=== PATIENT | female | born 1965 | race Two or more races ===

== ENCOUNTER → 2022-10-13 09:20 | Outpatient (BNVA) | payer MEDICARE, OTHER, SELFPAY | PROVIDERS: PCP Internal Medicine; Visit Provider Surgery | DX: E66.01 Morbid (severe) obesity due to excess calories (principal); I10 Essential (primary) hypertension; K21.9 Gastro-esophageal reflux disease without esophagitis; G47.30 Sleep apnea, unspecified; Z68.39 Body mass index [BMI] 39.0-39.9, adult | CPT/HCPCS: Q3014 ==

== ENCOUNTER → 2022-10-15 10:31 | Outpatient (REF) | payer MEDICARE, OTHER, SELFPAY ==
--- NOTE | ~2022-10-15 | XR_ITS ---
EXAMINATION: XR CHEST CLINICAL INFORMATION: Essential primary hypertension. COMPARISON: None TECHNIQUE: 2 views of the chest were obtained. FINDINGS: The lungs are well-expanded and clear. The heart size and pulmonary vascularity is normal. No gross bony abnormality seen. XR/XR chest 2V IMPRESSION: Unremarkable chest examination.
--- NOTE | 2022-10-15 10:41 | ECG_ITS ---
Test Reason : I10 - essential hypertension Blood Pressure : / mmHG Vent. Rate : 061 BPM Atrial Rate : 061 BPM P-R Int : 156 ms QRS Dur : 094 ms QT Int : 422 ms P-R-T Axes : 046 -04 027 degrees QTc Int : 424 ms Normal sinus rhythm Normal ECG No previous ECGs available Referred By: Pravin Vazquez Electronically Signed By:RUTHIE TRAN MD
[2022-10-15 10:46] LABS: MANUAL DIFF FLAG NO
[2022-10-15 10:58] LABS: Basophils Absolute Auto 0.1 X10*3/uL (0.0-0.2); Basophils Percent Auto 0.7 % (0-2); Eosinophils Absolute Auto 0.1 X10*3/uL (0.0-0.4); Eosinophils Percent Auto 1.5 % (0-4); Hematocrit 44.1 % (37.0-47.0); Hemoglobin 14.1 g/dl (12.0-16.0); Imm Gran Abs Auto 0.02 X10*3/uL (0.00-0.03); Imm Gran Pct Auto 0.3 % (0.0-0.4); Lymphocytes Absolute Auto 2.6 X10*3/uL (1.2-4.9); Lymphocytes Percent Auto 36.9 % (20-40); Mean Corpuscular Hemoglobin 29.4 pg (27.0-33.0); Mean Corpuscular Volume 91.9 fL (80.0-98.0); Mean Platelet Volume 9.4 fL (9.4-12.3); Monocytes Absolute Auto 0.4 X10*3/uL (0.1-1.2); Monocytes Percent Auto 6.2 % (2-11); Neutrophils Absolute Auto 3.9 x10*3/uL (2.0-8.3); Neutrophils Percent Auto 54.4 % (45-73); Platelet Count 442 X10*3/uL (160-400); Red Cell Distribution Width 13.8 % (11.0-16.0); White Blood Count 7.1 X10*3/uL (4.8-10.8)
[2022-10-15 11:40] LABS: Alanine Aminotransferase 30 U/L (0-31); Albumin Level 4.5 g/dL (3.5-5.0); Alkaline Phosphatase 98 U/L (39-117); Anion Gap 17 (12-20); Aspartate Amino Transferase 21 U/L (5-31); Bilirubin Total 0.5 mg/dL (0.0-1.0); Blood Urea Nitrogen 24 mg/dL (9-16); Carbon Dioxide 25 mmol/L (22-29); Chloride 101 mmol/L (96-108); Cholesterol 284 mg/dL; Estimated Glomerular Filt Rate 56; Glucose Random 93 mg/dL (60-115); HDL Cholesterol 59 mg/dL; Iron 153 mcg/dL (30-160); LDL Cholesterol Calculated 208 mg/dl; Percent Iron Saturation 34 % (15-50); Potassium 4.7 mmol/L (3.3-5.1); Sodium 138 mmol/L (135-145); Total Iron Binding Capacity 447 mcg/dL (228-428); Total Protein 7.8 g/dL (6.5-8.0); Triglycerides 85 mg/dL; Unsaturated Iron Binding 294 ug/dL
[2022-10-15 11:45] LABS: Estimated Average Glucose 123 mg/dL; Hemoglobin A1C 152.6919 umol/L; Hemoglobin A1c % 5.9 %
[2022-10-15 11:47] LABS: Ferritin 209 ng/mL (10-250); Insulin 15 uU/mL (2-29); TSH reflex Free T4 4.53 uIU/mL (0.32-4.0); Vitamin D 25-OH Total 27.9 ng/mL (>30)
[2022-10-15 12:22] LABS: Free T4 (Free Thyroxine) 0.94 ng/dL (0.71-1.85)
[2022-10-15 14:16] LABS: Folate 14.9 ng/mL (> or = 4.0); Vitamin B12 348 pg/mL (200-900)
[2022-10-17 10:17] LABS: Calcium (PTHI) 9.8 mg/dL (8.6-10.4); PTHI 59 pg/mL (16-77)
[2022-10-19 17:22] LABS: Vitamin B1 18 nmol/L (8-30)
[2022-10-19 19:41] LABS: Zinc 106 mcg/dL (60-130)
[2022-10-20 09:37] LABS: Vitamin A 80 mcg/dL (38-98)
== END ==
LOC: HO.CARD 10:31
PROVIDERS: PCP Internal Medicine; Visit Provider Surgery
DX: E66.01 Morbid (severe) obesity due to excess calories (principal); G47.30 Sleep apnea, unspecified; I10 Essential (primary) hypertension; K21.9 Gastro-esophageal reflux disease without esophagitis
CPT/HCPCS: 36415; 71046; 80053; 80061; 82306; 82607; 82728; 82746; 83036; 83525; 83540; 83970; 84425; 84439; 84443; 84590; 84630; 85025; 86140; 93005

== ENCOUNTER → 2022-11-05 10:11 | Outpatient (BNVA) | payer MEDICARE, OTHER, SELFPAY | PROVIDERS: PCP Internal Medicine; Visit Provider Physician Assistant Surgical | DX: Z11.0 Encounter for screening for intestinal infectious diseases (principal) | CPT/HCPCS: 83013; 99211 ==

== ENCOUNTER 2022-11-05 15:25 | Outpatient (REF) | payer MEDICARE, OTHER, SELFPAY ==
[2022-11-07 15:27] LABS: H Pylori Breath Test Negative (Negative)
== END 2022-11-05 15:26 | disposition home or self-care (01) ==
LOC: HO.LNP 15:25
PROVIDERS: Visit Provider Surgery
DX: Z13.89 Encounter for screening for other disorder (principal)
CPT/HCPCS: 83013

== ENCOUNTER → 2022-11-08 08:12 | Outpatient (BNVA) | payer MEDICARE, OTHER, SELFPAY | PROVIDERS: PCP Internal Medicine; Visit Provider Surgery | DX: E66.9 Obesity, unspecified (principal); I10 Essential (primary) hypertension; G47.30 Sleep apnea, unspecified; Z68.38 Body mass index [BMI] 38.0-38.9, adult | CPT/HCPCS: Q3014 ==

== ENCOUNTER → 2022-11-09 13:33 | Outpatient (BNVA) | payer MEDICARE, OTHER, SELFPAY | PROVIDERS: PCP Internal Medicine; Visit Provider Dietitian, Registered | DX: E66.9 Obesity, unspecified (principal); Z68.38 Body mass index [BMI] 38.0-38.9, adult | CPT/HCPCS: 97802 ==

== ENCOUNTER → 2022-11-18 13:00 | Outpatient (BNVA) | payer MEDICARE, OTHER, SELFPAY | PROVIDERS: PCP Internal Medicine; Visit Provider Counselor Mental Health | DX: F50.81 Binge eating disorder (principal); E66.9 Obesity, unspecified | CPT/HCPCS: 90791 ==

== ENCOUNTER → 2022-12-03 08:19 | Outpatient (BNVA) | payer MEDICARE, OTHER, SELFPAY | PROVIDERS: PCP Internal Medicine; Visit Provider Surgery | DX: E66.9 Obesity, unspecified (principal); Z68.42 Body mass index [BMI] 45.0-49.9, adult | CPT/HCPCS: Q3014 ==

== ENCOUNTER 2022-12-14 08:37 | Outpatient (REF) | payer MEDICARE, OTHER, SELFPAY ==
--- NOTE | ~2022-12-14 | US_ITS ---
EXAMINATION: US COMPLETE ABDOMEN WITH LIVER ELASTOGRAPHY CLINICAL INFORMATION: Morbid obesity. COMPARISON: None. TECHNIQUE: Real-time imaging of the abdominal viscera. Noninvasive ultrasound liver fibrosis assessment is performed using Mariah ElastPQ point quantification shear wave elastography (2D-SWE) with a C5-2 MHz transducer. Multiple elastography samples are obtained. FINDINGS: PANCREAS: Normal. The visualized pancreatic head and body are normal in appearance. The remainder of the pancreas is obscured from visualization by the overlying bowel gas. ABDOMINAL AORTA: The proximal, middle, and distal aortic segments are normal in caliber. INFERIOR VENA CAVA: Visualized portions are normal. LIVER: The liver demonstrates normal size, contour and increased echogenicity. No focal lesion or intrahepatic biliary duct dilatation. The right lobe measures 13.3 cm in length. The left lobe measures 7.7 cm in length. Portal flow is hepatopedal. Shear wave liver elastography median stiffness is 1.33 m/s (reference: normal median stiffness is 1.3 m/s or less). IQR/median stiffness to assess sampling precision is 0 point (reference: good quality data set is IQR/median stiffness of 0.15 or less). GALLBLADDER: Normal. The gallbladder is physiologically distended without evidence of stones, sludge, polyps, wall thickening or pericholecystic fluid. COMMON BILE DUCT: CBD is not visualized.. RIGHT KIDNEY: Normal. No hydronephrosis. No renal calculi or focal parenchymal lesions. The kidney measures 11.7 cm in maximum dimension. LEFT KIDNEY: Normal. No hydronephrosis. No renal calculi or focal parenchymal lesions. The kidney measures 10.9 cm in maximum dimension. SPLEEN: Normal. The spleen measures 10.2 cm in maximum dimension. FREE FLUID: None. US/US abdomen comp w elastography IMPRESSION: 1. Diffuse hepatic steatosis without focal lesion. No focal lesion seen. The rest of the abdominal ultrasound is unremarkable. 2. Liver elastography: Median liver stiffness measures 1.33 m/s suggestive of high probability normal. REFERENCE: Society of Radiologists in Ultrasound Liver Stiffness Thresholds (2020): LIVER STIFFNESS THRESHOLDS: *Liver Stiffness equal or less than 1.3 m/s: High probability of being normal. *Liver Stiffness less than 1.7 m/s: In the absence of other known clinical signs, rules out compensated advanced chronic liver disease. *Liver Stiffness 1.7-2.1 m/s: Suggestive of compensated advanced chronic liver disease but need further test for confirmation. *Liver Stiffness over 2.1 m/s: Rules in compensated advanced chronic liver disease. *Liver Stiffness over 2.4 m/s: Suggestive of clinically significant portal hypertension. QUALITY OF DATA SET: *IQR/Median value equal or less than 0.15 implies a quality data set. *IQR/Median value over 0.15 implies a poor quality data set. SIGNIFICANT CHANGE FROM PRIOR EXAM: Significant change if liver stiffness measurement is 10% or greater from prior exam. OTHER CONSIDERATIONS: The stage of liver fibrosis may be overestimated in the setting of acute hepatitis, liver inflammation, elevated liver function tests, hepatic vascular congestion, obstructive cholestasis, non-fasting state, and infiltrative diseases such as amyloidosis and lymphoma. In some patients with NAFLD, the liver stiffness thresholds for compensated advanced chronic liver disease may be lower. In causes other than viral hepatitis and NAFLD, liver stiffness thresholds are not well established.
--- NOTE | ~2022-12-14 | FL_ITS ---
EXAMINATION: XR FLUOROSCOPY UPPER GI WITH AIR CLINICAL INFORMATION: Essential hypertension. Preoperative. Obesity. COMPARISON: None TECHNIQUE: Fluoroscopic assessment of the upper GI tract was performed in various upright and supine/prone obliquities utilizing thin and thick high density barium contrast material and effervescent granules. FINDINGS: The esophagus was normal in course, caliber, and contour. There was normal distensibility with no fixed segment of narrowing. No focal mucosal abnormality was identified. A 13 mm barium tablet was utilized. This passed through the esophagus and into the stomach without delay. No significant esophageal dysmotility was observed. Contrast passed freely across the gastroesophageal junction into the stomach. No significant hiatal hernia. There was normal distensibility of the stomach with no focal abnormality identified. There was prompt gastric emptying into the duodenum which demonstrated a normal appearance. No significant gastroesophageal reflux was observed. FLUOROSCOPY TIME: 1.7 minutes DOSE AREA PRODUCT: 32.447 Gy-cm2 (hammer-centimeter squared) FL/FL upper GI w air IMPRESSION: Normal upper GI examination.
[2022-12-14 08:59] LABS: MANUAL DIFF FLAG NO
[2022-12-14 09:23] LABS: Basophils Percent Auto 0.8 % (0-2); Eosinophils Absolute Auto 0.1 X10*3/uL (0.0-0.4); Eosinophils Percent Auto 2.5 % (0-4); Hematocrit 42.3 % (37.0-47.0); Imm Gran Abs Auto 0.01 X10*3/uL (0.00-0.03); Imm Gran Pct Auto 0.2 % (0.0-0.4); Lymphocytes Absolute Auto 1.9 X10*3/uL (1.2-4.9); Lymphocytes Percent Auto 36.5 % (20-40); Mean Corpuscular HGB Conc 33.1 g/dl (31.0-35.0); Mean Corpuscular Volume 90.8 fL (80.0-98.0); Mean Platelet Volume 10.2 fL (9.4-12.3); Monocytes Absolute Auto 0.3 X10*3/uL (0.1-1.2); Monocytes Percent Auto 6.1 % (2-11); Neutrophils Absolute Auto 2.8 x10*3/uL (2.0-8.3); Neutrophils Percent Auto 53.9 % (45-73); Platelet Count 367 X10*3/uL (160-400); Red Blood Count 4.66 X10*6/uL (4.20-5.50); Red Cell Distribution Width 13.9 % (11.0-16.0); White Blood Count 5.2 X10*3/uL (4.8-10.8)
[2022-12-14 09:26] LABS: Prothrombin Time 11.8 SEC (10.0-13.1)
[2022-12-14 09:29] LABS: Partial Thromboplastin Time 32.8 SEC (26.0-36.4)
[2022-12-14 09:59] LABS: Estimated Average Glucose 105 mg/dL; Hemoglobin A1c % 5.3 %
[2022-12-14 10:38] LABS: Alanine Aminotransferase 38 U/L (0-31); Albumin Level 4.3 g/dL (3.5-5.0); Alkaline Phosphatase 97 U/L (39-117); Anion Gap 11 (12-20); Aspartate Amino Transferase 33 U/L (5-31); Bilirubin Total 0.4 mg/dL (0.0-1.0); Blood Urea Nitrogen 13 mg/dL (9-16); C Reactive Protein 0.48 mg/dL (< or = 0.50); Calcium 9.8 mg/dL (8.4-10.2); Carbon Dioxide 28 mmol/L (22-29); Chloride 106 mmol/L (96-108); Cholesterol 214 mg/dL; Estimated Glomerular Filt Rate > 60; Glucose Random 94 mg/dL (60-115); HDL Cholesterol 41 mg/dL; LDL Cholesterol Calculated 155 mg/dl; Potassium 4.9 mmol/L (3.3-5.1); Sodium 140 mmol/L (135-145); Total Protein 7.3 g/dL (6.5-8.0); Triglycerides 91 mg/dL
[2022-12-14 10:42] LABS: Insulin 10 uU/mL (2-29); TSH reflex Free T4 2.68 uIU/mL (0.32-4.0)
== END 2022-12-14 08:38 | disposition home or self-care (01) ==
LOC: HO.US 08:37
PROVIDERS: PCP Internal Medicine; Visit Provider Surgery
DX: E66.01 Morbid (severe) obesity due to excess calories (principal); Z68.36 Body mass index [BMI] 36.0-36.9, adult; G47.30 Sleep apnea, unspecified; I10 Essential (primary) hypertension; K21.9 Gastro-esophageal reflux disease without esophagitis
CPT/HCPCS: 36415; 74246; 76705; 76981; 80053; 80061; 83036; 83525; 84443; 85025; 85610; 85730; 86140

== ENCOUNTER → 2022-12-17 12:47 | Outpatient (BNVA) | payer MEDICARE, OTHER, SELFPAY | PROVIDERS: PCP Internal Medicine; Visit Provider Surgery | DX: Z13.89 Encounter for screening for other disorder (principal) ==

== ENCOUNTER 2022-12-21 06:07 | Inpatient (IN) | payer MEDICARE, OTHER, SELFPAY ==
[2022-12-10 13:36] VITALS: BMI 37.1
--- NOTE | 2022-12-17 23:58 | MHC.SHP ---
Pre-Procedural Eval Section A Date of Service: 12/17/22 The patient is an INPATIENT: Yes The History & Physical has been completed within 30 days and I have reviewed it.: Yes Section B Chief Complaint: obesity Relevant Family History (Specify if Yes): No Relevant Social History: None Present Medications: None Medical History: No relevant PMH History of Previous Operations: No relevant previous surgery Allergies: Allergies Allergy/AdvReac Type Severity Reaction Status Date / Time No Known Allergies Allergy Verified 12/03/22 10:14 Review of Systems Sugical H&P ROS: Negative: Constitution, Cardiovascular, Respiratory, Neurological, Psychiatric, Hem-Onc, Allergic/Immunologic, Gastrointestinal, Genitourinary, Musculoskeletal, Integumentary, Endocrine and Eyes/Ears/Nose/Throat Exam Surgical H&P Exam: Normal: HEENT, Normal: Heart, Normal: Lungs, Normal: Extremities, Normal: Abdomen, Normal: Skin and Normal: Neurological Plan Diagnosis/Plan: Unchanged I have reviewed the history and physical and performed a pertinent physical examination on my patient. No changes have occurred unless specified. Time Spent With Patient Time: Total time managing care of this patient today ____ minutes.
[2022-12-20 14:08] LABS: COVID-19 Test Negative (Negative); IDNOW Serial# 9DB6401D
[2022-12-21] VITALS (14 sets, daily range): BP systolic 122–153; BP diastolic 61–73; PULSE 61–89; RESP 11–20; TEMP 35.9–36.5; O2SAT 93–100; BMI 33.6
--- OUTSIDE RECORDS SUMMARY | 2022-12-21 06:17 | XMS_ITS | Continuity of Care Document ---
:[address] [facility] Address [address] [place] [address]- Care Team Providers Name Role Phone Rosa GONZALEZ, Bakari Wells Primary Care Physician Encounter [facility] Date(s): 10/25/20 - 11/24/20 [facility] [address] [place], [place] [address] Allergies, Adverse Reactions, Alerts Substance Reaction Severity Status NKA Active Immunizations Given and Recorded Vaccine Date Status Refusal Reason tetanus/diphtheria/pertussis, acel(Tdap)1 10/24/20 Given tetanus/diphtheria/pertussis, acel(Tdap)2 12/15/10 Given Influenza Virus Vaccine (oldterm) 10/09/20 Recorded influenza virus vaccine, inactivated3 08/27/19 Given influenza virus vaccine, inactivated4 11/23/18 Given influenza virus vaccine, inactivated5 09/19/17 Given influenza virus vaccine, inactivated 10/12/16 Given influenza virus vaccine, inactivated 09/22/15 Recorded influenza virus vaccine, inactivated 08/23/14 Given influenza virus vaccine, inactivated6 10/25/13 Given influenza virus vaccine, inactivated7 09/25/12 Given influenza virus vaccine, inactivated8 11/12/11 Given influenza virus vaccine, inactivated9 12/15/10 Given influenza virus vaccine, [id number] 08/17/10 Given tetanus-diphtheria toxoids (Td)11 09/15/99 Given 1Result Comment: [id number] Note: GIVEN W/O INCIDENT INFO SHEET [id number] Comment: [id number] Comment: [11/23/2018] [id number] [id number] Comment: [09/19/2017] [id number] Comment: [10/25/2013] GIVEN W/O INCIDENSE...[id number] Note: [id number] Note: [id number] Note: MANUFACTURE BIOMEDICAL INFO SHEET GIVEN GIVEN W/O [id number] Note: [id number] Note: DONE IN E.R. Medications Aricept 10 mg oral tablet 10 mg, 1, tablet, By Mouth, Daily at bedtime, for 90 days, # 90 tablet, Refills 3, Tot. Refills 3, Hard Stop 01/16/21 12:56:00 EST, 01/22/20 12:56:00 EST, Route to Pharmacy Electronically, [facility], do not fill until pt calls, 164, cm,... Start Date: 01/22/20 Stop Date: 01/16/21 Status: OrderedAricept 10 mg oral tablet 10 mg, 1, tablet, By Mouth, Daily at bedtime, # 90 tablet, Refills 3, Tot. Refills 3, Maintenance, 01/16/21 12:56:00 EST, Route to Pharmacy Electronically, [facility] 1966, do not fill until pt calls, 164, cm, 10/24/20 15:22:00 EST, Height Start Date: 01/16/21 Status: Orderedchlorhexidine topical 0.12% liquid 15 mL = 0.018 Gm, By Mouth, 2 times a day, # 480 mL, 0 Refills, Maintenance, 07/28/18 15:18:55 EDT, Liquid Start Date: 07/28/18 Status: OrderedCPAP Equipment See Instructions, # 1 each, Refills 11, Tot. 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 Refills 11, Maintenance, use nightly, 09/20/17 9:49:07, Compound Start Date: 09/20/17 Status: OrderedEffexor XR 75 mg oral capsule, extended release 75 mg, 1, capsule, By Mouth, 2 times a day, do not crush or chew, # 180 capsule, Refills 3, Tot. Refills 3, Maintenance, 07/17/20 16:41:00 EDT, Route to Pharmacy Electronically, [facility] 1967, 164, cm, 11/15/19 11:34:00 EST, Height Start Date: 07/17/20 Stop Date: 07/12/21 Status: OrderedFlonase 50 mcg/inh nasal spray 1 sprays, Nares, Both, 2 times a day, # 16 Gm, 11 Refills, Maintenance, 08/01/19 8:07:48 EDT, [place],1 sprays Nares, Both 2 times a day Start Date: 08/01/19 Status: Orderedgabapentin 300 mg oral capsule 300 mg, 1, capsule, By Mouth, 3 times a day, take with 600 mgs tablet to = 900 mgs three times per day, # 90 capsule, Refills 4, Tot. Refills 4, Maintenance, 07/04/20 14:35:00 EDT, Route to Pharmacy Electronically, [facility] 1967, do not... Start Date: 07/04/20 Status: Orderedgabapentin 600 mg oral tablet 1 tablet = 600 mg, By Mouth, 3 times a day, take with 300 mgs tablet to = 900 mgs three times per day, # 90 tablet, 4 Refills, Maintenance, 07/04/20 14:35:00 EDT, [facility] 1967, 164, cm, 11/15/19 11:34:00 EST, Height Start Date: 07/04/20 Status: Orderedlevothyroxine 0.05 mg oral tablet 8 tablet = 400 mcg, By Mouth, Every week, 6 days one daily; 1 day take two, # 104 tablet, 3 Refills,Maintenance, 10/24/20 23:15:00 EST, Tablet, [facility] 1967, 164, cm, 10/24/20 15:22:00 EST, Height Start Date: 10/24/20 Status: OrderedLinzess By Mouth, Daily, 0 Refills, Maintenance, 07/28/18 15:20:22 EDT Start Date: 07/28/18 Status: Orderedmeloxicam 15 mg oral tablet 1 tablet = 15 mg, By Mouth, Daily, # 90 tablet, 3 Refills, Maintenance, 07/17/20 16:41:00 EDT, Tablet, [facility] 1967, 164, cm, 11/15/19 11:34:00 EST, Height Start Date: 07/17/20 Stop Date: 07/12/21 Status: Orderedmetoprolol 25 mg oral tablet, extended release 75 mg, 3, tablet, By Mouth, Daily, # 270 tablet, Refills 3, Tot. Refills 3, Maintenance, 07/17/20 16:41:00 EDT, Route to Pharmacy Electronically, [facility] 1967, 164, cm, 11/15/19 11:34:00 EST, Height Start Date: 07/17/20 Stop Date: 07/12/21 Status: OrderedNeutral Sodium Fluoride Rinse 10 mL, Topically, 0 Refills, Maintenance, 07/28/18 15:18:11 EDT Start Date: 07/28/18 Status: Orderedomeprazole 20 mg oral enteric coated capsule 1 capsule = 20 mg, By Mouth, Daily, # 90 capsule, 3 Refills, Maintenance, 07/17/20 16:41:00 EDT, EC Capsule, [facility] 1967, 164, cm, 11/15/19 11:34:00 EST, Height Start Date: 07/17/20 Status: OrderedtraMADol 50 mg oral tablet 1 tablet, By Mouth, Every 8 hours, prn pain, # 21 tablet, 0 Refills, Maintenance, 11/11/20 17:28:00 EST, Tablet, [facility] 1966, i am aware of potential interactions with her medications, 164, cm, 10/24/20 15:22:00 EST, Height Start Date: 11/11/20 Stop Date: 11/18/20 Status: OrderedTylenol Arthritis Extended Release = 1,300 mg, By Mouth, 2 times a day, not to exceed 6 tablets/day, 0 Refills, Soft Stop, 04/07/09 18:55:13 EDT Start Date: 04/07/09 Stop Date: 05/07/09 Status: OrderedVitamin D3 2000 intl units oral capsule 1 capsule = 2,000 International_Units, By Mouth, Daily, # 30 capsule, 11 Refills, Maintenance, 02/11/20 14:14:00 EDT, [facility] 1965, 164, cm, 11/15/19 11:34:00 EST, Height Start Date: 02/11/20 Status: OrderedWalyancy See Instructions, # 1 units, Maintenance, use daily DX fibromyalgia / Dementia, 07/15/17 16:30:42, Compound Start Date: 07/15/17 Status: OrderedWalker See Instructions, # 1 units, Maintenance, wheeled walker DX Fibromyalgia/ leg weakness, 11/16/10 13:09:32 Start Date: 11/16/10 Status: Ordered Problem List Condition Effective Dates Status Health Status Informant section(Confirmed) Active CTS - Carpal tunnel Active syndrome(Confirmed) Cyst of breast(Confirmed) Active DDD (degenerative disc disease), Active cervical(Confirmed) Depression(Confirmed) Active Fibromyalgia(Confirmed) Active 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
--- OUTSIDE RECORDS SUMMARY | 2022-12-21 06:17 | XMS_ITS | Continuity of Care Document ---
:1965 Author Organization [facility] Address [address] [place] [address]- Care Team Providers Name Role Phone Rosa GONZALEZ, Bakari Wells Primary Care Physician [facility] Date(s): 09/30/21 - 10/30/21 [facility] [address] [place], [place] [address] Allergies, Adverse Reactions, Alerts Substance Reaction Severity Status NKA Active Immunizations Given and Recorded Vaccine Date Status Refusal Reason influenza virus vaccine, inactivated1 09/15/21 Given influenza virus vaccine, inactivated2 08/27/19 Given influenza virus vaccine, inactivated3 11/23/18 Given influenza virus vaccine, inactivated4 09/19/17 Given influenza virus vaccine, inactivated 10/12/16 Given influenza virus vaccine, inactivated 09/22/15 Recorded influenza virus vaccine, inactivated 08/23/14 Given influenza virus vaccine, inactivated5 10/25/13 Given influenza virus vaccine, inactivated6 09/25/12 Given influenza virus vaccine, inactivated7 11/12/11 Given influenza virus vaccine, inactivated8 12/15/10 Given influenza virus vaccine, inactivated9 08/17/10 Given SARS-CoV-2 (COVID-19) mRNA BNT-162b2 vac 04/15/21 Recorde d SARS-CoV-2 (COVID-19) mRNA BNT-162b2 vac 03/25/21 Recorde d tetanus/diphtheria/pertussis, acel(Tdap)10 10/24/20 Given tetanus/diphtheria/pertussis, acel(Tdap)11 12/15/10 Given Influenza Virus Vaccine (oldterm) 10/09/20 Recorded tetanus-diphtheria toxoids (Td)12 09/15/99 Given 1Result Comment: [id number] Comment: [id number] Comment: [11/23/2018] [id number] Comment: [09/19/2017] [id number] Comment: [10/25/2013] GIVEN W/O INCIDENSE...[id number] Note: [id number] Note: [id number] Note: MANUFACTURE BIOMEDICAL INFO SHEET GIVEN GIVEN W/O [id number] Note: [id number] Comment: [id number] Note: GIVEN W/O INCIDENT INFO SHEET [id number] Note: DONE IN E.R. Medications Aricept 10 mg oral tablet 10 mg, 1, tablet, By Mouth, Daily at bedtime, # 90 tablet, Refills 3, Tot. Refills 3, Maintenance, 01/23/21 13:12:00 EST, Route to Pharmacy Electronically, [facility] 1966, do not fill until pt calls, 164, cm, 10/24/20 15:22:00 EST, Height Start Date: 01/23/21 Status: Orderedcannabidiol 100 mg/mL oral liquid 3.5 mL = 350 mg, By Mouth, 2 times a day, 0 Refills, Maintenance, 09/15/21 12:16:00 EDT, Partial fill upon patient request if the prescription is for a schedule II opioid drug. 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 Refills 11, Maintenance, use nightly, 09/20/17 9:49:07, Compound Start Date: 09/20/17 Status: Orderedcyclobenzaprine 10 mg oral tablet 1, tablet, By Mouth, 3 times a day, # 90 tablet, Refills 3, Route to Pharmacy Electronically, [facility] 1965, 164, cm, 04/24/21 15:00:00 EDT, Height Start Date: 08/31/21 Status: OrderedFlonase 50 mcg/inh nasal spray 1 sprays, Nares, Both, 2 times a day, # 16 Gm, 11 Refills, Maintenance, 07/20/21 12:47:00 EDT, [place], [facility] 1967, 1 sprays Nares, Both 2 times a day, 164, cm, 04/24/21 15:00:00 EDT, Height Start Date: 07/20/21 Status: Orderedgabapentin 300 mg oral capsule 300 mg, 1, capsule, By Mouth, 3 times a day, take with 600 mgs tablet to = 900 mgs three times per day, # 90 capsule, Refills 11, Tot. Refills 11, Maintenance, 02/16/21 17:27:00 EDT, Route to Pharmacy Electronically, [facility] 1967, do no... Start Date: 02/16/21 Status: Orderedgabapentin 600 mg oral tablet 1 tablet, By Mouth, 3 times a day, *., # 90 tablet, 11 Refills, Maintenance, 01/05/21 12:27:00 EST, [facility] 1965, 164, cm, 10/24/20 15:22:00 EST, Height Start Date: 01/05/21 Status: Orderedlevothyroxine 0.05 mg oral tablet 8 tablet = 400 mcg, By Mouth, Every week, 6 days one daily; 1 day take two, # 104 tablet, 3 Refills,Maintenance, 09/15/21 12:29:00 EDT, Tablet, [facility] 1967, 164, cm, 09/15/21 11:49:00 EDT, Height Start Date: 09/15/21 Status: OrderedLinzess By Mouth, Daily, 0 Refills, Maintenance, 07/28/18 15:20:22 EDT Start Date: 07/28/18 Status: Orderedmeloxicam 15 mg oral tablet 1 tablet = 15 mg, By Mouth, Daily, # 90 tablet, 3 Refills, Maintenance, 09/15/21 12:29:00 EDT, Tablet, [facility] 1965, 164, cm, 09/15/21 11:49:00 EDT, Height Start Date: 09/15/21 Stop Date: 09/10/22 Status: Orderedmetoprolol 50 mg oral tablet, extended release 50 mg, 1, tablet, By Mouth, 2 times a day, # 180 tablet, Refills 3, Tot. Refills 3, Maintenance, 04/24/21 15:39:00 EDT, Route to Pharmacy Electronically, [facility] 1966, Partial fill upon patient request if the prescription is for a schedule II... Start Date: 04/24/21 Stop Date: 04/19/22 Status: OrderedNeutral Sodium Fluoride Rinse 10 mL, Topically, 0 Refills, Maintenance, 07/28/18 15:18:11 EDT Start Date: 07/28/18 Status: Orderedomeprazole 20 mg oral enteric coated capsule 1 capsule = 20 mg, By Mouth, Daily, # 90 capsule, 3 Refills, Maintenance, 09/15/21 12:29:00 EDT, EC Capsule, [facility] 1965, 164, cm, 09/15/21 11:49:00 EDT, Height Start Date: 09/15/21 Status: OrderedtraMADol 50 mg oral tablet 1 tablet, By Mouth, Every 8 hours, prn pain, # 21 tablet, 0 Refills, Maintenance, 11/11/20 17:28:00 EST, Tablet, [facility] 1965, i am aware of potential interactions with her medications, 164, cm, 10/24/20 15:22:00 EST, Height Start Date: 11/11/20 Stop Date: 11/18/20 Status: OrderedTylenol Arthritis Extended Release = 1,300 mg, By Mouth, 2 times a day, not to exceed 6 tablets/day, 0 Refills, Soft Stop, 04/07/09 18:55:13 EDT Start Date: 04/07/09 Stop Date: 05/07/09 Status: Orderedvenlafaxine 150 mg oral capsule, extended release 1 capsule = 150 mg, By Mouth, 3 times a day, # 270 capsule, 3 Refills, Maintenance, 09/30/21 13:34:00 EST, Partial fill upon patient request if the prescription is for a schedule II opioid drug. Start Date: 09/30/21 Stop Date: 09/25/22 Status: OrderedVitamin D3 2000 intl units oral capsule 1 capsule = 2,000 International_Units, By Mouth, Daily, # 30 capsule, 5 Refills, Maintenance, 08/30/21 8:44:00 EDT, [facility] 1965, 164, cm, 04/24/21 15:00:00 EDT, Height Start Date: 08/30/21 Status: OrderedWalker See Instructions, # 1 units, Maintenance, use daily DX fibromyalgia / Dementia, 07/15/17 16:30:42, Compound Start Date: 07/15/17 Status: Ordered Problem List Condition Effective Dates [...]
--- OUTSIDE RECORDS SUMMARY | 2022-12-21 06:17 | XMS_ITS | Continuity of Care Document ---
:[address] [facility] Address [address] [place] [address]- Care Team Providers Name Role Phone Rosa GONZALEZ, Bakari Wells Primary Care Physician [facility]counter [facility] Date[facility]s): 02/16/21 - 03/18/21 [facility] [address] [place] [address]- Allergies, Adverse Reactions, Alerts Substance Reaction Severity [...] vaccine, inactivated9 12/15/10 Given influenza virus vaccine, [id number] 08/17/10 Given tetanus-diphtheria toxoids (Td)11 09/15/99 Given 1Result Comment: [id number] Note: GIVEN W/O INCIDENT INFO SHEET [id number] Comment: [id number] Comment: [11/23/2018] [id number] 5Result Comment: [09/19/2017] [id number] Comment: [10/25/2013] GIVEN W/O INCIDENSE...[id number] Note: [id number] Note: [id number] Note: MANUFACTURE BIOMEDICAL INFO SHEET GIVEN GIVEN W/O [id number] Note: [id number] Note: DONE IN E.R. Medications Aricept 10 mg oral tablet 10 mg, 1, tablet, By Mouth, Daily at bedtime, # 90 tablet, Refills 3, Tot. 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 Refills 11, Maintenance, use nightly, 09/20/17 9:49:07, Compound Start Date: 09/20/17 Status: OrderedEffexor XR 75 mg oral capsule, extended release 75 mg, 1, capsule, By Mouth, 3 times a day, do not crush or chew, # 270 capsule, Refills 3, Tot. Refills 3, Maintenance, 02/27/21 13:59:00 EDT, Route to Pharmacy Electronically, [facility] 1966, this is an increase to 225 mgs, 164, cm, 04/09/2... Start Date: 02/27/21 Stop Date: 02/22/22 Status: OrderedFlonase 50 mcg/inh nasal spray 1 sprays, Nares, Both, 2 times a day, # 16 Gm, 11 Refills, Maintenance, 08/01/19 8:07:48 EDT, [place],1 sprays Nares, Both 2 times a day Start Date: 08/01/19 Status: Orderedgabapentin 300 mg oral capsule 300 mg, 1, capsule, By Mouth, 3 times a day, take with 600 mgs tablet to = 900 mgs three times per day, # 90 capsule, Refills 11, Tot. Refills 11, Maintenance, 02/16/21 17:27:00 EDT, Route to Pharmacy Electronically, [facility] 1967, do no... Start Date: 02/16/21 Status: Orderedgabapentin 600 mg oral tablet 1 tablet, By Mouth, 3 times a day, *., # 90 tablet, 11 Refills, Maintenance, 01/05/21 12:27:00 EST, [facility], [facility], cm, 10/24/20 15:22:00 EST, Height Start Date: 01/05/21 Status: Orderedlevothyroxine 0.05 mg oral tablet 8 tablet = 400 mcg, By Mouth, Every week, 6 days one daily; 1 day take two, # 104 tablet, 3 Refills,Maintenance, 10/24/20 23:15:00 EST, [facility]t, [facility], 164, cm, 10/24/20 15:22:00 EST, Height Start Date: 10/24/20 Status: OrderedLinzess By Mouth, Daily, 0 Refills, Maintenance, 07/28/18 15:20:22 EDT Start Date: 07/28/18 Status: Orderedmeloxicam 15 mg oral tablet 1 tablet = 15 mg, By Mouth, Daily, # 90 tablet, 3 Refills, Maintenance, 07/17/20 16:41:00 EDT, [facility]t, [facility], 164, cm, 11/15/19 11:34:00 EST, Height Start Date: 07/17/20 Stop Date: 07/12/21 Status: Orderedmetoprolol 50 mg oral tablet, extended release 75 mg, 1.5, tablet, By Mouth, Daily, # 135 tablet, Refills 3, Tot. Refills 3, Maintenance, 12/22/20 17:10:00 EST, Route to Pharmacy Electronically, [facility] 1967, Partial fill upon patient request if the prescription is for a schedule II opioi... Start Date: 12/22/20 Stop Date: 12/17/21 Status: OrderedNeutral Sodium Fluoride Rinse 10 mL, Topically, 0 Refills, Maintenance, 07/28/18 15:18:11 EDT Start Date: 07/28/18 Status: Orderedomeprazole 20 mg oral enteric coated capsule 1 capsule = 20 mg, By Mouth, Daily, # 90 capsule, 3 Refills, Maintenance, 07/17/20 16:41:00 EDT, EC Capsule, [facility] 1967, 164, cm, 11/15/19 11:34:00 EST, Height Start Date: 07/17/20 Status: OrderedtraMADol 50 mg oral tablet 1 tablet, By Mouth, Every 8 hours, prn pain, # 21 tablet, 0 Refills, Maintenance, 11/11/20 17:28:00 EST, Tablet, [facility], i am aware of potential [...] Daily, # 30 capsule, 5 Refills, Maintenance, 02/18/21 10:10:00 EDT, [facility], 164, cm, 10/24/20 15:22:00 EST, Height Start Date: 02/18/21 Status: OrderedWalker See Instructions, # 1 units, [...]
--- OUTSIDE RECORDS SUMMARY | 2022-12-21 06:17 | XMS_ITS | Continuity of Care Document ---
:1965 Author Organization [facility] Address [address] [place] [address]- Care Team Providers Name Role Phone Bakari Lee MD Primary Care Physician En[place] [facility](s): 04/24/21 - 06/27/21 [facility] [address] [place], [place] [address] Attending Physician: Bakari Lee MD Allergies, Adverse Reactions, Alerts Substance Reaction Severity Status NKA Active Immunizations Given and Recorded Vaccine Date Status Refusal Reason SARS-CoV-2 (COVID-19) mRNA BNT-162b2 vac 04/15/21 Recorde d SARS-CoV-2 (COVID-19) mRNA BNT-162b2 vac 03/25/21 Recorde d tetanus/diphtheria/pertussis, acel(Tdap)1 10/24/20 Given tetanus/diphtheria/pertussis, acel(Tdap)2 12/15/10 [...] vaccine, inactivated9 12/15/10 Given influenza virus vaccine, [id number] 08/17/10 Given tetanus-diphtheria toxoids (Td)11 09/15/99 Given 1Result Comment: [id number] Note: GIVEN W/O INCIDENT INFO SHEET [id number] Comment: [id number] Comment: [11/23/2018] [id number] 5Result Comment: [09/19/2017] [id number] Comment: [10/25/2013] GIVEN W/O INCIDENSE...FX8Wnoil Note: [id number] Note: [id number] Note: MANUFACTURE BIOMEDICAL INFO SHEET GIVEN GIVEN W/O [id number] Note: [id number] Note: DONE IN E.R. Medications Aricept 10 mg oral tablet 10 mg, 1, tablet, By Mouth, Daily at bedtime, # 90 tablet, Refills 3, Tot. Refills 3, Maintenance, 01/23/21 13:12:00 EST, Route to Pharmacy Electronically, [facility] 1966, do not fill until pt [...] 09/20/17 9:49:07, Compound Start Date: 09/20/17 Status: OrderedFlonase 50 mcg/inh nasal spray 1 sprays, Nares, Both, 2 times a day, # 16 Gm, 11 Refills, Maintenance, 08/01/19 8:07:48 EDT, [place],1 sprays Nares, Both 2 times a day Start Date: 08/01/19 Status: Orderedgabapentin 300 mg oral capsule 300 mg, 1, capsule, By Mouth, 3 times a day, take with 600 mgs tablet to = 900 mgs three times per day, # 90 capsule, Refills 11, Tot. Refills 11, Maintenance, 02/16/21 17:27:00 EDT, Route to Pharmacy Electronically, [facility] 1967, do no... Start Date: 02/16/21 Status: Orderedgabapentin 600 mg oral tablet 1 tablet, By Mouth, 3 times a day, *., # 90 tablet, 11 Refills, Maintenance, 01/05/21 12:27:00 EST, [facility], 164, cm, 10/24/20 15:22:00 EST, Height Start Date: 01/05/21 Status: Orderedlevothyroxine 0.05 mg oral tablet 8 tablet = 400 mcg, By Mouth, Every week, 6 days one daily; 1 day take two, # 104 tablet, 3 Refills,Maintenance, 10/24/20 23:15:00 EST, Tablet, [facility], 164, cm, 10/24/20 15:22:00 EST, Height Start Date: 10/24/20 Status: OrderedLinzess By Mouth, Daily, 0 Refills, Maintenance, 07/28/18 15:20:22 EDT Start Date: 07/28/18 Status: Orderedmeloxicam 15 mg oral tablet 1 tablet = 15 mg, By Mouth, Daily, # 90 tablet, 3 Refills, Maintenance, 07/17/20 16:41:00 EDT, Tablet, [facility] 1965, 164, cm, 11/15/19 11:34:00 EST, Height Start Date: 07/17/20 Stop Date: 07/12/21 Status: Orderedmetoprolol 50 mg oral tablet, extended release 50 mg, 1, tablet, By Mouth, 2 times a day, # 180 tablet, Refills 3, Tot. Refills 3, Maintenance, 04/24/21 15:39:00 EDT, Route to Pharmacy Electronically, [facility] 1967, Partial fill upon patient request [...] Refills, Maintenance, 07/17/20 16:41:00 EDT, EC Capsule, [facility], 164, cm, 11/15/19 11:34:00 EST, Height Start Date: 07/17/20 Status: OrderedtraMADol 50 mg oral tablet 1 tablet, By Mouth, Every 8 hours, prn pain, # 21 tablet, 0 Refills, Maintenance, 11/11/20 17:28:00 EST, Tablet, [facility], i am aware of potential [...] 1 capsule = 150 mg, By Mouth, 2 times a day, # 180 capsule, 3 Refills, Maintenance, 04/30/21 17:34:00 EDT, [facility], Partial fill upon patient request if the prescription is for a scheduleII opioid drug., 164, cm, 04/24/21 15:00:00 EDT,... Start Date: 04/30/21 Stop Date: 04/25/22 Status: OrderedVitamin D3 2000 intl units oral capsule 1 capsule = 2,000 International_Units, By Mouth, Daily, # 30 capsule, 5 Refills, Maintenance, 02/18/21 10:10:00 EDT, [facility], 164, cm, 10/24/20 15:22:00 EST, [...]
--- OUTSIDE RECORDS SUMMARY | 2022-12-21 06:17 | XMS_ITS | Continuity of Care Document ---
:1965 Author Organization [facility] Address [address] [place] [address]- Care Team Providers Name Role Phone Bakari Lee MD Primary Care Physician [facility] Date(s): 09/15/21 - 09/22/21 [facility] [address] [place], [place] [address] Attending Physician: Bakari Lee MD Allergies, [...] tetanus-diphtheria toxoids (Td)12 09/15/99 Given 1Result Comment: [id number] Comment: [id number] Comment: [11/23/2018] [id number] Comment: [09/19/2017] [id number] Comment: [10/25/2013] GIVEN W/O INCIDENSE...[id number] Note: [id number] Note: [id number] Note: MANUFACTURE BIOMEDICAL INFO SHEET GIVEN GIVEN W/O [id number] Note: [id number] Comment: [id number] Note: GIVEN W/O INCIDENT INFO SHEET [id number] Note: DONE IN E.R. Medications Aricept 10 mg oral tablet 10 mg, 1, tablet, By Mouth, Daily at bedtime, # 90 tablet, Refills 3, Tot. Refills 3, Maintenance, 01/23/21 13:12:00 EST, Route to Pharmacy Electronically, [facility], do not fill [...] tablet, Refills 3, Route to Pharmacy Electronically, [facility], 164, cm, 04/24/21 15:00:00 EDT, Height Start Date: 08/31/21 Status: OrderedFlonase 50 mcg/inh nasal spray 1 sprays, Nares, Both, 2 times a day, # 16 Gm, 11 Refills, Maintenance, 07/20/21 12:47:00 EDT, [place], [facility], 1 sprays Nares, Both 2 [...] 02/16/21 17:27:00 EDT, Route to Pharmacy Electronically, [facility], do no... Start Date: 02/16/21 Status: Orderedgabapentin 600 mg oral tablet 1 tablet, By Mouth, 3 times a day, *., # 90 tablet, 11 Refills, Maintenance, 01/05/21 12:27:00 EST, [facility] 1965, 164, cm, 10/24/20 15:22:00 EST, Height Start Date: 01/05/21 Status: Orderedlevothyroxine 0.05 mg oral tablet 8 tablet = 400 mcg, By Mouth, Every week, 6 days one daily; 1 day take two, # 104 tablet, 3 Refills,Maintenance, 09/15/21 12:29:00 EDT, Tablet, [facility] 1965, 164, cm, 09/15/21 11:49:00 EDT, Height Start Date: 09/15/21 Status: OrderedLinzess By Mouth, Daily, 0 Refills, Maintenance, 07/28/18 15:20:22 EDT Start Date: 07/28/18 Status: Orderedmeloxicam 15 mg oral tablet 1 tablet = 15 mg, By Mouth, Daily, # 90 tablet, 3 Refills, Maintenance, 09/15/21 12:29:00 EDT, Tablet, [facility] 1965, 164, cm, 09/15/21 11:49:00 EDT, Height Start Date: 09/15/21 Stop Date: 09/10/22 Status: Orderedmetoprolol 50 mg oral tablet, extended release 50 mg, 1, tablet, By Mouth, 2 times a day, # 180 tablet, Refills 3, Tot. Refills 3, Maintenance, 04/24/21 15:39:00 EDT, Route to Pharmacy Electronically, [facility] 1967, Partial fill upon patient request [...] Refills, Maintenance, 09/15/21 12:29:00 EDT, EC Capsule, [facility], 164, cm, 09/15/21 11:49:00 EDT, Height Start Date: 09/15/21 Status: OrderedtraMADol 50 mg oral tablet 1 tablet, By Mouth, Every 8 hours, prn pain, # 21 tablet, 0 Refills, Maintenance, 11/11/20 17:28:00 EST, Tablet, [facility] 1967, i am aware of potential [...] capsule, 3 Refills, Maintenance, 04/30/21 17:34:00 EDT, [facility], Partial fill upon patient request if the prescription is for a scheduleII opioid drug., 164, cm, 04/24/21 15:00:00 EDT,... Start Date: 04/30/21 Stop Date: 04/25/22 Status: OrderedVitamin D3 2000 intl units oral capsule 1 capsule = 2,000 International_Units, By Mouth, Daily, # 30 capsule, 5 Refills, Maintenance, 08/30/21 8:44:00 EDT, [facility], 164, cm, 04/24/21 15:00:00 EDT, [...] bilateral salpingo-oophorectomy(Confirmed)1 1pre cerival cancer sith Papillomvvirus Vital Signs Most recent to oldest [Reference Range]: 1 Height 164.00 cm (09/15/21 11:49 AM) Weight 106 kg (09/15/21 11:49 AM) Oxygen Saturation [94-100 %] 98 % (09/15/21 11:49 AM) Pulse Rate [55-90 bpm] 69 bpm (09/15/21 11:49 AM) Body Mass Index [18.5-24.99] 39.41 *>HHI* (09/15/21 11:49 AM) Blood Pressure [90-138/55-84 mm Hg] 120/70 mm Hg (09/15/21 11:49 AM) Temperature [96.8-100.4 DegF] 97.5 DegF (09/15/21 11:49 AM) Blood pressure sites Arm, left (09/15/21 11:49 AM) Social History Social History Type Response Smoking Status Never smoker entered on: 02/15/14 Sex
--- OUTSIDE RECORDS SUMMARY | 2022-12-21 06:17 | XMS_ITS | Continuity of Care Document ---
:1965 Author Organization [facility] Address [address] [place] [address]- Care Team Providers Name Role Phone Bakari Lee MD Primary Care Physician [facility] Date[facility]s): 02/11/20 - 02/18/20 [facility] [address] [place] [address]- [facility] Attending Physician: Bakari Lee MD Allergies, Adverse Reactions, Alerts Substance Reaction Severity Status NKA Active Immunizations Given and Recorded Vaccine Date Status Refusal Reason influenza virus vaccine, inactivated1 08/27/19 Given influenza virus vaccine, inactivated2 11/23/18 Given influenza virus vaccine, inactivated3 09/19/17 Given influenza virus vaccine, inactivated 10/12/16 Given influenza virus vaccine, inactivated 09/22/15 Recorded influenza virus vaccine, inactivated 08/23/14 Given influenza virus vaccine, inactivated4 10/25/13 Given influenza virus vaccine, inactivated5 09/25/12 Given influenza virus vaccine, inactivated6 11/12/11 Given influenza virus vaccine, inactivated7 12/15/10 Given influenza virus vaccine, inactivated8 08/17/10 Given tetanus/diphtheria/pertussis, acel(Tdap)9 12/15/10 Given tetanus-diphtheria toxoids (Td)10 09/15/99 Given 1Result Comment: [id number] Comment: [11/23/2018] [id number] Comment: [09/19/2017] [id number] Comment: [10/25/2013] GIVEN W/O INCIDENSE...MH5 Admin Note: [id number] Note: [id number] Note: MANUFACTURE BIOMEDICAL INFO SHEET GIVEN GIVEN W/O [id number] Note: [id number] Note: GIVEN W/O INCIDENT INFO SHEET [id number] Note: DONE IN E.R. Medications Aricept 10 mg oral tablet 10 mg, 1, tablet, By Mouth, Daily at bedtime, # 90 tablet, Refills 3, Tot. Refills 3, Maintenance, 01/22/20 12:56:00 EST, Route to Pharmacy Electronically, [facility] 1966, do not fill until pt calls, 164, cm, 11/15/19 11:34:00 EST, Height Start Date: 01/22/20 Stop Date: 01/16/21 Status: Orderedchlorhexidine topical 0.12% liquid [...] 09/20/17 Status: Orderedcyclobenzaprine 10 mg oral tablet 10 mg, 1, tablet, By Mouth, 3 times a day, for 90 days, # 270 tablet, Refills 3, Tot. Refills 3, Acute 04/13/20 9:17:02 EDT, 04/19/19 9:17:02 EDT, Route to Pharmacy Electronically, [id number], [facility] 1965, do not... Start Date: 04/19/19 Stop Date: 04/13/20 Status: OrderedEffexor XR 75 mg oral capsule, extended release 75 mg, 1, capsule, By Mouth, 2 times a day, do not crush or chew, # 180 capsule, Refills 3, Tot. Refills 3, Maintenance, 11/15/19 11:59:00 EST, Do Not Route Start Date: 11/15/19 Stop Date: 11/09/20 Status: OrderedFlonase 50 mcg/inh nasal spray 1 sprays, Nares, Both, 2 times a day, # 16 Gm, 11 Refills, Maintenance, 08/01/19 8:07:48 EDT, [place],1 sprays Nares, Both 2 times a day Start Date: 08/01/19 Status: Orderedgabapentin 300 mg oral capsule 300 mg, 1, capsule, By Mouth, 3 times a day, take with 600 mgs tablet to = 900 mgs three times per day, # 90 capsule, Refills 11, Tot. Refills 11, Maintenance, 06/18/19 9:46:36 EDT, Route to Pharmacy Electronically, [id number]... Start Date: 06/18/19 Status: Orderedgabapentin 600 mg oral tablet 1 tablet = 600 mg, By Mouth, 3 times a day, take with 300 mgs tablet to = 900 mgs three times per day, # 90 tablet, 11 Refills, Maintenance, 06/19/19 10:13:27 EDT Start Date: 06/19/19 Status: Orderedlevothyroxine 0.05 mg oral tablet 8 tablet = 400 mcg, By Mouth, Every week, 6 days one daily; 1 day take two, # 104 tablet, 3 Refills,Maintenance, 10/30/19 23:15:00 EST, Tablet, 164, cm, 08/27/19 11:24:57 EDT, Height Start Date: 10/30/19 Stop Date: 10/24/20 Status: OrderedLinzess By Mouth, Daily, 0 Refills, Maintenance, 07/28/18 15:20:22 EDT Start Date: 07/28/18 Status: Orderedmeloxicam 15 mg oral tablet 1 tablet = 15 mg, By Mouth, Daily, # 90 tablet, 3 Refills, Maintenance, 06/26/19 11:53:28 EDT, Tablet Start Date: 06/26/19 Stop Date: 06/20/20 Status: Orderedmetoprolol 25 mg oral tablet, extended release 75 mg, 3, tablet, By Mouth, Daily, # 270 tablet, Refills 3, Tot. Refills 3, Maintenance, 06/26/19 11:53:30 EDT, Route to Pharmacy Electronically, [id number], [facility] 1965 Start Date: 06/26/19 Stop Date: 06/20/20 Status: OrderedNeutral Sodium Fluoride Rinse 10 mL, Topically, 0 Refills, Maintenance, 07/28/18 15:18:11 EDT Start Date: 07/28/18 Status: Orderedomeprazole 20 mg oral enteric coated capsule 1 capsule = 20 mg, By Mouth, Daily, # 90 capsule, 3 Refills, Maintenance, 06/26/19 11:53:27 EDT, EC Capsule Start Date: 06/26/19 Status: OrderedTylenol Arthritis Extended Release = 1,300 mg, By Mouth, 2 times a day, take with ibuprofen, 0 Refills, Soft Stop Start Date: 04/07/09 Stop Date: 05/07/09 Status: OrderedVitamin D3 2000 intl units oral capsule 1 capsule = 2,000 International_Units, By Mouth, Daily, # 30 capsule, 11 Refills, Maintenance, 02/11/20 14:14:00 EDT, [facility] 1965, 164, cm, 11/15/19 11:34:00 EST, Height Start Date: 02/11/20 Status: OrderedWalker See Instructions, # 1 units, Maintenance, wheeled walker DX Fibromyalgia/ leg weakness, 11/16/10 13:09:32 Start Date: 11/16/10 Status: OrderedWalker See Instructions, # 1 units, Maintenance, use daily DX fibromyalgia / Dementia, 07/15/17 16:30:42, Compound Start Date: 8/25/17 Status: Ordered Problem List Condition Effective Dates [...]
--- OUTSIDE RECORDS SUMMARY | 2022-12-21 06:17 | XMS_ITS | Continuity of Care Document ---
:1965 Author Organization [facility] Address [address] [place] [address]- Care Team Providers Name Role Phone Rosa GONZALEZ, Bakari Wells Primary Care Physician [facility]): 01[facility]21 - 02/19/21 [facility] [address] [place] [address]- Allergies, Adverse Reactions, Alerts Substance Reaction Severity [...] vaccine, inactivated9 12/15/10 Given influenza virus vaccine, [id number] 08/17/10 Given tetanus-diphtheria toxoids (Td)11 09/15/99 Given 1Result Comment: [id number] Note: GIVEN W/O INCIDENT INFO SHEET [id number] Comment: [id number] Comment: [11/23/2018] [id number] 5Result Comment: [09/19/2017] [id number] Comment: [10/25/2013] GIVEN W/O INCIDENSE...FB0Hhjyb Note: [id number] Note: [id number] Note: MANUFACTURE BIOMEDICAL INFO SHEET GIVEN GIVEN W/O [id number] Note: [id number] Note: DONE IN E.R. Medications Aricept 10 mg oral tablet 10 mg, 1, tablet, By Mouth, Daily at bedtime, # 90 tablet, Refills 3, Tot. Refills 3, Maintenance, 01/23/21 13:12:00 EST, [facility], [facility], do not fill until pt [...] 07/17/20 16:41:00 EDT, Route to Pharm[facility]ically, [facility], 164, cm, 11/15/19 11:34:00 EST, Height Start Date: 07/17/20 Stop Date: 07/12/21 Status: OrderedFlonase 50 mcg/inh nasal spray 1 sprays, Nares, Both, 2 times a day, # 16 Gm, 11 Refills, Maintenance, 08/01/19 8:07:48 EDT, [place],1 sprays Nares, Both 2 times a day Start Date: 08/01/19 Status: Orderedgabapentin 300 mg oral capsule 300 mg, 1, capsule, By Mouth, 3 times a day, take with 600 mgs tablet to = 900 mgs three times per day, # 90 capsule, Refills 11, Tot. Refills 11, Maintenance, 02/16/21 17:27:00 EDT, Route to Pharmacy Electronically, [facility] 1967, do no... Start Date: 02/16/21 Status: Orderedgabapentin 600 mg oral tablet 1 tablet, By Mouth, 3 times a day, *., # 90 tablet, 11 Refills, Maintenance, 01/05/21 12:27:00 EST, [facility], 164, cm, 10/24/20 15:22:00 EST, Height Start Date: 01/05/21 Status: Orderedlevothyroxine 0.05 mg oral tablet 8 tablet = 400 mcg, By Mouth, Every week, 6 days one daily; 1 day take two, # 104 tablet, 3 Refills,Maintenance, 10/24/20 23:15:00 EST, [facility]t, [facility], 164, cm, 10/24/20 15:22:00 EST, Height Start Date: 10/24/20 Status: OrderedLinzess By Mouth, Daily, 0 Refills, Maintenance, 07/28/18 15:20:22 EDT Start Date: 07/28/18 Status: Orderedmeloxicam 15 mg oral tablet 1 tablet = 15 mg, By Mouth, Daily, # 90 tablet, 3 Refills, Maintenance, 07/17/20 16:41:00 EDT, Tablet, [facility], 164, cm, 11/15/19 11:34:00 EST, Height Start Date: 07/17/20 Stop Date: 07/12/21 Status: Orderedmetoprolol 50 mg oral tablet, extended release 75 mg, 1.5, tablet, By Mouth, Daily, # 135 tablet, Refills 3, Tot. Refills 3, Maintenance, 12/22/20 17:10:00 EST, Route to Pharmacy Electronically, [facility] 1967, Partial fill upon [...] Refills, Maintenance, 07/17/20 16:41:00 EDT, EC Capsule, [facility] 1967, 164, cm, 11/15/19 11:34:00 EST, Height Start Date: 07/17/20 Status: OrderedtraMADol 50 mg oral tablet 1 tablet, By Mouth, Every 8 hours, prn pain, # 21 tablet, 0 Refills, Maintenance, 11/11/20 17:28:00 EST, Tablet, [facility], i am aware [...] capsule, 5 Refills, Maintenance, 02/18/21 10:10:00 EDT, [facility] 1967, 164, cm, 10/24/20 [...]
--- OUTSIDE RECORDS SUMMARY | 2022-12-21 06:17 | XMS_ITS | Continuity of Care Document ---
:1965 Author Organization [facility] Address [address] [place] [address]- Care Team Providers Name Role Phone Rosa GONZALEZ, Bakari Wells Primary Care Physician [facility]20 - 11/09/20 [facility] [address] [place], [place] [address] Allergies, Adverse Reactions, Alerts Substance Reaction [...] vaccine, inactivated9 12/15/10 Given influenza virus vaccine, [id number] 08/17/10 Given tetanus-diphtheria toxoids (Td)11 09/15/99 Given 1Result Comment: [id number] Note: GIVEN W/O INCIDENT INFO SHEET [id number] Comment: [id number] Comment: [11/23/2018] [id number] 5Result Comment: [09/19/2017] [id number] Comment: [10/25/2013] GIVEN W/O INCIDENSE...[id number] Note: [id number] Note: [id number] Note: MANUFACTURE BIOMEDICAL INFO SHEET GIVEN GIVEN W/O [id number] Note: [id number] Note: DONE IN E.R. Medications Aricept 10 mg oral tablet 10 mg, 1, tablet, By Mouth, Daily at bedtime, for 90 days, # 90 tablet, Refills 3, Tot. Refills 3, Hard Stop 01/16/21 12:56:00 EST, 01/22/20 12:56:00 EST, Route to Pharmacy Electronically, [facility] 1966, do not fill until pt calls, 164, cm,... Start Date: 01/22/20 Stop Date: 01/16/21 Status: OrderedAricept 10 mg oral tablet 10 mg, 1, tablet, By Mouth, Daily at bedtime, # 90 tablet, Refills 3, Tot. Refills 3, Maintenance, 01/16/21 12:56:00 EST, Route to Pharmacy Electronically, [facility] 1966, do not fill until [...] 09/20/17 Status: Orderedcyclobenzaprine 10 mg oral tablet See Instructions, TAKE 1 TABLET BY MOUTH THREE TIMES DAILY, # 270 tablet, Refills 3, Tot. Refills 3,Acute 11/14/20 8:52:00 EST, 08/15/20 8:52:00 EDT, Instructions Replace Required Details, Route to Pharmacy Electronically, [facility] 1967, 164,... Start Date: 08/15/20 Stop Date: 11/14/20 Status: OrderedEffexor XR 75 mg oral capsule, extended release 75 mg, 1, capsule, By Mouth, 2 times a day, do not crush or chew, # 180 capsule, Refills 3, Tot. Refills 3, Maintenance, 07/17/20 16:41:00 EDT, Route to Pharmacy Electronically, [facility] 1967, 164, cm, 11/15/19 11:34:00 EST, Height Start Date: 07/17/20 Stop Date: 07/12/21 Status: OrderedFlonase 50 mcg/inh nasal spray 1 sprays, Nares, Both, 2 times a day, # 16 Gm, 11 Refills, Maintenance, 08/01/19 8:07:48 EDT, [place],1 sprays Nares, Both 2 times a day Start Date: 08/01/19 Status: Orderedgabapentin 300 mg oral capsule 300 mg, 1, capsule, By Mouth, 3 times a day, take with 600 mgs tablet to = 900 mgs three times per day, # 90 capsule, Refills 4, Tot. Refills 4, Maintenance, 07/04/20 14:35:00 EDT, Route to Pharmacy Electronically, [facility] 1966, do not... Start Date: 07/04/20 Status: Orderedgabapentin 600 mg oral tablet 1 tablet = 600 mg, By Mouth, 3 times a day, take with 300 mgs tablet to = 900 mgs three times per day, # 90 tablet, 4 Refills, Maintenance, 07/04/20 14:35:00 EDT, [facility] 1967, 164, cm, 11/15/19 11:34:00 EST, Height Start Date: 07/04/20 Status: Orderedlevothyroxine 0.05 mg oral tablet 8 tablet = 400 mcg, By Mouth, Every week, 6 days one daily; 1 day take two, # 104 tablet, 3 Refills,Maintenance, 10/24/20 23:15:00 EST, Tablet, [facility], 164, cm, 10/24/20 15:22:00 EST, Height Start Date: 10/24/20 Status: OrderedLinzess By Mouth, Daily, 0 Refills, Maintenance, 07/28/18 15:20:22 EDT Start Date: 07/28/18 Status: Orderedmeloxicam 15 mg oral tablet 1 tablet = 15 mg, By Mouth, Daily, # 90 tablet, 3 Refills, Maintenance, 07/17/20 16:41:00 EDT, Tablet, [facility] 1967, 164, cm, 11/15/19 11:34:00 EST, Height Start Date: 07/17/20 Stop Date: 07/12/21 Status: Orderedmetoprolol 25 mg oral tablet, extended release 75 mg, 3, tablet, By Mouth, Daily, # 270 tablet, Refills 3, Tot. Refills 3, Maintenance, 07/17/20 16:41:00 EDT, Route to Pharmacy Electronically, [facility] 1967, 164, cm, 11/15/19 11:34:00 EST, Height Start Date: 07/17/20 Stop Date: 07/12/21 Status: OrderedNeutral Sodium Fluoride Rinse 10 mL, Topically, 0 Refills, Maintenance, 07/28/18 15:18:11 EDT Start Date: 07/28/18 Status: Orderedomeprazole 20 mg oral enteric coated capsule 1 capsule = 20 mg, By Mouth, Daily, # 90 capsule, 3 Refills, Maintenance, 07/17/20 16:41:00 EDT, EC Capsule, [facility] 1967, 164, cm, 11/15/19 11:34:00 EST, Height Start Date: 07/17/20 Status: OrderedTylenol Arthritis Extended Release = 1,300 mg, By Mouth, 2 times a day, not to exceed 6 tablets/day, 0 Refills, Soft Stop, 04/07/09 18:55:13 EDT Start Date: 04/07/09 Stop Date: 05/07/09 Status: OrderedVitamin D3 2000 intl units oral capsule 1 capsule = 2,000 International_Units, By Mouth, Daily, # 30 capsule, 11 Refills, Maintenance, 02/11/20 14:14:00 EDT, [facility] 1967, 164, cm, 11/15/19 11:34:00 [...] liver (neg serology Active evaluation by Dr Ovetron 2004)(Confirmed) REUBEN BSO - Total abdominal hysterectomy Active and bilateral salpingo-oophorectomy(Confirmed)1 1pre cerival cancer sith Papillomvvirus Social History Social History Type Response Smoking Status Never smoker entered on: 02/15/14 Sex
--- OUTSIDE RECORDS SUMMARY | 2022-12-21 06:18 | XMS_ITS | Continuity of Care Document ---
:[address] [facility] Address [address] [place] [address]- Care Team Providers Name Role Phone Bakari Lee MD Primary Care Physician [facility]): 06/12/22 - 07/12/22 [facility] [address] [place], [place] [address] Allergies, Adverse Reactions, Alerts No Known Allergies Immunizations Given and Recorded Vaccine Date Status Refusal Reason SARS-CoV-2 (COVID-19) mRNA BNT-162b2 vac1 11/21/21 Record ed SARS-CoV-2 (COVID-19) mRNA BNT-162b2 vac 04/15/21 Recorde d SARS-CoV-2 (COVID-19) mRNA BNT-162b2 vac 03/25/21 Recorde d influenza virus vaccine, inactivated2 09/15/21 Given influenza virus vaccine, inactivated3 08/27/19 Given influenza virus vaccine, inactivated4 11/23/18 Given influenza virus vaccine, inactivated5 09/19/17 Given influenza virus vaccine, inactivated 10/12/16 Given influenza virus vaccine, inactivated 09/22/15 Recorded influenza virus vaccine, inactivated 08/23/14 Given influenza virus vaccine, inactivated6 10/25/13 Given influenza virus vaccine, inactivated7 09/25/12 Given influenza virus vaccine, inactivated8 11/12/11 Given influenza virus vaccine, inactivated9 12/15/10 Given influenza virus vaccine, [id number] 08/17/10 Given tetanus/diphtheria/pertussis, acel(Tdap)11 10/24/20 Given tetanus/diphtheria/pertussis, acel(Tdap)12 12/15/10 Given Influenza Virus Vaccine (oldterm) 10/09/20 Recorded tetanus-diphtheria toxoids (Td)13 09/15/99 Given 1Result Comment: [id number] Comment: [id number] Comment: [id number] Result Comment: [11/23/2018] [id number] Comment: [09/19/2017] [id number] Result Comment: [10/25/2013] GIVEN W/O INCIDENSE...[id number] Note: [id number] Note: [id number] Note: MANUFACTURE BIOMEDICAL INFO SHEET GIVEN GIVEN W/O [id number] Note: [id number] Comment: [id number] Note: GIVEN W/O INCIDENT INFO SHEET [id number] Note: DONE IN E.R. Medications Aricept 10 mg oral tablet 10 mg, 1, tablet, By Mouth, Daily at bedtime, # 90 tablet, Refills 1, Tot. Refills 1, Maintenance, 11/01/21 16:34:00 EST, Route to Pharmacy Electronically, [facility] 1966, do not fill until pt calls, 164, cm, 09/15/21 11:49:00 EDT, Height Start Date: 11/01/21 Status: Orderedazelastine 137 mcg/inh (0.1%) nasal spray USE 2 SPRAY(S) IN EACH NOSTRIL TWICE DAILY DIRECTED Start Date: 03/18/22 Status: OrderedCPAP Equipment See Instructions, # 1 [...] release 75 mg, 1, capsule, By Mouth, Daily before breakfast, do not crush or chew pt takes this with a 150 mgs venlafaxine capsule, # 90 capsule, Refills 3, Tot. Refills 3, Maintenance, 12/16/21 13:24:00 EST, Route to Pharmacy Electronically, [facility] Start Date: 12/16/21 Stop Date: 12/11/22 Status: Orderedgabapentin 300 mg oral capsule 300 mg, 1, capsule, By Mouth, 3 times a day, take with 600 mgs tablet to = 900 mgs three times per day, # 90 capsule, Refills 11, Tot. Refills 11, Maintenance, 03/18/22 11:53:00 EDT, Route to Pharmacy Electronically, [facility] 1967, do no... Start Date: 03/18/22 Status: Orderedgabapentin 600 mg oral tablet See Instructions, TAKE 1 TABLET BY MOUTH THREE TIMES DAILY *( TAKE WITH 300MG TABLET TO EQUAL 900MG THREE TIMES A DAY)*, # 90 tablet, 11 Refills, [facility], 164, cm, 09/15/21 11:49:00 EDT, Height Start Date: 01/08/22 Status: Orderedlevothyroxine 0.05 mg oral tablet 8 tablet = 400 mcg, By Mouth, Every week, 6 days one daily; 1 day take two, # 104 tablet, 3 Refills,Maintenance, 09/15/21 12:29:00 EDT, Tablet, [facility] 1967, 164, cm, 09/15/21 11:49:00 EDT, Height Start Date: 09/15/21 Status: OrderedLinzess By Mouth, Daily, 0 Refills, Maintenance, 07/28/18 15:20:22 EDT Start Date: 07/28/18 Status: Orderedmeloxicam 15 mg oral tablet 1 tablet = 15 mg, By Mouth, Daily, # 90 tablet, 3 Refills, Maintenance, 09/15/21 12:29:00 EDT, Tablet, [facility] 1967, 164, cm, 09/15/21 11:49:00 EDT, Height Start Date: 09/15/21 Stop Date: 09/10/22 Status: Orderedmetoprolol 50 mg oral tablet, extended release 50 mg, 1, tablet, By Mouth, 2 times a day, # 180 tablet, Refills 1, Tot. Refills 1, Maintenance, 06/12/22 13:01:00 EDT, Route to Pharmacy Electronically, [facility] 1967, Partial fill upon patient request if the prescription is for a schedule II... Start Date: 06/12/22 Stop Date: 12/09/22 Status: OrderedNeutral Sodium Fluoride Rinse 10 mL, Topically, 0 Refills, Maintenance, 07/28/18 15:18:11 EDT Start Date: 07/28/18 Status: OrderedTylenol Arthritis Extended Release = 1,300 mg, By Mouth, 2 times a day, not to exceed 6 tablets/day, 0 Refills, Soft Stop, 04/07/09 18:55:13 EDT Start Date: 04/07/09 Stop Date: 05/07/09 Status: Orderedvenlafaxine 150 mg oral capsule, extended release 1 capsule = 150 mg, By Mouth, Daily, # 90 capsule, 3 Refills, Maintenance, 04/22/22 20:29:00 EDT, [facility], Partial fill upon patient request if the prescription is for a schedule II opioid drug., 164, cm, 03/18/22 11:48:00 EDT, Height Start Date: 04/22/22 Stop Date: 04/17/23 Status: OrderedVitamin D3 2000 intl units oral capsule 1 capsule = 2,000 International_Units, By Mouth, Daily, # 30 capsule, 5 Refills, Maintenance, 03/18/22 11:53:00 EDT, [facility], 164, cm, 03/18/22 11:48:00 EDT, Height Start Date: 03/18/22 Status: OrderedVitamin D3 2000 UNIT Oral Capsule Vitamin D3 2000 UNIT Oral Capsule, 1, capsule, By Mouth, Daily, # 30 capsule, 2 Refills, 164, cm, 09/15/21 11:49:00 EDT, Height Start Date: 12/28/21 Status: OrderedWalker See Instructions, # 1 units, [...] Active IBS - Irritable bowel Active syndrome(Confirmed) Obese class II(Confirmed) Active Obstructive sleep apnea Active syndrome(Confirmed) Rhinoplasty(Confirmed) Active Steatosis of liver (neg serology Active evaluation by Dr Overton 2004)(Confirmed) REUBEN BSO - Total abdominal hysterectomy Active and bilateral salpingo-oophorectomy(Confirmed)1 1pre cerival cancer sith Papillomvvirus Social History Social History Type Response Smoking Status Never smoker entered on: 02/15/14 Sex
--- OUTSIDE RECORDS SUMMARY | 2022-12-21 06:18 | XMS_ITS | Continuity of Care Document ---
:1965 Author Organization [facility] Address [address] [place] [address]- Care Team Providers Name Role Phone Rosa GONZALEZ, Bakari Wells Primary Care Physician [facility] 08[facility]21 - 09/30/21 [facility] [address] [place], [place] [address] Allergies, Adverse Reactions, Alerts Substance [...] tetanus-diphtheria toxoids (Td)12 09/15/99 Given 1Result Comment: [id number] Comment: [id number] Comment: [11/23/2018] [id number] Comment: [09/19/2017] [id number] Comment: [10/25/2013] GIVEN W/O INCIDENSE...[id number] Note: [id number] Note: [id number] Note: MANUFACTURE BIOMEDICAL INFO SHEET GIVEN GIVEN W/O [id number] Note: [id number] Comment: [id number] Note: GIVEN W/O INCIDENT INFO SHEET [id number] Note: DONE IN E.R. Medications Aricept 10 mg oral tablet 10 mg, 1, tablet, By Mouth, Daily at bedtime, # 90 tablet, Refills 3, Tot. Refills 3, Maintenance, 01/23/21 13:12:00 EST, Route to Pharmacy Electronically, [facility] 1966, do not fill until [...] tablet, Refills 3, Route to Pharmacy Electronically, [facility], 164, cm, 04/24/21 15:00:00 EDT, Height Start Date: 08/31/21 Status: OrderedFlonase 50 mcg/inh nasal spray 1 sprays, Nares, Both, 2 times a day, # 16 Gm, 11 Refills, Maintenance, 07/20/21 12:47:00 EDT, [place], [facility], 1 sprays Nares, Both 2 [...] 02/16/21 17:27:00 EDT, Route to Pharmacy Electronically, [facility], do no... Start Date: 02/16/21 Status: Orderedgabapentin 600 mg oral tablet 1 tablet, By Mouth, 3 times a day, *., # 90 tablet, 11 Refills, Maintenance, 01/05/21 12:27:00 EST, [facility] 1967, 164, cm, 10/24/20 15:22:00 EST, Height Start Date: 01/05/21 Status: Orderedlevothyroxine 0.05 mg oral tablet 8 tablet = 400 mcg, By Mouth, Every week, 6 days one daily; 1 day take two, # 104 tablet, 3 Refills,Maintenance, 09/15/21 12:29:00 EDT, Tablet, [facility] 1967, 164, cm, 09/15/21 11:49:00 EDT, Height Start Date: 09/15/21 Status: OrderedLinzess By Mouth, Daily, 0 Refills, Maintenance, 07/28/18 15:20:22 EDT Start Date: 07/28/18 Status: Orderedmeloxicam 15 mg oral tablet 1 tablet = 15 mg, By Mouth, Daily, # 90 tablet, 3 Refills, Maintenance, 09/15/21 12:29:00 EDT, Tablet, [facility] 1967, 164, cm, 09/15/21 11:49:00 EDT, Height Start Date: 09/15/21 Stop Date: 09/10/22 Status: Orderedmetoprolol 50 mg oral tablet, extended release 50 mg, 1, tablet, By Mouth, 2 times a day, # 180 tablet, Refills 3, Tot. Refills 3, Maintenance, 04/24/21 15:39:00 EDT, Route to Pharmacy Electronically, [facility] 1966, Partial fill upon patient request [...] Refills, Maintenance, 09/15/21 12:29:00 EDT, EC Capsule, [facility] 1967, 164, cm, 09/15/21 11:49:00 EDT, Height Start Date: 09/15/21 Status: OrderedtraMADol 50 mg oral tablet 1 tablet, By Mouth, Every 8 hours, prn pain, # 21 tablet, 0 Refills, Maintenance, 11/11/20 17:28:00 EST, Tablet, [facility], i am aware of [...] capsule, 5 Refills, Maintenance, 08/30/21 8:44:00 EDT, [facility], 164, cm, 04/24/21 15:00:00 EDT, [...]
--- OUTSIDE RECORDS SUMMARY | 2022-12-21 06:18 | XMS_ITS | Continuity of Care Document ---
:1965 Author Organization [facility] Address [address] [place] [address]- Care Team Providers Name Role Phone Rosa GONZALEZ, Bakari Wells Primary Care Physician [facility] 04[facility] - 05/21/21 [facility] [address] [place] [address]- Allergies, Adverse Reactions, Alerts Substance Reaction Severity [...] vaccine, inactivated9 12/15/10 Given influenza virus vaccine, [id number] 08/17/10 Given tetanus-diphtheria toxoids (Td)11 09/15/99 Given 1Result Comment: [id number] Note: GIVEN W/O INCIDENT INFO SHEET [id number] Comment: [id number] Comment: [11/23/2018] [id number] 5Result Comment: [09/19/2017] [id number] Comment: [10/25/2013] GIVEN W/O INCIDENSE...[id number] Note: [id number] Note: [id number] Note: MANUFACTURE BIOMEDICAL INFO SHEET GIVEN GIVEN W/O [id number] Note: [id number] Note: DONE IN E.R. Medications Aricept 10 mg oral tablet 10 mg, 1, tablet, By Mouth, Daily at bedtime, # 90 tablet, Refills 3, Tot. Refills 3, Maintenance, 01/23/21 13:12:00 EST, Route to Pharmacy Electronically, [facility] 1966, do not fill until pt [...] Gm, 11 Refills, Maintenance, 08/01/19 8:07:48 EDT, [place],1 sprays Nares, Both 2 times a day Start Date: 08/01/19 Status: Orderedgabapentin 300 mg oral capsule 300 mg, 1, capsule, By Mouth, 3 times a day, take with 600 mgs tablet to = 900 mgs three times per day, # 90 capsule, Refills 11, Tot. Refills 11, Maintenance, 02/16/21 17:27:00 EDT, Route to Pharmacy Electronically, [facility] 1967, do no... Start Date: 02/16/21 Status: Orderedgabapentin 600 mg oral tablet 1 tablet, By Mouth, 3 times a day, *., # 90 tablet, 11 Refills, Maintenance, 01/05/21 12:27:00 EST, [facility], [facility], cm, 10/24/20 15:22:00 EST, Height Start Date: 01/05/21 Status: Orderedlevothyroxine 0.05 mg oral tablet 8 tablet = 400 mcg, By Mouth, Every week, 6 days one daily; 1 day take two, # 104 tablet, 3 Refills,Maintenance, 10/24/20 23:15:00 EST, [facility], [facility], cm, 10/24/20 15:22:00 EST, Height Start Date: 10/24/20 Status: OrderedLinzess By Mouth, Daily, 0 Refills, Maintenance, 07/28/18 15:20:22 EDT Start Date: 07/28/18 Status: Orderedmeloxicam 15 mg oral tablet 1 tablet = 15 mg, By Mouth, Daily, # 90 tablet, 3 Refills, Maintenance, 07/17/20 16:41:00 EDT, Tablet, [facility] 1967, 164, cm, 11/15/19 11:34:00 EST, Height Start Date: 07/17/20 Stop Date: 07/12/21 Status: Orderedmetoprolol 50 mg oral tablet, extended release 50 mg, 1, tablet, By Mouth, 2 times a day, # 180 tablet, Refills 3, Tot. Refills 3, Maintenance, 04/24/21 15:39:00 EDT, Route to Pharmacy Electronically, [facility] 1967, Partial fill upon patient request [...] Refills, Maintenance, 07/17/20 16:41:00 EDT, EC Capsule, [facility] 1967, 164, cm, 11/15/19 11:34:00 EST, Height Start Date: 07/17/20 Status: OrderedtraMADol 50 mg oral tablet 1 tablet, By Mouth, Every 8 hours, prn pain, # 21 tablet, 0 Refills, Maintenance, 11/11/20 17:28:00 EST, Tablet, [facility], i am aware of potential [...] capsule, 3 Refills, Maintenance, 04/30/21 17:34:00 EDT, [facility], Partial fill upon patient request if the prescription is for a scheduleII opioid drug., 164, cm, 04/24/21 15:00:00 EDT,... Start Date: 04/30/21 Stop Date: 04/25/22 Status: OrderedVitamin D3 2000 intl units oral capsule 1 capsule = 2,000 International_Units, By Mouth, Daily, # 30 capsule, 5 Refills, Maintenance, 02/18/21 10:10:00 EDT, [facility], [facility], cm, 10/24/20 15:22:00 EST, [...]
--- OUTSIDE RECORDS SUMMARY | 2022-12-21 06:18 | XMS_ITS | Continuity of Care Document ---
:1965 Author Organization [facility] Address [address] [place] [address]- Care Team Providers Name Role Phone Bakari Lee MD Primary Care Physician [facility]): 12/09/21 - 01/08/22 [facility] [address] [place], [place] [address] Allergies, Adverse Reactions, Alerts No Known Allergies [...] tetanus-diphtheria toxoids (Td)12 09/15/99 Given 1Result Comment: [id number] Comment: [id number] Comment: [11/23/2018] [id number] Comment: [09/19/2017] [id number] Comment: [10/25/2013] GIVEN W/O INCIDENSE...KN8Cekcl Note: [id number] Note: [id number] Note: MANUFACTURE BIOMEDICAL INFO SHEET GIVEN GIVEN W/O [id number] Note: [id number] Comment: [id number] Note: GIVEN W/O INCIDENT INFO SHEET [id number] Note: DONE IN E.R. Medications Aricept 10 mg oral tablet 10 mg, 1, tablet, By Mouth, Daily at bedtime, # 90 tablet, Refills 1, Tot. Refills 1, Maintenance, 11/01/21 16:34:00 EST, Route to Pharmacy Electronically, [facility] 1966, do not fill until pt calls, 164, cm, 09/15/21 11:49:00 EDT, Height Start Date: 11/01/21 Status: Orderedcannabidiol 100 mg/mL oral liquid 3.5 [...] tablet, Refills 3, Route to Pharmacy Electronically, [facility] 1966, 164, cm, 09/15/21 11:49:00 EDT, Height Start Date: 12/15/21 Status: OrderedEffexor XR 75 mg oral capsule, extended release 75 mg, 1, capsule, By Mouth, Daily before breakfast, do not crush or chew pt takes this with a 150 mgs venlafaxine capsule, # 90 capsule, Refills 3, Tot. Refills 3, Maintenance, 12/16/21 13:24:00 EST, Route to Pharmacy Electronically, [facility] Start Date: 12/16/21 Stop Date: 12/11/22 Status: OrderedFlonase 50 mcg/inh nasal spray 1 sprays, Nares, Both, 2 times a day, # 16 Gm, 11 Refills, Maintenance, 07/20/21 12:47:00 EDT, [place], [facility], 1 sprays Nares, Both 2 times a day, 164, cm, 04/24/21 15:00:00 EDT, Height Start Date: 07/20/21 Status: Orderedgabapentin 300 mg oral capsule 300 mg, 1, capsule, By Mouth, 3 times a day, take with 600 mgs tablet to = 900 mgs three times per day, # 90 capsule, Refills 11, Tot. Refills 11, Maintenance, 02/16/21 17:27:00 EDT, Route to Pharmacy Electronically, [facility] 1966, do no... Start Date: 02/16/21 Status: Orderedgabapentin 600 mg oral tablet See Instructions, TAKE 1 TABLET BY MOUTH THREE TIMES DAILY *( TAKE WITH 300MG TABLET TO EQUAL 900MG THREE TIMES A DAY)*, # 90 tablet, 11 Refills, [facility], 164, cm, 09/15/21 11:49:00 EDT, Height Start Date: 01/08/22 Status: Orderedgabapentin 600 mg oral tablet 1 tablet, By Mouth, 3 times a day, *., # 90 tablet, 11 Refills, Maintenance, 01/05/21 12:27:00 EST, [facility], 164, cm, 10/24/20 15:22:00 EST, Height Start Date: 01/05/21 Status: Orderedlevothyroxine 0.05 mg oral tablet 8 tablet = 400 mcg, By Mouth, Every week, 6 days one daily; 1 day take two, # 104 tablet, 3 Refills,Maintenance, 09/15/21 12:29:00 EDT, Tablet, [facility], 164, cm, 09/15/21 11:49:00 EDT, Height Start Date: 09/15/21 Status: OrderedLinzess By Mouth, Daily, 0 Refills, Maintenance, 07/28/18 15:20:22 EDT Start Date: 07/28/18 Status: Orderedmeloxicam 15 mg oral tablet 1 tablet = 15 mg, By Mouth, Daily, # 90 tablet, 3 Refills, Maintenance, 09/15/21 12:29:00 EDT, Tablet, [facility], 164, cm, 09/15/21 11:49:00 EDT, Height Start Date: 09/15/21 Stop Date: 09/10/22 Status: Orderedmetoprolol 50 mg oral tablet, extended release 50 mg, 1, tablet, By Mouth, 2 times a day, # 180 tablet, Refills 3, Tot. Refills 3, Maintenance, 04/24/21 15:39:00 EDT, Route to Pharmacy Electronically, [facility] 1966, Partial fill upon patient [...] Refills, Maintenance, 09/15/21 12:29:00 EDT, EC Capsule, [facility], 164, cm, 09/15/21 11:49:00 EDT, Height Start Date: 09/15/21 Status: OrderedtraMADol 50 mg oral tablet 1 tablet, By Mouth, Every 8 hours, prn pain, # 21 tablet, 0 Refills, Maintenance, 11/11/20 17:28:00 EST, Tablet, [facility], i am aware of [...] Daily, # 90 capsule, 3 Refills, Maintenance, 12/16/21 13:22:00 EST, Partial fill upon patient request if the prescription is for a schedule II opioid drug. Start Date: 12/16/21 Stop Date: 12/11/22 Status: OrderedVitamin D3 2000 intl units oral capsule 1 capsule = 2,000 International_Units, By Mouth, Daily, # 30 capsule, 5 Refills, Maintenance, 08/30/21 8:44:00 EDT, [facility], 164, cm, 04/24/21 15:00:00 EDT, Height Start Date: 08/30/21 Status: OrderedVitamin D3 2000 UNIT Oral Capsule [...]
--- OUTSIDE RECORDS SUMMARY | 2022-12-21 06:18 | XMS_ITS | Continuity of Care Document ---
:[address] [facility] Address [address] [place] [address]- Care Team Providers Name Role Phone Rosa GONZALEZ, Bakari Wells Primary Care Physician [facility]): 02/11/20 - 02/21/20 [facility] [address] [place] [address]- [facility] Attending Physician: Admtr, Jeffrey Allergies, Adverse Reactions, Alerts Substance Reaction Severity [...] tetanus-diphtheria toxoids (Td)10 09/15/99 Given 1Result Comment: [id number] Comment: [11/23/2018] [id number] Comment: [09/19/2017] [id number] Comment: [10/25/2013] GIVEN W/O INCIDENSE...MH5 Admin Note: [id number] Note: [id number] Note: MANUFACTURE BIOMEDICAL INFO SHEET GIVEN GIVEN W/O [id number] Note: [id number] Note: GIVEN W/O INCIDENT INFO SHEET [id number] Note: DONE IN E.R. Medications Aricept 10 mg oral tablet 10 mg, 1, tablet, By Mouth, Daily at bedtime, # 90 tablet, Refills 3, Tot. Refills 3, Maintenance, 01/22/20 12:56:00 EST, Route to Pharmacy Electronically, [facility] 1966, do not fill until [...] 04/19/19 9:17:02 EDT, Route to Pharmacy Electronically, [id number], [facility], do not... Start Date: [...] Gm, 11 Refills, Maintenance, 08/01/19 8:07:48 EDT, [place],1 sprays Nares, Both 2 times a day Start Date: 08/01/19 Status: Orderedgabapentin 300 mg oral capsule 300 mg, 1, capsule, By Mouth, 3 times a day, take with 600 mgs tablet to = 900 mgs three times per day, # 90 capsule, Refills 11, Tot. Refills 11, Maintenance, 06/18/19 9:46:36 EDT, Route to Pharmacy Electronically, [id number]... Start Date: 06/18/19 Status: Orderedgabapentin 600 mg [...] 06/26/19 11:53:30 EDT, Route to Pharmacy Electronically, [id number], [facility] 1965 Start Date: 06/26/19 Stop [...] capsule, 11 Refills, Maintenance, 02/11/20 14:14:00 EDT, [facility], 164, cm, 11/15/19 11:34:00 [...] bilateral salpingo-oophorectomy(Confirmed)1 1pre cerival cancer sith Papillomvvirus Procedures Procedure Date Related Diagnosis Body Site Status Diagnostic ultrasound of abdomen and 09/16/08 Completed retroperitoneum1 1tiny polyp in GB. otherwise nl [facility] Social History Social History Type Response Smoking Status Never smoker entered on: 02/15/14 Sex
--- OUTSIDE RECORDS SUMMARY | 2022-12-21 06:18 | XMS_ITS | Continuity of Care Document ---
:1965 Author Organization [facility] Address [address] [place] [address]- Care Team Providers Name Role Phone Rosa GONZALEZ, Bakari Wells Primary Care Physician [facility]): 01/23/21 - 02/22/21 [facility] [address] [place] [address]- Allergies, Adverse Reactions, Alerts Substance Reaction Severity [...] vaccine, inactivated9 12/15/10 Given influenza virus vaccine, [id number] 08/17/10 Given tetanus-diphtheria toxoids (Td)11 09/15/99 Given 1Result Comment: [id number] Note: GIVEN W/O INCIDENT INFO SHEET [id number] Comment: [id number] Comment: [11/23/2018] [id number] 5Result Comment: [09/19/2017] [id number] Comment: [10/25/2013] GIVEN W/O INCIDENSE...EG4Ixzon Note: [id number] Note: [id number] Note: MANUFACTURE BIOMEDICAL INFO SHEET GIVEN GIVEN W/O [id number] Note: [id number] Note: DONE IN E.R. Medications Aricept 10 mg oral tablet 10 mg, 1, tablet, By Mouth, Daily at bedtime, # 90 tablet, Refills 3, Tot. Refills 3, Maintenance, 01/23/21 13:12:00 EST, Route to Pharmacy Electronically, [facility] 1966, do not fill until pt [...] 07/17/20 16:41:00 EDT, Route to Pharmacy Electronically, [facility], 164, cm, 11/15/19 11:34:00 EST, Height Start Date: 07/17/20 Stop Date: 07/12/21 Status: OrderedFlonase 50 mcg/inh nasal spray 1 sprays, Nares, Both, 2 times a day, # 16 Gm, 11 Refills, Maintenance, 08/01/19 8:07:48 EDT, [place],1 sprays Nares, Both 2 times a day Start Date: 08/01/19 Status: Orderedgabapentin 300 mg oral capsule 300 mg, 1, capsule, By Mouth, 3 times a day, take with 600 mgs tablet to = 900 mgs three times per day, # 90 capsule, Refills 11, Tot. Refills 11, Maintenance, 02/16/21 17:27:00 EDT, Route to Pharmacy Electronically, [facility] 1967, do no... Start Date: 02/16/21 Status: Orderedgabapentin 600 mg oral tablet 1 tablet, By Mouth, 3 times a day, *., # 90 tablet, 11 Refills, Maintenance, 01/05/21 12:27:00 EST, [facility], 164, cm, 10/24/20 15:22:00 EST, Height Start Date: 01/05/21 Status: Orderedlevothyroxine 0.05 mg oral tablet 8 tablet = 400 mcg, By Mouth, Every week, 6 days one daily; 1 day take two, # 104 tablet, 3 Refills,Maintenance, 10/24/20 23:15:00 EST, Tablet, [facility], 164, cm, 10/24/20 15:22:00 EST, Height Start Date: 10/24/20 Status: OrderedLinzess By Mouth, Daily, 0 Refills, Maintenance, 07/28/18 15:20:22 EDT Start Date: 07/28/18 Status: Orderedmeloxicam 15 mg oral tablet 1 tablet = 15 mg, By Mouth, Daily, # 90 tablet, 3 Refills, Maintenance, 07/17/20 16:41:00 EDT, Tablet, [facility], 164, cm, 11/15/19 11:34:00 EST, Height Start Date: 07/17/20 Stop Date: 07/12/21 Status: Orderedmetoprolol 50 mg oral tablet, extended release 75 mg, 1.5, tablet, By Mouth, Daily, # 135 tablet, Refills 3, Tot. Refills 3, Maintenance, 12/22/20 17:10:00 EST, Route to Pharmacy Electronically, [facility] 1967, Partial fill upon patient [...] Refills, Maintenance, 07/17/20 16:41:00 EDT, EC Capsule, [facility], 164, cm, 11/15/19 11:34:00 EST, Height Start Date: 07/17/20 Status: OrderedtraMADol 50 mg oral tablet 1 tablet, By Mouth, Every 8 hours, prn pain, # 21 tablet, 0 Refills, Maintenance, 11/11/20 17:28:00 EST, Tablet, [facility], i am aware of [...] capsule, 5 Refills, Maintenance, 02/18/21 10:10:00 EDT, [facility], 164, cm, 10/24/20 15:22:00 [...]
--- OUTSIDE RECORDS SUMMARY | 2022-12-21 06:18 | XMS_ITS | Continuity of Care Document ---
:1965 Author Organization [facility] Address [address] [place] [address]- Care Team Providers Name Role Phone Bakari Lee MD Primary Care Physician [facility] 07/23/21 - 08/29/21 [facility] [address] [place], [place] [address] Attending Physician: Bakari Lee MD Allergies, [...] vaccine, inactivated9 12/15/10 Given influenza virus vaccine, [id number] 08/17/10 Given tetanus-diphtheria toxoids (Td)11 09/15/99 Given 1Result Comment: [id number] Note: GIVEN W/O INCIDENT INFO SHEET [id number] Comment: [id number] Comment: [11/23/2018] [id number] 5Result Comment: [09/19/2017] [id number] Comment: [10/25/2013] GIVEN W/O INCIDENSE...[id number] Note: [id number] Note: [id number] Note: MANUFACTURE BIOMEDICAL INFO SHEET GIVEN GIVEN W/O [id number] Note: [id number] Note: DONE IN E.R. Medications Aricept 10 mg oral tablet 10 mg, 1, tablet, By Mouth, Daily at bedtime, # 90 tablet, Refills 3, Tot. Refills 3, Maintenance, 01/23/21 13:12:00 EST, Route to Pharmacy Electronically, [facility] 1966, do not fill until [...] Gm, 11 Refills, Maintenance, 07/20/21 12:47:00 EDT, [place], [facility], 1 sprays Nares, Both [...] 02/16/21 17:27:00 EDT, Route to Pharmacy Electronically, [facility], do no... Start Date: 02/16/21 Status: Orderedgabapentin 600 mg oral tablet 1 tablet, By Mouth, 3 times a day, *., # 90 tablet, 11 Refills, Maintenance, 01/05/21 12:27:00 EST, [facility], 164, cm, 10/24/20 15:22:00 EST, Height Start Date: 01/05/21 Status: Orderedlevothyroxine 0.05 mg oral tablet 8 tablet = 400 mcg, By Mouth, Every week, 6 days one daily; 1 day take two, # 104 tablet, 3 Refills,Maintenance, 10/24/20 23:15:00 EST, Tablet, [facility] 1967, 164, cm, 10/24/20 15:22:00 EST, Height Start Date: 10/24/20 Status: OrderedLinzess By Mouth, Daily, 0 Refills, Maintenance, 07/28/18 15:20:22 EDT Start Date: 07/28/18 Status: Orderedmeloxicam 15 mg oral tablet 1 tablet = 15 mg, By Mouth, Daily, # 90 tablet, 3 Refills, Maintenance, 07/17/20 16:41:00 EDT, Tablet, [facility] 1967, 164, cm, 11/15/19 11:34:00 EST, Height Start Date: 07/17/20 Stop Date: 07/12/21 Status: Orderedmetoprolol 50 mg oral tablet, extended release 50 mg, 1, tablet, By Mouth, 2 times a day, # 180 tablet, Refills 3, Tot. Refills 3, Maintenance, 04/24/21 15:39:00 EDT, Route to Pharmacy Electronically, [facility], Partial fill upon patient [...] Refills, Maintenance, 07/17/20 16:41:00 EDT, EC Capsule, [facility], 164, cm, 11/15/19 11:34:00 EST, Height Start Date: 07/17/20 Status: OrderedtraMADol 50 mg oral tablet 1 tablet, By Mouth, Every 8 hours, prn pain, # 21 tablet, 0 Refills, Maintenance, 11/11/20 17:28:00 EST, Tablet, [facility], i am aware of [...] capsule, 3 Refills, Maintenance, 04/30/21 17:34:00 EDT, [facility], Partial fill upon patient request if the prescription is for a scheduleII opioid drug., 164, cm, 04/24/21 15:00:00 EDT,... Start Date: 04/30/21 Stop Date: 04/25/22 Status: OrderedVitamin D3 2000 intl units oral capsule 1 capsule = 2,000 International_Units, By Mouth, Daily, # 30 capsule, 5 Refills, Maintenance, 02/18/21 10:10:00 EDT, [facility] 1967, 164, cm, 10/24/20 15:22:00 [...]
--- OUTSIDE RECORDS SUMMARY | 2022-12-21 06:18 | XMS_ITS | Continuity of Care Document ---
:1965 Author Organization [facility] Address [address] [place] [address]- Care Team Providers Name Role Phone Bakari Lee MD Primary Care Physician [facility] 12[facility]14[facility]21 - 01/13/22 [facility] [address] [place], [place] [address] Allergies, Adverse Reactions, Alerts No Known Allergies [...] tetanus-diphtheria toxoids (Td)12 09/15/99 Given 1Result Comment: [id number] Comment: [id number] Comment: [11/23/2018] [id number] Comment: [09/19/2017] [id number] Comment: [10/25/2013] GIVEN W/O INCIDENSE...HS7Ukmyq Note: [id number] Note: [id number] Note: MANUFACTURE BIOMEDICAL INFO SHEET GIVEN GIVEN W/O [id number] Note: [id number] Comment: [id number] Note: GIVEN W/O INCIDENT INFO SHEET [id number] Note: DONE IN E.R. Medications Aricept 10 mg oral tablet 10 mg, 1, tablet, By Mouth, Daily at bedtime, # 90 tablet, Refills 1, Tot. Refills 1, Maintenance, 11/01/21 16:34:00 EST, Route to Pharmacy Electronically, [facility] 1966, do not fill until pt [...] tablet, Refills 3, Route to Pharmacy Electronically, [facility] 1966, 164, cm, 09/15/21 11:49:00 EDT, Height Start Date: 12/15/21 Status: OrderedEffexor XR 75 mg oral capsule, extended release 75 mg, 1, capsule, By Mouth, Daily before breakfast, do not crush or chew pt takes this with a 150 mgs venlafaxine capsule, # 90 capsule, Refills 3, Tot. Refills 3, Maintenance, 12/16/21 13:24:00 EST, Route to Pharmacy Electronically, [facility] Start Date: 12/16/21 Stop Date: 12/11/22 Status: OrderedFlonase 50 mcg/inh nasal spray 1 sprays, Nares, Both, 2 times a day, # 16 Gm, 11 Refills, Maintenance, 07/20/21 12:47:00 EDT, [place], [facility], 1 sprays Nares, Both 2 [...] 02/16/21 17:27:00 EDT, Route to Pharmacy Electronically, [facility] 1967, do no... Start Date: 02/16/21 Status: Orderedgabapentin 600 mg oral tablet See Instructions, TAKE 1 TABLET BY MOUTH THREE TIMES DAILY *( TAKE WITH 300MG TABLET TO EQUAL 900MG THREE TIMES A DAY)*, # 90 tablet, 11 Refills, [facility], 164, cm, 09/15/21 11:49:00 EDT, Height Start Date: 01/08/22 Status: Orderedgabapentin 600 mg oral tablet 1 tablet, By Mouth, 3 times a day, *., # 90 tablet, 11 Refills, Maintenance, 01/05/21 12:27:00 EST, [facility] 1967, 164, cm, 10/24/20 15:22:00 EST, Height Start Date: 01/05/21 Status: Orderedlevothyroxine 0.05 mg oral tablet 8 tablet = 400 mcg, By Mouth, Every week, 6 days one daily; 1 day take two, # 104 tablet, 3 Refills,Maintenance, 09/15/21 12:29:00 EDT, Tablet, [facility], 164, cm, 09/15/21 11:49:00 EDT, Height Start Date: 09/15/21 Status: OrderedLinzess By Mouth, Daily, 0 Refills, Maintenance, 07/28/18 15:20:22 EDT Start Date: 07/28/18 Status: Orderedmeloxicam 15 mg oral tablet 1 tablet = 15 mg, By Mouth, Daily, # 90 tablet, 3 Refills, Maintenance, 09/15/21 12:29:00 EDT, Tablet, [facility], 164, cm, 09/15/21 11:49:00 EDT, Height Start Date: 09/15/21 Stop Date: 09/10/22 Status: Orderedmetoprolol 50 mg oral tablet, extended release 50 mg, 1, tablet, By Mouth, 2 times a day, # 180 tablet, Refills 3, Tot. Refills 3, Maintenance, 04/24/21 15:39:00 EDT, Route to Pharmacy Electronically, [facility] 1966, Partial fill upon patient request [...] Refills, Maintenance, 09/15/21 12:29:00 EDT, EC Capsule, [facility], 164, cm, 09/15/21 11:49:00 EDT, Height Start Date: 09/15/21 Status: OrderedtraMADol 50 mg oral tablet 1 tablet, By Mouth, Every 8 hours, prn pain, # 21 tablet, 0 Refills, Maintenance, 11/11/20 17:28:00 EST, Tablet, [facility], i am aware of potential [...] capsule, 5 Refills, Maintenance, 08/30/21 8:44:00 EDT, [facility], 164, cm, 04/24/21 15:00:00 EDT, [...]
--- OUTSIDE RECORDS SUMMARY | 2022-12-21 06:18 | XMS_ITS | Continuity of Care Document ---
:1965 Author Organization [facility] Address [address] [place] [address]- Care Team Providers Name Role Phone Bakari Lee MD Primary Care Physician [facility] Date(s): 09/21/22 - 10/21/22 [facility] [address] [place], [place] [address] Allergies, Adverse Reactions, Alerts No Known Allergies Immunizations Given and Recorded Vaccine Date Status Refusal Reason influenza virus vaccine, inactivated 09/17/22 Given influenza virus vaccine, inactivated1 09/15/21 Given influenza [...] influenza virus vaccine, inactivated9 08/17/10 Given SARS-CoV-2 mRNA (ogrvusa-xtmr-sekhu) vax 04/16/22 Recorde d SARS-CoV-2 (COVID-19) mRNA BNT-162b2 vac10 11/21/21 Recor ded SARS-CoV-2 (COVID-19) mRNA BNT-162b2 vac 04/15/21 Recorde d SARS-CoV-2 (COVID-19) mRNA BNT-162b2 vac 03/25/21 Recorde d tetanus/diphtheria/pertussis, acel(Tdap)11 10/24/20 Given tetanus/diphtheria/pertussis, acel(Tdap)12 12/15/10 Given Influenza Virus Vaccine (oldterm) 10/09/20 Recorded tetanus-diphtheria toxoids (Td)13 09/15/99 Given 1Result Comment: [id number] Comment: [id number] Comment: [11/23/2018] [id number] Comment: [09/19/2017] [id number] Comment: [10/25/2013] GIVEN W/O INCIDENSE...KT6Bqkfv Note: [id number] Note: [id number] Note: MANUFACTURE BIOMEDICAL INFO SHEET GIVEN GIVEN W/O [id number] Note: [id number] Comment: [id number] Comment: [id number] Note: GIVEN W/O INCIDENT INFO SHEET [id number] Note: DONE IN E.R. Medications Aricept 10 mg oral tablet 10 mg, 1, tablet, By Mouth, Daily at bedtime, # 90 tablet, Refills 3, Tot. Refills 3, Maintenance, 07/21/22 13:26:00 EDT, Route to Pharmacy Electronically, [facility], do not fill until pt calls, 164, cm, 03/18/22 11:48:00 EDT, Height Start Date: 07/21/22 Status: Orderedazelastine 137 mcg/inh (0.1%) nasal spray [...] a day, # 90 tablet, Refills 3, Tot. Refills 3, Maintenance, 10/18/22 9:47:00 EST, Route to Pharmacy Electronically, [facility], 164, cm, 09/17/22 12:48:00 EDT, Height Start Date: 10/18/22 Status: OrderedEffexor XR 75 mg oral capsule, extended release 75 mg, 1, capsule, By Mouth, Daily before breakfast, do not crush or chew pt takes this with a 150 mgs venlafaxine capsule, # 90 capsule, Refills 3, Tot. Refills 3, Maintenance, 12/16/21 13:24:00 EST, [facility] Start Date: 12/16/21 Stop Date: 12/11/22 Status: OrderedFlonase 50 mcg/inh nasal spray 1 sprays, Nares, Both, 2 times a day, # 16 Gm, 11 Refills, Maintenance, 09/06/22 9:11:00 EDT, [place],[facility], 1 sprays Nares, Both 2 times a day, 164, cm, 03/18/22 11:48:00 EDT, Height Start Date: 09/06/22 Status: Orderedgabapentin 300 mg oral capsule 300 mg, 1, capsule, By Mouth, 3 times a day, take with 600 mgs tablet to = 900 mgs three times per day, # 90 capsule, Refills 11, Tot. Refills 11, Maintenance, 03/18/22 11:53:00 EDT, Route to Pharmacy Electronically, [facility], do no... Start Date: 03/18/22 Status: Orderedgabapentin 600 mg oral tablet See Instructions, TAKE 1 TABLET BY MOUTH THREE TIMES DAILY *( TAKE WITH 300MG TABLET TO EQUAL 900MG THREE TIMES A DAY)*, # 90 tablet, 11 Refills, [facility], 164, cm, 09/15/21 11:49:00 EDT, Height Start Date: 01/08/22 Status: Orderedlevothyroxine 0.05 mg oral tablet 8 tablet = 400 mcg, By Mouth, Every week, 6 days one daily; 1 day take two, # 104 tablet, 3 Refills,Maintenance, 09/17/22 13:23:00 EDT, Tablet, [facility], 164, cm, 09/17/22 12:48:00 EDT, Height Start Date: 09/17/22 Status: OrderedLinzess By Mouth, Daily, 0 Refills, Maintenance, 07/28/18 15:20:22 EDT Start Date: 07/28/18 Status: Orderedmeloxicam 15 mg oral tablet 1 tablet = 15 mg, By Mouth, Daily, # 90 tablet, 3 Refills, Maintenance, 09/17/22 13:23:00 EDT, Tablet, [facility], 164, cm, 09/17/22 12:48:00 EDT, Height Start Date: 09/17/22 Stop Date: 09/12/23 Status: Orderedmetoprolol 50 mg oral tablet, extended release 50 mg, 1, tablet, By Mouth, 2 times a day, # 180 tablet, Refills 3, Tot. Refills 3, Maintenance, 09/17/22 13:23:00 EDT, Route to Pharmacy Electronically, [facility], Partial fill upon patient request if the prescription is for a schedule II... Start Date: 09/17/22 Stop Date: 09/12/23 Status: OrderedNeutral Sodium Fluoride Rinse 10 mL, Topically, 0 Refills, Maintenance, 07/28/18 15:18:11 EDT Start Date: 07/28/18 Status: Orderedomeprazole 20 mg oral enteric coated capsule 1 capsule = 20 mg, By Mouth, Daily, # 90 capsule, 3 Refills, Maintenance, 05/04/22 16:13:00 EDT, EC Capsule, [facility], 164, cm, 03/18/22 11:48:00 EDT, Height Start Date: 05/04/22 Status: OrderedTylenol Arthritis Extended Release = 1,300 mg, By Mouth, 2 times a day, not to exceed 6 tablets/day, 0 Refills, Soft Stop, 04/07/09 18:55:13 EDT Start Date: 04/07/09 Stop Date: 05/07/09 Status: Orderedvenlafaxine 150 mg oral capsule, extended release 1 capsule = 150 mg, By Mouth, Daily, # 90 capsule, 3 Refills, Maintenance, 04/22/22 20:29:00 EDT, [email or web address], Partial fill upon patient request if the prescription is for a schedule II opioid drug., 164, cm, 03/18/22 11:48:00 EDT, Height Start Date: 04/22/22 Stop Date: 04/17/23 Status: OrderedVitamin D3 2000 intl units oral capsule 1 capsule = 2,000 International_Units, By Mouth, Daily, # 30 capsule, 5 Refills, Maintenance, 08/31/22 17:48:00 EDT, [email or web address], 164, cm, 03/18/22 11:48:00 EDT, Height Start Date: 08/31/22 Status: OrderedVitamin D3 2000 UNIT Oral Capsule Vitamin D3 2000 UNIT Oral Capsule, 1, capsule, By Mouth, Daily, # 30 capsule, 2 Refills, 164, cm, 09/15/21 11:49:00 EDT, Height Start Date: 12/28/21 Status: OrderedWalker See Instructions, # 1 units, Maintenance, use daily DX fibromyalgia / Dementia, 07/15/17 16:30:42, Compound Start Date: 07/15/17 Status: Ordered Problem List Condition Confirmation Course Effective Dates Status Health I nformant Status section Confirmed Active CTS - Carpal tunnel Confirmed Active syndrome Cyst of breast Confirmed Active DDD (degenerative disc Confirmed Active disease), cervical Depression Confirmed Active Fibromyalgia Confirmed Active 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 H/O gastroesophageal Confirmed Active reflux (GERD) Hyperlipidemia Confirmed 02/18/08 Active Hypothyroidism Confirmed Active IBS - Irritable bowel Confirmed Active syndrome Obese class II Confirmed Active Obstructive sleep Confirmed Active apnea syndrome Rhinoplasty Confirmed Active Steatosis of liver Confirmed Active (neg serology evaluation by Dr Overton 2004) REUBEN BSO - Total Confirmed Active abdominal hysterectomy and bilateral salpingo-oophorectomy1 1pre cerival cancer sith Papillomvvirus Social History Social History Type Response Smoking Status Never smoker entered on: 02/15/14 Sex Patient Care team information Care Team PersonnelName: Bakari Lee MD Position: S Primary Care Physician Member Role: PCP Address: Address: [address] [place] [address] [facility] [address] Care Team Related PersonsName: XI FUENTES Address: home [address] [place] [address] Name: YAAKOV BENNETT Address: home [address] [place] [address]
--- OUTSIDE RECORDS SUMMARY | 2022-12-21 06:18 | XMS_ITS | Continuity of Care Document ---
:1965 Author Organization [facility] Address [address] [place] [address]- Care Team Providers Name Role Phone Rosa GONZALEZ, Bakari Wells Primary Care Physician [facility] Date[facility]s): 05/30/20 - 06/29/20 [facility] [address] [place] [address]- [facility] Allergies, Adverse Reactions, Alerts Substance Reaction Severity [...] tetanus-diphtheria toxoids (Td)10 09/15/99 Given 1Result Comment: [id number] Comment: [11/23/2018] [id number] Comment: [09/19/2017] [id number] Comment: [10/25/2013] GIVEN W/O INCIDENSE...MH5 Admin Note: [id number] Note: [id number] Note: MANUFACTURE BIOMEDICAL INFO SHEET GIVEN GIVEN W/O [id number] Note: [id number] Note: GIVEN W/O INCIDENT INFO SHEET [id number] Note: DONE IN E.R. Medications Aricept 10 mg oral tablet 10 mg, 1, tablet, By Mouth, Daily at bedtime, # 90 tablet, Refills 3, Tot. Refills 3, Maintenance, 01/22/20 12:56:00 EST, Route to Pharmacy Electronically, 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 Refills 11, Maintenance, use nightly, 09/20/17 9:49:07, Compound Start Date: 09/20/17 Status: Orderedcyclobenzaprine 10 mg oral tablet See Instructions, TAKE 1 TABLET BY MOUTH THREE TIMES DAILY, # 270 tablet, Refills 3, Tot. Refills 3,Acute, Instructions Replace Required Details, Route to Pharmacy Electronically, [facility], 164, cm, 11/15/19 11:34:00 EST, Height Start Date: 05/30/20 Status: OrderedEffexor XR 75 mg oral capsule, [...] Gm, 11 Refills, Maintenance, 08/01/19 8:07:48 EDT, [place],1 sprays Nares, Both 2 times a day Start Date: 08/01/19 Status: Orderedgabapentin 300 mg oral capsule 300 mg, 1, capsule, By Mouth, 3 times a day, take with 600 mgs tablet to = 900 mgs three times per day, # 90 capsule, Refills 11, Tot. Refills 11, Maintenance, 06/18/19 9:46:36 EDT, Route to Pharmacy Electronically, [id number]... Start Date: 06/18/19 Status: Orderedgabapentin 600 mg [...] 06/26/19 11:53:30 EDT, Route to Pharmacy Electronically, [id number], [facility] 1967 Start Date: 06/26/19 Stop Date: [...] capsule, 11 Refills, Maintenance, 02/11/20 14:14:00 EDT, [facility], 164, cm, 11/15/19 11:34:00 EST, Height Start Date: 02/11/20 Status: OrderedGuero See Instructions, # 1 units, Maintenance, wheeled walker DX Fibromyalgia/ leg weakness, 11/16/10 13:09:32 Start Date: 11/16/10 Status: [place] See Instructions, # 1 units, Maintenance, use daily DX fibromyalgia / Dementia, 07/15/17 16:30:42, Compound Start Date: 07/15/17 Status: Ordered Problem List Condition Effective Dates Status Health Status Informant section(Confirmed) Active CTS - Carpal tunnel Active syndrome(Confirmed) Cyst of breast(Confirmed) Active DDD (degenerative disc disease), Active cervical(Confirmed) Depression(Confirmed) Active Fibromyalgia(Confirmed) Active Fronto-temporal dementia(Confirmed) 12/12/15 Active H/O gastroesophageal reflux Active (GERD)(Confirmed) Hyperlipidemia(Confirmed) [...]
--- OUTSIDE RECORDS SUMMARY | 2022-12-21 06:18 | XMS_ITS | Continuity of Care Document ---
:1965 Author Organization [facility] Address [address] [place] [address]- Care Team Providers Name Role Phone Bakari Lee MD Primary Care Physician En[facility] Date(s): 09/17/22 - 09/24/22 [facility] [address] [place], [place] [address] Attending Physician: Bakari Lee MD Allergies, Adverse Reactions, Alerts No Known Allergies [...] virus vaccine, inactivated9 08/17/10 Given SARS-CoV-2 mRNA (zjpyzdx-[id number]) vax 04/16/22 Recorde d SARS-CoV-2 (COVID-19) mRNA BNT-162b2 vac10 11/21/21 Recor ded SARS-CoV-2 (COVID-19) mRNA BNT-162b2 vac 04/15/21 Recorde d SARS-CoV-2 (COVID-19) mRNA BNT-162b2 vac 03/25/21 Recorde d tetanus/diphtheria/pertussis, acel(Tdap)11 10/24/20 Given tetanus/diphtheria/pertussis, acel(Tdap)12 12/15/10 Given Influenza Virus Vaccine (oldterm) 10/09/20 Recorded tetanus-diphtheria toxoids (Td)13 09/15/99 Given 1Result Comment: [id number] Comment: [id number] Comment: [11/23/2018] [id number] Comment: [09/19/2017] [id number] Comment: [10/25/2013] GIVEN W/O INCIDENSE...RY2Cipty Note: [id number] Note: [id number] Note: MANUFACTURE BIOMEDICAL INFO SHEET GIVEN GIVEN W/O [id number] Note: [id number] Comment: [id number] Comment: [id number] Note: GIVEN W/O INCIDENT INFO SHEET [id number] Note: DONE IN E.R. Medications Aricept 10 mg oral tablet 10 mg, 1, tablet, By Mouth, Daily at bedtime, # 90 tablet, Refills 3, Tot. Refills 3, Maintenance, 07/21/22 13:26:00 EDT, Route to Pharmacy Electronically, [facility] 1966, do not fill until [...] tablet, Refills 3, Tot. Refills 3, Maintenance, 05/04/22 16:15:00 EDT, Route to Pharmacy Electronically, [facility], 164, cm, 03/18/22 11:48:00 EDT, Height Start Date: 05/04/22 Status: OrderedEffexor XR 75 mg oral capsule, extended release 75 mg, 1, capsule, By Mouth, Daily before breakfast, do not crush or chew pt takes this with a 150 mgs venlafaxine capsule, # 90 capsule, Refills 3, Tot. Refills 3, Maintenance, 12/16/21 13:24:00 EST, Route to Pharmacy Electronically, [facility] Start Date: 12/16/21 Stop Date: 12/11/22 Status: OrderedFlonase 50 mcg/inh nasal spray 1 sprays, Nares, Both, 2 times a day, # 16 Gm, 11 Refills, Maintenance, 09/06/22 9:11:00 EDT, [place],[facility], 1 sprays Nares, Both [...] 03/18/22 11:53:00 EDT, Route to Pharmacy Electronically, [facility], do no... Start Date: 03/18/22 Status: Orderedgabapentin 600 mg oral tablet See Instructions, TAKE 1 TABLET BY MOUTH THREE TIMES DAILY *( TAKE WITH 300MG TABLET TO EQUAL 900MG THREE TIMES A DAY)*, # 90 tablet, 11 Refills, [facility], 164, cm, 09/15/21 11:49:00 EDT, Height Start Date: 01/08/22 Status: Orderedlevothyroxine 0.05 mg oral tablet 8 tablet = 400 mcg, By Mouth, Every week, 6 days one daily; 1 day take two, # 104 tablet, 3 Refills,Maintenance, 09/17/22 13:23:00 EDT, Tablet, [facility], 164, cm, 09/17/22 12:48:00 EDT, Height Start Date: 09/17/22 Status: OrderedLinzess By Mouth, Daily, 0 Refills, Maintenance, 07/28/18 15:20:22 EDT Start Date: 07/28/18 Status: Orderedmeloxicam 15 mg oral tablet 1 tablet = 15 mg, By Mouth, Daily, # 90 tablet, 3 Refills, Maintenance, 09/17/22 13:23:00 EDT, Tablet, [facility], 164, cm, 09/17/22 12:48:00 EDT, Height Start Date: 09/17/22 Stop Date: 09/12/23 Status: Orderedmetoprolol 50 mg oral tablet, extended release 50 mg, 1, tablet, By Mouth, 2 times a day, # 180 tablet, Refills 3, Tot. Refills 3, Maintenance, 09/17/22 13:23:00 EDT, Route to Pharmacy Electronically, [facility], Partial fill upon patient [...] Refills, Maintenance, 05/04/22 16:13:00 EDT, EC Capsule, [facility], 164, cm, 03/18/22 11:48:00 EDT, [...] capsule, 3 Refills, Maintenance, 04/22/22 20:29:00 EDT, [facility], Partial fill upon patient request if the prescription is for a schedule II opioid drug., 164, cm, 03/18/22 11:48:00 EDT, Height Start Date: 04/22/22 Stop Date: 04/17/23 Status: OrderedVitamin D3 2000 intl units oral capsule 1 capsule = 2,000 International_Units, By Mouth, Daily, # 30 capsule, 5 Refills, Maintenance, 08/31/22 17:48:00 EDT, [facility], 164, cm, 03/18/22 11:48:00 EDT, [...] bilateral salpingo-oophorectomy1 1pre cerival cancer sith Papillomvvirus Vital Signs Most recent to oldest [Reference Range]: 1 Height 164.00 cm (09/17/22 12:48 PM) Weight 106.8 kg (09/17/22 12:48 PM) Oxygen Saturation [94-100 %] 98 % (09/17/22 12:48 PM) Pulse Rate [55-90 bpm] 68 bpm (10/28/22 12:48 PM) Body Mass Index [18.5-24.99 kg/m2] 39.71 kg/m2 *>HHI* (09/17/22 12:48 PM) Blood Pressure [90-138/55-84 mm Hg] 122/74 mm Hg (09/17/22 12:48 PM) Mode of Delivery (Oxygen) Room air (09/17/22 12:48 PM) Blood pressure sites Arm, left (09/17/22 12:48 PM) Social History Social History Type Response Smoking Status Never smoker entered on: 02/15/14 Sex Patient Care team information PersonnelName: Rosa GONZALEZ, Bakari Wells Address: Address: [address] [place] [address] Adult [facility] [address]
--- OUTSIDE RECORDS SUMMARY | 2022-12-21 06:18 | XMS_ITS | Continuity of Care Document ---
:1965 Author Organization [facility] Address [address] [place] [address]- Care Team Providers Name Role Phone Bakari Lee MD Primary Care Physician [facility] Date[facility]s): 06/03/21 - 07/03/21 [facility] [address] [place], [place] [address] Allergies, Adverse Reactions, Alerts Substance Reaction [...] vaccine, inactivated9 12/15/10 Given influenza virus vaccine, [id number] 08/17/10 Given tetanus-diphtheria toxoids (Td)11 09/15/99 Given 1Result Comment: [id number] Note: GIVEN W/O INCIDENT INFO SHEET [id number] Comment: [id number] Comment: [11/23/2018] [id number] [id number] Comment: [09/19/2017] [id number] Comment: [10/25/2013] GIVEN W/O INCIDENSE...XQ0Glnhm Note: [id number] Note: [id number] Note: MANUFACTURE BIOMEDICAL INFO SHEET GIVEN GIVEN W/O [id number] Note: [id number] Note: DONE IN E.R. Medications Aricept 10 mg oral tablet 10 mg, 1, tablet, By Mouth, Daily at bedtime, # 90 tablet, Refills 3, Tot. Refills 3, Maintenance, 01/23/21 13:12:00 EST, Route to Pharmacy Electronically, [facility] 1966, do not fill until [...] Gm, 11 Refills, Maintenance, 08/01/19 8:07:48 EDT, [place],1 sprays Nares, Both 2 times a day Start Date: 08/01/19 Status: Orderedgabapentin 300 mg oral capsule 300 mg, 1, capsule, By Mouth, 3 times a day, take with 600 mgs tablet to = 900 mgs three times per day, # 90 capsule, Refills 11, Tot. Refills 11, Maintenance, 02/16/21 17:27:00 EDT, Route to Pharmacy Electronically, [facility] 1967, do no... Start Date: 02/16/21 Status: Orderedgabapentin 600 mg oral tablet 1 tablet, By Mouth, 3 times a day, *., # 90 tablet, 11 Refills, Maintenance, 01/05/21 12:27:00 EST, [facility], 164, cm, 10/24/20 15:22:00 EST, Height Start Date: 01/05/21 Status: Orderedlevothyroxine 0.05 mg oral tablet 8 tablet = 400 mcg, By Mouth, Every week, 6 days one daily; 1 day take two, # 104 tablet, 3 Refills,Maintenance, 10/24/20 23:15:00 EST, Tablet, [facility], 164, cm, 10/24/20 15:22:00 EST, Height Start Date: 10/24/20 Status: OrderedLinzess By Mouth, Daily, 0 Refills, Maintenance, 07/28/18 15:20:22 EDT Start Date: 07/28/18 Status: Orderedmeloxicam 15 mg oral tablet 1 tablet = 15 mg, By Mouth, Daily, # 90 tablet, 3 Refills, Maintenance, 07/17/20 16:41:00 EDT, Tablet, [facility], 164, cm, 11/15/19 11:34:00 EST, Height Start Date: 07/17/20 Stop Date: 07/12/21 Status: Orderedmetoprolol 50 mg oral tablet, extended release 50 mg, 1, tablet, By Mouth, 2 times a day, # 180 tablet, Refills 3, Tot. Refills 3, Maintenance, 04/24/21 15:39:00 EDT, Route to Pharmacy Electronically, [facility], Partial fill upon patient [...] Refills, Maintenance, 07/17/20 16:41:00 EDT, EC Capsule, [facility], 164, cm, 11/15/19 11:34:00 EST, Height Start Date: 07/17/20 Status: OrderedtraMADol 50 mg oral tablet 1 tablet, By Mouth, Every 8 hours, prn pain, # 21 tablet, 0 Refills, Maintenance, 11/11/20 17:28:00 EST, Tablet, [facility], i am aware of [...] capsule, 3 Refills, Maintenance, 04/30/21 17:34:00 EDT, [facility], Partial fill upon patient request if the prescription is for a scheduleII opioid drug., 164, cm, 04/24/21 15:00:00 EDT,... Start Date: 04/30/21 Stop Date: 04/25/22 Status: OrderedVitamin D3 2000 intl units oral capsule 1 capsule = 2,000 International_Units, By Mouth, Daily, # 30 capsule, 5 Refills, Maintenance, 02/18/21 10:10:00 EDT, [facility], 164, cm, 10/24/20 15:22:00 [...]
--- OUTSIDE RECORDS SUMMARY | 2022-12-21 06:18 | XMS_ITS | Continuity of Care Document ---
:1965 Author Organization [facility] Address [address] [place] [address]- Care Team Providers Name Role Phone Rosa GONZALEZ, Bakari Wells Primary Care Physician [facility] Date[facility] 08/[facility]/21 - 09/29/21 [facility] [address] [place], [place] [address] Allergies, Adverse Reactions, Alerts Substance Reaction [...] tetanus-diphtheria toxoids (Td)12 09/15/99 Given 1Result Comment: [id number] Comment: [id number] Comment: [11/23/2018] [id number] Comment: [09/19/2017] [id number] Comment: [10/25/2013] GIVEN W/O INCIDENSE...SW2Mniaw Note: [id number] Note: [id number] Note: MANUFACTURE BIOMEDICAL INFO SHEET GIVEN GIVEN W/O [id number] Note: [id number] Comment: [id number] Note: GIVEN W/O INCIDENT INFO SHEET [id number] Note: DONE IN E.R. Medications Aricept 10 mg oral tablet 10 mg, 1, tablet, By Mouth, Daily at bedtime, # 90 tablet, Refills 3, Tot. Refills 3, Maintenance, 01/23/21 13:12:00 EST, Route to Pharmacy Electronically, [facility] 1966, do not fill until [...] tablet, Refills 3, Route to Pharmacy Electronically, [facility] 1967, 164, cm, 04/24/21 15:00:00 EDT, Height Start Date: 08/31/21 Status: OrderedFlonase 50 mcg/inh nasal spray 1 sprays, Nares, Both, 2 times a day, # 16 Gm, 11 Refills, Maintenance, 07/20/21 12:47:00 EDT, [place], [facility], 1 sprays Nares, Both [...] 02/16/21 17:27:00 EDT, Route to Pharmacy Electronically, [facility] 1967, do no... Start Date: 02/16/21 Status: Orderedgabapentin 600 mg oral tablet 1 tablet, By Mouth, 3 times a day, *., # 90 tablet, 11 Refills, Maintenance, 01/05/21 12:27:00 EST, [facility], 164, cm, 10/24/20 15:22:00 EST, Height Start Date: 01/05/21 Status: Orderedlevothyroxine 0.05 mg oral tablet 8 tablet = 400 mcg, By Mouth, Every week, 6 days one daily; 1 day take two, # 104 tablet, 3 Refills,Maintenance, 09/15/21 12:29:00 EDT, Tablet, [facility], 164, cm, 09/15/21 11:49:00 EDT, Height Start Date: 09/15/21 Status: OrderedLinzess By Mouth, Daily, 0 Refills, Maintenance, 07/28/18 15:20:22 EDT Start Date: 07/28/18 Status: Orderedmeloxicam 15 mg oral tablet 1 tablet = 15 mg, By Mouth, Daily, # 90 tablet, 3 Refills, Maintenance, 09/15/21 12:29:00 EDT, Tablet, [facility], 164, cm, 09/15/21 11:49:00 EDT, Height Start Date: 09/15/21 Stop Date: 09/10/22 Status: Orderedmetoprolol 50 mg oral tablet, extended release 50 mg, 1, tablet, By Mouth, 2 times a day, # 180 tablet, Refills 3, Tot. Refills 3, Maintenance, 04/24/21 15:39:00 EDT, Route to Pharmacy Electronically, [facility] 1966, Partial fill upon patient request [...] Refills, Maintenance, 09/15/21 12:29:00 EDT, EC Capsule, [facility], 164, cm, 09/15/21 11:49:00 EDT, Height Start Date: 09/15/21 Status: OrderedtraMADol 50 mg oral tablet 1 tablet, By Mouth, Every 8 hours, prn pain, # 21 tablet, 0 Refills, Maintenance, 11/11/20 17:28:00 EST, Tablet, [facility] 1967, i am aware of [...] capsule, 3 Refills, Maintenance, 04/30/21 17:34:00 EDT, [facility], Partial fill upon patient request if the prescription is for a scheduleII opioid drug., 164sascha, 04/24/21 15:00:00 EDT,... Start Date: 04/30/21 Stop Date: 04/25/22 Status: OrderedVitamin D3 2000 intl units oral capsule 1 capsule = 2,000 International_Units, By Mouth, Daily, # 30 capsule, 5 Refills, Maintenance, 08/30/21 8:44:00 EDT, [facility], 164, cm, 04/24/21 15:00:00 EDT, [...]
--- OUTSIDE RECORDS SUMMARY | 2022-12-21 06:18 | XMS_ITS | Continuity of Care Document ---
:1965 Author Organization [facility] Address [address] [place] [address]- Care Team Providers Name Role Phone Bakari Lee MD Primary Care Physician [facility] Date(s): 01/07/22 - 02/06/22 [facility] [address] [place], [place] [address] Allergies, Adverse Reactions, Alerts [...] tetanus-diphtheria toxoids (Td)12 09/15/99 Given 1Result Comment: [id number] Comment: [id number] Comment: [11/23/2018] [id number] Comment: [09/19/2017] [id number] Comment: [10/25/2013] GIVEN W/O INCIDENSE...[id number] Note: [id number] Note: [id number] Note: MANUFACTURE BIOMEDICAL INFO SHEET GIVEN GIVEN W/O [id number] Note: [id number] Comment: [id number] Note: GIVEN W/O INCIDENT INFO SHEET [id number] Note: DONE IN E.R. Medications Aricept 10 mg oral tablet 10 mg, 1, tablet, By Mouth, Daily at bedtime, # 90 tablet, Refills 1, Tot. Refills 1, Maintenance, 11/01/21 16:34:00 EST, Route to Pharmacy Electronically, [facility] 1966, do not fill until pt [...] tablet, Refills 3, Route to Pharmacy Electronically, [facility], 164, cm, 09/15/21 11:49:00 EDT, Height Start Date: 12/15/21 Status: OrderedEffexor XR 75 mg oral capsule, extended release 75 mg, 1, capsule, By Mouth, Daily before breakfast, do not crush or chew pt takes this with a 150 mgs venlafaxine capsule, # 90 capsule, Refills 3, Tot. Refills 3, Maintenance, 12/16/21 13:24:00 EST, Route to Pharmacy Electronically, [facility] Start Date: 12/16/21 Stop Date: 12/11/22 Status: OrderedFlonase 50 mcg/inh nasal spray 1 sprays, Nares, Both, 2 times a day, # 16 Gm, 11 Refills, Maintenance, 07/20/21 12:47:00 EDT, [place], [facility], 1 sprays Nares, Both 2 [...] 02/16/21 17:27:00 EDT, Route to Pharmacy Electronically, [facility], do no... Start Date: 02/16/21 Status: Orderedgabapentin 600 mg oral tablet See Instructions, TAKE 1 TABLET BY MOUTH THREE TIMES DAILY *( TAKE WITH 300MG TABLET TO EQUAL 900MG THREE TIMES A DAY)*, # 90 tablet, 11 Refills, [facility], 164, cm, 09/15/21 11:49:00 EDT, Height Start Date: 01/08/22 Status: Orderedgabapentin 600 mg oral tablet 1 tablet, By Mouth, 3 times a day, *., # 90 tablet, 11 Refills, Maintenance, 01/05/21 12:27:00 EST, [facility], 164, cm, 10/24/20 15:22:00 EST, Height Start Date: 01/05/21 Status: Orderedlevothyroxine 0.05 mg oral tablet 8 tablet = 400 mcg, By Mouth, Every week, 6 days one daily; 1 day take two, # 104 tablet, 3 Refills,Maintenance, 09/15/21 12:29:00 EDT, Tablet, [facility], 164, cm, 09/15/21 11:49:00 EDT, Height Start Date: 09/15/21 Status: OrderedLinzess By Mouth, Daily, 0 Refills, Maintenance, 07/28/18 15:20:22 EDT Start Date: 07/28/18 Status: Orderedmeloxicam 15 mg oral tablet 1 tablet = 15 mg, By Mouth, Daily, # 90 tablet, 3 Refills, Maintenance, 09/15/21 12:29:00 EDT, Tablet, [facility], 164, cm, 09/15/21 11:49:00 EDT, Height Start Date: 09/15/21 Stop Date: 09/10/22 Status: Orderedmetoprolol 50 mg oral tablet, extended release 50 mg, 1, tablet, By Mouth, 2 times a day, # 180 tablet, Refills 3, Tot. Refills 3, Maintenance, 04/24/21 15:39:00 EDT, Route to Pharmacy Electronically, [facility] 1966, Partial fill upon patient request [...] Refills, Maintenance, 09/15/21 12:29:00 EDT, EC Capsule, [facility], 164, cm, 09/15/21 11:49:00 EDT, Height Start Date: 09/15/21 Status: OrderedtraMADol 50 mg oral tablet 1 tablet, By Mouth, Every 8 hours, prn pain, # 21 tablet, 0 Refills, Maintenance, 11/11/20 17:28:00 EST, Tablet, [facility], i am aware of potential [...] capsule, 5 Refills, Maintenance, 08/30/21 8:44:00 EDT, [facility], 164, cm, 04/24/21 15:00:00 EDT, [...]
--- OUTSIDE RECORDS SUMMARY | 2022-12-21 06:18 | XMS_ITS | Continuity of Care Document ---
:1965 Author Organization [facility] Address [address] [place] [address]- Care Team Providers Name Role Phone Rosa GONZALEZ, Bakari Wells Primary Care Physician [facility] Date[facility]s): 07/23/21 - 08/22/21 [facility] [address] [place], [place] [address] Allergies, Adverse Reactions, Alerts Substance [...] vaccine, inactivated9 12/15/10 Given influenza virus vaccine, [id number] 08/17/10 Given tetanus-diphtheria toxoids (Td)11 09/15/99 Given 1Result Comment: [id number] Note: GIVEN W/O INCIDENT INFO SHEET [id number] Comment: [id number] Comment: [11/23/2018] [id number] 5Result Comment: [09/19/2017] [id number] Comment: [10/25/2013] GIVEN W/O INCIDENSE...JP8Batys Note: [id number] Note: [id number] Note: MANUFACTURE BIOMEDICAL INFO SHEET GIVEN GIVEN W/O [id number] Note: [id number] Note: DONE IN E.R. Medications Aricept 10 mg oral tablet 10 mg, 1, tablet, By Mouth, Daily at bedtime, # 90 tablet, Refills 3, Tot. Refills 3, Maintenance, 01/23/21 13:12:00 EST, Route to Pharmacy Electronically, [facility] 1966, do not fill until [...] Gm, 11 Refills, Maintenance, 07/20/21 12:47:00 EDT, [place], [facility], 1 sprays Nares, Both [...] 02/16/21 17:27:00 EDT, Route to Pharmacy Electronically, [facility], do no... Start Date: 02/16/21 Status: Orderedgabapentin 600 mg oral tablet 1 tablet, By Mouth, 3 times a day, *., # 90 tablet, 11 Refills, Maintenance, 01/05/21 12:27:00 EST, [facility], 164, cm, 10/24/20 15:22:00 EST, Height Start Date: 01/05/21 Status: Orderedlevothyroxine 0.05 mg oral tablet 8 tablet = 400 mcg, By Mouth, Every week, 6 days one daily; 1 day take two, # 104 tablet, 3 Refills,Maintenance, 10/24/20 23:15:00 EST, Tablet, [facility], 164, cm, 10/24/20 15:22:00 EST, Height Start Date: 10/24/20 Status: OrderedLinzess By Mouth, Daily, 0 Refills, Maintenance, 07/28/18 15:20:22 EDT Start Date: 07/28/18 Status: Orderedmeloxicam 15 mg oral tablet 1 tablet = 15 mg, By Mouth, Daily, # 90 tablet, 3 Refills, Maintenance, 07/17/20 16:41:00 EDT, Tablet, [facility], 164, cm, 11/15/19 11:34:00 EST, Height Start Date: 07/17/20 Stop Date: 07/12/21 Status: Orderedmetoprolol 50 mg oral tablet, extended release 50 mg, 1, tablet, By Mouth, 2 times a day, # 180 tablet, Refills 3, Tot. Refills 3, Maintenance, 04/24/21 15:39:00 EDT, Route to Pharmacy Electronically, [facility], Partial fill upon patient [...] Refills, Maintenance, 07/17/20 16:41:00 EDT, EC Capsule, [facility], 164, cm, 11/15/19 11:34:00 EST, Height Start Date: 07/17/20 Status: OrderedtraMADol 50 mg oral tablet 1 tablet, By Mouth, Every 8 hours, prn pain, # 21 tablet, 0 Refills, Maintenance, 11/11/20 17:28:00 EST, Tablet, [facility], i am aware of [...] capsule, 3 Refills, Maintenance, 04/30/21 17:34:00 EDT, [facility], Partial fill upon patient request if the prescription is for a scheduleII opioid drug., 164, cm, 04/24/21 15:00:00 EDT,... Start Date: 04/30/21 Stop Date: 04/25/22 Status: OrderedVitamin D3 2000 intl units oral capsule 1 capsule = 2,000 International_Units, By Mouth, Daily, # 30 capsule, 5 Refills, Maintenance, 02/18/21 10:10:00 EDT, [facility], 164, cm, 10/24/20 15:22:00 [...]
--- OUTSIDE RECORDS SUMMARY | 2022-12-21 06:18 | XMS_ITS | Continuity of Care Document ---
:1965 Author Organization [facility] Address [address] [place] [address]- Care Team Providers Name Role Phone Bakari Lee MD Primary Care Physician [facility] Date[facility]s): 04/24/21 - 05/01/21 [facility] [address] [place], [place] [address] Attending Physician: Bakari Lee MD [...] vaccine, inactivated9 12/15/10 Given influenza virus vaccine, [id number] 08/17/10 Given tetanus-diphtheria toxoids (Td)11 09/15/99 Given 1Result Comment: [id number] Note: GIVEN W/O INCIDENT INFO SHEET [id number] Comment: [id number] Comment: [11/23/2018] [id number] 5Result Comment: [09/19/2017] [id number] Comment: [10/25/2013] GIVEN W/O INCIDENSE...[id number] Note: [id number] Note: [id number] Note: MANUFACTURE BIOMEDICAL INFO SHEET GIVEN GIVEN W/O [id number] Note: [id number] Note: DONE IN E.R. Medications Aricept 10 mg oral tablet 10 mg, 1, tablet, By Mouth, Daily at bedtime, # 90 tablet, Refills 3, Tot. Refills 3, Maintenance, 01/23/21 13:12:00 EST, Route to Pharmacy Electronically, [facility] 1966, do not fill until [...] Gm, 11 Refills, Maintenance, 08/01/19 8:07:48 EDT, [place],1 sprays Nares, Both 2 times a day Start Date: 08/01/19 Status: Orderedgabapentin 300 mg oral capsule 300 mg, 1, capsule, By Mouth, 3 times a day, take with 600 mgs tablet to = 900 mgs three times per day, # 90 capsule, Refills 11, Tot. Refills 11, Maintenance, 02/16/21 17:27:00 EDT, Route to Pharmacy Electronically, [facility], do no... Start Date: 02/16/21 Status: Orderedgabapentin 600 mg oral tablet 1 tablet, By Mouth, 3 times a day, *., # 90 tablet, 11 Refills, Maintenance, 01/05/21 12:27:00 EST, [facility], 164, cm, 10/24/20 15:22:00 EST, Height Start Date: 01/05/21 Status: Orderedlevothyroxine 0.05 mg oral tablet 8 tablet = 400 mcg, By Mouth, Every week, 6 days one daily; 1 day take two, # 104 tablet, 3 Refills,Maintenance, 10/24/20 23:15:00 EST, Tablet, [facility], 164, cm, 10/24/20 15:22:00 EST, Height Start Date: 10/24/20 Status: OrderedLinzess By Mouth, Daily, 0 Refills, Maintenance, 07/28/18 15:20:22 EDT Start Date: 07/28/18 Status: Orderedmeloxicam 15 mg oral tablet 1 tablet = 15 mg, By Mouth, Daily, # 90 tablet, 3 Refills, Maintenance, 07/17/20 16:41:00 EDT, Tablet, [facility], 164, cm, 11/15/19 11:34:00 EST, Height Start Date: 07/17/20 Stop Date: 07/12/21 Status: Orderedmetoprolol 50 mg oral tablet, extended release 50 mg, 1, tablet, By Mouth, 2 times a day, # 180 tablet, Refills 3, Tot. Refills 3, Maintenance, 04/24/21 15:39:00 EDT, Route to Pharmacy Electronically, [facility] 1966, Partial fill upon patient [...] Refills, Maintenance, 07/17/20 16:41:00 EDT, EC Capsule, [facility], 164, cm, 11/15/19 11:34:00 EST, Height Start Date: 07/17/20 Status: OrderedtraMADol 50 mg oral tablet 1 tablet, By Mouth, Every 8 hours, prn pain, # 21 tablet, 0 Refills, Maintenance, 11/11/20 17:28:00 EST, Tablet, [facility], i am aware of potential [...] capsule, 3 Refills, Maintenance, 04/30/21 17:34:00 EDT, [facility], Partial fill upon patient request if the prescription is for a scheduleII opioid drug., 164, cm, 04/24/21 15:00:00 EDT,... Start Date: 04/30/21 Stop Date: 04/25/22 Status: OrderedVitamin D3 2000 intl units oral capsule 1 capsule = 2,000 International_Units, By Mouth, Daily, # 30 capsule, 5 Refills, Maintenance, 02/18/21 10:10:00 EDT, [facility], 164, cm, 10/24/20 15:22:00 EST, [...] oldest [Reference Range]: 1 Height 164.00 cm (04/24/21 3:00 PM) Weight 107.5 kg (04/24/21 3:00 PM) Oxygen Saturation [94-100 %] 99 % (04/24/21 3:00 PM) Pulse Rate [55-90 bpm] 51 bpm *L* (04/24/21 3:00 PM) Body Mass Index [18.5-24.99] 39.97 *>HHI* (04/24/21 3:00 PM) Blood Pressure [90-138/55-84 mm Hg] 116/70 mm Hg (04/24/21 3:00 PM) Temperature [96.8-100.4 DegF] 98.1 DegF (04/24/21 3:00 PM) Blood pressure sites Arm, left (04/24/21 3:00 PM) Temperature Route Core (04/24/21 3:00 PM) Social History Social History Type Response Smoking Status Never smoker entered on: 02/15/14 Sex
--- OUTSIDE RECORDS SUMMARY | 2022-12-21 06:18 | XMS_ITS | Continuity of Care Document ---
:1965 Author Organization [facility] Address [address] [place] [address]- Care Team Providers Name Role Phone Bakari Lee MD Primary Care Physician Encounter [facility] Date(s): 08/31/22 - 09/30/22 [facility] [address] [place] [address]- Allergies, Adverse Reactions, Alerts No Known Allergies [...] virus vaccine, inactivated9 08/17/10 Given SARS-CoV-2 mRNA (rtrjsvo-[id number]) vax 04/16/22 Recorde d SARS-CoV-2 (COVID-19) mRNA BNT-162b2 vac10 11/21/21 Recor ded SARS-CoV-2 (COVID-19) mRNA BNT-162b2 vac 04/15/21 Recorde d SARS-CoV-2 (COVID-19) mRNA BNT-162b2 vac 03/25/21 Recorde d tetanus/diphtheria/pertussis, acel(Tdap)11 10/24/20 Given tetanus/diphtheria/pertussis, acel(Tdap)12 12/15/10 Given Influenza Virus Vaccine (oldterm) 10/09/20 Recorded tetanus-diphtheria toxoids (Td)13 09/15/99 Given 1Result Comment: [id number] Comment: [id number] Comment: [11/23/2018] [id number] Comment: [09/19/2017] [id number] Comment: [10/25/2013] GIVEN W/O INCIDENSE...MY5Ozrzf Note: [id number] Note: [id number] Note: MANUFACTURE BIOMEDICAL INFO SHEET GIVEN GIVEN W/O [id number] Note: [id number] Comment: [id number] Comment: [id number] Note: GIVEN W/O INCIDENT INFO SHEET [id number] Note: DONE IN E.R. Medications Aricept 10 mg oral tablet 10 mg, 1, tablet, By Mouth, Daily at bedtime, # 90 tablet, Refills 3, Tot. Refills 3, Maintenance, 07/21/22 13:26:00 EDT, Route to Pharmacy Electronically, [place] [...] 05/04/22 16:15:00 EDT, Route to Pharmacy Electronically, [facility], 164, cm, 03/18/22 11:48:00 EDT, Height Start Date: 05/04/22 Status: OrderedEffexor XR 75 mg oral capsule, extended release 75 mg, 1, capsule, By Mouth, Daily before breakfast, do not crush or chew pt takes this with a 150 mgs venlafaxine capsule, # 90 capsule, Refills 3, Tot. Refills 3, Maintenance, 12/16/21 13:24:00 EST, Route to Pharmacy Electronically, [facility] Start Date: 12/16/21 Stop Date: 12/11/22 Status: OrderedFlonase 50 mcg/inh nasal spray 1 sprays, Nares, Both, 2 times a day, # 16 Gm, 11 Refills, Maintenance, 09/06/22 9:11:00 EDT, [place],[facility], 1 sprays Nares, Both 2 [...] 03/18/22 11:53:00 EDT, Route to Pharmacy Electronically, [facility] 1966, do no... Start Date: 03/18/22 Status: Orderedgabapentin 600 mg oral tablet See Instructions, TAKE 1 TABLET BY MOUTH THREE TIMES DAILY *( TAKE WITH 300MG TABLET TO EQUAL 900MG THREE TIMES A DAY)*, # 90 tablet, 11 Refills, [facility], 164, cm, 09/15/21 11:49:00 EDT, Height Start Date: 01/08/22 Status: Orderedlevothyroxine 0.05 mg oral tablet 8 tablet = 400 mcg, By Mouth, Every week, 6 days one daily; 1 day take two, # 104 tablet, 3 Refills,Maintenance, 09/17/22 13:23:00 EDT, Tablet, [facility], 164, cm, 09/17/22 12:48:00 EDT, Height Start Date: 09/17/22 Status: OrderedLinzess By Mouth, Daily, 0 Refills, Maintenance, 07/28/18 15:20:22 EDT Start Date: 07/28/18 Status: Orderedmeloxicam 15 mg oral tablet 1 tablet = 15 mg, By Mouth, Daily, # 90 tablet, 3 Refills, Maintenance, 09/17/22 13:23:00 EDT, Tablet, [facility], 164, cm, 09/17/22 12:48:00 EDT, Height Start Date: 09/17/22 Stop Date: 09/12/23 Status: Orderedmetoprolol 50 mg oral tablet, extended release 50 mg, 1, tablet, By Mouth, 2 times a day, # 180 tablet, Refills 3, Tot. Refills 3, Maintenance, 09/17/22 13:23:00 EDT, Route to Pharmacy Electronically, [facility] 1967, Partial fill upon [...] Refills, Maintenance, 05/04/22 16:13:00 EDT, EC Capsule, [facility], 164, cm, 03/18/22 [...] capsule, 3 Refills, Maintenance, 04/22/22 20:29:00 EDT, [facility], Partial fill upon patient request if the prescription is for a schedule II opioid drug., 164, cm, 03/18/22 11:48:00 EDT, Height Start Date: 04/22/22 Stop Date: 04/17/23 Status: OrderedVitamin D3 2000 intl units oral capsule 1 capsule = 2,000 International_Units, By Mouth, Daily, # 30 capsule, 5 Refills, Maintenance, 08/31/22 17:48:00 EDT, [facility], 164, cm, 03/18/22 [...] Care Team PersonnelName: Bakari Lee MD Position: [facility] Primary Care Physician Member Role: PCP Address: Address: [address] [place] [address] Adult & Pediatric Medicine [address] Care Team Related PersonsName: XI FUENTES Address: home [address] [place] [address] Name: YAAKOV BENNETT Address: home [address] [place] [address]
--- OUTSIDE RECORDS SUMMARY | 2022-12-21 06:19 | XMS_ITS | Continuity of Care Document ---
:[address] [facility] Address [address] [place] [address]- Care Team Providers Name Role Phone Rosa GONZALEZ, Bakari Wells Primary Care Physician [facility] Date(s): 07/17/20 - 07/24/20 [facility] [address] [place] [address]- [facility] Attending Physician: Bakari Lee MD Allergies, Adverse [...] tetanus-diphtheria toxoids (Td)10 09/15/99 Given 1Result Comment: [id number] Comment: [11/23/2018] [id number] Comment: [09/19/2017] [id number] Comment: [10/25/2013] GIVEN W/O INCIDENSE...MH5 Admin Note: [id number] Note: [id number] Note: MANUFACTURE BIOMEDICAL INFO SHEET GIVEN GIVEN W/O [id number] Note: [id number] Note: GIVEN W/O INCIDENT INFO SHEET [id number] Note: DONE IN E.R. Medications Aricept 10 mg oral tablet 10 mg, 1, tablet, By Mouth, Daily at bedtime, # 90 tablet, Refills 3, Tot. Refills 3, Maintenance, 01/22/20 12:56:00 EST, Route to Pharmacy Electronically, [facility] 1966, do not fill until [...] Replace Required Details, Route to Pharmacy Electronically, [facility] 1966, 164, cm, 11/15/19 11:34:00 EST, Height Start Date: 05/30/20 Status: OrderedEffexor XR 75 mg oral capsule, extended release 75 mg, 1, capsule, By Mouth, 2 times a day, do not crush or chew, # 180 capsule, Refills 3, Tot. Refills 3, Maintenance, 07/17/20 16:41:00 EDT, Route to Pharmacy Electronically, [facility] 1967, 164, cm, 11/15/19 11:34:00 EST, Height Start Date: 07/17/20 Stop Date: 07/12/21 Status: OrderedFlonase 50 mcg/inh nasal spray 1 sprays, Nares, Both, 2 times a day, # 16 Gm, 11 Refills, Maintenance, 08/01/19 8:07:48 EDT, [place],1 sprays Nares, Both 2 times a day Start Date: 08/01/19 Status: Orderedgabapentin 300 mg oral capsule 300 mg, 1, capsule, By Mouth, 3 times a day, take with 600 mgs tablet to = 900 mgs three times per day, # 90 capsule, Refills 4, Tot. Refills 4, Maintenance, 07/04/20 14:35:00 EDT, Route to Pharmacy Electronically, [facility] 1967, do not... Start Date: 07/04/20 Status: Orderedgabapentin 600 mg oral tablet 1 tablet = 600 mg, By Mouth, 3 times a day, take with 300 mgs tablet to = 900 mgs three times per day, # 90 tablet, 11 Refills, Maintenance, 06/19/19 10:13:27 EDT Start Date: 06/19/19 Status: Orderedgabapentin 600 mg oral tablet 1 tablet = 600 mg, By Mouth, 3 times a day, take with 300 mgs tablet to = 900 mgs three times per day, # 90 tablet, 4 Refills, Maintenance, 07/04/20 14:35:00 EDT, [facility], 164, cm, 11/15/19 11:34:00 [...] 3 Refills, Maintenance, 07/17/20 16:41:00 EDT, Tablet, [facility] 1967, 164, cm, 11/15/19 11:34:00 EST, Height Start Date: 07/17/20 Stop Date: 07/12/21 Status: Orderedmetoprolol 25 mg oral tablet, extended release 75 mg, 3, tablet, By Mouth, Daily, # 270 tablet, Refills 3, Tot. Refills 3, Maintenance, 07/17/20 16:41:00 EDT, Route to Pharmacy Electronically, [facility] 1967, 164, cm, 11/15/19 11:34:00 EST, Height Start Date: 07/17/20 Stop Date: 07/12/21 Status: OrderedNeutral Sodium Fluoride Rinse 10 mL, Topically, 0 Refills, Maintenance, 07/28/18 15:18:11 EDT Start Date: 07/28/18 Status: Orderedomeprazole 20 mg oral enteric coated capsule 1 capsule = 20 mg, By Mouth, Daily, # 90 capsule, 3 Refills, Maintenance, 07/17/20 16:41:00 EDT, EC Capsule, [facility], 164, cm, 11/15/19 11:34:00 [...] capsule, 11 Refills, Maintenance, 02/11/20 14:14:00 EDT, [facility], 164, cm, 11/15/19 11:34:00 EST, [...]
--- OUTSIDE RECORDS SUMMARY | 2022-12-21 06:19 | XMS_ITS | Continuity of Care Document ---
:1965 Author Organization [facility] Address [address] [place] [address]- Care Team Providers Name Role Phone Rosa GONZALEZ, Bakari Wells Primary Care Physician [facility] Date[facility]s): 03/04/21 - 04/03/21 [facility] [address] [place], [place] [address] Attending Physician: Admtr, Jeffrey Allergies, Adverse Reactions, [...] vaccine, inactivated9 12/15/10 Given influenza virus vaccine, [id number] 08/17/10 Given tetanus-diphtheria toxoids (Td)11 09/15/99 Given 1Result Comment: [id number] Note: GIVEN W/O INCIDENT INFO SHEET [id number] Comment: [id number] Comment: [11/23/2018] [id number] 5Result Comment: [09/19/2017] [id number] Comment: [10/25/2013] GIVEN W/O INCIDENSE...FG9Fmznd Note: [id number] Note: [id number] Note: MANUFACTURE BIOMEDICAL INFO SHEET GIVEN GIVEN W/O [id number] Note: [id number] Note: DONE IN E.R. Medications Aricept 10 mg oral tablet 10 mg, 1, tablet, By Mouth, Daily at bedtime, # 90 tablet, Refills 3, Tot. Refills 3, Maintenance, 01/23/21 13:12:00 EST, Route to Pharmacy Electronically, [facility] 1966, do not fill until [...] 02/27/21 13:59:00 EDT, Route to Pharmacy Electronically, [facility] 1966, this is an increase to 225 mgs, 164, cm, ... Start Date: 02/27/21 Stop Date: 02/22/22 Status: OrderedFlonase 50 mcg/inh nasal spray 1 sprays, Nares, Both, 2 times a day, # 16 Gm, 11 Refills, Maintenance, 08/01/19 8:07:48 EDT, [place],1 sprays Nares, Both 2 times a day Start Date: 08/01/19 Status: Orderedgabapentin 300 mg oral capsule 300 mg, 1, capsule, By Mouth, 3 times a day, take with 600 mgs tablet to = 900 mgs three times per day, # 90 capsule, Refills 11, Tot. Refills 11, Maintenance, 02/16/21 17:27:00 EDT, Route to Pharmacy Electronically, [facility] 1967, do no... Start Date: 02/16/21 Status: Orderedgabapentin 600 mg oral tablet 1 tablet, By Mouth, 3 times a day, *., # 90 tablet, 11 Refills, Maintenance, 01/05/21 12:27:00 EST, [facility], 164, cm, 10/24/20 15:22:00 EST, Height Start Date: 01/05/21 Status: Orderedlevothyroxine 0.05 mg oral tablet 8 tablet = 400 mcg, By Mouth, Every week, 6 days one daily; 1 day take two, # 104 tablet, 3 Refills,Maintenance, 10/24/20 23:15:00 EST, Tablet, [facility], 164, cm, 10/24/20 15:22:00 EST, Height Start Date: 10/24/20 Status: OrderedLinzess By Mouth, Daily, 0 Refills, Maintenance, 07/28/18 15:20:22 EDT Start Date: 07/28/18 Status: Orderedmeloxicam 15 mg oral tablet 1 tablet = 15 mg, By Mouth, Daily, # 90 tablet, 3 Refills, Maintenance, 07/17/20 16:41:00 EDT, Tablet, [facility], 164, cm, 11/15/19 11:34:00 EST, Height Start Date: 07/17/20 Stop Date: 07/12/21 Status: Orderedmetoprolol 50 mg oral tablet, extended release 75 mg, 1.5, tablet, By Mouth, Daily, # 135 tablet, Refills 3, Tot. Refills 3, Maintenance, 12/22/20 17:10:00 EST, Route to Pharmacy Electronically, [facility] 1967, Partial fill upon patient [...] Refills, Maintenance, 07/17/20 16:41:00 EDT, EC Capsule, [facility], 164, cm, 11/15/19 11:34:00 EST, Height Start Date: 07/17/20 Status: OrderedtraMADol 50 mg oral tablet 1 tablet, By Mouth, Every 8 hours, prn pain, # 21 tablet, 0 Refills, Maintenance, 11/11/20 17:28:00 EST, Tablet, [facility], i am aware of [...] capsule, 5 Refills, Maintenance, 02/18/21 10:10:00 EDT, [facility], 164, cm, 10/24/20 15:22:00 [...] retroperitoneum1 1tiny polyp in GB. otherwise nl [facility] Social History Social History Type Response Smoking Status Never smoker entered on: 02/15/14 Sex
--- OUTSIDE RECORDS SUMMARY | 2022-12-21 06:19 | XMS_ITS | Continuity of Care Document ---
:1965 Author Organization [facility] Address [address] [place] [address]- Care Team Providers Name Role Phone Bakari Lee MD Primary Care Physician Encounter [facility] Date(s): 05/04/22 - 06/03/22 [facility] [address] [place] [address]- Allergies, Adverse Reactions, Alerts No Known Allergies [...] vaccine, inactivated9 12/15/10 Given influenza virus vaccine, [id number] 08/17/10 Given tetanus/diphtheria/pertussis, acel(Tdap)11 10/24/20 Given tetanus/diphtheria/pertussis, acel(Tdap)12 12/15/10 Given Influenza Virus Vaccine (oldterm) 10/09/20 Recorded tetanus-diphtheria toxoids (Td)13 09/15/99 Given 1Result Comment: [id number] Comment: [id number] Comment: [id number] Result Comment: [11/23/2018] [id number] Comment: [09/19/2017] [id number] Result Comment: [10/25/2013] GIVEN W/O INCIDENSE...AB6Lvcps Note: [id number] Note: [id number] Note: MANUFACTURE BIOMEDICAL INFO SHEET GIVEN GIVEN W/O [id number] Note: [id number] Comment: [id number] Note: GIVEN W/O INCIDENT INFO SHEET [id number] Note: DONE IN E.R. Medications Aricept 10 mg oral tablet 10 mg, 1, tablet, By Mouth, Daily at bedtime, # 90 tablet, Refills 1, Tot. Refills 1, Maintenance, 11/01/21 16:34:00 EST, Route to Pharmacy Electronically, [facility] 1966, do not fill until [...] 12/16/21 13:24:00 EST, Route to Pharmacy Electronically, [facility] Start Date: 12/16/21 Stop Date: 12/11/22 Status: Orderedgabapentin 300 mg oral capsule 300 mg, 1, capsule, By Mouth, 3 times a day, take with 600 mgs tablet to = 900 mgs three times per day, # 90 capsule, Refills 11, Tot. Refills 11, Maintenance, 03/18/22 11:53:00 EDT, Route to Pharmacy Electronically, [facility] 1967, do no... Start Date: 03/18/22 Status: Orderedgabapentin 600 mg oral tablet See Instructions, TAKE 1 TABLET BY MOUTH THREE TIMES DAILY *( TAKE WITH 300MG TABLET TO EQUAL 900MG THREE TIMES A DAY)*, # 90 tablet, 11 Refills, [facility], 164, cm, 09/15/21 11:49:00 EDT, Height Start Date: 01/08/22 Status: Orderedlevothyroxine 0.05 mg oral tablet 8 tablet = 400 mcg, By Mouth, Every week, 6 days one daily; 1 day take two, # 104 tablet, 3 Refills,Maintenance, 09/15/21 12:29:00 EDT, Tablet, [facility], 164, cm, 09/15/21 11:49:00 EDT, Height Start Date: 09/15/21 Status: OrderedLinzess By Mouth, Daily, 0 Refills, Maintenance, 07/28/18 15:20:22 EDT Start Date: 07/28/18 Status: Orderedmeloxicam 15 mg oral tablet 1 tablet = 15 mg, By Mouth, Daily, # 90 tablet, 3 Refills, Maintenance, 09/15/21 12:29:00 EDT, Tablet, [facility], 164, cm, 09/15/21 11:49:00 EDT, Height Start Date: 09/15/21 Stop Date: 09/10/22 Status: Orderedmetoprolol 50 mg oral tablet, extended release 50 mg, 1, tablet, By Mouth, 2 times a day, # 180 tablet, Refills 3, Tot. Refills 3, Maintenance, 04/24/21 15:39:00 EDT, Route to Pharmacy Electronically, [facility] 1967, Partial fill upon [...] capsule, 3 Refills, Maintenance, 04/22/22 20:29:00 EDT, [facility], Partial fill upon patient request if the prescription is for a schedule II opioid drug., 164, cm, 03/18/22 11:48:00 EDT, Height Start Date: 04/22/22 Stop Date: 04/17/23 Status: OrderedVitamin D3 2000 intl units oral capsule 1 capsule = 2,000 International_Units, By Mouth, Daily, # 30 capsule, 5 Refills, Maintenance, 03/18/22 11:53:00 EDT, [facility], 164, cm, 03/18/22 11:48:00 [...]
--- OUTSIDE RECORDS SUMMARY | 2022-12-21 06:19 | XMS_ITS | Continuity of Care Document ---
:[address] [facility] Address [address] [place] [address]- Care Team Providers Name Role Phone Bakari Lee MD Primary Care Physician Encounter [facility] Date(s): 05/28/21 - 06/27/21 [facility] [address] [place], [place] [address] Attending Physician: Admtr, Ar8 Allergies, Adverse Reactions, Alerts Substance Reaction Severity [...] vaccine, inactivated9 12/15/10 Given influenza virus vaccine, [id number] 08/17/10 Given tetanus-diphtheria toxoids (Td)11 09/15/99 Given 1Result Comment: [id number] Note: GIVEN W/O INCIDENT INFO SHEET [id number] Comment: [id number] Comment: [11/23/2018] [id number] 5Result Comment: [09/19/2017] [id number] Comment: [10/25/2013] GIVEN W/O INCIDENSE...OE8Atcqa Note: [id number] Note: [id number] Note: MANUFACTURE BIOMEDICAL INFO SHEET GIVEN GIVEN W/O [id number] Note: [id number] Note: DONE IN E.R. Medications Aricept 10 mg oral tablet 10 mg, 1, tablet, By Mouth, Daily at bedtime, # 90 tablet, Refills 3, Tot. Refills 3, Maintenance, 01/23/21 13:12:00 EST, Route to Pharmacy Electronically, [facility] 1966, do not fill [...] Gm, 11 Refills, Maintenance, 08/01/19 8:07:48 EDT, [place],1 sprays Nares, Both 2 times a day Start Date: 08/01/19 Status: Orderedgabapentin 300 mg oral capsule 300 mg, 1, capsule, By Mouth, 3 times a day, take with 600 mgs tablet to = 900 mgs three times per day, # 90 capsule, Refills 11, Tot. Refills 11, Maintenance, 02/16/21 17:27:00 EDT, Route to Pharmacy Electronically, [facility] 1967, do no... Start Date: 02/16/21 Status: Orderedgabapentin 600 mg oral tablet 1 tablet, By Mouth, 3 times a day, *., # 90 tablet, 11 Refills, Maintenance, 01/05/21 12:27:00 EST, [facility], 164, cm, 10/24/20 15:22:00 EST, Height Start Date: 01/05/21 Status: Orderedlevothyroxine 0.05 mg oral tablet 8 tablet = 400 mcg, By Mouth, Every week, 6 days one daily; 1 day take two, # 104 tablet, 3 Refills,Maintenance, 10/24/20 23:15:00 EST, Tablet, [facility], 164, cm, 10/24/20 15:22:00 EST, Height Start Date: 10/24/20 Status: OrderedLinzess By Mouth, Daily, 0 Refills, Maintenance, 07/28/18 15:20:22 EDT Start Date: 07/28/18 Status: Orderedmeloxicam 15 mg oral tablet 1 tablet = 15 mg, By Mouth, Daily, # 90 tablet, 3 Refills, Maintenance, 07/17/20 16:41:00 EDT, Tablet, [facility], 164, cm, 11/15/19 11:34:00 EST, Height Start Date: 07/17/20 Stop Date: 07/12/21 Status: Orderedmetoprolol 50 mg oral tablet, extended release 50 mg, 1, tablet, By Mouth, 2 times a day, # 180 tablet, Refills 3, Tot. Refills 3, Maintenance, 04/24/21 15:39:00 EDT, Route to Pharmacy Electronically, [facility] 1966, Partial fill upon patient [...] Refills, Maintenance, 07/17/20 16:41:00 EDT, EC Capsule, [facility], 164, cm, 11/15/19 11:34:00 EST, Height Start Date: 07/17/20 Status: OrderedtraMADol 50 mg oral tablet 1 tablet, By Mouth, Every 8 hours, prn pain, # 21 tablet, 0 Refills, Maintenance, 11/11/20 17:28:00 EST, Tablet, [facility], i am aware [...] capsule, 3 Refills, Maintenance, 04/30/21 17:34:00 EDT, [facility], Partial fill upon patient request if the prescription is for a scheduleII opioid drug., 164, cm, 04/24/21 15:00:00 EDT,... Start Date: 04/30/21 Stop Date: 04/25/22 Status: OrderedVitamin D3 2000 intl units oral capsule 1 capsule = 2,000 International_Units, By Mouth, Daily, # 30 capsule, 5 Refills, Maintenance, 02/18/21 10:10:00 EDT, [facility], 164, cm, 10/24/20 [...] retroperitoneum1 1tiny polyp in GB. otherwise nl [facility] Social History Social History Type Response Smoking Status Never smoker entered on: 02/15/14 Sex
--- OUTSIDE RECORDS SUMMARY | 2022-12-21 06:19 | XMS_ITS | Continuity of Care Document ---
:1965 Author Organization [facility] Address [address] [place] [address]- Care Team Providers Name Role Phone Bakari Lee MD Primary Care Physician [facility] Date(s): 10/17/22 - 11/16/22 [facility] [address] [place], [place] [address] Allergies, Adverse Reactions, Alerts No Known [...] virus vaccine, inactivated9 08/17/10 Given SARS-CoV-2 mRNA (mkvlxyi-udsm-vpvpt) vax 04/16/22 Recorde d SARS-CoV-2 (COVID-19) mRNA BNT-162b2 vac10 11/21/21 Recor ded SARS-CoV-2 (COVID-19) mRNA BNT-162b2 vac 04/15/21 Recorde d SARS-CoV-2 (COVID-19) mRNA BNT-162b2 vac 03/25/21 Recorde d tetanus/diphtheria/pertussis, acel(Tdap)11 10/24/20 Given tetanus/diphtheria/pertussis, acel(Tdap)12 12/15/10 Given Influenza Virus Vaccine (oldterm) 10/09/20 Recorded tetanus-diphtheria toxoids (Td)13 09/15/99 Given 1Result Comment: [id number] Comment: [id number] Comment: [11/23/2018] [id number] Comment: [09/19/2017] [id number] Comment: [10/25/2013] GIVEN W/O INCIDENSE...MX1Mndet Note: [id number] Note: [id number] Note: MANUFACTURE BIOMEDICAL INFO SHEET GIVEN GIVEN W/O [id number] Note: [id number] Comment: [id number] Comment: [id number] Note: GIVEN W/O INCIDENT INFO SHEET [id number] Note: DONE IN E.R. Medications Aricept 10 mg oral tablet 10 mg, 1, tablet, By Mouth, Daily at bedtime, # 90 tablet, Refills 3, Tot. Refills 3, Maintenance, 07/21/22 13:26:00 EDT, Route to Pharmacy Electronically, [facility] 1966, do not fill [...] 10/18/22 9:47:00 EST, Route to Pharmacy Electronically, [facility], 164, cm, 09/17/22 12:48:00 EDT, Height Start Date: 10/18/22 Status: OrderedEffexor XR 75 mg oral capsule, extended release 75 mg, 1, capsule, By Mouth, Daily before breakfast, do not crush or chew pt takes this with a 150 mgs venlafaxine capsule, # 90 capsule, Refills 3, Tot. Refills 3, Maintenance, 12/16/21 13:24:00 EST, [facility] Start Date: 12/16/21 Stop Date: 12/11/22 Status: OrderedFlonase 50 mcg/inh nasal spray 1 sprays, Nares, Both, 2 times a day, # 16 Gm, 11 Refills, Maintenance, 09/06/22 9:11:00 EDT, [place],[facility], 1 sprays Nares, Both [...] 03/18/22 11:53:00 EDT, Route to Pharmacy Electronically, [facility], do no... Start Date: 03/18/22 Status: Orderedgabapentin 600 mg oral tablet See Instructions, TAKE 1 TABLET BY MOUTH THREE TIMES DAILY *( TAKE WITH 300MG TABLET TO EQUAL 900MG THREE TIMES A DAY)*, # 90 tablet, 11 Refills, [facility], 164, cm, 09/15/21 11:49:00 EDT, Height Start Date: 01/08/22 Status: Orderedlevothyroxine 0.05 mg oral tablet 8 tablet = 400 mcg, By Mouth, Every week, 6 days one daily; 1 day take two, # 104 tablet, 3 Refills,Maintenance, 09/17/22 13:23:00 EDT, Tablet, [facility], 164, cm, 09/17/22 12:48:00 EDT, Height Start Date: 09/17/22 Status: OrderedLinzess By Mouth, Daily, 0 Refills, Maintenance, 07/28/18 15:20:22 EDT Start Date: 07/28/18 Status: Orderedmeloxicam 15 mg oral tablet 1 tablet = 15 mg, By Mouth, Daily, # 90 tablet, 3 Refills, Maintenance, 09/17/22 13:23:00 EDT, Tablet, [facility], 164, cm, 09/17/22 12:48:00 EDT, Height Start Date: 09/17/22 Stop Date: 09/12/23 Status: Orderedmetoprolol 50 mg oral tablet, extended release 50 mg, 1, tablet, By Mouth, 2 times a day, # 180 tablet, Refills 3, Tot. Refills 3, Maintenance, 09/17/22 13:23:00 EDT, Route to Pharmacy Electronically, [facility] 1967, Partial fill upon [...] Refills, Maintenance, 05/04/22 16:13:00 EDT, EC Capsule, [facility], 164, cm, 03/18/22 11:48:00 [...] capsule, 3 Refills, Maintenance, 04/22/22 20:29:00 EDT, [facility], Partial fill upon patient request if the prescription is for a schedule II opioid drug., 164, cm, 03/18/22 11:48:00 EDT, Height Start Date: 04/22/22 Stop Date: 04/17/23 Status: OrderedVitamin D3 2000 intl units oral capsule 1 capsule = 2,000 International_Units, By Mouth, Daily, # 30 capsule, 5 Refills, Maintenance, 08/31/22 17:48:00 EDT, [facility], 164, cm, 03/18/22 11:48:00 EDT, [...] Care Physician Member Role: PCP Address: Address: [address] [place] [address] [facility] [address] Care Team Related PersonsName: XI FUENTES Address: home [address] [place] [address] Name: YAAKOV BENNETT Address: home [address] [place] [address]
--- OUTSIDE RECORDS SUMMARY | 2022-12-21 06:19 | XMS_ITS | Continuity of Care Document ---
:1965 Author Organization [facility] Address [address] [place] [address]- Care Team Providers Name Role Phone Rosa GONZALEZ, Bakari Wells Primary Care Physician [facility] Date(s): 03/22/22 - 04/21/22 [facility] [address] [place] [address]- Allergies, Adverse Reactions, Alerts No Known Allergies [...] vaccine, inactivated9 12/15/10 Given influenza virus vaccine, [id number] 08/17/10 Given tetanus/diphtheria/pertussis, acel(Tdap)11 10/24/20 Given tetanus/diphtheria/pertussis, acel(Tdap)12 12/15/10 Given Influenza Virus Vaccine (oldterm) 10/09/20 Recorded tetanus-diphtheria toxoids (Td)13 09/15/99 Given 1Result Comment: [id number] Comment: [id number] Comment: [id number] Result Comment: [11/23/2018] [id number] Comment: [09/19/2017] [id number] Result Comment: [10/25/2013] GIVEN W/O INCIDENSE...VY7Tbmro Note: [id number] Note: [id number] Note: MANUFACTURE BIOMEDICAL INFO SHEET GIVEN GIVEN W/O [id number] Note: [id number] Comment: [id number] Note: GIVEN W/O INCIDENT INFO SHEET [id number] Note: DONE IN E.R. Medications Aricept 10 mg oral tablet 10 mg, 1, tablet, By Mouth, Daily at bedtime, # 90 tablet, Refills 1, Tot. Refills 1, Maintenance, 11/01/21 16:34:00 EST, Route to Pharmacy Electronically, [facility] 1966, do not fill until [...] tablet, Refills 3, Route to Pharmacy Electronically, [facility] 1967, 164, cm, 09/15/21 11:49:00 EDT, Height Start Date: 12/15/21 Status: OrderedEffexor XR 75 mg oral capsule, extended release 75 mg, 1, capsule, By Mouth, Daily before breakfast, do not crush or chew pt takes this with a 150 mgs venlafaxine capsule, # 90 capsule, Refills 3, Tot. Refills 3, Maintenance, 12/16/21 13:24:00 EST, Route to Pharmacy Electronically, [facility] Start Date: 12/16/21 Stop Date: 12/11/22 Status: Orderedgabapentin 300 mg oral capsule 300 mg, 1, capsule, By Mouth, 3 times a day, take with 600 mgs tablet to = 900 mgs three times per day, # 90 capsule, Refills 11, Tot. Refills 11, Maintenance, 03/18/22 11:53:00 EDT, Route to Pharmacy Electronically, [facility] 1967, do no... Start Date: 03/18/22 Status: Orderedgabapentin 600 mg oral tablet See Instructions, TAKE 1 TABLET BY MOUTH THREE TIMES DAILY *( TAKE WITH 300MG TABLET TO EQUAL 900MG THREE TIMES A DAY)*, # 90 tablet, 11 Refills, [facility], 164, cm, 09/15/21 11:49:00 EDT, Height Start Date: 01/08/22 Status: Orderedlevothyroxine 0.05 mg oral tablet 8 tablet = 400 mcg, By Mouth, Every week, 6 days one daily; 1 day take two, # 104 tablet, 3 Refills,Maintenance, 09/15/21 12:29:00 EDT, Tablet, [facility], 164, cm, 09/15/21 11:49:00 EDT, Height Start Date: 09/15/21 Status: OrderedLinzess By Mouth, Daily, 0 Refills, Maintenance, 07/28/18 15:20:22 EDT Start Date: 07/28/18 Status: Orderedmeloxicam 15 mg oral tablet 1 tablet = 15 mg, By Mouth, Daily, # 90 tablet, 3 Refills, Maintenance, 09/15/21 12:29:00 EDT, Tablet, [facility], 164, cm, 09/15/21 11:49:00 EDT, Height Start Date: 09/15/21 Stop Date: 09/10/22 Status: Orderedmetoprolol 50 mg oral tablet, extended release 50 mg, 1, tablet, By Mouth, 2 times a day, # 180 tablet, Refills 3, Tot. Refills 3, Maintenance, 04/24/21 15:39:00 EDT, Route to Pharmacy Electronically, [facility] 1967, Partial fill upon patient [...] capsule, 5 Refills, Maintenance, 03/18/22 11:53:00 EDT, [facility] 1967, 164, cm, 03/18/22 11:48:00 [...]
--- OUTSIDE RECORDS SUMMARY | 2022-12-21 06:19 | XMS_ITS | Continuity of Care Document ---
:1965 Author Organization [facility] Address [address] [place] [address]- Care Team Providers Name Role Phone Rosa GONZALEZ, Bakari Wells Primary Care Physician [facility] 08[facility]20 - 09/03/20 [facility] [address] [place] [address]- [facility] Allergies, Adverse Reactions, Alerts Substance Reaction Severity [...] tetanus-diphtheria toxoids (Td)10 09/15/99 Given 1Result Comment: [id number] Comment: [11/23/2018] [id number] Comment: [09/19/2017] [id number] Comment: [10/25/2013] GIVEN W/O INCIDENSE...MH5 Admin Note: [id number] Note: [id number] Note: MANUFACTURE BIOMEDICAL INFO SHEET GIVEN GIVEN W/O [id number] Note: [id number] Note: GIVEN W/O INCIDENT INFO SHEET [id number] Note: DONE IN E.R. Medications amoxicillin 500 mg oral tablet 1 tablet = 500 mg, By Mouth, 3 times a day, for 7 days, # 21 tablet, 0 Refills, Acute 09/05/20 17:11:00 EDT, 08/29/20 17:11:00 EDT, Tablet, [facility], 164, cm, 11/15/19 11:34:00 EST, Height Start Date: 08/29/20 Stop Date: 09/05/20 Status: OrderedAricept 10 mg oral tablet 10 mg, 1, tablet, By Mouth, Daily at bedtime, # 90 tablet, Refills 3, Tot. Refills 3, Maintenance, 01/22/20 12:56:00 EST, [facility] [...] Replace Required Details, Route to Pharmacy Electronically, [facility] 1967, 164,... Start Date: 08/15/20 Stop Date: 11/14/20 Status: OrderedEffexor XR 75 mg oral capsule, extended release 75 mg, 1, capsule, By Mouth, 2 times a day, do not crush or chew, # 180 capsule, Refills 3, Tot. Refills 3, Maintenance, 07/17/20 16:41:00 EDT, Route to Pharmacy Electronically, [facility] 1967, 164, cm, 11/15/19 11:34:00 EST, Height Start Date: 07/17/20 Stop Date: 07/12/21 Status: OrderedFlonase 50 mcg/inh nasal spray 1 sprays, Nares, Both, 2 times a day, # 16 Gm, 11 Refills, Maintenance, 08/01/19 8:07:48 EDT, [place],1 sprays Nares, Both 2 times a day Start Date: 08/01/19 Status: Orderedgabapentin 300 mg oral capsule 300 mg, 1, capsule, By Mouth, 3 times a day, take with 600 mgs tablet to = 900 mgs three times per day, # 90 capsule, Refills 4, Tot. Refills 4, Maintenance, 07/04/20 14:35:00 EDT, Route to Pharmacy Electronically, [facility] 1967, do not... Start Date: [...] tablet, 4 Refills, Maintenance, 07/04/20 14:35:00 EDT, [facility], [...] 07/17/20 16:41:00 EDT, Route to Pharmacy Electronically, [facility] 1967, 164, [...] capsule, 11 Refills, Maintenance, 02/11/20 14:14:00 EDT, [facility], [...]
--- OUTSIDE RECORDS SUMMARY | 2022-12-21 06:19 | XMS_ITS | Continuity of Care Document ---
:1965 Author Organization [facility] Address [address] [place] [address]- Care Team Providers Name Role Phone Bakari Lee MD Primary Care Physician [facility] Date[facility]): 04/21/22 - 05/21/22 [facility] [address] [place] [address]- Allergies, Adverse Reactions, Alerts No Known Allergies [...] vaccine, inactivated9 12/15/10 Given influenza virus vaccine, [id number] 08/17/10 Given tetanus/diphtheria/pertussis, acel(Tdap)11 10/24/20 Given tetanus/diphtheria/pertussis, acel(Tdap)12 12/15/10 Given Influenza Virus Vaccine (oldterm) 10/09/20 Recorded tetanus-diphtheria toxoids (Td)13 09/15/99 Given 1Result Comment: [id number] Comment: [id number] Comment: [id number] Result Comment: [11/23/2018] [id number] Comment: [09/19/2017] [id number] Result Comment: [10/25/2013] GIVEN W/O INCIDENSE...[id number] Note: [id number] Note: [id number] Note: MANUFACTURE BIOMEDICAL INFO SHEET GIVEN GIVEN W/O [id number] Note: [id number] Comment: [id number] Note: GIVEN W/O INCIDENT INFO SHEET [id number] Note: DONE IN E.R. Medications Aricept 10 mg oral tablet 10 mg, 1, tablet, By Mouth, Daily at bedtime, # 90 tablet, Refills 1, Tot. Refills 1, Maintenance, 11/01/21 16:34:00 EST, Route to Pharmacy Electronically, [facility] 1966, do not fill [...] 12/16/21 13:24:00 EST, Route to Pharmacy Electronically, [facility] Start Date: 12/16/21 Stop Date: 12/11/22 Status: Orderedgabapentin 300 mg oral capsule 300 mg, 1, capsule, By Mouth, 3 times a day, take with 600 mgs tablet to = 900 mgs three times per day, # 90 capsule, Refills 11, Tot. Refills 11, Maintenance, 03/18/22 11:53:00 EDT, Route to Pharmacy Electronically, [facility] 1967, do no... Start Date: 03/18/22 Status: Orderedgabapentin 600 mg oral tablet See Instructions, TAKE 1 TABLET BY MOUTH THREE TIMES DAILY *( TAKE WITH 300MG TABLET TO EQUAL 900MG THREE TIMES A DAY)*, # 90 tablet, 11 Refills, [facility] 1967, 164, cm, 09/15/21 11:49:00 EDT, Height Start Date: 01/08/22 Status: Orderedlevothyroxine 0.05 mg oral tablet 8 tablet = 400 mcg, By Mouth, Every week, 6 days one daily; 1 day take two, # 104 tablet, 3 Refills,Maintenance, 09/15/21 12:29:00 EDT, Tablet, [facility] 1967, 164, cm, 09/15/21 11:49:00 EDT, Height Start Date: 09/15/21 Status: OrderedLinzess By Mouth, Daily, 0 Refills, Maintenance, 07/28/18 15:20:22 EDT Start Date: 07/28/18 Status: Orderedmeloxicam 15 mg oral tablet 1 tablet = 15 mg, By Mouth, Daily, # 90 tablet, 3 Refills, Maintenance, 09/15/21 12:29:00 EDT, Tablet, [facility] 1967, 164, cm, 09/15/21 11:49:00 EDT, Height Start Date: 09/15/21 Stop Date: 09/10/22 Status: Orderedmetoprolol 50 mg oral tablet, extended release 50 mg, 1, tablet, By Mouth, 2 times a day, # 180 tablet, Refills 3, Tot. Refills 3, Maintenance, 04/24/21 15:39:00 EDT, Route to Pharmacy Electronically, [facility] 1967, Partial fill upon patient request [...] capsule, 3 Refills, Maintenance, 04/22/22 20:29:00 EDT, [facility] 1967, Partial fill upon patient request if the prescription is for a schedule II opioid drug., 164, cm, 03/18/22 11:48:00 EDT, Height Start Date: 04/22/22 Stop Date: 04/17/23 Status: OrderedVitamin D3 2000 intl units oral capsule 1 capsule = 2,000 International_Units, By Mouth, Daily, # 30 capsule, 5 Refills, Maintenance, 03/18/22 11:53:00 EDT, [facility] 1967, 164, cm, 03/18/22 11:48:00 EDT, [...]
--- OUTSIDE RECORDS SUMMARY | 2022-12-21 06:19 | XMS_ITS | Continuity of Care Document ---
:1965 Author Organization [facility] Address [address] [place] [address]- Care Team Providers Name Role Phone Bakari Lee MD Primary Care Physician [facility]): 07/20/22 - 08/19/22 [facility] [address] [place], [place] [address] Allergies, Adverse Reactions, Alerts No [...] vaccine, inactivated9 12/15/10 Given influenza virus vaccine, [id number] 08/17/10 Given tetanus/diphtheria/pertussis, acel(Tdap)11 10/24/20 Given tetanus/diphtheria/pertussis, acel(Tdap)12 12/15/10 Given Influenza Virus Vaccine (oldterm) 10/09/20 Recorded tetanus-diphtheria toxoids (Td)13 09/15/99 Given 1Result Comment: [id number] Comment: [id number] Comment: [id number] Result Comment: [11/23/2018] [id number] Comment: [09/19/2017] [id number] Result Comment: [10/25/2013] GIVEN W/O INCIDENSE...[id number] Note: [id number] Note: [id number] Note: MANUFACTURE BIOMEDICAL INFO SHEET GIVEN GIVEN W/O [id number] Note: [id number] Comment: [id number] Note: GIVEN W/O INCIDENT INFO SHEET [id number] Note: DONE IN E.R. Medications Aricept 10 mg oral tablet 10 mg, 1, tablet, By Mouth, Daily at bedtime, # 90 tablet, Refills 3, Tot. Refills 3, Maintenance, 07/21/22 13:26:00 EDT, Route to Pharmacy Electronically, [facility] 1966, do not fill until [...] 05/04/22 16:15:00 EDT, Route to Pharmacy Electronically, [facility] 1967, 164, cm, 03/18/22 11:48:00 EDT, Height Start Date: 05/04/22 Status: OrderedEffexor XR 75 mg oral capsule, extended release 75 mg, 1, capsule, By Mouth, Daily before breakfast, do not crush or chew pt takes this with a 150 mgs venlafaxine capsule, # 90 capsule, Refills 3, Tot. Refills 3, Maintenance, 12/16/21 13:24:00 EST, [facility] Start Date: 12/16/21 Stop Date: 12/11/22 Status: Orderedgabapentin 300 mg oral capsule 300 mg, 1, capsule, By Mouth, 3 times a day, take with 600 mgs tablet to = 900 mgs three times per day, # 90 capsule, Refills 11, Tot. Refills 11, Maintenance, 03/18/22 11:53:00 EDT, Route to Pharmacy Electronically, [facility] 1965, do no... Start Date: 03/18/22 Status: Orderedgabapentin 600 mg oral tablet See Instructions, TAKE 1 TABLET BY MOUTH THREE TIMES DAILY *( TAKE WITH 300MG TABLET TO EQUAL 900MG THREE TIMES A DAY)*, # 90 tablet, 11 Refills, [facility] 1967, 164, cm, 09/15/21 11:49:00 EDT, Height Start Date: 01/08/22 Status: Orderedlevothyroxine 0.05 mg oral tablet 8 tablet = 400 mcg, By Mouth, Every week, 6 days one daily; 1 day take two, # 104 tablet, 3 Refills,Maintenance, 09/15/21 12:29:00 EDT, Tablet, [facility] 1967, 164, cm, 09/15/21 11:49:00 EDT, Height Start Date: 09/15/21 Status: OrderedLinzess By Mouth, Daily, 0 Refills, Maintenance, 07/28/18 15:20:22 EDT Start Date: 07/28/18 Status: Orderedmeloxicam 15 mg oral tablet 1 tablet = 15 mg, By Mouth, Daily, # 90 tablet, 3 Refills, Maintenance, 09/15/21 12:29:00 EDT, Tablet, [facility] 1965, 164, cm, 09/15/21 11:49:00 EDT, Height Start Date: 09/15/21 Stop Date: 09/10/22 Status: Orderedmetoprolol 50 mg oral tablet, extended release 50 mg, 1, tablet, By Mouth, 2 times a day, # 180 tablet, Refills 1, Tot. Refills 1, Maintenance, 06/12/22 13:01:00 EDT, Route to Pharmacy Electronically, [facility] 1966, Partial fill upon patient [...] Refills, Maintenance, 05/04/22 16:13:00 EDT, EC Capsule, [facility] 1967, 164, cm, 03/18/22 11:48:00 [...] capsule, 3 Refills, Maintenance, 04/22/22 20:29:00 EDT, [facility] 1966, Partial fill upon patient request if the prescription is for a schedule II opioid drug., 164, cm, 03/18/22 11:48:00 EDT, Height Start Date: 04/22/22 Stop Date: 04/17/23 Status: OrderedVitamin D3 2000 intl units oral capsule 1 capsule = 2,000 International_Units, By Mouth, Daily, # 30 capsule, 5 Refills, Maintenance, 03/18/22 11:53:00 EDT, [facility] 1965, 164, cm, 03/18/22 11:48:00 [...] 02/15/14 Sex Patient Care team information PersonnelName: Bakari Lee MD Address: Address: [address] [place] [address] [facility] [address]
--- OUTSIDE RECORDS SUMMARY | 2022-12-21 06:19 | XMS_ITS | Continuity of Care Document ---
:1965 Author Organization [facility] Address [address] [place] [address]- Care Team Providers Name Role Phone Bakari Lee MD Primary Care Physician [facility]): 11/18/21 - 12/18/21 [facility] [address] [place], [place] [address] Allergies, Adverse Reactions, Alerts No Known [...] tetanus-diphtheria toxoids (Td)12 09/15/99 Given 1Result Comment: [id number] Comment: [id number] Comment: [11/23/2018] [id number] Comment: [09/19/2017] [id number] Comment: [10/25/2013] GIVEN W/O INCIDENSE...[id number] Note: [id number] Note: [id number] Note: MANUFACTURE BIOMEDICAL INFO SHEET GIVEN GIVEN W/O [id number] Note: [id number] Comment: [id number] Note: GIVEN W/O INCIDENT INFO SHEET [id number] Note: DONE IN E.R. Medications Aricept 10 mg oral tablet 10 mg, 1, tablet, By Mouth, Daily at bedtime, # 90 tablet, Refills 1, Tot. 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 Refills 11, Maintenance, use nightly, 09/20/17 9:49:07, Compound Start Date: 09/20/17 Status: Orderedcyclobenzaprine 10 mg oral tablet 1, tablet, By Mouth, 3 times a day, # 90 tablet, Refills 3, Route to Pharmacy Electronically, [facility] 1966, 164, cm, 09/15/21 11:49:00 EDT, Height Start Date: 12/15/21 Status: Ordereddoxycycline hyclate 100 mg oral tablet 1 tablet = 100 mg, By Mouth, 2 times a day, for 10 days, # 20 tablet, 0 Refills, Acute 12/20/21 13:26:00 EST, 12/10/21 13:26:00 EST, Tablet, [facility] 1966, Partial fill upon patient request if the prescription is for a schedule II opioid drug.... Start Date: 12/10/21 Stop Date: 12/20/21 Status: OrderedEffexor XR 75 mg oral capsule, extended release 75 mg, 1, capsule, By Mouth, Daily before breakfast, do not crush or chew pt takes this with a 150 mgs venlafaxine capsule, # 90 capsule, Refills 3, Tot. Refills 3, Maintenance, 12/16/21 13:24:00 EST, [facility] Start Date: 12/16/21 Stop Date: 12/11/22 Status: OrderedFlonase 50 mcg/inh nasal spray 1 sprays, Nares, Both, 2 times a day, # 16 Gm, 11 Refills, Maintenance, 07/20/21 12:47:00 EDT, [place], [facility], 1 sprays Nares, Both [...] 02/16/21 17:27:00 EDT, Route to Pharmacy Electronically, [facility] 1966, do no... Start Date: 02/16/21 Status: Orderedgabapentin 600 mg oral tablet 1 tablet, By Mouth, 3 times a day, *., # 90 tablet, 11 Refills, Maintenance, 01/05/21 12:27:00 EST, [facility] 1965, 164, cm, 10/24/20 15:22:00 EST, Height Start Date: 01/05/21 Status: Orderedlevothyroxine 0.05 mg oral tablet 8 tablet = 400 mcg, By Mouth, Every week, 6 days one daily; 1 day take two, # 104 tablet, 3 Refills,Maintenance, 09/15/21 12:29:00 EDT, Tablet, [facility] 1965, 164, cm, 09/15/21 11:49:00 EDT, Height Start Date: 09/15/21 Status: OrderedLinzess By Mouth, Daily, 0 Refills, Maintenance, 07/28/18 15:20:22 EDT Start Date: 07/28/18 Status: Orderedmeloxicam 15 mg oral tablet 1 tablet = 15 mg, By Mouth, Daily, # 90 tablet, 3 Refills, Maintenance, 09/15/21 12:29:00 EDT, Tablet, [facility] 1967, 164, cm, 09/15/21 11:49:00 EDT, Height Start Date: 09/15/21 Stop Date: 09/10/22 Status: Orderedmetoprolol 50 mg oral tablet, extended release 50 mg, 1, tablet, By Mouth, 2 times a day, # 180 tablet, Refills 3, Tot. Refills 3, Maintenance, 04/24/21 15:39:00 EDT, Route to Pharmacy Electronically, [facility] 1966, Partial fill upon patient [...] Refills, Maintenance, 09/15/21 12:29:00 EDT, EC Capsule, [facility] 1967, 164, cm, 09/15/21 11:49:00 EDT, Height Start Date: 09/15/21 Status: OrderedtraMADol 50 mg oral tablet 1 tablet, By Mouth, Every 8 hours, prn pain, # 21 tablet, 0 Refills, Maintenance, 11/11/20 17:28:00 EST, Tablet, [facility] 1967, i am aware of [...] capsule, 5 Refills, Maintenance, 08/30/21 8:44:00 EDT, [facility] 1967, 164, cm, 04/24/21 15:00:00 [...]
--- OUTSIDE RECORDS SUMMARY | 2022-12-21 06:19 | XMS_ITS | Continuity of Care Document ---
:1965 Author Organization [facility] Address [address] [place] [address]- Care Team Providers Name Role Phone Rosa GONZALEZ, Bakari Wells Primary Care Physician [facility] 03/22/22 - 04/21/22 [facility] [address] [place] [address]- Allergies, Adverse Reactions, Alerts No Known Allergies [...] vaccine, inactivated9 12/15/10 Given influenza virus vaccine, [id number] 08/17/10 Given tetanus/diphtheria/pertussis, acel(Tdap)11 10/24/20 Given tetanus/diphtheria/pertussis, acel(Tdap)12 12/15/10 Given Influenza Virus Vaccine (oldterm) 10/09/20 Recorded tetanus-diphtheria toxoids (Td)13 09/15/99 Given 1Result Comment: [id number] Comment: [id number] Comment: [id number] Result Comment: [11/23/2018] [id number] Comment: [09/19/2017] [id number] Result Comment: [10/25/2013] GIVEN W/O INCIDENSE...EW9Sfsxm Note: [id number] Note: [id number] Note: MANUFACTURE BIOMEDICAL INFO SHEET GIVEN GIVEN W/O [id number] Note: [id number] Comment: [id number] Note: GIVEN W/O INCIDENT INFO SHEET [id number] Note: DONE IN E.R. Medications Aricept 10 mg oral tablet 10 mg, 1, tablet, By Mouth, Daily at bedtime, # 90 tablet, Refills 1, Tot. Refills 1, Maintenance, 11/01/21 16:34:00 EST, Route to Pharmacy Electronically, [facility] 1966, do not fill [...] 12/16/21 13:24:00 EST, Route to Pharmacy Electronically, [facility] Start Date: 12/16/21 Stop Date: 12/11/22 Status: Orderedgabapentin 300 mg oral capsule 300 mg, 1, capsule, By Mouth, 3 times a day, take with 600 mgs tablet to = 900 mgs three times per day, # 90 capsule, Refills 11, Tot. Refills 11, Maintenance, 03/18/22 11:53:00 EDT, Route to Pharmacy Electronically, [facility] 1967, do no... Start Date: 03/18/22 Status: Orderedgabapentin 600 mg oral tablet See Instructions, TAKE 1 TABLET BY MOUTH THREE TIMES DAILY *( TAKE WITH 300MG TABLET TO EQUAL 900MG THREE TIMES A DAY)*, # 90 tablet, 11 Refills, [facility] 1967, 164, cm, 09/15/21 11:49:00 EDT, Height Start Date: 01/08/22 Status: Orderedlevothyroxine 0.05 mg oral tablet 8 tablet = 400 mcg, By Mouth, Every week, 6 days one daily; 1 day take two, # 104 tablet, 3 Refills,Maintenance, 09/15/21 12:29:00 EDT, Tablet, [facility] 1967, 164, cm, 09/15/21 11:49:00 EDT, Height Start Date: 09/15/21 Status: OrderedLinzess By Mouth, Daily, 0 Refills, Maintenance, 07/28/18 15:20:22 EDT Start Date: 07/28/18 Status: Orderedmeloxicam 15 mg oral tablet 1 tablet = 15 mg, By Mouth, Daily, # 90 tablet, 3 Refills, Maintenance, 09/15/21 12:29:00 EDT, Tablet, [facility] 1967, 164, cm, 09/15/21 11:49:00 EDT, Height Start Date: 09/15/21 Stop Date: 09/10/22 Status: Orderedmetoprolol 50 mg oral tablet, extended release 50 mg, 1, tablet, By Mouth, 2 times a day, # 180 tablet, Refills 3, Tot. Refills 3, Maintenance, 04/24/21 15:39:00 EDT, Route to Pharmacy Electronically, [facility] 1967, Partial fill upon [...] capsule, 5 Refills, Maintenance, 03/18/22 11:53:00 EDT, [facility], 164, cm, 03/18/22 [...]
--- OUTSIDE RECORDS SUMMARY | 2022-12-21 06:19 | XMS_ITS | Continuity of Care Document ---
:1965 Author Organization [facility] Address [address] [place] [address]- Care Team Providers Name Role Phone Rosa GONZALEZ, Bakari Wells Primary Care Physician [facility] 08[facility]21 - 09/28/21 [facility] [address] [place], [place] [address] Allergies, Adverse Reactions, Alerts Substance [...] tetanus-diphtheria toxoids (Td)12 09/15/99 Given 1Result Comment: [id number] Comment: [id number] Comment: [11/23/2018] [id number] Comment: [09/19/2017] [id number] Comment: [10/25/2013] GIVEN W/O INCIDENSE...MU1Pzizm Note: [id number] Note: [id number] Note: MANUFACTURE BIOMEDICAL INFO SHEET GIVEN GIVEN W/O [id number] Note: [id number] Comment: [id number] Note: GIVEN W/O INCIDENT INFO SHEET [id number] Note: DONE IN E.R. Medications Aricept 10 [...] tablet, Refills 3, Route to Pharmacy Electronically, [facility] 1967, 164, cm, 04/24/21 15:00:00 EDT, Height Start Date: 08/31/21 Status: OrderedFlonase 50 mcg/inh nasal spray 1 sprays, Nares, Both, 2 times a day, # 16 Gm, 11 Refills, Maintenance, 07/20/21 12:47:00 EDT, [place], [facility] 1967, 1 sprays [...] tablet, 11 Refills, Maintenance, 01/05/21 12:27:00 EST, [facility] 1967, 164, cm, 10/24/20 15:22:00 EST, Height Start Date: 01/05/21 Status: Orderedlevothyroxine 0.05 mg oral tablet 8 tablet = 400 mcg, By Mouth, Every week, 6 days one daily; 1 day take two, # 104 tablet, 3 Refills,Maintenance, 09/15/21 12:29:00 EDT, Tablet, [facility] 1967, 164, cm, 09/15/21 11:49:00 EDT, Height Start Date: 09/15/21 Status: OrderedLinzess By Mouth, Daily, 0 Refills, Maintenance, 07/28/18 15:20:22 EDT Start Date: 07/28/18 Status: Orderedmeloxicam 15 mg oral tablet 1 tablet = 15 mg, By Mouth, Daily, # 90 tablet, 3 Refills, Maintenance, 09/15/21 12:29:00 EDT, Tablet, [facility] 1967, 164, cm, 09/15/21 11:49:00 EDT, Height Start Date: 09/15/21 Stop Date: 09/10/22 Status: Orderedmetoprolol 50 mg oral tablet, extended release 50 mg, 1, tablet, By Mouth, 2 times a day, # 180 tablet, Refills 3, Tot. Refills 3, Maintenance, 04/24/21 15:39:00 EDT, Route to Pharmacy Electronically, [facility] 1966, Partial fill upon patient [...] Refills, Maintenance, 09/15/21 12:29:00 EDT, EC Capsule, [facility] 1967, 164, cm, 09/15/21 11:49:00 [...] capsule, 3 Refills, Maintenance, 04/30/21 17:34:00 EDT, [facility], Partial fill upon patient request if the prescription is for a scheduleII opioid drug., 164sascha, 04/24/21 15:00:00 EDT,... Start Date: 04/30/21 Stop Date: 04/25/22 Status: OrderedVitamin D3 2000 intl units oral capsule 1 capsule = 2,000 International_Units, By Mouth, Daily, # 30 capsule, 5 Refills, Maintenance, 08/30/21 8:44:00 EDT, [facility], [facility], cm, 04/24/21 15:00:00 EDT, [...]
--- OUTSIDE RECORDS SUMMARY | 2022-12-21 06:19 | XMS_ITS | Continuity of Care Document ---
:1965 Author Organization [facility] Address [address] [place] [address]- Care Team Providers Name Role Phone Bakari Lee MD Primary Care Physician [facility]): [facility] - 09/23/20 [facility] [address] [place] [address]- [facility] Attending Physician: Bakari Lee MD [...] tetanus-diphtheria toxoids (Td)10 09/15/99 Given 1Result Comment: [id number] Comment: [11/23/2018] [id number] Comment: [09/19/2017] [id number] Comment: [10/25/2013] GIVEN W/O INCIDENSE...MH5 Admin Note: [id number] Note: [id number] Note: MANUFACTURE BIOMEDICAL INFO SHEET GIVEN GIVEN W/O [id number] Note: [id number] Note: GIVEN W/O INCIDENT INFO SHEET [id number] Note: DONE IN E.R. Medications Aricept 10 mg oral tablet 10 mg, 1, tablet, By Mouth, Daily at bedtime, # 90 tablet, Refills 3, Tot. Refills 3, Maintenance, 01/22/20 12:56:00 EST, Route to Pharmacy Electronically, [facility] 1966, do not fill until [...] Replace Required Details, Route to Pharmacy Electronically, [facility], 164,... Start Date: 08/15/20 Stop Date: 11/14/20 Status: OrderedEffexor XR 75 mg oral capsule, extended release 75 mg, 1, capsule, By Mouth, 2 times a day, do not crush or chew, # 180 capsule, Refills 3, Tot. Refills 3, Maintenance, 07/17/20 16:41:00 EDT, Route to Pharmacy Electronically, [facility] 1967, 164, cm, 11/15/19 11:34:00 EST, Height Start Date: 07/17/20 Stop Date: 07/12/21 Status: OrderedFlonase 50 mcg/inh nasal spray 1 sprays, Nares, Both, 2 times a day, # 16 Gm, 11 Refills, Maintenance, 08/01/19 8:07:48 EDT, [place],1 sprays Nares, Both 2 times a day Start Date: 08/01/19 Status: Orderedgabapentin 300 mg oral capsule 300 mg, 1, capsule, By Mouth, 3 times a day, take with 600 mgs tablet to = 900 mgs three times per day, # 90 capsule, Refills 4, Tot. Refills 4, Maintenance, 07/04/20 14:35:00 EDT, Route to Pharmacy Electronically, [facility] 1967, do not... Start Date: [...] tablet, 4 Refills, Maintenance, 07/04/20 14:35:00 EDT, [facility], 164, cm, 11/15/19 11:34:00 [...] 3 Refills, Maintenance, 07/17/20 16:41:00 EDT, Tablet, [facility] 1967, 164, cm, 11/15/19 11:34:00 EST, Height Start Date: 07/17/20 Stop Date: 07/12/21 Status: Orderedmetoprolol 25 mg oral tablet, extended release 75 mg, 3, tablet, By Mouth, Daily, # 270 tablet, Refills 3, Tot. Refills 3, Maintenance, 07/17/20 16:41:00 EDT, Route to Pharmacy Electronically, [facility] 1967, 164, cm, 11/15/19 11:34:00 EST, Height Start Date: 07/17/20 Stop Date: 07/12/21 Status: OrderedNeutral Sodium Fluoride Rinse 10 mL, Topically, 0 Refills, Maintenance, 07/28/18 15:18:11 EDT Start Date: 07/28/18 Status: Orderedomeprazole 20 mg oral enteric coated capsule 1 capsule = 20 mg, By Mouth, Daily, # 90 capsule, 3 Refills, Maintenance, 07/17/20 16:41:00 EDT, EC Capsule, [facility], 164, cm, 11/15/19 11:34:00 [...] 30 capsule, 11 Refills, Maintenance, 02/11/20 [facility], cm, 11/15/19 11:34:00 EST, [...]
--- OUTSIDE RECORDS SUMMARY | 2022-12-21 06:19 | XMS_ITS | Continuity of Care Document ---
:1965 Author Organization [facility] Address [address] [place] [address]- Care Team Providers Name Role Phone Bakari Lee MD Primary Care Physician [facility]): [facility]20 - 10/31/20 [facility] [address] [place], [place] [address] Attending Physician: Bakari Lee MD Allergies, Adverse [...] vaccine, inactivated9 12/15/10 Given influenza virus vaccine, [id number] 08/17/10 Given tetanus-diphtheria toxoids (Td)11 09/15/99 Given 1Result Comment: [id number] Note: GIVEN W/O INCIDENT INFO SHEET [id number] Comment: [id number] Comment: [11/23/2018] [id number] 5Result Comment: [09/19/2017] [id number] Comment: [10/25/2013] GIVEN W/O INCIDENSE...[id number] Note: [id number] Note: [id number] Note: MANUFACTURE BIOMEDICAL INFO SHEET GIVEN GIVEN W/O [id number] Note: [id number] Note: DONE IN E.R. Medications Aricept 10 mg oral tablet 10 mg, 1, tablet, By Mouth, Daily at bedtime, for 90 days, # 90 tablet, Refills 3, Tot. Refills 3, Hard Stop 01/16/21 12:56:00 EST, 01/22/20 12:56:00 EST, Route to Pharmacy Electronically, [facility], do not fill until pt calls, 164, cm,... Start Date: 01/22/20 Stop Date: 01/16/21 Status: OrderedAricept 10 mg oral tablet 10 mg, 1, tablet, By Mouth, Daily at bedtime, # 90 tablet, Refills 3, Tot. Refills 3, Maintenance, 01/16/21 12:56:00 EST, Route to Pharmacy Electronically, [facility], do not fill until pt [...] Replace Required Details, Route to Pharmacy Electronically, [facility] 1967, 164,... Start Date: 08/15/20 Stop Date: 11/14/20 Status: OrderedEffexor XR 75 mg oral capsule, extended release 75 mg, 1, capsule, By Mouth, 2 times a day, do not crush or chew, # 180 capsule, Refills 3, Tot. Refills 3, Maintenance, 07/17/20 16:41:00 EDT, Route to Pharmacy Electronically, [facility] 1967, 164, cm, 11/15/19 11:34:00 EST, Height Start Date: 07/17/20 Stop Date: 07/12/21 Status: OrderedFlonase 50 mcg/inh nasal spray 1 sprays, Nares, Both, 2 times a day, # 16 Gm, 11 Refills, Maintenance, 08/01/19 8:07:48 EDT, [place],1 sprays Nares, Both 2 times a day Start Date: 08/01/19 Status: Orderedgabapentin 300 mg oral capsule 300 mg, 1, capsule, By Mouth, 3 times a day, take with 600 mgs tablet to = 900 mgs three times per day, # 90 capsule, Refills 4, Tot. Refills 4, Maintenance, 07/04/20 14:35:00 EDT, Route to Pharmacy Electronically, [facility] 1967, do not... Start Date: 07/04/20 Status: Orderedgabapentin 600 mg oral tablet 1 tablet = 600 mg, By Mouth, 3 times a day, take with 300 mgs tablet to = 900 mgs three times per day, # 90 tablet, 4 Refills, Maintenance, 07/04/20 14:35:00 EDT, [facility] 1967, 164, cm, 11/15/19 11:34:00 EST, Height Start Date: 07/04/20 Status: Orderedlevothyroxine 0.05 mg oral tablet 8 tablet = 400 mcg, By Mouth, Every week, 6 days one daily; 1 day take two, # 104 tablet, 3 Refills,Maintenance, 10/24/20 23:15:00 EST, Tablet, [facility] 1967, 164, cm, 10/24/20 15:22:00 EST, Height Start Date: 10/24/20 Status: OrderedLinzess By Mouth, Daily, 0 Refills, Maintenance, 07/28/18 15:20:22 EDT Start Date: 07/28/18 Status: Orderedmeloxicam 15 mg oral tablet 1 tablet = 15 mg, By Mouth, Daily, # 90 tablet, 3 Refills, Maintenance, 07/17/20 16:41:00 EDT, Tablet, [facility] 1967, 164, cm, 11/15/19 11:34:00 EST, Height Start Date: 07/17/20 Stop Date: 07/12/21 Status: Orderedmetoprolol 25 mg oral tablet, extended release 75 mg, 3, tablet, By Mouth, Daily, # 270 tablet, Refills 3, Tot. Refills 3, Maintenance, 07/17/20 16:41:00 EDT, Route to Pharmacy Electronically, [facility] 1967, 164, cm, 11/15/19 11:34:00 EST, Height Start Date: 07/17/20 Stop Date: 07/12/21 Status: OrderedNeutral Sodium Fluoride Rinse 10 mL, Topically, 0 Refills, Maintenance, 07/28/18 15:18:11 EDT Start Date: 07/28/18 Status: Orderedomeprazole 20 mg oral enteric coated capsule 1 capsule = 20 mg, By Mouth, Daily, # 90 capsule, 3 Refills, Maintenance, 07/17/20 16:41:00 EDT, EC Capsule, [facility] 1967, 164, cm, 11/15/19 [...] capsule, 11 Refills, Maintenance, 02/11/20 14:14:00 EDT, [facility], 164, cm, 11/15/19 [...] oldest [Reference Range]: 1 Height 164.00 cm (10/24/20 3:22 PM) Weight 105.9 kg (10/24/20 3:22 PM) Oxygen Saturation [94-100 %] 97 % (10/24/20 3:22 PM) Pulse Rate [55-90 bpm] 79 bpm (10/24/20 3:22 PM) Body Mass Index [18.5-24.99] 39.37 *>HHI* (10/24/20 3:22 PM) Blood Pressure [90-138/55-84 mm Hg] 128/76 mm Hg (10/24/20 3:22 PM) Temperature [96.8-100.4 DegF] 98.2 DegF (10/24/20 3:22 PM) Blood pressure sites Arm, left (10/24/20 3:22 PM) Temperature Route Core (10/24/20 3:22 PM) Social History Social History Type Response Smoking Status Never smoker entered on: 02/15/14 Sex
--- OUTSIDE RECORDS SUMMARY | 2022-12-21 06:19 | XMS_ITS | Continuity of Care Document ---
:1965 Author Organization [facility] Address [address] [place] [address]- Care Team Providers Name Role Phone Bakari Lee MD Primary Care Physician [facility] 02[facility]27/21 - 03/06/21 [facility] [address] [place] [address]- Attending Physician: Bakari Lee MD Allergies, Adverse [...] vaccine, inactivated9 12/15/10 Given influenza virus vaccine, [id number] 08/17/10 Given tetanus-diphtheria toxoids (Td)11 09/15/99 Given 1Result Comment: [id number] Note: GIVEN W/O INCIDENT INFO SHEET [id number] Comment: [id number] Comment: [11/23/2018] [id number] 5Result Comment: [09/19/2017] [id number] Comment: [10/25/2013] GIVEN W/O INCIDENSE...[id number] Note: [id number] Note: [id number] Note: MANUFACTURE BIOMEDICAL INFO SHEET GIVEN GIVEN W/O [id number] Note: [id number] Note: DONE IN E.R. Medications Aricept 10 mg oral tablet 10 mg, 1, tablet, By Mouth, Daily at bedtime, # 90 tablet, Refills 3, Tot. Refills 3, Maintenance, 01/23/21 13:12:00 EST, Route to Pharmacy Electronically, [facility] 1966, do not fill until [...] 02/27/21 13:59:00 EDT, Route to Pharmacy Electronically, [facility] 1966, this is an increase to 225 mgs, 164, cm, 04/09/2... Start Date: 02/27/21 Stop Date: 02/22/22 Status: OrderedFlonase 50 mcg/inh nasal spray 1 sprays, Nares, Both, 2 times a day, # 16 Gm, 11 Refills, Maintenance, 08/01/19 8:07:48 EDT, [place],1 sprays Nares, Both 2 times a day Start Date: 08/01/19 Status: Orderedgabapentin 300 mg oral capsule 300 mg, 1, capsule, By Mouth, 3 times a day, take with 600 mgs tablet to = 900 mgs three times per day, # 90 capsule, Refills 11, Tot. Refills 11, Maintenance, 02/16/21 17:27:00 EDT, Route to Pharmacy Electronically, [facility] 1967, do no... Start Date: 02/16/21 Status: Orderedgabapentin 600 mg oral tablet 1 tablet, By Mouth, 3 times a day, *., # 90 tablet, 11 Refills, Maintenance, 01/05/21 12:27:00 EST, [facility], 164, cm, 10/24/20 15:22:00 EST, Height Start Date: 01/05/21 Status: Orderedlevothyroxine 0.05 mg oral tablet 8 tablet = 400 mcg, By Mouth, Every week, 6 days one daily; 1 day take two, # 104 tablet, 3 Refills,Maintenance, 10/24/20 23:15:00 EST, Tablet, [facility], 164, cm, 10/24/20 15:22:00 EST, Height Start Date: 10/24/20 Status: OrderedLinzess By Mouth, Daily, 0 Refills, Maintenance, 07/28/18 15:20:22 EDT Start Date: 07/28/18 Status: Orderedmeloxicam 15 mg oral tablet 1 tablet = 15 mg, By Mouth, Daily, # 90 tablet, 3 Refills, Maintenance, 07/17/20 16:41:00 EDT, [facility], 164, cm, 11/15/19 11:34:00 EST, Height Start Date: 07/17/20 Stop Date: 07/12/21 Status: Orderedmetoprolol 50 mg oral tablet, extended release 75 mg, 1.5, tablet, By Mouth, Daily, # 135 tablet, Refills 3, Tot. Refills 3, Maintenance, 12/22/20 17:10:00 EST, Route to Pharmacy Electronically, [facility] 1967, Partial fill upon patient [...] Refills, Maintenance, 07/17/20 16:41:00 EDT, EC Capsule, [facility] 1967, 164, cm, 11/15/19 11:34:00 EST, Height Start Date: 07/17/20 Status: OrderedtraMADol 50 mg oral tablet 1 tablet, By Mouth, Every 8 hours, prn pain, # 21 tablet, 0 Refills, Maintenance, 11/11/20 17:28:00 EST, Tablet, [facility], i am aware of [...] capsule, 5 Refills, Maintenance, 02/18/21 10:10:00 EDT, [facility], 164, cm, 10/24/20 15:22:00 [...] oldest [Reference Range]: 1 Height 164.00 cm (02/27/21 1:24 PM) Weight 109.2 kg (02/27/21 1:24 PM) Oxygen Saturation [94-100 %] 97 % (02/27/21 1:24 PM) Pulse Rate [55-90 bpm] 76 bpm (02/27/21 1:24 PM) Body Mass Index [18.5-24.99] 40.6 *>HHI* (02/27/21 1:24 PM) Blood Pressure [90-138/55-84 mm Hg] 110/70 mm Hg (02/27/21 1:24 PM) Temperature [96.8-100.4 DegF] 97.6 DegF (02/27/21 1:24 PM) Blood pressure sites Arm, left (02/27/21 1:24 PM) Social History Social History Type Response Smoking Status Never smoker entered on: 02/15/14 Sex
--- OUTSIDE RECORDS SUMMARY | 2022-12-21 06:19 | XMS_ITS | Continuity of Care Document ---
:1965 Author Organization [facility] Address [address] [place] [address]- Care Team Providers Name Role Phone Bakari Lee MD Primary Care Physician [facility] 11[facility]21 - 12/18/21 [facility] [address] [place], [place] [address] Allergies, Adverse Reactions, Alerts [...] tetanus-diphtheria toxoids (Td)12 09/15/99 Given 1Result Comment: [id number] Comment: [id number] Comment: [11/23/2018] [id number] Comment: [09/19/2017] [id number] Comment: [10/25/2013] GIVEN W/O INCIDENSE...[id number] Note: [id number] Note: [id number] Note: MANUFACTURE BIOMEDICAL INFO SHEET GIVEN GIVEN W/O [id number] Note: [id number] Comment: [id number] Note: GIVEN W/O INCIDENT INFO SHEET [id number] Note: DONE IN E.R. Medications Aricept 10 mg oral tablet 10 mg, 1, tablet, By Mouth, Daily at bedtime, # 90 tablet, Refills 1, Tot. Refills 1, Maintenance, 11/01/21 16:34:00 EST, [place] to Pharmacy Electronically, [facility] [...] tablet, Refills 3, Route to Pharmacy Electronically, [facility], 164, cm, 09/15/21 11:49:00 EDT, Height Start Date: 12/15/21 Status: Ordereddoxycycline hyclate 100 mg oral tablet 1 tablet = 100 mg, By Mouth, 2 times a day, for 10 days, # 20 tablet, 0 Refills, Acute 12/20/21 13:26:00 EST, 12/10/21 13:26:00 EST, Tablet, [facility], Partial fill upon patient [...] 12/16/21 13:24:00 EST, [facility] Start Date: 12/16/21 Stop Date: 12/11/22 Status: OrderedFlonase 50 mcg/inh nasal spray 1 sprays, Nares, Both, 2 times a day, # 16 Gm, 11 Refills, Maintenance, 07/20/21 12:47:00 EDT, [place], [facility], 1 sprays Nares, Both [...] [facility], do no... Start Date: 02/16/21 [...] tablet, 3 Refills,Maintenance, 09/15/21 12:29:00 EDT, Tablet, [facility] 1967, 164, cm, 09/15/21 11:49:00 EDT, Height Start Date: 09/15/21 Status: OrderedLinzess By Mouth, Daily, 0 Refills, Maintenance, 07/28/18 15:20:22 EDT Start Date: 07/28/18 Status: Orderedmeloxicam 15 mg oral tablet 1 tablet = 15 mg, By Mouth, Daily, # 90 tablet, 3 Refills, Maintenance, 09/15/21 12:29:00 EDT, Tablet, [facility] 1967, 164, cm, 09/15/21 11:49:00 EDT, Height Start Date: 09/15/21 Stop Date: 09/10/22 Status: Orderedmetoprolol 50 mg oral tablet, extended release 50 mg, 1, tablet, By Mouth, 2 times a day, # 180 tablet, Refills 3, Tot. Refills 3, Maintenance, 04/24/21 15:39:00 EDT, Route to Pharmacy Electronically, [facility] 1966, Partial fill upon patient [...] Refills, Maintenance, 09/15/21 12:29:00 EDT, EC Capsule, [facility] 1967, 164, cm, 09/15/21 11:49:00 [...] capsule, 5 Refills, Maintenance, 08/30/21 8:44:00 EDT, [facility], 164, cm, 04/24/21 15:00:00 [...]
--- OUTSIDE RECORDS SUMMARY | 2022-12-21 06:19 | XMS_ITS | Continuity of Care Document ---
:1965 Author Organization [facility] Address [address] [place] [address]- Care Team Providers Name Role Phone Rosa GONZALEZ, Bakari Wells Primary Care Physician [facility] 08[facility]20 - 09/14/20 [facility] [address] [place] [address]- [facility] Allergies, Adverse Reactions, Alerts Substance [...] tetanus-diphtheria toxoids (Td)10 09/15/99 Given 1Result Comment: [id number] Comment: [11/23/2018] [id number] Comment: [09/19/2017] [id number] Comment: [10/25/2013] GIVEN W/O INCIDENSE...MH5 Admin Note: [id number] Note: [id number] Note: MANUFACTURE BIOMEDICAL INFO SHEET GIVEN GIVEN W/O [id number] Note: [id number] Note: GIVEN W/O INCIDENT INFO SHEET [id number] Note: DONE IN E.R. Medications Aricept 10 mg oral tablet 10 mg, 1, tablet, By Mouth, Daily at bedtime, # 90 tablet, Refills 3, Tot. Refills 3, Maintenance, 01/22/20 12:56:00 EST, Route to Pharmacy Electronically, [facility] 1966, do not fill [...] Replace Required Details, Route to Pharmacy Electronically, [facility] 1967, 164,... Start Date: 08/15/20 Stop Date: 11/14/20 Status: OrderedEffexor XR 75 mg oral capsule, extended release 75 mg, 1, capsule, By Mouth, 2 times a day, do not crush or chew, # 180 capsule, Refills 3, Tot. Refills 3, Maintenance, 07/17/20 16:41:00 EDT, Route to Pharmacy Electronically, [facility] 1967, 164, cm, 11/15/19 11:34:00 EST, Height Start Date: 07/17/20 Stop Date: 07/12/21 Status: OrderedFlonase 50 mcg/inh nasal spray 1 sprays, Nares, Both, 2 times a day, # 16 Gm, 11 Refills, Maintenance, 08/01/19 8:07:48 EDT, [place],1 sprays Nares, Both 2 times a day Start Date: 08/01/19 Status: Orderedgabapentin 300 mg oral capsule 300 mg, 1, capsule, By Mouth, 3 times a day, take with 600 mgs tablet to = 900 mgs three times per day, # 90 capsule, Refills 4, Tot. Refills 4, Maintenance, 07/04/20 14:35:00 EDT, Route to Pharmacy Electronically, [facility] 1967, do not... Start Date: [...] tablet, 4 Refills, Maintenance, 07/04/20 14:35:00 EDT, [facility], 164, cm, 11/15/19 [...] 3 Refills, Maintenance, 07/17/20 16:41:00 EDT, Tablet, [facility], 164, cm, 11/15/19 11:34:00 EST, Height Start Date: 07/17/20 Stop Date: 07/12/21 Status: Orderedmetoprolol 25 mg oral tablet, extended release 75 mg, 3, tablet, By Mouth, Daily, # 270 tablet, Refills 3, Tot. Refills 3, Maintenance, 07/17/20 16:41:00 EDT, Route to Pharmacy Electronically, [facility] 1967, 164, cm, 11/15/19 11:34:00 EST, Height Start Date: 07/17/20 Stop Date: 07/12/21 Status: OrderedNeutral Sodium Fluoride Rinse 10 mL, Topically, 0 Refills, Maintenance, 07/28/18 15:18:11 EDT Start Date: 07/28/18 Status: Orderedomeprazole 20 mg oral enteric coated capsule 1 capsule = 20 mg, By Mouth, Daily, # 90 capsule, 3 Refills, Maintenance, 07/17/20 16:41:00 EDT, EC Capsule, [facility], 164, cm, 11/15/19 [...]
--- OUTSIDE RECORDS SUMMARY | 2022-12-21 06:19 | XMS_ITS | Continuity of Care Document ---
:1965 Author Organization [facility] Address [address] [place] [address]- Care Team Providers Name Role Phone Rosa GONZALEZ, Bakari Wells Primary Care Physician [facility] 09[facility]21 - 10/29/21 [facility] [address] [place], [place] [address] Allergies, Adverse Reactions, Alerts Substance Reaction [...] tetanus-diphtheria toxoids (Td)12 09/15/99 Given 1Result Comment: [id number] Comment: [id number] Comment: [11/23/2018] [id number] Comment: [09/19/2017] [id number] Comment: [10/25/2013] GIVEN W/O INCIDENSE...FT9Oetpc Note: [id number] Note: [id number] Note: MANUFACTURE BIOMEDICAL INFO SHEET GIVEN GIVEN W/O [id number] Note: [id number] Comment: [id number] Note: GIVEN W/O INCIDENT INFO SHEET [id number] Note: DONE IN E.R. Medications Aricept 10 mg oral tablet 10 mg, 1, tablet, By Mouth, Daily at bedtime, # 90 tablet, Refills 3, Tot. Refills 3, Maintenance, 01/23/21 13:12:00 EST, Route to Pharmacy Electronically, [facility] 1966, do not fill [...] tablet, Refills 3, Route to Pharmacy Electronically, [facility] 1967, 164, cm, 04/24/21 15:00:00 EDT, Height Start Date: 08/31/21 Status: OrderedFlonase 50 mcg/inh nasal spray 1 sprays, Nares, Both, 2 times a day, # 16 Gm, 11 Refills, Maintenance, 07/20/21 12:47:00 EDT, [place], [facility], 1 sprays Nares, Both [...] 02/16/21 17:27:00 EDT, Route to Pharmacy Electronically, [facility] 1967, do no... Start Date: 02/16/21 Status: Orderedgabapentin 600 mg oral tablet 1 tablet, By Mouth, 3 times a day, *., # 90 tablet, 11 Refills, Maintenance, 01/05/21 12:27:00 EST, [facility], 164, cm, 10/24/20 15:22:00 EST, Height Start Date: 01/05/21 Status: Orderedlevothyroxine 0.05 mg oral tablet 8 tablet = 400 mcg, By Mouth, Every week, 6 days one daily; 1 day take two, # 104 tablet, 3 Refills,Maintenance, 09/15/21 12:29:00 EDT, Tablet, [facility], 164, cm, 09/15/21 11:49:00 EDT, Height Start Date: 09/15/21 Status: OrderedLinzess By Mouth, Daily, 0 Refills, Maintenance, 07/28/18 15:20:22 EDT Start Date: 07/28/18 Status: Orderedmeloxicam 15 mg oral tablet 1 tablet = 15 mg, By Mouth, Daily, # 90 tablet, 3 Refills, Maintenance, 09/15/21 12:29:00 EDT, Tablet, [facility] 1967, 164, cm, 09/15/21 11:49:00 EDT, Height Start Date: 09/15/21 Stop Date: 09/10/22 Status: Orderedmetoprolol 50 mg oral tablet, extended release 50 mg, 1, tablet, By Mouth, 2 times a day, # 180 tablet, Refills 3, Tot. Refills 3, Maintenance, 04/24/21 15:39:00 EDT, Route to Pharmacy Electronically, [facility] 1966, Partial fill upon [...] Refills, Maintenance, 09/15/21 12:29:00 EDT, EC Capsule, [facility], 164, cm, 09/15/21 11:49:00 EDT, Height Start Date: 09/15/21 Status: OrderedtraMADol 50 mg oral tablet 1 tablet, By Mouth, Every 8 hours, prn pain, # 21 tablet, 0 Refills, Maintenance, 11/11/20 17:28:00 EST, Tablet, [facility] 1967, i am aware [...] capsule, 5 Refills, Maintenance, 08/30/21 8:44:00 EDT, [facility], 164, cm, 04/24/21 [...]
--- OUTSIDE RECORDS SUMMARY | 2022-12-21 06:20 | XMS_ITS | Continuity of Care Document ---
:1965 Author Organization [facility] Address [address] [place] [address]- Care Team Providers Name Role Phone Rosa GONZALEZ, Bakari Wells Primary Care Physician [facility]20 - 11/13/20 [facility] [address] [place], [place] [address] Allergies, Adverse Reactions, Alerts Substance [...] vaccine, inactivated9 12/15/10 Given influenza virus vaccine, [id number] 08/17/10 Given tetanus-diphtheria toxoids (Td)11 09/15/99 Given 1Result Comment: [id number] Note: GIVEN W/O INCIDENT INFO SHEET [id number] Comment: [id number] Comment: [11/23/2018] [id number] 5Result Comment: [09/19/2017] [id number] Comment: [10/25/2013] GIVEN W/O INCIDENSE...KR5Wuiyh Note: [id number] Note: [id number] Note: MANUFACTURE BIOMEDICAL INFO SHEET GIVEN GIVEN W/O [id number] Note: [id number] Note: DONE IN E.R. Medications Aricept 10 mg oral tablet 10 mg, 1, tablet, By Mouth, Daily at bedtime, for 90 days, # 90 tablet, Refills 3, Tot. Refills 3, Hard Stop 01/16/21 12:56:00 EST, 01/22/20 12:56:00 EST, Route to Pharmacy Electronically, [facility] 1966, do not fill until pt calls, 164, cm,... Start Date: 01/22/20 Stop Date: 01/16/21 Status: OrderedAricept 10 mg oral tablet 10 mg, 1, tablet, By Mouth, Daily at bedtime, # 90 tablet, Refills 3, Tot. Refills 3, Maintenance, 01/16/21 12:56:00 EST, Route to Pharmacy Electronically, [facility] 1966, do not fill until pt [...] Replace Required Details, Route to Pharmacy Electronically, [facility] 1967, 164,... Start Date: 08/15/20 Stop Date: 11/14/20 Status: OrderedEffexor XR 75 mg oral capsule, extended release 75 mg, 1, capsule, By Mouth, 2 times a day, do not crush or chew, # 180 capsule, Refills 3, Tot. Refills 3, Maintenance, 07/17/20 16:41:00 EDT, Route to Pharmacy Electronically, [facility] 1967, 164, cm, 11/15/19 11:34:00 EST, Height Start Date: 07/17/20 Stop Date: 07/12/21 Status: OrderedFlonase 50 mcg/inh nasal spray 1 sprays, Nares, Both, 2 times a day, # 16 Gm, 11 Refills, Maintenance, 08/01/19 8:07:48 EDT, [place],1 sprays Nares, Both 2 times a day Start Date: 08/01/19 Status: Orderedgabapentin 300 mg oral capsule 300 mg, 1, capsule, By Mouth, 3 times a day, take with 600 mgs tablet to = 900 mgs three times per day, # 90 capsule, Refills 4, Tot. Refills 4, Maintenance, 07/04/20 14:35:00 EDT, Route to Pharmacy Electronically, [facility] 1966, do not... Start Date: 07/04/20 Status: Orderedgabapentin 600 mg oral tablet 1 tablet = 600 mg, By Mouth, 3 times a day, take with 300 mgs tablet to = 900 mgs three times per day, # 90 tablet, 4 Refills, Maintenance, 07/04/20 14:35:00 EDT, [facility], 164, cm, 11/15/19 11:34:00 EST, Height Start Date: 07/04/20 Status: Orderedlevothyroxine 0.05 mg oral tablet 8 tablet = 400 mcg, By Mouth, Every week, 6 days one daily; 1 day take two, # 104 tablet, 3 Refills,Maintenance, 10/24/20 23:15:00 EST, Tablet, [facility], 164, cm, 10/24/20 15:22:00 EST, Height Start Date: 10/24/20 Status: OrderedLinzess By Mouth, Daily, 0 Refills, Maintenance, 07/28/18 15:20:22 EDT Start Date: 07/28/18 Status: Orderedmeloxicam 15 mg oral tablet 1 tablet = 15 mg, By Mouth, Daily, # 90 tablet, 3 Refills, Maintenance, 07/17/20 16:41:00 EDT, Tablet, [facility], 164, cm, 11/15/19 11:34:00 EST, Height Start Date: 07/17/20 Stop Date: 07/12/21 Status: Orderedmetoprolol 25 mg oral tablet, extended release 75 mg, 3, tablet, By Mouth, Daily, # 270 tablet, Refills 3, Tot. Refills 3, Maintenance, 07/17/20 16:41:00 EDT, Route to Pharmacy Electronically, [facility] 1967, 164, cm, 11/15/19 11:34:00 EST, Height Start Date: 07/17/20 Stop Date: 07/12/21 Status: OrderedNeutral Sodium Fluoride Rinse 10 mL, Topically, 0 Refills, Maintenance, 07/28/18 15:18:11 EDT Start Date: 07/28/18 Status: Orderedomeprazole 20 mg oral enteric coated capsule 1 capsule = 20 mg, By Mouth, Daily, # 90 capsule, 3 Refills, Maintenance, 07/17/20 16:41:00 EDT, EC Capsule, [facility], 164, cm, 11/15/19 11:34:00 EST, Height Start Date: 07/17/20 Status: OrderedtraMADol 50 mg oral tablet 1 tablet, By Mouth, Every 8 hours, prn pain, # 21 tablet, 0 Refills, Maintenance, 11/11/20 17:28:00 EST, Tablet, [facility], i am aware of potential [...] capsule, 11 Refills, Maintenance, 02/11/20 14:14:00 EDT, [facility], 164, cm, 11/15/19 11:34:00 EST, Height Start Date: 02/11/20 Status: OrderedGuero See Instructions, # 1 units, Maintenance, use [...]
--- OUTSIDE RECORDS SUMMARY | 2022-12-21 06:20 | XMS_ITS | Continuity of Care Document ---
:1965 Author Organization [facility] Address [address] [place] [address]- Care Team Providers Name Role Phone Rosa GONZALEZ, Bakari Wells Primary Care Physician [facility] Date[facility]s): 04/22/22 - 05/22/22 [facility] [address] [place], [place] [address] Allergies, Adverse Reactions, Alerts No [...] vaccine, inactivated9 12/15/10 Given influenza virus vaccine, 08/17/10 Given tetanus/diphtheria/pertussis, acel(Tdap)11 10/24/20 Given tetanus/diphtheria/pertussis, acel(Tdap)12 12/15/10 Given Influenza Virus Vaccine (oldterm) 10/09/20 Recorded tetanus-diphtheria toxoids (Td)13 09/15/99 Given 1Result Comment: [id number] Comment: [id number] Comment: [id number] Result Comment: [11/23/2018] [id number] Comment: [09/19/2017] [id number] Result Comment: [10/25/2013] GIVEN W/O INCIDENSE...SK4Ziped Note: [id number] Note: [id number] Note: MANUFACTURE BIOMEDICAL INFO SHEET GIVEN GIVEN W/O [id number] Note: [id number] Comment: [id number] Note: GIVEN W/O INCIDENT INFO SHEET [id number] Note: DONE IN E.R. Medications Aricept 10 mg oral tablet 10 mg, 1, tablet, By Mouth, Daily at bedtime, # 90 tablet, Refills 1, Tot. Refills 1, Maintenance, 11/01/21 16:34:00 EST, Route to Pharmacy Electronically, [facility] 1966, do not fill until [...] 12/16/21 13:24:00 EST, Route to Pharmacy Electronically, [facility] Start Date: 12/16/21 Stop Date: 12/11/22 Status: Orderedgabapentin 300 mg oral capsule 300 mg, 1, capsule, By Mouth, 3 times a day, take with 600 mgs tablet to = 900 mgs three times per day, # 90 capsule, Refills 11, Tot. Refills 11, Maintenance, 03/18/22 11:53:00 EDT, Route to Pharmacy Electronically, [facility] 1967, do no... Start Date: 03/18/22 Status: Orderedgabapentin 600 mg oral tablet See Instructions, TAKE 1 TABLET BY MOUTH THREE TIMES DAILY *( TAKE WITH 300MG TABLET TO EQUAL 900MG THREE TIMES A DAY)*, # 90 tablet, 11 Refills, [facility], 164, cm, 09/15/21 11:49:00 EDT, Height Start Date: 01/08/22 Status: Orderedlevothyroxine 0.05 mg oral tablet 8 tablet = 400 mcg, By Mouth, Every week, 6 days one daily; 1 day take two, # 104 tablet, 3 Refills,Maintenance, 09/15/21 12:29:00 EDT, Tablet, [facility], 164, cm, 09/15/21 11:49:00 EDT, Height Start Date: 09/15/21 Status: OrderedLinzess By Mouth, Daily, 0 Refills, Maintenance, 07/28/18 15:20:22 EDT Start Date: 07/28/18 Status: Orderedmeloxicam 15 mg oral tablet 1 tablet = 15 mg, By Mouth, Daily, # 90 tablet, 3 Refills, Maintenance, 09/15/21 12:29:00 EDT, Tablet, [facility], 164, cm, 09/15/21 11:49:00 EDT, Height Start Date: 09/15/21 Stop Date: 09/10/22 Status: Orderedmetoprolol 50 mg oral tablet, extended release 50 mg, 1, tablet, By Mouth, 2 times a day, # 180 tablet, Refills 3, Tot. Refills 3, Maintenance, 04/24/21 15:39:00 EDT, Route to Pharmacy Electronically, [facility] 1967, Partial fill upon patient [...] capsule, 3 Refills, Maintenance, 04/22/22 20:29:00 EDT, [facility], Partial fill upon patient request if the prescription is for a schedule II opioid drug., 164, cm, 03/18/22 11:48:00 EDT, Height Start Date: 04/22/22 Stop Date: 04/17/23 Status: OrderedVitamin D3 2000 intl units oral capsule 1 capsule = 2,000 International_Units, By Mouth, Daily, # 30 capsule, 5 Refills, Maintenance, 03/18/22 11:53:00 EDT, [facility], 164, cm, 03/18/22 11:48:00 [...]
--- OUTSIDE RECORDS SUMMARY | 2022-12-21 06:20 | XMS_ITS | Continuity of Care Document ---
:[address] [facility] Address [address] [place] [address]- Care Team Providers Name Role Phone Bakari Lee MD Primary Care Physician [facility] Date[facility]s): 02/24/21 - 03/03/21 [facility] [address] [place] [address]- Attending Physician: Bakari Lee MD Allergies, Adverse [...] vaccine, inactivated9 12/15/10 Given influenza virus vaccine, [id number] 08/17/10 Given tetanus-diphtheria toxoids (Td)11 09/15/99 Given 1Result Comment: [id number] Note: GIVEN W/O INCIDENT INFO SHEET [id number] Comment: [id number] Comment: [11/23/2018] [id number] 5Result Comment: [09/19/2017] [id number] Comment: [10/25/2013] GIVEN W/O INCIDENSE...[id number] Note: [id number] Note: [id number] Note: MANUFACTURE BIOMEDICAL INFO SHEET GIVEN GIVEN W/O [id number] Note: [id number] Note: DONE IN E.R. Medications Aricept 10 mg oral tablet 10 mg, 1, tablet, By Mouth, Daily at bedtime, # 90 tablet, Refills 3, Tot. Refills 3, Maintenance, 01/23/21 13:12:00 EST, Route to Pharmacy Electronically, [facility] 1966, do not fill [...] 02/27/21 13:59:00 EDT, Route to Pharmacy Electronically, [facility] 1966, this is an increase to 225 mgs, 164, cm, ... Start Date: 02/27/21 Stop Date: 02/22/22 Status: OrderedFlonase 50 mcg/inh nasal spray 1 sprays, Nares, Both, 2 times a day, # 16 Gm, 11 Refills, Maintenance, 08/01/19 8:07:48 EDT, [place],1 sprays Nares, Both 2 times a day Start Date: 08/01/19 Status: Orderedgabapentin 300 mg oral capsule 300 mg, 1, capsule, By Mouth, 3 times a day, take with 600 mgs tablet to = 900 mgs three times per day, # 90 capsule, Refills 11, Tot. Refills 11, Maintenance, 02/16/21 17:27:00 EDT, Route to Pharmacy Electronically, [facility] 1967, do no... Start Date: 02/16/21 Status: Orderedgabapentin 600 mg oral tablet 1 tablet, By Mouth, 3 times a day, *., # 90 tablet, 11 Refills, Maintenance, 01/05/21 12:27:00 EST, [facility], 164, cm, 10/24/20 15:22:00 EST, Height Start Date: 01/05/21 Status: Orderedlevothyroxine 0.05 mg oral tablet 8 tablet = 400 mcg, By Mouth, Every week, 6 days one daily; 1 day take two, # 104 tablet, 3 Refills,Maintenance, 10/24/20 23:15:00 EST, Tablet, [facility], 164, cm, 10/24/20 15:22:00 EST, Height Start Date: 10/24/20 Status: OrderedLinzess By Mouth, Daily, 0 Refills, Maintenance, 07/28/18 15:20:22 EDT Start Date: 07/28/18 Status: Orderedmeloxicam 15 mg oral tablet 1 tablet = 15 mg, By Mouth, Daily, # 90 tablet, 3 Refills, Maintenance, 07/17/20 16:41:00 EDT, Tablet, [facility], 164, cm, 11/15/19 11:34:00 EST, Height Start Date: 07/17/20 Stop Date: 07/12/21 Status: Orderedmetoprolol 50 mg oral tablet, extended release 75 mg, 1.5, tablet, By Mouth, Daily, # 135 tablet, Refills 3, Tot. Refills 3, Maintenance, 12/22/20 17:10:00 EST, Route to Pharmacy Electronically, [facility] 1967, Partial fill upon patient [...] Refills, Maintenance, 07/17/20 16:41:00 EDT, EC Capsule, [facility], 164, cm, 11/15/19 11:34:00 EST, Height Start Date: 07/17/20 Status: OrderedtraMADol 50 mg oral tablet 1 tablet, By Mouth, Every 8 hours, prn pain, # 21 tablet, 0 Refills, Maintenance, 11/11/20 17:28:00 EST, Tablet, [facility], i am aware of [...] capsule, 5 Refills, Maintenance, 02/18/21 10:10:00 EDT, [facility], 164, cm, 10/24/20 [...]
--- OUTSIDE RECORDS SUMMARY | 2022-12-21 06:20 | XMS_ITS | Continuity of Care Document ---
:1965 Author Organization [facility] Address [address] [place] [address]- Care Team Providers Name Role Phone Rosa GONZALEZ, Bakari Wells Primary Care Physician [facility] Date[facility]s): 01/23/21 - 02/22/21 [facility] [address] [place] [address]- Allergies, Adverse Reactions, Alerts Substance Reaction Severity [...] vaccine, inactivated9 12/15/10 Given influenza virus vaccine, [id number] 08/17/10 Given tetanus-diphtheria toxoids (Td)11 09/15/99 Given 1Result Comment: [id number] Note: GIVEN W/O INCIDENT INFO SHEET [id number] Comment: [id number] Comment: [11/23/2018] [id number] 5Result Comment: [09/19/2017] [id number] Comment: [10/25/2013] GIVEN W/O INCIDENSE...[id number] Note: [id number] Note: [id number] Note: MANUFACTURE BIOMEDICAL INFO SHEET GIVEN GIVEN W/O [id number] Note: [id number] Note: DONE IN E.R. Medications Aricept 10 mg oral tablet 10 mg, 1, tablet, By Mouth, Daily at bedtime, # 90 tablet, Refills 3, Tot. Refills 3, Maintenance, 01/23/21 13:12:00 EST, Route to Pharmacy Electronically, [facility] 1966, do not fill until pt [...] 07/17/20 16:41:00 EDT, Route to Pharmacy Electronically, [facility], 164, cm, 11/15/19 11:34:00 EST, Height Start Date: 07/17/20 Stop Date: 07/12/21 Status: OrderedFlonase 50 mcg/inh nasal spray 1 sprays, Nares, Both, 2 times a day, # 16 Gm, 11 Refills, Maintenance, 08/01/19 8:07:48 EDT, [place],1 sprays Nares, Both 2 times a day Start Date: 08/01/19 Status: Orderedgabapentin 300 mg oral capsule 300 mg, 1, capsule, By Mouth, 3 times a day, take with 600 mgs tablet to = 900 mgs three times per day, # 90 capsule, Refills 11, Tot. Refills 11, Maintenance, 02/16/21 17:27:00 EDT, Route to Pharmacy Electronically, [facility], do no... Start Date: 02/16/21 Status: Orderedgabapentin 600 mg oral tablet 1 tablet, By Mouth, 3 times a day, *., # 90 tablet, 11 Refills, Maintenance, 01/05/21 12:27:00 EST, [facility], 164, cm, 10/24/20 15:22:00 EST, Height Start Date: 01/05/21 Status: Orderedlevothyroxine 0.05 mg oral tablet 8 tablet = 400 mcg, By Mouth, Every week, 6 days one daily; 1 day take two, # 104 tablet, 3 Refills,Maintenance, 10/24/20 23:15:00 EST, Tablet, [facility], 164, cm, 10/24/20 15:22:00 EST, Height Start Date: 10/24/20 Status: OrderedLinzess By Mouth, Daily, 0 Refills, Maintenance, 07/28/18 15:20:22 EDT Start Date: 07/28/18 Status: Orderedmeloxicam 15 mg oral tablet 1 tablet = 15 mg, By Mouth, Daily, # 90 tablet, 3 Refills, Maintenance, 07/17/20 16:41:00 EDT, Tablet, [facility], 164, cm, 11/15/19 11:34:00 EST, Height Start Date: 07/17/20 Stop Date: 07/12/21 Status: Orderedmetoprolol 50 mg oral tablet, extended release 75 mg, 1.5, tablet, By Mouth, Daily, # 135 tablet, Refills 3, Tot. Refills 3, Maintenance, 12/22/20 17:10:00 EST, Route to Pharmacy Electronically, [facility], Partial fill upon [...] Refills, Maintenance, 07/17/20 16:41:00 EDT, EC Capsule, [facility], 164, cm, 11/15/19 11:34:00 EST, Height Start Date: 07/17/20 Status: OrderedtraMADol 50 mg oral tablet 1 tablet, By Mouth, Every 8 hours, prn pain, # 21 tablet, 0 Refills, Maintenance, 11/11/20 17:28:00 EST, Tablet, [facility], i am aware [...] capsule, 5 Refills, Maintenance, 02/18/21 10:10:00 EDT, [facility], 164, cm, 10/24/20 [...]
--- OUTSIDE RECORDS SUMMARY | 2022-12-21 06:20 | XMS_ITS | Continuity of Care Document ---
:1965 Author Organization [facility] Address [address] [place] [address]- Care Team Providers Name Role Phone Bakari Lee MD Primary Care Physician Encounter [facility] Date(s): 05/04/22 - 06/03/22 [facility] [address] [place] [address]- Allergies, Adverse Reactions, Alerts No Known Allergies [...] vaccine, inactivated9 12/15/10 Given influenza virus vaccine, [id number] 08/17/10 Given tetanus/diphtheria/pertussis, acel(Tdap)11 10/24/20 Given tetanus/diphtheria/pertussis, acel(Tdap)12 12/15/10 Given Influenza Virus Vaccine (oldterm) 10/09/20 Recorded tetanus-diphtheria toxoids (Td)13 09/15/99 Given 1Result Comment: [id number] Comment: [id number] Comment: [id number] Result Comment: [11/23/2018] [id number] Comment: [09/19/2017] [id number] Result Comment: [10/25/2013] GIVEN W/O INCIDENSE...[id number] Note: [id number] Note: [id number] Note: MANUFACTURE BIOMEDICAL INFO SHEET GIVEN GIVEN W/O [id number] Note: [id number] Comment: [id number] Note: GIVEN W/O INCIDENT INFO SHEET [id number] Note: DONE IN E.R. Medications Aricept 10 mg oral tablet 10 mg, 1, tablet, By Mouth, Daily at bedtime, # 90 tablet, Refills 1, Tot. Refills 1, Maintenance, 11/01/21 16:34:00 EST, [facility], [facility] [...] 12/16/21 13:24:00 EST, Route to Pharmacy Electronically, [facility]... Start Date: 12/16/21 Stop Date: 12/11/22 Status: Orderedgabapentin 300 mg oral capsule 300 mg, 1, capsule, By Mouth, 3 times a day, take with 600 mgs tablet to = 900 mgs three times per day, # 90 capsule, Refills 11, Tot. Refills 11, Maintenance, 03/18/22 11:53:00 EDT, Route to Pharmacy Electronically, [facility], do no... Start Date: 03/18/22 Status: Orderedgabapentin 600 mg oral tablet See Instructions, TAKE 1 TABLET BY MOUTH THREE TIMES DAILY *( TAKE WITH 300MG TABLET TO EQUAL 900MG THREE TIMES A DAY)*, # 90 tablet, 11 Refills, [facility], 164, cm, 09/15/21 11:49:00 EDT, Height Start Date: 01/08/22 Status: Orderedlevothyroxine 0.05 mg oral tablet 8 tablet = 400 mcg, By Mouth, Every week, 6 days one daily; 1 day take two, # 104 tablet, 3 Refills,Maintenance, 09/15/21 12:29:00 EDT, Tablet, [facility], 164, cm, 09/15/21 11:49:00 EDT, Height Start Date: 09/15/21 Status: OrderedLinzess By Mouth, Daily, 0 Refills, Maintenance, 07/28/18 15:20:22 EDT Start Date: 07/28/18 Status: Orderedmeloxicam 15 mg oral tablet 1 tablet = 15 mg, By Mouth, Daily, # 90 tablet, 3 Refills, Maintenance, 09/15/21 12:29:00 EDT, Tablet, [facility], 164, cm, 09/15/21 11:49:00 EDT, Height Start Date: 09/15/21 Stop Date: 09/10/22 Status: Orderedmetoprolol 50 mg oral tablet, extended release 50 mg, 1, tablet, By Mouth, 2 times a day, # 180 tablet, Refills 3, Tot. Refills 3, Maintenance, 04/24/21 15:39:00 EDT, Route to [facility] Electron[facility], [facility] capsule, 3 Refills, Maintenance, 04/22/22 20:29:00 EDT, [facility], Partial fill upon patient request if the prescription is for a schedule II opioid drug., 164, cm, 03/18/22 11:48:00 EDT, Height Start Date: 04/22/22 Stop Date: 04/17/23 Status: OrderedVitamin D3 2000 intl units oral capsule 1 capsule = 2,000 International_Units, By Mouth, Daily, # 30 capsule, 5 Refills, Maintenance, 03/18/22 11:53:00 EDT, [facility] [...]
--- OUTSIDE RECORDS SUMMARY | 2022-12-21 06:20 | XMS_ITS | Continuity of Care Document ---
:[address] [facility] Address [address] [place] [address]- Care Team Providers Name Role Phone Rosa GONZALEZ, Bakari Wells Primary Care Physician [facility] Date[facility]s): 12/22/20 - 01/21/21 [facility] [address] [place], [place] [address] Allergies, Adverse Reactions, Alerts Substance Reaction Severity [...] vaccine, inactivated9 12/15/10 Given influenza virus vaccine, [id number] 08/17/10 Given tetanus-diphtheria toxoids (Td)11 09/15/99 Given 1Result Comment: [id number] Note: GIVEN W/O INCIDENT INFO SHEET [id number] Comment: [id number] Comment: [11/23/2018] [id number] 5Result Comment: [09/19/2017] [id number] Comment: [10/25/2013] GIVEN W/O INCIDENSE...[id number] Note: [id number] Note: [id number] Note: MANUFACTURE BIOMEDICAL INFO SHEET GIVEN GIVEN W/O [id number] Note: [id number] Note: DONE IN E.R. Medications Aricept 10 mg oral tablet 10 mg, 1, tablet, By Mouth, Daily at bedtime, # 90 tablet, Refills 3, Tot. Refills 3, Maintenance, 01/20/21 13:20:00 EST, Route to Pharmacy Electronically, [facility] 1966, do not fill until pt calls, 164, cm, 10/24/20 15:22:00 EST, Height Start Date: 01/20/21 Status: Orderedchlorhexidine topical 0.12% liquid 15 mL [...] 07/17/20 16:41:00 EDT, Route to Pharmacy [facility], [facility], 164, cm, 11/15/19 11:34:00 EST, Height Start Date: 07/17/20 Stop Date: 07/12/21 Status: OrderedFlonase 50 mcg/inh nasal spray 1 sprays, Nares, Both, 2 times a day, # 16 Gm, 11 Refills, Maintenance, 08/01/19 8:07:48 EDT, [place],1 sprays Nares, Both 2 times a day Start Date: 08/01/19 Status: Orderedgabapentin 600 mg oral tablet 1 [...] Electronically, [facility] 1966, Partial fill upon [...] Tablet, [facility], i am aware [...] capsule, 11 Refills, Maintenance, 02/11/20 14:14:00 EDT, [facility], [...] (neg serology Active evaluation by Dr Overton 2005)(Confirmed) REUBEN BSO - Total abdominal hysterectomy Active and bilateral salpingo-oophorectomy(Confirmed)1 1pre cerival cancer sith Papillomvvirus Social History Social History Type Response Smoking Status Never smoker entered on: 02/15/14 Sex
--- OUTSIDE RECORDS SUMMARY | 2022-12-21 06:20 | XMS_ITS | Continuity of Care Document ---
:1965 Author Organization [facility] Address [address] [place] [address]- Care Team Providers Name Role Phone Rosa GONZALEZ, Bakari Wells Primary Care Physician [facility] Date[facility]20 - 12/11/20 [facility] [address] [place], [place] [address] Allergies, Adverse Reactions, Alerts Substance [...] vaccine, inactivated9 12/15/10 Given influenza virus vaccine, [id number] 08/17/10 Given tetanus-diphtheria toxoids (Td)11 09/15/99 Given 1Result Comment: [id number] Note: GIVEN W/O INCIDENT INFO SHEET [id number] Comment: [id number] Comment: [11/23/2018] [id number] 5Result Comment: [09/19/2017] [id number] Comment: [10/25/2013] GIVEN W/O INCIDENSE...DR9Iptnv Note: [id number] Note: [id number] Note: MANUFACTURE BIOMEDICAL INFO SHEET GIVEN GIVEN W/O [id number] Note: [id number] Note: DONE IN E.R. Medications Aricept 10 mg oral tablet 10 mg, 1, tablet, By Mouth, Daily at bedtime, for 90 days, # 90 tablet, Refills 3, Tot. Refills 3, Hard Stop 01/16/21 12:56:00 EST, 01/22/20 12:56:00 EST, Route to Pharmacy Electronically, [facility], do not fill until pt calls, 164, cm,... Start Date: 01/22/20 Stop Date: 01/16/21 Status: OrderedAricept 10 mg oral tablet 10 mg, 1, tablet, By Mouth, Daily at bedtime, # 90 tablet, Refills 3, Tot. Refills 3, Maintenance, 01/16/21 12:56:00 EST, Route to Pharmacy Electronically, [facility] 1966, do not fill until [...] 07/17/20 16:41:00 EDT, Route to Pharmacy Electronically, [facility], 164, cm, 11/15/19 11:34:00 EST, Height Start Date: 07/17/20 Stop Date: 07/12/21 Status: OrderedFlonase 50 mcg/inh nasal spray 1 sprays, Nares, Both, 2 times a day, # 16 Gm, 11 Refills, Maintenance, 08/01/19 8:07:48 EDT, [place],1 sprays Nares, Both 2 times a day Start Date: 08/01/19 Status: Orderedgabapentin 300 mg oral capsule 300 mg, 1, capsule, By Mouth, 3 times a day, take with 600 mgs tablet to = 900 mgs three times per day, # 90 capsule, Refills 4, Tot. Refills 4, Maintenance, 07/04/20 14:35:00 EDT, Route to Pharmacy Electronically, [facility], do not... Start Date: 07/04/20 Status: Orderedgabapentin 600 mg oral tablet 1 tablet = 600 mg, By Mouth, 3 times a day, take with 300 mgs tablet to = 900 mgs three times per day, # 90 tablet, 4 Refills, Maintenance, 07/04/20 14:35:00 EDT, [facility], 164, cm, 11/15/19 11:34:00 EST, Height Start Date: 07/04/20 Status: Orderedlevothyroxine 0.05 mg oral tablet 8 tablet = 400 mcg, By Mouth, Every week, 6 days one daily; 1 day take two, # 104 tablet, 3 Refills,Maintenance, 10/24/20 23:15:00 EST, Tablet, [facility], 164, cm, 10/24/20 15:22:00 EST, Height Start Date: 10/24/20 Status: OrderedLinzess By Mouth, Daily, 0 Refills, Maintenance, 07/28/18 15:20:22 EDT Start Date: 07/28/18 Status: Orderedmeloxicam 15 mg oral tablet 1 tablet = 15 mg, By Mouth, Daily, # 90 tablet, 3 Refills, Maintenance, 07/17/20 16:41:00 EDT, Tablet, [facility], 164, cm, 11/15/19 11:34:00 EST, Height Start Date: 07/17/20 Stop Date: 07/12/21 Status: Orderedmetoprolol 25 mg oral tablet, extended release 75 mg, 3, tablet, By Mouth, Daily, # 270 tablet, Refills 3, Tot. Refills 3, Maintenance, 07/17/20 16:41:00 EDT, Route to Pharmacy Electronically, [facility], 164, cm, 11/15/19 11:34:00 EST, Height Start Date: 07/17/20 Stop Date: 07/12/21 Status: OrderedNeutral Sodium Fluoride Rinse 10 mL, Topically, 0 Refills, Maintenance, 07/28/18 15:18:11 EDT Start Date: 07/28/18 Status: Orderedomeprazole 20 mg oral enteric coated capsule 1 capsule = 20 mg, By Mouth, Daily, # 90 capsule, 3 Refills, Maintenance, 07/17/20 16:41:00 EDT, EC Capsule, [facility], 164, cm, 11/15/19 11:34:00 EST, Height Start Date: 07/17/20 Status: OrderedtraMADol 50 mg oral tablet 1 tablet, By Mouth, Every 8 hours, prn pain, # 21 tablet, 0 Refills, Maintenance, 11/11/20 17:28:00 EST, Tablet, [facility], i am aware of potential [...] capsule, 11 Refills, Maintenance, 02/11/20 14:14:00 EDT, [facility], 164, cm, 11/15/19 11:34:00 [...]
--- OUTSIDE RECORDS SUMMARY | 2022-12-21 06:20 | XMS_ITS | Continuity of Care Document ---
:1965 Author Organization [facility] Address [address] [place] [address]- Care Team Providers Name Role Phone Rosa GONZALEZ, Bakari Wells Primary Care Physician [facility] Date(s): 08/29/20 - 09/28/20 [facility] [address] [place], [place] [address] Allergies, Adverse Reactions, Alerts Substance [...] tetanus-diphtheria toxoids (Td)10 09/15/99 Given 1Result Comment: [id number] Comment: [11/23/2018] [id number] Comment: [09/19/2017] [id number] Comment: [10/25/2013] GIVEN W/O INCIDENSE...MH5 Admin Note: [id number] Note: [id number] Note: MANUFACTURE BIOMEDICAL INFO SHEET GIVEN GIVEN W/O [id number] Note: [id number] Note: GIVEN W/O INCIDENT INFO SHEET [id number] Note: DONE IN E.R. Medications Aricept 10 mg oral tablet 10 mg, 1, tablet, By Mouth, Daily at bedtime, # 90 tablet, Refills 3, Tot. Refills 3, Maintenance, 01/22/20 12:56:00 EST, Route to Pharmacy Electronically, [facility] 1966, do not fill [...] Replace Required Details, Route to Pharmacy Electronically, [facility], 164,... Start Date: 08/15/20 Stop Date: 11/14/20 Status: OrderedEffexor XR 75 mg oral capsule, extended release 75 mg, 1, capsule, By Mouth, 2 times a day, do not crush or chew, # 180 capsule, Refills 3, Tot. Refills 3, Maintenance, 07/17/20 16:41:00 EDT, Route to Pharmacy Electronically, [facility], 164, cm, 11/15/19 11:34:00 EST, Height Start Date: 07/17/20 Stop Date: 07/12/21 Status: OrderedFlonase 50 mcg/inh nasal spray 1 sprays, Nares, Both, 2 times a day, # 16 Gm, 11 Refills, Maintenance, 08/01/19 8:07:48 EDT, [place],1 sprays Nares, Both 2 times a day Start Date: 08/01/19 Status: Orderedgabapentin 300 mg oral capsule 300 mg, 1, capsule, By Mouth, 3 times a day, take with 600 mgs tablet to = 900 mgs three times per day, # 90 capsule, Refills 4, Tot. Refills 4, Maintenance, 07/04/20 14:35:00 EDT, Route to Pharmacy Electronically, [facility], do not... Start [...] tablet, 4 Refills, Maintenance, 07/04/20 14:35:00 EDT, [facility], 164, cm, 11/15/19 [...] 3 Refills, Maintenance, 07/17/20 16:41:00 EDT, Tablet, [facility], 164, cm, 11/15/19 11:34:00 EST, Height Start Date: 07/17/20 Stop Date: 07/12/21 Status: Orderedmetoprolol 25 mg oral tablet, extended release 75 mg, 3, tablet, By Mouth, Daily, # 270 tablet, Refills 3, Tot. Refills 3, Maintenance, 07/17/20 16:41:00 EDT, Route to Pharmacy Electronically, [facility], 164, cm, 11/15/19 11:34:00 EST, Height Start Date: 07/17/20 Stop Date: 07/12/21 Status: OrderedNeutral Sodium Fluoride Rinse 10 mL, Topically, 0 Refills, Maintenance, 07/28/18 15:18:11 EDT Start Date: 07/28/18 Status: Orderedomeprazole 20 mg oral enteric coated capsule 1 capsule = 20 mg, By Mouth, Daily, # 90 capsule, 3 Refills, Maintenance, 07/17/20 16:41:00 EDT, EC Capsule, [facility], 164, cm, 11/15/19 [...] capsule, 11 Refills, Maintenance, 02/11/20 14:14:00 EDT, [facility], 164, cm, 11/15/19 11:34:00 EST, [...]
--- OUTSIDE RECORDS SUMMARY | 2022-12-21 06:20 | XMS_ITS | Continuity of Care Document ---
:1965 Author Organization [facility] Address [address] [place] [address]- Care Team Providers Name Role Phone Rosa GONZALEZ, Bakari Wells Primary Care Physician [facility] Date[facility]s): 07/27/21 - 08/26/21 [facility] [address] [place], [place] [address] Allergies, Adverse Reactions, Alerts Substance [...] vaccine, inactivated9 12/15/10 Given influenza virus vaccine, [id number] 08/17/10 Given tetanus-diphtheria toxoids (Td)11 09/15/99 Given 1Result Comment: [id number] Note: GIVEN W/O INCIDENT INFO SHEET [id number] Comment: [id number] Comment: [11/23/2018] [id number] 5Result Comment: [09/19/2017] [id number] Comment: [10/25/2013] GIVEN W/O INCIDENSE...GT9Lyjqt Note: [id number] Note: [id number] Note: MANUFACTURE BIOMEDICAL INFO SHEET GIVEN GIVEN W/O [id number] Note: [id number] Note: DONE IN E.R. Medications Aricept 10 mg oral tablet 10 mg, 1, tablet, By Mouth, Daily at bedtime, # 90 tablet, Refills 3, Tot. Refills 3, Maintenance, 01/23/21 13:12:00 EST, Route to Pharmacy Electronically, [facility] 1966, do not fill until [...] Gm, 11 Refills, Maintenance, 07/20/21 12:47:00 EDT, [place], [facility], 1 sprays Nares, Both [...] 02/16/21 17:27:00 EDT, Route to Pharmacy Electronically, [facility], do no... Start Date: 02/16/21 Status: Orderedgabapentin 600 mg oral tablet 1 tablet, By Mouth, 3 times a day, *., # 90 tablet, 11 Refills, Maintenance, 01/05/21 12:27:00 EST, [facility], 164, cm, 10/24/20 15:22:00 EST, Height Start Date: 01/05/21 Status: Orderedlevothyroxine 0.05 mg oral tablet 8 tablet = 400 mcg, By Mouth, Every week, 6 days one daily; 1 day take two, # 104 tablet, 3 Refills,Maintenance, 10/24/20 23:15:00 EST, Tablet, [facility], 164, cm, 10/24/20 15:22:00 EST, Height Start Date: 10/24/20 Status: OrderedLinzess By Mouth, Daily, 0 Refills, Maintenance, 07/28/18 15:20:22 EDT Start Date: 07/28/18 Status: Orderedmeloxicam 15 mg oral tablet 1 tablet = 15 mg, By Mouth, Daily, # 90 tablet, 3 Refills, Maintenance, 07/17/20 16:41:00 EDT, Tablet, [facility], 164, cm, 11/15/19 11:34:00 EST, Height Start Date: 07/17/20 Stop Date: 07/12/21 Status: Orderedmetoprolol 50 mg oral tablet, extended release 50 mg, 1, tablet, By Mouth, 2 times a day, # 180 tablet, Refills 3, Tot. Refills 3, Maintenance, 04/24/21 15:39:00 EDT, Route to Pharmacy Electronically, [facility], Partial fill upon patient [...] Refills, Maintenance, 07/17/20 16:41:00 EDT, EC Capsule, [facility], 164, cm, 11/15/19 11:34:00 EST, Height Start Date: 07/17/20 Status: OrderedtraMADol 50 mg oral tablet 1 tablet, By Mouth, Every 8 hours, prn pain, # 21 tablet, 0 Refills, Maintenance, 11/11/20 17:28:00 EST, Tablet, [facility], i am aware of [...] capsule, 3 Refills, Maintenance, 04/30/21 17:34:00 EDT, [facility], Partial fill upon patient request if the prescription is for a scheduleII opioid drug., 164, cm, 04/24/21 15:00:00 EDT,... Start Date: 04/30/21 Stop Date: 04/25/22 Status: OrderedVitamin D3 2000 intl units oral capsule 1 capsule = 2,000 International_Units, By Mouth, Daily, # 30 capsule, 5 Refills, Maintenance, 02/18/21 10:10:00 EDT, [facility], 164, cm, 10/24/20 15:22:00 [...]
--- OUTSIDE RECORDS SUMMARY | 2022-12-21 06:20 | XMS_ITS | Continuity of Care Document ---
:1965 Author Organization [facility] Address [address] [place] [address]- Care Team Providers Name Role Phone Rosa GONZALEZ, Bakari Wells Primary Care Physician [facility] Date[facility]s): 07/11/20 - 08/10/20 [facility] [address] [place] [address]- [facility] Allergies, Adverse Reactions, Alerts Substance Reaction Severity [...] tetanus-diphtheria toxoids (Td)10 09/15/99 Given 1Result Comment: [id number] Comment: [11/23/2018] [id number] Comment: [09/19/2017] [id number] Comment: [10/25/2013] GIVEN W/O INCIDENSE...MH5 Admin Note: [id number] Note: [id number] Note: MANUFACTURE BIOMEDICAL INFO SHEET GIVEN GIVEN W/O [id number] Note: [id number] Note: GIVEN W/O INCIDENT INFO SHEET [id number] Note: DONE IN E.R. Medications Aricept 10 mg oral tablet 10 mg, 1, tablet, By Mouth, Daily at bedtime, # 90 tablet, Refills 3, Tot. Refills 3, Maintenance, 01/22/20 12:56:00 EST, Route to Pharmacy Electronically, [facility] 1966, do not fill until [...] Replace Required Details, Route to Pharmacy Electronically, [facility] 1966, 164, cm, 11/15/19 11:34:00 EST, Height Start Date: 05/30/20 Status: OrderedEffexor XR 75 mg oral capsule, extended release 75 mg, 1, capsule, By Mouth, 2 times a day, do not crush or chew, # 180 capsule, Refills 3, Tot. Refills 3, Maintenance, 07/17/20 16:41:00 EDT, Route to Pharmacy Electronically, [facility] 1967, 164, cm, 11/15/19 11:34:00 EST, Height Start Date: 07/17/20 Stop Date: 07/12/21 Status: OrderedFlonase 50 mcg/inh nasal spray 1 sprays, Nares, Both, 2 times a day, # 16 Gm, 11 Refills, Maintenance, 08/01/19 8:07:48 EDT, [place],1 sprays Nares, Both 2 times a day Start Date: 08/01/19 Status: Orderedgabapentin 300 mg oral capsule 300 mg, 1, capsule, By Mouth, 3 times a day, take with 600 mgs tablet to = 900 mgs three times per day, # 90 capsule, Refills 4, Tot. Refills 4, Maintenance, 07/04/20 14:35:00 EDT, Route to Pharmacy Electronically, [facility] 1967, do not... Start Date: [...] tablet, 4 Refills, Maintenance, 07/04/20 14:35:00 EDT, [facility], 164, cm, 11/15/19 11:34:00 [...] 3 Refills, Maintenance, 07/17/20 16:41:00 EDT, Tablet, [facility], 164, cm, 11/15/19 11:34:00 EST, Height Start Date: 07/17/20 Stop Date: 07/12/21 Status: Orderedmetoprolol 25 mg oral tablet, extended release 75 mg, 3, tablet, By Mouth, Daily, # 270 tablet, Refills 3, Tot. Refills 3, Maintenance, 07/17/20 16:41:00 EDT, Route to Pharmacy Electronically, [facility], 164, cm, 11/15/19 11:34:00 EST, Height Start Date: 07/17/20 Stop Date: 07/12/21 Status: OrderedNeutral Sodium Fluoride Rinse 10 mL, Topically, 0 Refills, Maintenance, 07/28/18 15:18:11 EDT Start Date: 07/28/18 Status: Orderedomeprazole 20 mg oral enteric coated capsule 1 capsule = 20 mg, By Mouth, Daily, # 90 capsule, 3 Refills, Maintenance, 07/17/20 16:41:00 EDT, EC Capsule, [facility], 164, cm, 11/15/19 11:34:00 [...] capsule, 11 Refills, Maintenance, 02/11/20 14:14:00 EDT, [facility], 164, cm, 11/15/19 11:34:00 [...]
--- OUTSIDE RECORDS SUMMARY | 2022-12-21 06:20 | XMS_ITS | Continuity of Care Document ---
:1965 Author Organization [facility] Address [address] [place] [address]- Care Team Providers Name Role Phone Bakari Lee MD Primary Care Physician Encounter [facility] Date(s): 02/27/21 - 04/03/21 [facility] [address] [place] [address]- Attending Physician: Peyman Breaux MD Referring Physician: Bakari Lee MD Allergies, Adverse Reactions, [...] vaccine, inactivated9 12/15/10 Given influenza virus vaccine, [id number] 08/17/10 Given tetanus-diphtheria toxoids (Td)11 09/15/99 Given 1Result Comment: [id number] Note: GIVEN W/O INCIDENT INFO SHEET [id number] Comment: [id number] Comment: [11/23/2018] [id number] 5Result Comment: [09/19/2017] [id number] Comment: [10/25/2013] GIVEN W/O INCIDENSE...YU7Vxskc Note: [id number] Note: [id number] Note: MANUFACTURE BIOMEDICAL INFO SHEET GIVEN GIVEN W/O [id number] Note: [id number] Note: DONE IN E.R. Medications Aricept 10 mg oral tablet 10 mg, 1, tablet, By Mouth, Daily at bedtime, # 90 tablet, Refills 3, Tot. Refills 3, Maintenance, 01/23/21 13:12:00 EST, Route to Pharmacy Electronically, [facility] 1966, do not fill [...] 02/27/21 13:59:00 EDT, Route to Pharmacy Electronically, [facility], this is an increase to 225 mgs, 164, cm, ... Start Date: 02/27/21 Stop Date: 02/22/22 Status: OrderedFlonase 50 mcg/inh nasal spray 1 sprays, Nares, Both, 2 times a day, # 16 Gm, 11 Refills, Maintenance, 08/01/19 8:07:48 EDT, [place],1 sprays Nares, Both 2 times a day Start Date: 08/01/19 Status: Orderedgabapentin 300 mg oral capsule 300 mg, 1, capsule, By Mouth, 3 times a day, take with 600 mgs tablet to = 900 mgs three times per day, # 90 capsule, Refills 11, Tot. Refills 11, Maintenance, 02/16/21 17:27:00 EDT, Route to Pharmacy Electronically, [facility] 1967, do no... Start Date: 02/16/21 Status: Orderedgabapentin 600 mg oral tablet 1 tablet, By Mouth, 3 times a day, *., # 90 tablet, 11 Refills, Maintenance, 01/05/21 12:27:00 EST, [facility], 164, cm, [...] 12/22/20 17:10:00 EST, Route to Pharmacy Electronically, [facility], Partial fill upon [...] 0 Refills, Maintenance, 11/11/20 17:28:00 EST, Tablet, [facility], i am aware [...] capsule, 5 Refills, Maintenance, 02/18/21 10:10:00 EDT, [facility], 164, [...]
--- OUTSIDE RECORDS SUMMARY | 2022-12-21 06:20 | XMS_ITS | Continuity of Care Document ---
:1965 Author Organization [facility] Address [address] [place] [address]- Care Team Providers Name Role Phone Bakari Lee MD Primary Care Physician [facility] Date(s): 02/02/21 - 02/09/21 [facility] [address] [place] [address]- Attending Physician: Bakari Lee MD Allergies, Adverse [...] vaccine, inactivated9 12/15/10 Given influenza virus vaccine, [id number] 08/17/10 Given tetanus-diphtheria toxoids (Td)11 09/15/99 Given 1Result Comment: [id number] Note: GIVEN W/O INCIDENT INFO SHEET [id number] Comment: [id number] Comment: [11/23/2018] [id number] 5Result Comment: [09/19/2017] [id number] Comment: [10/25/2013] GIVEN W/O INCIDENSE...XK6Nhaka Note: [id number] Note: [id number] Note: MANUFACTURE BIOMEDICAL INFO SHEET GIVEN GIVEN W/O [id number] Note: [id number] Note: DONE IN E.R. Medications Aricept 10 mg oral tablet 10 mg, 1, tablet, By Mouth, Daily at bedtime, # 90 tablet, Refills 3, Tot. Refills 3, Maintenance, 01/23/21 13:12:00 EST, [facility], [facility], do not fill until pt [...] 07/17/20 16:41:00 EDT, [facility] to Pharm[facility], [facility], 164, cm, 11/15/19 11:34:00 EST, Height Start Date: 07/17/20 Stop Date: 07/12/21 Status: OrderedFlonase 50 mcg/inh nasal spray 1 sprays, Nares, Both, 2 times a day, # 16 Gm, 11 Refills, Maintenance, 08/01/19 8:07:48 EDT, [place],1 sprays Nares, Both 2 times a day Start Date: 08/01/19 Status: Orderedgabapentin 600 mg oral tablet 1 tablet, By Mouth, 3 times a day, *., # 90 tablet, 11 Refills, Maintenance, 01/05/21 12:27:00 EST, [facility], 164, cm, 10/24/20 15:22:00 EST, Height Start Date: 01/05/21 Status: Orderedlevothyroxine 0.05 mg oral tablet 8 tablet = 400 mcg, By Mouth, Every week, 6 days one daily; 1 day take two, # 104 tablet, 3 Refills,Maintenance, 10/24/20 23:15:00 EST, Tablet, [facility], 164, cm, 10/24/20 15:22:00 EST, Height Start Date: 10/24/20 Status: OrderedLinzess By Mouth, Daily, 0 Refills, Maintenance, 07/28/18 15:20:22 EDT Start Date: 07/28/18 Status: Orderedmeloxicam 15 mg oral tablet 1 tablet = 15 mg, By Mouth, Daily, # 90 tablet, 3 Refills, Maintenance, 07/17/20 16:41:00 EDT, Tablet, [facility], 164, cm, 11/15/19 11:34:00 EST, Height Start Date: 07/17/20 Stop Date: 07/12/21 Status: Orderedmetoprolol 50 mg oral tablet, extended release 75 mg, 1.5, tablet, By Mouth, Daily, # 135 tablet, Refills 3, Tot. Refills 3, Maintenance, 12/22/20 17:10:00 EST, Route to Pharmacy Electronically, [facility] 1966, Partial fill upon [...] Maintenance, 07/17/20 16:41:00 EDT, EC Capsule, [facility] 1967, 164, cm, 11/15/19 11:34:00 EST, Height Start Date: 07/17/20 Status: OrderedtraMADol 50 mg oral tablet 1 tablet, By Mouth, Every 8 hours, prn pain, # 21 tablet, 0 Refills, Maintenance, 11/11/20 17:28:00 EST, Tablet, [facility] 1966, i am aware [...] capsule, 11 Refills, Maintenance, 02/11/20 14:14:00 EDT, [facility], 164, cm, 11/15/19 [...]
--- OUTSIDE RECORDS SUMMARY | 2022-12-21 06:20 | XMS_ITS | Continuity of Care Document ---
:[address] [facility] Address [address] [place] [address]- Care Team Providers Name Role Phone Bakari Lee MD Primary Care Physician Encounter [facility] Date(s): 04/22/22 - 05/22/22 [facility] [address] [place] [address]- Allergies, Adverse Reactions, Alerts No Known Allergies [...] vaccine, inactivated9 12/15/10 Given influenza virus vaccine, [id number] 08/17/10 Given tetanus/diphtheria/pertussis, acel(Tdap)11 10/24/20 Given tetanus/diphtheria/pertussis, acel(Tdap)12 12/15/10 Given Influenza Virus Vaccine (oldterm) 10/09/20 Recorded tetanus-diphtheria toxoids (Td)13 09/15/99 Given 1Result Comment: [id number] Comment: [id number] Comment: [id number] Result Comment: [11/23/2018] [id number] Comment: [09/19/2017] [id number] Result Comment: [10/25/2013] GIVEN W/O INCIDENSE...[id number] Note: [id number] Note: [id number] Note: MANUFACTURE BIOMEDICAL INFO SHEET GIVEN GIVEN W/O [id number] Note: [id number] Comment: [id number] Note: GIVEN W/O INCIDENT INFO SHEET [id number] Note: DONE IN E.R. Medications Aricept 10 mg oral tablet 10 mg, 1, tablet, By Mouth, Daily at bedtime, # 90 tablet, Refills 1, Tot. Refills 1, Maintenance, 11/01/21 16:34:00 EST, Route to Pharmacy Electronically, [facility] 1966, do not fill [...] 12/16/21 13:24:00 EST, Route to Pharmacy Electronically, [facility] Start Date: 12/16/21 Stop Date: 12/11/22 Status: Orderedgabapentin 300 mg oral capsule 300 mg, 1, capsule, By Mouth, 3 times a day, take with 600 mgs tablet to = 900 mgs three times per day, # 90 capsule, Refills 11, Tot. Refills 11, Maintenance, 03/18/22 11:53:00 EDT, Route to Pharmacy Electronically, [facility] 1967, do no... Start Date: 03/18/22 Status: Orderedgabapentin 600 mg oral tablet See Instructions, TAKE 1 TABLET BY MOUTH THREE TIMES DAILY *( TAKE WITH 300MG TABLET TO EQUAL 900MG THREE TIMES A DAY)*, # 90 tablet, 11 Refills, [facility], 164, cm, 09/15/21 11:49:00 EDT, Height Start Date: 01/08/22 Status: Orderedlevothyroxine 0.05 mg oral tablet 8 tablet = 400 mcg, By Mouth, Every week, 6 days one daily; 1 day take two, # 104 tablet, 3 Refills,Maintenance, 09/15/21 12:29:00 EDT, Tablet, [facility], 164, cm, 09/15/21 11:49:00 EDT, Height Start Date: 09/15/21 Status: OrderedLinzess By Mouth, Daily, 0 Refills, Maintenance, 07/28/18 15:20:22 EDT Start Date: 07/28/18 Status: Orderedmeloxicam 15 mg oral tablet 1 tablet = 15 mg, By Mouth, Daily, # 90 tablet, 3 Refills, Maintenance, 09/15/21 12:29:00 EDT, Tablet, [facility] 1967, 164, cm, 09/15/21 11:49:00 EDT, Height Start Date: 09/15/21 Stop Date: 09/10/22 Status: Orderedmetoprolol 50 mg oral tablet, extended release 50 mg, 1, tablet, By Mouth, 2 times a day, # 180 tablet, Refills 3, Tot. Refills 3, Maintenance, 04/24/21 15:39:00 EDT, Route to Pharmacy Electronically, [facility] 1967, Partial fill upon [...] capsule, 3 Refills, Maintenance, 04/22/22 20:29:00 EDT, [facility], Partial fill upon patient request if the prescription is for a schedule II opioid drug., 164, cm, 03/18/22 11:48:00 EDT, Height Start Date: 04/22/22 Stop Date: 04/17/23 Status: OrderedVitamin D3 2000 intl units oral capsule 1 capsule = 2,000 International_Units, By Mouth, Daily, # 30 capsule, 5 Refills, Maintenance, 03/18/22 11:53:00 EDT, [facility], 164, cm, 03/18/22 [...]
--- OUTSIDE RECORDS SUMMARY | 2022-12-21 06:20 | XMS_ITS | Continuity of Care Document ---
:1965 Author Organization [facility] Address [address] [place] [address]- Care Team Providers Name Role Phone Bakari Lee MD Primary Care Physician Encounter [facility] [place](s): 03/18/22 - 03/25/22 [facility] [address] [place] [address]- Attending Physician: Bakari Lee MD Allergies, Adverse [...] vaccine, inactivated9 12/15/10 Given influenza virus vaccine, [id number] 08/17/10 Given tetanus/diphtheria/pertussis, acel(Tdap)11 10/24/20 Given tetanus/diphtheria/pertussis, acel(Tdap)12 12/15/10 Given Influenza Virus Vaccine (oldterm) 10/09/20 Recorded tetanus-diphtheria toxoids (Td)13 09/15/99 Given 1Result Comment: [id number] Comment: [id number] Comment: [id number] Result Comment: [11/23/2018] [id number] Comment: [09/19/2017] [id number] Result Comment: [10/25/2013] GIVEN W/O INCIDENSE...[id number] Note: [id number] Note: [id number] Note: MANUFACTURE BIOMEDICAL INFO SHEET GIVEN GIVEN W/O [id number] Note: [id number] Comment: [id number] Note: GIVEN W/O INCIDENT INFO SHEET [id number] Note: DONE IN E.R. Medications Aricept 10 mg oral tablet 10 mg, 1, tablet, By Mouth, Daily at bedtime, # 90 tablet, Refills 1, Tot. Refills 1, Maintenance, 11/01/21 16:34:00 EST, Route to Pharmacy Electronically, [facility] 1966, do not fill until pt [...] tablet, Refills 3, Route to Pharmacy Electronically, [facility], 164, cm, 09/15/21 11:49:00 EDT, Height Start Date: 12/15/21 Status: OrderedEffexor XR 75 mg oral capsule, extended release 75 mg, 1, capsule, By Mouth, Daily before breakfast, do not crush or chew pt takes this with a 150 mgs venlafaxine capsule, # 90 capsule, Refills 3, Tot. Refills 3, Maintenance, 12/16/21 13:24:00 EST, Route to Pharmacy Electronically, [facility] Start Date: 12/16/21 Stop Date: 12/11/22 Status: Orderedgabapentin 300 mg oral capsule 300 mg, 1, capsule, By Mouth, 3 times a day, take with 600 mgs tablet to = 900 mgs three times per day, # 90 capsule, Refills 11, Tot. Refills 11, Maintenance, 03/18/22 11:53:00 EDT, Route to Pharmacy Electronically, [facility] 1967, do no... Start Date: 03/18/22 Status: Orderedgabapentin 600 mg oral tablet See Instructions, TAKE 1 TABLET BY MOUTH THREE TIMES DAILY *( TAKE WITH 300MG TABLET TO EQUAL 900MG THREE TIMES A DAY)*, # 90 tablet, 11 Refills, [facility], 164, cm, 09/15/21 11:49:00 EDT, Height Start Date: 01/08/22 Status: Orderedlevothyroxine 0.05 mg oral tablet 8 tablet = 400 mcg, By Mouth, Every week, 6 days one daily; 1 day take two, # 104 tablet, 3 Refills,Maintenance, 09/15/21 12:29:00 EDT, Tablet, [facility], 164, cm, 09/15/21 11:49:00 EDT, Height Start Date: 09/15/21 Status: OrderedLinzess By Mouth, Daily, 0 Refills, Maintenance, 07/28/18 15:20:22 EDT Start Date: 07/28/18 Status: Orderedmeloxicam 15 mg oral tablet 1 tablet = 15 mg, By Mouth, Daily, # 90 tablet, 3 Refills, Maintenance, 09/15/21 12:29:00 EDT, Tablet, [facility], 164, cm, 09/15/21 11:49:00 EDT, Height Start Date: 09/15/21 Stop Date: 09/10/22 Status: Orderedmetoprolol 50 mg oral tablet, extended release 50 mg, 1, tablet, By Mouth, 2 times a day, # 180 tablet, Refills 3, Tot. Refills 3, Maintenance, 04/24/21 15:39:00 EDT, Route to Pharmacy Electronically, [facility] 1967, Partial fill upon patient request [...] capsule, 5 Refills, Maintenance, 03/18/22 11:53:00 EDT, [facility], 164, cm, 03/18/22 11:48:00 EDT, [...] Most recent to oldest [Reference Range]: 1 2 Height 164.00 cm 164.00 cm (03/18/22 11:48 AM) (03/18/22 11:13 AM) Weight 107.1 kg (03/18/22 11:13 AM) Oxygen Saturation [94-100 %] 98 % (03/18/22 11:13 AM) Pulse Rate [55-90 bpm] 79 bpm (03/18/22 11:13 AM) Body Mass Index [18.5-24.99] 39.82 *>HHI* (03/18/22 11:13 AM) Blood Pressure [90-138/55-84 mm Hg] 138/70 mm Hg 140/ 70 mm Hg (03/18/22 11:48 AM) *H* (03/18/22 11:13 AM) Blood pressure sites Arm, left (03/18/22 11:13 AM) Social History Social History Type Response Smoking Status Never smoker entered on: 02/15/14 Sex
--- OUTSIDE RECORDS SUMMARY | 2022-12-21 06:20 | XMS_ITS | Continuity of Care Document ---
:1965 Author Organization [facility] Address [address] [place] [address]- Care Team Providers Name Role Phone Bakari Lee MD Primary Care Physician [facility]counter [facility] Date[facility]s): 11/15/19 - 11/22/19 [facility] [address] [place] [address]- [facility] Attending Physician: Bakari Lee MD [...] tetanus-diphtheria toxoids (Td)10 09/15/99 Given 1Result Comment: [id number] Comment: [11/23/2018] [id number] Comment: [09/19/2017] [id number] Comment: [10/25/2013] GIVEN W/O INCIDENSE...MH5 Admin Note: [id number] Note: [id number] Note: MANUFACTURE BIOMEDICAL INFO SHEET GIVEN GIVEN W/O [id number] Note: [id number] Note: GIVEN W/O INCIDENT INFO SHEET [id number] Note: DONE IN E.R. Medications Aricept 10 mg oral tablet 10 mg, 1, tablet, By Mouth, Daily at bedtime, # 90 tablet, Refills 3, Tot. Refills 3, Maintenance, 11/15/19 12:02:00 EST, Route to Pharmacy Electronically, [facility] 1966, do not fill until pt calls, 164, cm, 11/15/19 11:34:00 EST, Height Start Date: 11/15/19 Stop Date: 11/09/20 Status: Orderedchlorhexidine topical 0.12% liquid 15 mL [...] tubing humidification DX PURNIMA G47.33 LIFETIME NEED, 10/04/19 9:27:01 EST Start Date: 10/04/19 Status: OrderedCPAP Equipment See Instructions, # 1 [...] 04/19/19 9:17:02 EDT, Route to Pharmacy Electronically, [id number], [facility] 1967, do not... Start Date: 04/19/19 Stop Date: 04/13/20 Status: Ordereddoxycycline 20 mg oral capsule 1 capsule = 20 mg, By Mouth, 2 times a day, # 180 capsule, 0 Refills, Maintenance, 07/28/18 15:22:05EDT, Capsule Start Date: 07/28/18 Stop Date: 10/26/18 Status: OrderedEffexor XR 75 mg oral capsule, [...] Gm, 11 Refills, Maintenance, 08/01/19 8:07:48 EDT, [place],1 sprays Nares, Both 2 times a day Start Date: 08/01/19 Status: Orderedgabapentin 300 mg oral capsule 300 mg, 1, capsule, By Mouth, 3 times a day, take with 600 mgs tablet to = 900 mgs three times per day, # 90 capsule, Refills 11, Tot. Refills 11, Maintenance, 06/18/19 9:46:36 EDT, Route to Pharmacy Electronically, [id number]... Start Date: 06/18/19 Status: Orderedgabapentin 600 mg [...] 06/26/19 11:53:30 EDT, Route to Pharmacy Electronically, [id number], [facility] Start Date: 06/26/19 Stop Date: 06/20/20 Status: [...] Daily, # 30 capsule, 11 Refills, Maintenance, 08/06/16 10:58:38 Start Date: 08/06/16 Status: [place] See Instructions, # 1 units, Maintenance, wheeled [...] gastroesophageal reflux Active (GERD)(Confirmed) Hyperlipidemia(Confirmed) 02/18/08 Active IBS - Irritable bowel Active syndrome(Confirmed) Obstructive sleep apnea Active syndrome(Confirmed) Rhinoplasty(Confirmed) Active Steatosis of liver (neg serology Active evaluation by Dr Overton 2004)(Confirmed) REUBEN BSO - Total abdominal hysterectomy Active and bilateral salpingo-oophorectomy(Confirmed)1 1pre cerival cancer sith Papillomvvirus Vital Signs Most recent to oldest [Reference Range]: 1 Height 164.00 cm (11/15/19 11:34 AM) Weight 110.2 kg (11/15/19 11:34 AM) Oxygen Saturation [94-100 %] 98 % (11/15/19 11:34 AM) Pulse Rate [55-90 bpm] 76 bpm (11/15/19 11:34 AM) Body Mass Index [18.5-24.99] 40.97 *>HHI* (11/15/19 11:34 AM) Blood Pressure [90-138/55-84 mm Hg] 134/76 mm Hg (11/15/19 11:34 AM) Mode of Delivery (Oxygen) Room air (11/15/19 11:34 AM) Blood pressure sites Arm, left (11/15/19 11:34 AM) Social History Social History Type Response Smoking Status Never smoker entered on: 02/15/14 Sex
--- OUTSIDE RECORDS SUMMARY | 2022-12-21 06:20 | XMS_ITS | Continuity of Care Document ---
:1965 Author Organization [facility] Address [address] [place] [address]- Care Team Providers Name Role Phone Rosa GONZALEZ, Bakari Wells Primary Care Physician [facility] Date(s): 04/21/22 - 05/21/22 [facility] [address] [place], [place] [address] Allergies, Adverse [...] vaccine, inactivated9 12/15/10 Given influenza virus vaccine, [id number] 08/17/10 Given tetanus/diphtheria/pertussis, acel(Tdap)11 10/24/20 Given tetanus/diphtheria/pertussis, acel(Tdap)12 12/15/10 Given Influenza Virus Vaccine (oldterm) 10/09/20 Recorded tetanus-diphtheria toxoids (Td)13 09/15/99 Given 1Result Comment: [id number] Comment: [id number] Comment: [id number] Result Comment: [11/23/2018] [id number] Comment: [09/19/2017] [id number] Result Comment: [10/25/2013] GIVEN W/O INCIDENSE...[id number] Note: [id number] Note: [id number] Note: MANUFACTURE BIOMEDICAL INFO SHEET GIVEN GIVEN W/O [id number] Note: [id number] Comment: [id number] Note: GIVEN W/O INCIDENT INFO SHEET [id number] Note: DONE IN E.R. Medications Aricept 10 mg oral tablet 10 mg, 1, tablet, By Mouth, Daily at bedtime, # 90 tablet, Refills 1, Tot. Refills 1, Maintenance, 11/01/21 16:34:00 EST, Route to Pharmacy Electronically, [facility] 1966, do not fill [...] 12/16/21 13:24:00 EST, Route to Pharmacy Electronically, [facility] Start Date: 12/16/21 Stop Date: 12/11/22 Status: Orderedgabapentin 300 mg oral capsule 300 mg, 1, capsule, By Mouth, 3 times a day, take with 600 mgs tablet to = 900 mgs three times per day, # 90 capsule, Refills 11, Tot. Refills 11, Maintenance, 03/18/22 11:53:00 EDT, Route to Pharmacy Electronically, [facility] 1967, do no... Start Date: 03/18/22 Status: Orderedgabapentin 600 mg oral tablet See Instructions, TAKE 1 TABLET BY MOUTH THREE TIMES DAILY *( TAKE WITH 300MG TABLET TO EQUAL 900MG THREE TIMES A DAY)*, # 90 tablet, 11 Refills, [facility] 1967, 164, cm, 09/15/21 11:49:00 EDT, Height Start Date: 01/08/22 Status: Orderedlevothyroxine 0.05 mg oral tablet 8 tablet = 400 mcg, By Mouth, Every week, 6 days one daily; 1 day take two, # 104 tablet, 3 Refills,Maintenance, 09/15/21 12:29:00 EDT, Tablet, [facility] 1967, 164, cm, 09/15/21 11:49:00 EDT, Height Start Date: 09/15/21 Status: OrderedLinzess By Mouth, Daily, 0 Refills, Maintenance, 07/28/18 15:20:22 EDT Start Date: 07/28/18 Status: Orderedmeloxicam 15 mg oral tablet 1 tablet = 15 mg, By Mouth, Daily, # 90 tablet, 3 Refills, Maintenance, 09/15/21 12:29:00 EDT, Tablet, [facility] 1967, 164, cm, 09/15/21 11:49:00 EDT, Height Start Date: 09/15/21 Stop Date: 09/10/22 Status: Orderedmetoprolol 50 mg oral tablet, extended release 50 mg, 1, tablet, By Mouth, 2 times a day, # 180 tablet, Refills 3, Tot. Refills 3, Maintenance, 04/24/21 15:39:00 EDT, Route to Pharmacy Electronically, [facility] 1967, Partial fill upon [...] capsule, 3 Refills, Maintenance, 04/22/22 20:29:00 EDT, [facility], Partial fill upon patient request if the prescription is for a schedule II opioid drug., 164, cm, 03/18/22 11:48:00 EDT, Height Start Date: 04/22/22 Stop Date: 04/17/23 Status: OrderedVitamin D3 2000 intl units oral capsule 1 capsule = 2,000 International_Units, By Mouth, Daily, # 30 capsule, 5 Refills, Maintenance, 03/18/22 11:53:00 EDT, [facility] 1967, 164, cm, 03/18/22 [...]
--- OUTSIDE RECORDS SUMMARY | 2022-12-21 06:20 | XMS_ITS | Continuity of Care Document ---
:1965 Author Organization [facility] Address [address] [place] [address]- Care Team Providers Name Role Phone Rosa GONZALEZ, Bakari Wells Primary Care Physician [facility] Date[facility]s): 07/04/20 - 08/03/20 [facility] [address] [place] [address]- [facility] Allergies, Adverse Reactions, Alerts Substance Reaction Severity [...] tetanus-diphtheria toxoids (Td)10 09/15/99 Given 1Result Comment: [id number] Comment: [11/23/2018] [id number] Comment: [09/19/2017] [id number] Comment: [10/25/2013] GIVEN W/O INCIDENSE...MH5 Admin Note: [id number] Note: [id number] Note: MANUFACTURE BIOMEDICAL INFO SHEET GIVEN GIVEN W/O [id number] Note: [id number] Note: GIVEN W/O INCIDENT INFO SHEET [id number] Note: DONE IN E.R. Medications Aricept 10 mg oral tablet 10 mg, 1, tablet, By Mouth, Daily at bedtime, # 90 tablet, Refills 3, Tot. Refills 3, Maintenance, 01/22/20 12:56:00 EST, Route to Pharmacy Electronically, [facility] 1966, do not fill until [...] Replace Required Details, Route to Pharmacy Electronically, [facility] 1966, 164, cm, 11/15/19 11:34:00 EST, Height Start Date: 05/30/20 Status: OrderedEffexor XR 75 mg oral capsule, extended release 75 mg, 1, capsule, By Mouth, 2 times a day, do not crush or chew, # 180 capsule, Refills 3, Tot. Refills 3, Maintenance, 07/17/20 16:41:00 EDT, Route to Pharmacy Electronically, [facility] 1967, 164, cm, 11/15/19 11:34:00 EST, Height Start Date: 07/17/20 Stop Date: 07/12/21 Status: OrderedFlonase 50 mcg/inh nasal spray 1 sprays, Nares, Both, 2 times a day, # 16 Gm, 11 Refills, Maintenance, 08/01/19 8:07:48 EDT, [place],1 sprays Nares, Both 2 times a day Start Date: 08/01/19 Status: Orderedgabapentin 300 mg oral capsule 300 mg, 1, capsule, By Mouth, 3 times a day, take with 600 mgs tablet to = 900 mgs three times per day, # 90 capsule, Refills 4, Tot. Refills 4, Maintenance, 07/04/20 14:35:00 EDT, Route to Pharmacy Electronically, [facility] 1967, do not... Start Date: [...] tablet, 4 Refills, Maintenance, 07/04/20 14:35:00 EDT, [facility] 1967, 164, cm, 11/15/19 11:34:00 [...] 3 Refills, Maintenance, 07/17/20 16:41:00 EDT, Tablet, [facility] 1967, 164, cm, 11/15/19 11:34:00 EST, Height Start Date: 07/17/20 Stop Date: 07/12/21 Status: Orderedmetoprolol 25 mg oral tablet, extended release 75 mg, 3, tablet, By Mouth, Daily, # 270 tablet, Refills 3, Tot. Refills 3, Maintenance, 07/17/20 16:41:00 EDT, Route to Pharmacy Electronically, [facility] 1967, 164, cm, 11/15/19 11:34:00 EST, Height Start Date: 07/17/20 Stop Date: 07/12/21 Status: OrderedNeutral Sodium Fluoride Rinse 10 mL, Topically, 0 Refills, Maintenance, 07/28/18 15:18:11 EDT Start Date: 07/28/18 Status: Orderedomeprazole 20 mg oral enteric coated capsule 1 capsule = 20 mg, By Mouth, Daily, # 90 capsule, 3 Refills, Maintenance, 07/17/20 16:41:00 EDT, EC Capsule, [facility] 1967, 164, cm, 11/15/19 11:34:00 [...] capsule, 11 Refills, Maintenance, 02/11/20 14:14:00 EDT, [facility], 164, cm, 11/15/19 11:34:00 [...]
--- OUTSIDE RECORDS SUMMARY | 2022-12-21 06:20 | XMS_ITS | Continuity of Care Document ---
:1965 Author Organization [facility] Address [address] [place] [address]- Care Team Providers Name Role Phone Bakari Lee MD Primary Care Physician En[place] [facility] [place]s): 12[place]13/22 - 12/20/22 [facility] [address] [place], [place] [address] Attending Physician: Linwood Katz MD Referring Physician: Bakari Lee MD Allergies, [...] virus vaccine, inactivated9 08/17/10 Given SARS-CoV-2 mRNA (osqzpth-rfwt-rkejg) vax 04/16/22 Recorde d SARS-CoV-2 (COVID-19) mRNA BNT-162b2 vac10 11/21/21 Recor ded SARS-CoV-2 (COVID-19) mRNA BNT-162b2 vac 04/15/21 Recorde d SARS-CoV-2 (COVID-19) mRNA BNT-162b2 vac 03/25/21 Recorde d tetanus/diphtheria/pertussis, acel(Tdap)11 10/24/20 Given tetanus/diphtheria/pertussis, acel(Tdap)12 12/15/10 Given Influenza Virus Vaccine (oldterm) 10/09/20 Recorded tetanus-diphtheria toxoids (Td)13 09/15/99 Given 1Result Comment: [id number] Comment: [id number] Comment: [11/23/2018] [id number] Comment: [09/19/2017] [id number] Comment: [10/25/2013] GIVEN W/O INCIDENSE...BJ5Gxoab Note: [id number] Note: [id number] Note: MANUFACTURE BIOMEDICAL INFO SHEET GIVEN GIVEN W/O [id number] Note: [id number] Comment: [id number] Comment: [id number] Note: GIVEN W/O INCIDENT INFO SHEET [id number] Note: DONE IN E.R. Medications Aricept 10 mg oral tablet 10 mg, 1, tablet, By Mouth, Daily at bedtime, # 90 tablet, Refills 3, Tot. Refills 3, Maintenance, 07/21/22 13:26:00 EDT, Route to Pharmacy Electronically, [facility] 1966, do not fill until [...] 10/18/22 9:47:00 EST, Route to Pharmacy Electronically, [facility] 1966, 164, cm, 09/17/22 12:48:00 EDT, Height Start Date: 10/18/22 Status: OrderedEffexor XR 75 mg oral capsule, extended release 75 mg, 1, capsule, By Mouth, Daily before breakfast, do not crush or chew pt takes this with a 150 mgs venlafaxine capsule, # 90 capsule, Refills 3, Tot. Refills 3, Maintenance, 12/16/21 13:24:00 EST, Route to Pharmacy Electronically, [facility] Start Date: 12/16/21 Stop Date: 12/11/22 Status: OrderedFlonase 50 mcg/inh nasal spray 1 sprays, Nares, Both, 2 times a day, # 16 Gm, 11 Refills, Maintenance, 09/06/22 9:11:00 EDT, [place],[facility], 1 sprays Nares, Both [...] 03/18/22 11:53:00 EDT, Route to Pharmacy Electronically, [facility] 1967, do no... Start Date: 03/18/22 Status: Orderedgabapentin 600 mg oral tablet See Instructions, TAKE 1 TABLET BY MOUTH THREE TIMES DAILY *( TAKE WITH 300MG TABLET TO EQUAL 900MG THREE TIMES A DAY)*, # 90 tablet, 11 Refills, [facility] 1966, 164, cm, 09/15/21 11:49:00 EDT, Height Start Date: 01/08/22 Status: Orderedlevothyroxine 0.05 mg oral tablet 8 tablet = 400 mcg, By Mouth, Every week, 6 days one daily; 1 day take two, # 104 tablet, 3 Refills,Maintenance, 09/17/22 13:23:00 EDT, Tablet, [facility], 164, cm, 09/17/22 12:48:00 EDT, Height Start Date: 09/17/22 Status: OrderedLinzess By Mouth, Daily, 0 Refills, Maintenance, 07/28/18 15:20:22 EDT Start Date: 07/28/18 Status: Orderedmeloxicam 15 mg oral tablet 1 tablet = 15 mg, By Mouth, Daily, # 90 tablet, 3 Refills, Maintenance, 09/17/22 13:23:00 EDT, Tablet, [facility], 164, cm, 09/17/22 12:48:00 EDT, Height Start Date: 09/17/22 Stop Date: 09/12/23 Status: Orderedmetoprolol 50 mg oral tablet, extended release 50 mg, 1, tablet, By Mouth, 2 times a day, # 180 tablet, Refills 3, Tot. Refills 3, Maintenance, 09/17/22 13:23:00 EDT, Route to Pharmacy Electronically, [facility] 1966, Partial fill upon patient [...] Refills, Maintenance, 05/04/22 16:13:00 EDT, EC Capsule, [facility], 164, cm, 03/18/22 11:48:00 EDT, Height Start Date: 05/04/22 Status: Orderedpenicillin V potassium 500 mg oral tablet 1 tablet = 500 mg, By Mouth, 2 times a day, for 10 days, # 20 tablet, 0 Refills, Acute 12/23/22 12:05:00 EST, 12/13/22 12:05:00 EST, Tablet, [facility], Partial fill upon patient request if the prescription is for a schedule II opioid drug.... Start Date: 12/13/22 Stop Date: 12/23/22 Status: OrderedTylenol Arthritis Extended Release = 1,300 mg, By Mouth, 2 times a day, not to exceed 6 tablets/day, 0 Refills, Soft Stop, 04/07/09 18:55:13 EDT Start Date: 04/07/09 Stop Date: 05/07/09 Status: Orderedvenlafaxine 150 mg oral capsule, extended release 1 capsule = 150 mg, By Mouth, Daily, # 90 capsule, 3 Refills, Maintenance, 04/22/22 20:29:00 EDT, [facility], Partial fill upon patient request if the prescription is for a schedule II opioid drug., 164, cm, 03/18/22 11:48:00 EDT, Height Start Date: 04/22/22 Stop Date: 04/17/23 Status: OrderedVitamin D3 2000 intl units oral capsule 1 capsule = 2,000 International_Units, By Mouth, Daily, # 30 capsule, 5 Refills, Maintenance, 08/31/22 17:48:00 [facility], [facility], cm, 03/18/22 11:48:00 EDT, [...] Patient Care team information Care Team PersonnelName: Rosa GONZALEZ, Bakari Wells Position: [facility] Primary Care Physician Member Role: PCP Address: Address: [address] [place] [address] Adult & [place] [address]- Care Team Related PersonsName: XI FUENTES Address: home [address] [place] [address] Name: YAAKOV BENNETT Address: home [address] [place] [address]
--- OUTSIDE RECORDS SUMMARY | 2022-12-21 06:21 | XMS_ITS | Continuity of Care Document ---
:1965 Author Organization [facility] Address [address] [place] [address]- Care Team Providers Name Role Phone Rosa GONZALEZ, Bakari Wells Primary Care Physician [facility] Date(s): 07/30/21 - 08/29/21 [facility] [address] [place] [address]- Attending Physician: Admtr, Ar8 Allergies, Adverse Reactions, [...] vaccine, inactivated9 12/15/10 Given influenza virus vaccine, [id number] 08/17/10 Given tetanus-diphtheria toxoids (Td)11 09/15/99 Given 1Result Comment: [id number] Note: GIVEN W/O INCIDENT INFO SHEET [id number] Comment: [id number] Comment: [11/23/2018] [id number] 5Result Comment: [09/19/2017] [id number] Comment: [10/25/2013] GIVEN W/O INCIDENSE...[id number] Note: [id number] Note: [id number] Note: MANUFACTURE BIOMEDICAL INFO SHEET GIVEN GIVEN W/O [id number] Note: [id number] Note: DONE IN E.R. Medications Aricept 10 mg oral tablet 10 mg, 1, tablet, By Mouth, Daily at bedtime, # 90 tablet, Refills 3, Tot. Refills 3, Maintenance, 01/23/21 13:12:00 EST, Route to Pharmacy Electronically, [facility] 1966, do not fill [...] Gm, 11 Refills, Maintenance, 07/20/21 12:47:00 EDT, [place], [facility], 1 sprays Nares, [...] 02/16/21 17:27:00 EDT, Route to Pharmacy Electronically, [facility] 1967, do no... Start Date: 02/16/21 Status: Orderedgabapentin 600 mg oral tablet 1 tablet, By Mouth, 3 times a day, *., # 90 tablet, 11 Refills, Maintenance, 01/05/21 12:27:00 EST, [facility], 164, cm, 10/24/20 15:22:00 EST, Height Start Date: 01/05/21 Status: Orderedlevothyroxine 0.05 mg oral tablet 8 tablet = 400 mcg, By Mouth, Every week, 6 days one daily; 1 day take two, # 104 tablet, 3 Refills,Maintenance, 10/24/20 23:15:00 EST, Tablet, [facility], 164, cm, 10/24/20 15:22:00 EST, Height Start Date: 10/24/20 Status: OrderedLinzess By Mouth, Daily, 0 Refills, Maintenance, 07/28/18 15:20:22 EDT Start Date: 07/28/18 Status: Orderedmeloxicam 15 mg oral tablet 1 tablet = 15 mg, By Mouth, Daily, # 90 tablet, 3 Refills, Maintenance, 07/17/20 16:41:00 EDT, Tablet, [facility], 164, cm, 11/15/19 11:34:00 EST, Height Start Date: 07/17/20 Stop Date: 07/12/21 Status: Orderedmetoprolol 50 mg oral tablet, extended release 50 mg, 1, tablet, By Mouth, 2 times a day, # 180 tablet, Refills 3, Tot. Refills 3, Maintenance, 04/24/21 15:39:00 EDT, Route to Pharmacy Electronically, [facility] 1967, Partial fill upon [...] Refills, Maintenance, 07/17/20 16:41:00 EDT, EC Capsule, [facility], 164, cm, 11/15/19 11:34:00 EST, Height Start Date: 07/17/20 Status: OrderedtraMADol 50 mg oral tablet 1 tablet, By Mouth, Every 8 hours, prn pain, # 21 tablet, 0 Refills, Maintenance, 11/11/20 17:28:00 EST, Tablet, [facility] 1967, i am aware [...] capsule, 3 Refills, Maintenance, 04/30/21 17:34:00 EDT, [facility], Partial fill upon patient request if the prescription is for a scheduleII opioid drug., 164, cm, 04/24/21 15:00:00 EDT,... Start Date: 04/30/21 Stop Date: 04/25/22 Status: OrderedVitamin D3 2000 intl units oral capsule 1 capsule = 2,000 International_Units, By Mouth, Daily, # 30 capsule, 5 Refills, Maintenance, 02/18/21 10:10:00 EDT, [facility], 164, cm, 10/24/20 [...] retroperitoneum1 1tiny polyp in GB. otherwise nl [facility] Social History Social History Type Response Smoking Status Never smoker entered on: 02/15/14 Sex
--- OUTSIDE RECORDS SUMMARY | 2022-12-21 06:21 | XMS_ITS | Continuity of Care Document ---
:1965 Author Organization [facility] Address [address] [place] [address]- Care Team Providers Name Role Phone Bakari Lee MD Primary Care Physician [facility] Date(s): 11/18/21 - 12/18/21 [facility] [address] [place], [place] [address] Allergies, Adverse Reactions, Alerts No Known [...] tetanus-diphtheria toxoids (Td)12 09/15/99 Given 1Result Comment: [id number] Comment: [id number] Comment: [11/23/2018] [id number] Comment: [09/19/2017] [id number] Comment: [10/25/2013] GIVEN W/O INCIDENSE...VA5Eyhvj Note: [id number] Note: [id number] Note: MANUFACTURE BIOMEDICAL INFO SHEET GIVEN GIVEN W/O [id number] Note: [id number] Comment: [id number] Note: GIVEN W/O INCIDENT INFO SHEET [id number] Note: DONE IN E.R. Medications Aricept 10 mg oral tablet 10 mg, 1, tablet, By Mouth, Daily at bedtime, # 90 tablet, Refills 1, Tot. Refills 1, Maintenance, 11/01/21 16:34:00 EST, Route to Pharmacy Electronically, [facility] 1966, do not fill until [...] 3, Route to Pharmacy Electronically, [facility] 1966, 164, cm, 09/15/21 11:49:00 EDT, Height Start Date: 12/15/21 Status: Ordereddoxycycline hyclate 100 mg oral tablet 1 tablet = 100 mg, By Mouth, 2 times a day, for 10 days, # 20 tablet, 0 Refills, Acute 12/20/21 13:26:00 EST, 12/10/21 13:26:00 EST, Tablet, [facility] 1966, Partial fill upon patient request [...] 12/16/21 13:24:00 EST, [facility] Start Date: 12/16/21 Stop Date: 12/11/22 Status: OrderedFlonase 50 mcg/inh nasal spray 1 sprays, Nares, Both, 2 times a day, # 16 Gm, 11 Refills, Maintenance, 07/20/21 12:47:00 EDT, [place], [facility] 1966, 1 sprays Nares, Both 2 [...] EDT, Route to Pharmacy Electronically, [facility] 1966, do no... Start Date: 02/16/21 Status: Orderedgabapentin 600 mg oral tablet 1 tablet, By Mouth, 3 times a day, *., # 90 tablet, 11 Refills, Maintenance, 01/05/21 12:27:00 EST, [facility], 164, cm, 10/24/20 15:22:00 EST, Height Start Date: 01/05/21 Status: Orderedlevothyroxine 0.05 mg oral tablet 8 tablet = 400 mcg, By Mouth, Every week, 6 days one daily; 1 day take two, # 104 tablet, 3 Refills,Maintenance, 09/15/21 12:29:00 EDT, Tablet, [facility], 164, cm, 09/15/21 11:49:00 EDT, Height Start Date: 09/15/21 Status: OrderedLinzess By Mouth, Daily, 0 Refills, Maintenance, 07/28/18 15:20:22 EDT Start Date: 07/28/18 Status: Orderedmeloxicam 15 mg oral tablet 1 tablet = 15 mg, By Mouth, Daily, # 90 tablet, 3 Refills, Maintenance, 09/15/21 12:29:00 EDT, Tablet, [facility], 164, cm, 09/15/21 11:49:00 EDT, Height Start Date: 09/15/21 Stop Date: 09/10/22 Status: Orderedmetoprolol 50 mg oral tablet, extended release 50 mg, 1, tablet, By Mouth, 2 times a day, # 180 tablet, Refills 3, Tot. Refills 3, Maintenance, 04/24/21 15:39:00 EDT, Route to Pharmacy Electronically, [facility] 1966, Partial fill upon patient request [...] 09/15/21 12:29:00 EDT, EC Capsule, [facility], 164, cm, 09/15/21 11:49:00 EDT, Height Start Date: 09/15/21 Status: OrderedtraMADol 50 mg oral tablet 1 tablet, By Mouth, Every 8 hours, prn pain, # 21 tablet, 0 Refills, Maintenance, 11/11/20 17:28:00 EST, Tablet, [facility], i am aware of potential [...] Refills, Maintenance, 08/30/21 8:44:00 EDT, [facility], 164, cm, 04/24/21 15:00:00 EDT, [...]
--- OUTSIDE RECORDS SUMMARY | 2022-12-21 06:21 | XMS_ITS | Continuity of Care Document ---
:1965 Author Organization [facility] Address [address] [place] [address]- Care Team Providers Name Role Phone Rosa GONZALEZ, Bakari Wells Primary Care Physician [facility] Date[facility]s): 07/19/21 - 08/18/21 [facility] [address] [place], [place] [address] Allergies, Adverse Reactions, Alerts Substance Reaction [...] vaccine, inactivated9 12/15/10 Given influenza virus vaccine, [id number] 08/17/10 Given tetanus-diphtheria toxoids (Td)11 09/15/99 Given 1Result Comment: [id number] Note: GIVEN W/O INCIDENT INFO SHEET [id number] Comment: [id number] Comment: [11/23/2018] [id number] 5Result Comment: [09/19/2017] [id number] Comment: [10/25/2013] GIVEN W/O INCIDENSE...LL1Mkkxd Note: [id number] Note: [id number] Note: MANUFACTURE BIOMEDICAL INFO SHEET GIVEN GIVEN W/O [id number] Note: [id number] Note: DONE IN E.R. Medications Aricept 10 mg oral tablet 10 mg, 1, tablet, By Mouth, Daily at bedtime, # 90 tablet, Refills 3, Tot. Refills 3, Maintenance, 01/23/21 13:12:00 EST, [facility] [...] Gm, 11 Refills, Maintenance, 07/20/21 12:47:00 EDT, [place], [facility], 1 sprays Nares, [...] 02/16/21 17:27:00 EDT, Route to Pharmacy Electronically, [facility], do no... Start Date: 02/16/21 Status: Orderedgabapentin 600 mg oral tablet 1 tablet, By Mouth, 3 times a day, *., # 90 tablet, 11 Refills, Maintenance, 01/05/21 12:27:00 EST, [facility], 164, cm, 10/24/20 15:22:00 EST, Height Start Date: 01/05/21 Status: Orderedlevothyroxine 0.05 mg oral tablet 8 tablet = 400 mcg, By Mouth, Every week, 6 days one daily; 1 day take two, # 104 tablet, 3 Refills,Maintenance, 10/24/20 23:15:00 EST, Tablet, [facility], 164, cm, 10/24/20 15:22:00 EST, Height Start Date: 10/24/20 Status: OrderedLinzess By Mouth, Daily, 0 Refills, Maintenance, 07/28/18 15:20:22 EDT Start Date: 07/28/18 Status: Orderedmeloxicam 15 mg oral tablet 1 tablet = 15 mg, By Mouth, Daily, # 90 tablet, 3 Refills, Maintenance, 07/17/20 16:41:00 EDT, Tablet, [facility], 164, cm, 11/15/19 [...] Refills, Maintenance, 07/17/20 16:41:00 EDT, EC Capsule, [facility], 164, cm, 11/15/19 11:34:00 EST, Height Start Date: 07/17/20 Status: OrderedtraMADol 50 mg oral tablet 1 tablet, By Mouth, Every 8 hours, prn pain, # 21 tablet, 0 Refills, Maintenance, 11/11/20 17:28:00 EST, Tablet, [facility], i am aware [...] capsule, 3 Refills, Maintenance, 04/30/21 17:34:00 EDT, [facility], Partial fill upon patient request if the prescription is for a scheduleII opioid drug., 164, cm, 04/24/21 15:00:00 EDT,... Start Date: 04/30/21 Stop Date: 04/25/22 Status: OrderedVitamin D3 2000 intl units oral capsule 1 capsule = 2,000 International_Units, By Mouth, Daily, # 30 capsule, 5 Refills, Maintenance, 02/18/21 10:10:00 EDT, [facility], 164, cm, 10/24/20 [...]
--- OUTSIDE RECORDS SUMMARY | 2022-12-21 06:21 | XMS_ITS | Continuity of Care Document ---
:1965 Author Organization [facility] Address [address] [place] [address]- Care Team Providers Name Role Phone Bakari Lee MD Primary Care Physician [facility]): 01/08/22 - 02/07/22 [facility] [address] [place], [place] [address] Allergies, Adverse Reactions, Alerts No [...] tetanus-diphtheria toxoids (Td)12 09/15/99 Given 1Result Comment: [id number] Comment: [id number] Comment: [11/23/2018] [id number] Comment: [09/19/2017] [id number] Comment: [10/25/2013] GIVEN W/O INCIDENSE...KW6Ifxen Note: [id number] Note: [id number] Note: MANUFACTURE BIOMEDICAL INFO SHEET GIVEN GIVEN W/O [id number] Note: [id number] Comment: [id number] Note: GIVEN W/O INCIDENT INFO SHEET [id number] Note: DONE IN E.R. Medications Aricept 10 [...] tablet, Refills 3, Route to Pharmacy Electronically, [facility] 1966, 164, cm, 09/15/21 [...] Gm, 11 Refills, Maintenance, 07/20/21 12:47:00 EDT, [place], [facility], 1 sprays Nares, [...] 02/16/21 17:27:00 EDT, Route to Pharmacy Electronically, [facility], do no... Start Date: 02/16/21 Status: Orderedgabapentin 600 mg oral tablet See Instructions, TAKE 1 TABLET BY MOUTH THREE TIMES DAILY *( TAKE WITH 300MG TABLET TO EQUAL 900MG THREE TIMES A DAY)*, # 90 tablet, 11 Refills, [facility], 164, cm, 09/15/21 11:49:00 EDT, Height Start Date: 01/08/22 Status: Orderedgabapentin 600 mg oral tablet 1 tablet, By Mouth, 3 times a day, *., # 90 tablet, 11 Refills, Maintenance, 01/05/21 12:27:00 EST, [facility], 164, cm, 10/24/20 [...] Electronically, [facility] 1966, Partial fill upon [...] Refills, Maintenance, 09/15/21 12:29:00 EDT, EC Capsule, [facility], 164, cm, 09/15/21 11:49:00 EDT, Height Start Date: 09/15/21 Status: OrderedtraMADol 50 mg oral tablet 1 tablet, By Mouth, Every 8 hours, prn pain, # 21 tablet, 0 Refills, Maintenance, 11/11/20 17:28:00 EST, Tablet, [facility], i am aware [...] capsule, 5 Refills, Maintenance, 08/30/21 8:44:00 EDT, [facility], 164, cm, 04/24/21 [...]
--- OUTSIDE RECORDS SUMMARY | 2022-12-21 06:21 | XMS_ITS | Continuity of Care Document ---
:1965 Author Organization [facility] Address [address] [place] [address]- Care Team Providers Name Role Phone Rosa GONZALEZ, Bakari Wells Primary Care Physician [facility]): 07[facility]10[facility]20 - 08/09/20 [facility] [address] [place] [address]- [facility] Allergies, Adverse Reactions, Alerts Substance [...] tetanus-diphtheria toxoids (Td)10 09/15/99 Given 1Result Comment: [id number] Comment: [11/23/2018] [id number] Comment: [09/19/2017] [id number] Comment: [10/25/2013] GIVEN W/O INCIDENSE...MH5 Admin Note: [id number] Note: [id number] Note: MANUFACTURE BIOMEDICAL INFO SHEET GIVEN GIVEN W/O [id number] Note: [id number] Note: GIVEN W/O INCIDENT INFO SHEET [id number] Note: DONE IN E.R. Medications Aricept 10 mg oral tablet 10 mg, 1, tablet, By Mouth, Daily at bedtime, # 90 tablet, Refills 3, Tot. Refills 3, Maintenance, 01/22/20 12:56:00 EST, Route to Pharmacy Electronically, [facility] 1966, do not fill until [...] Replace Required Details, Route to Pharmacy Electronically, [facility] 1966, 164, cm, 11/15/19 11:34:00 EST, Height Start Date: 05/30/20 Status: OrderedEffexor XR 75 mg oral capsule, extended release 75 mg, 1, capsule, By Mouth, 2 times a day, do not crush or chew, # 180 capsule, Refills 3, Tot. Refills 3, Maintenance, 07/17/20 16:41:00 EDT, Route to Pharmacy Electronically, [facility], 164, cm, 11/15/19 11:34:00 EST, Height Start Date: 07/17/20 Stop Date: 07/12/21 Status: OrderedFlonase 50 mcg/inh nasal spray 1 sprays, Nares, Both, 2 times a day, # 16 Gm, 11 Refills, Maintenance, 08/01/19 8:07:48 EDT, [place],1 sprays Nares, Both 2 times a day Start Date: 08/01/19 Status: Orderedgabapentin 300 mg oral capsule 300 mg, 1, capsule, By Mouth, 3 times a day, take with 600 mgs tablet to = 900 mgs three times per day, # 90 capsule, Refills 4, Tot. Refills 4, Maintenance, 07/04/20 14:35:00 EDT, Route to Pharmacy Electronically, [facility] 1967, do not... Start Date: [...] tablet, 4 Refills, Maintenance, 07/04/20 14:35:00 EDT, [facility], 164, cm, 11/15/19 11:34:00 [...] 3 Refills, Maintenance, 07/17/20 16:41:00 EDT, Tablet, [facility], 164, cm, 11/15/19 11:34:00 EST, Height Start Date: 07/17/20 Stop Date: 07/12/21 Status: Orderedmetoprolol 25 mg oral tablet, extended release 75 mg, 3, tablet, By Mouth, Daily, # 270 tablet, Refills 3, Tot. Refills 3, Maintenance, 07/17/20 16:41:00 EDT, Route to Pharmacy Electronically, [facility] 1967, 164, cm, 11/15/19 11:34:00 EST, Height Start Date: 07/17/20 Stop Date: 07/12/21 Status: OrderedNeutral Sodium Fluoride Rinse 10 mL, Topically, 0 Refills, Maintenance, 07/28/18 15:18:11 EDT Start Date: 07/28/18 Status: Orderedomeprazole 20 mg oral enteric coated capsule 1 capsule = 20 mg, By Mouth, Daily, # 90 capsule, 3 Refills, Maintenance, 07/17/20 16:41:00 EDT, EC Capsule, [facility], 164, cm, 11/15/19 11:34:00 [...] capsule, 11 Refills, Maintenance, 02/11/20 14:14:00 EDT, [facility], 164, cm, 11/15/19 11:34:00 [...]
--- OUTSIDE RECORDS SUMMARY | 2022-12-21 06:21 | XMS_ITS | Continuity of Care Document ---
:1965 Author Organization [facility] Address [address] [place] [address]- Care Team Providers Name Role Phone Bakari Lee MD Primary Care Physician Encounter [facility] Date(s): 12/10/21 - 12/17/21 [facility] [address] [place], [place] [address] Attending Physician: Bakari Lee MD Allergies, [...] tetanus-diphtheria toxoids (Td)12 09/15/99 Given 1Result Comment: [id number] Comment: [id number] Comment: [11/23/2018] [id number] Comment: [09/19/2017] [id number] Comment: [10/25/2013] GIVEN W/O INCIDENSE...[id number] Note: [id number] Note: [id number] Note: MANUFACTURE BIOMEDICAL INFO SHEET GIVEN GIVEN W/O [id number] Note: [id number] Comment: [id number] Note: GIVEN W/O INCIDENT INFO SHEET [id number] Note: DONE IN E.R. Medications Aricept 10 mg oral tablet 10 mg, 1, tablet, By Mouth, Daily at bedtime, # 90 tablet, Refills 1, Tot. Refills 1, Maintenance, 11/01/21 16:34:00 EST, [facility] Pharmacy [facility], [facility] [...] tablet, Refills 3, Route to Pharmacy Electronically, [facility], 164, cm, 09/15/21 11:49:00 EDT, Height Start Date: 12/15/21 Status: Ordereddoxycycline hyclate 100 mg oral tablet 1 tablet = 100 mg, By Mouth, 2 times a day, for 10 days, # 20 tablet, 0 Refills, Acute 12/20/21 13:26:00 EST, 12/10/21 13:26:00 EST, Tablet, [facility], Partial fill upon patient [...] 12/16/21 13:24:00 EST, Route to Pharmacy Electronically, [facility] Start Date: 12/16/21 Stop Date: 12/11/22 Status: OrderedFlonase 50 mcg/inh nasal spray 1 sprays, Nares, Both, 2 times a day, # 16 Gm, 11 Refills, Maintenance, 07/20/21 12:47:00 EDT, [place], [facility], 1 sprays Nares, Both [...] 02/16/21 17:27:00 EDT, Route to Pharmacy Electronically, [facility], do no... Start Date: 02/16/21 Status: Orderedgabapentin 600 mg oral tablet 1 tablet, By Mouth, 3 times a day, *., # 90 tablet, 11 Refills, Maintenance, 01/05/21 12:27:00 EST, [facility], 164, cm, 10/24/20 15:22:00 EST, Height Start Date: 01/05/21 Status: Orderedlevothyroxine 0.05 mg oral tablet 8 tablet = 400 mcg, By Mouth, Every week, 6 days one daily; 1 day take two, # 104 tablet, 3 Refills,Maintenance, 09/15/21 12:29:00 EDT, Tablet, [facility], 164, cm, 09/15/21 11:49:00 EDT, Height Start Date: 09/15/21 Status: OrderedLinzess By Mouth, Daily, 0 Refills, Maintenance, 07/28/18 15:20:22 EDT Start Date: 07/28/18 Status: Orderedmeloxicam 15 mg oral tablet 1 tablet = 15 mg, By Mouth, Daily, # 90 tablet, 3 Refills, Maintenance, 09/15/21 12:29:00 EDT, Tablet, [facility], 164, cm, 09/15/21 11:49:00 EDT, Height Start Date: 09/15/21 Stop Date: 09/10/22 Status: Orderedmetoprolol 50 mg oral tablet, extended release 50 mg, 1, tablet, By Mouth, 2 times a day, # 180 tablet, Refills 3, Tot. Refills 3, Maintenance, 04/24/21 15:39:00 EDT, Route to Pharmacy Electronically, [facility] 1966, Partial fill upon patient [...] Refills, Maintenance, 09/15/21 12:29:00 EDT, EC Capsule, [facility], 164, cm, 09/15/21 11:49:00 EDT, Height Start Date: 09/15/21 Status: OrderedtraMADol 50 mg oral tablet 1 tablet, By Mouth, Every 8 hours, prn pain, # 21 tablet, 0 Refills, Maintenance, 11/11/20 17:28:00 EST, Tablet, [facility], i am aware of [...] capsule, 5 Refills, Maintenance, 08/30/21 8:44:00 EDT, [facility], 164, cm, 04/24/21 15:00:00 [...]
--- OUTSIDE RECORDS SUMMARY | 2022-12-21 06:21 | XMS_ITS | Continuity of Care Document ---
:1965 Author Organization [facility] Address [address] [place] [address]- Care Team Providers Name Role Phone Rosa GONZALEZ, Bakari Wells Primary Care Physician Encounter [facility] Date(s): 09/29/20 - 10/29/20 [facility] [address] [place], [place] [address] Allergies, Adverse Reactions, Alerts Substance Reaction Severity [...] 12/15/10 Given influenza virus vaccine, 08/17/10 Given tetanus-diphtheria toxoids (Td)11 09/15/99 Given 1Result Comment: [id number] Note: GIVEN W/O INCIDENT INFO SHEET [id number] Comment: [id number] Comment: [11/23/2018] [id number] 5Result Comment: [09/19/2017] [id number] Comment: [10/25/2013] GIVEN W/O INCIDENSE...[id number] Note: [id number] Note: [id number] Note: MANUFACTURE BIOMEDICAL INFO SHEET GIVEN GIVEN W/O [id number] Note: [id number] Note: DONE IN E.R. Medications Aricept 10 mg oral tablet 10 mg, 1, tablet, By Mouth, Daily at bedtime, for 90 days, # 90 tablet, Refills 3, Tot. Refills 3, Hard Stop 01/16/21 12:56:00 EST, 01/22/20 12:56:00 EST, Route to Pharmacy Electronically, [facility] 1966, do not fill until pt calls, 164, cm,... Start Date: 01/22/20 Stop Date: 01/16/21 Status: OrderedAricept 10 mg oral tablet 10 mg, 1, tablet, By Mouth, Daily at bedtime, # 90 tablet, Refills 3, Tot. Refills 3, Maintenance, 01/16/21 12:56:00 EST, Route to Pharmacy Electronically, [facility] 1966, do not fill [...] Replace Required Details, Route to Pharmacy Electronically, [facility], 164,... Start Date: 08/15/20 Stop Date: 11/14/20 Status: OrderedEffexor XR 75 mg oral capsule, extended release 75 mg, 1, capsule, By Mouth, 2 times a day, do not crush or chew, # 180 capsule, Refills 3, Tot. Refills 3, Maintenance, 07/17/20 16:41:00 EDT, Route to Pharmacy Electronically, [facility], 164, cm, 11/15/19 11:34:00 EST, Height Start Date: 07/17/20 Stop Date: 07/12/21 Status: OrderedFlonase 50 mcg/inh nasal spray 1 sprays, Nares, Both, 2 times a day, # 16 Gm, 11 Refills, Maintenance, 08/01/19 8:07:48 EDT, [place],1 sprays Nares, Both 2 times a day Start Date: 08/01/19 Status: Orderedgabapentin 300 mg oral capsule 300 mg, 1, capsule, By Mouth, 3 times a day, take with 600 mgs tablet to = 900 mgs three times per day, # 90 capsule, Refills 4, Tot. Refills 4, Maintenance, 07/04/20 14:35:00 EDT, Route to Pharmacy Electronically, [facility] 1966, do not... Start Date: 07/04/20 Status: Orderedgabapentin 600 mg oral tablet 1 tablet = 600 mg, By Mouth, 3 times a day, take with 300 mgs tablet to = 900 mgs three times per day, # 90 tablet, 4 Refills, Maintenance, 07/04/20 14:35:00 EDT, [facility], 164, cm, 11/15/19 11:34:00 EST, Height Start Date: 07/04/20 Status: Orderedlevothyroxine 0.05 mg oral tablet 8 tablet = 400 mcg, By Mouth, Every week, 6 days one daily; 1 day take two, # 104 tablet, 3 Refills,Maintenance, 10/24/20 23:15:00 EST, Tablet, [facility], 164, cm, 10/24/20 15:22:00 EST, Height Start Date: 10/24/20 Status: OrderedLinzess By Mouth, Daily, 0 Refills, Maintenance, 07/28/18 15:20:22 EDT Start Date: 07/28/18 Status: Orderedmeloxicam 15 mg oral tablet 1 tablet = 15 mg, By Mouth, Daily, # 90 tablet, 3 Refills, Maintenance, 07/17/20 16:41:00 EDT, Tablet, [facility], 164, cm, 11/15/19 11:34:00 EST, Height Start Date: 07/17/20 Stop Date: 07/12/21 Status: Orderedmetoprolol 25 mg oral tablet, extended release 75 mg, 3, tablet, By Mouth, Daily, # 270 tablet, Refills 3, Tot. Refills 3, Maintenance, 07/17/20 16:41:00 EDT, Route to Pharmacy Electronically, [facility], 164, cm, 11/15/19 11:34:00 EST, Height Start Date: 07/17/20 Stop Date: 07/12/21 Status: OrderedNeutral Sodium Fluoride Rinse 10 mL, Topically, 0 Refills, Maintenance, 07/28/18 15:18:11 EDT Start Date: 07/28/18 Status: Orderedomeprazole 20 mg oral enteric coated capsule 1 capsule = 20 mg, By Mouth, Daily, # 90 capsule, 3 Refills, Maintenance, 07/17/20 16:41:00 EDT, EC Capsule, [facility], 164, cm, 11/15/19 [...] capsule, 11 Refills, Maintenance, 02/11/20 14:14:00 EDT, [facility], 164, cm, 11/15/19 [...]
--- OUTSIDE RECORDS SUMMARY | 2022-12-21 06:21 | XMS_ITS | Continuity of Care Document ---
:1965 Author Organization [facility] Address [address] [place] [address]- Care Team Providers Name Role Phone Rosa GONZALEZ, Bakari Wells Primary Care Physician Encounter [facility] Date(s): 10/08/20 - 11/07/20 [facility] [address] [place], [place] [address] Allergies, Adverse Reactions, Alerts Substance [...] vaccine, inactivated9 12/15/10 Given influenza virus vaccine, [id number] 08/17/10 Given tetanus-diphtheria toxoids (Td)11 09/15/99 Given 1Result Comment: [id number] Note: GIVEN W/O INCIDENT INFO SHEET [id number] Comment: [id number] Comment: [11/23/2018] [id number] 5Result Comment: [09/19/2017] [id number] Comment: [10/25/2013] GIVEN W/O INCIDENSE...[id number] Note: [id number] Note: [id number] Note: MANUFACTURE BIOMEDICAL INFO SHEET GIVEN GIVEN W/O [id number] Note: [id number] Note: DONE IN E.R. Medications Aricept 10 mg oral tablet 10 mg, 1, tablet, By Mouth, Daily at bedtime, for 90 days, # 90 tablet, Refills 3, Tot. Refills 3, Hard Stop 01/16/21 12:56:00 EST, 01/22/20 12:56:00 EST, Route to Pharmacy Electronically, [facility], do not fill until pt calls, 164, cm,... Start Date: 01/22/20 Stop Date: 01/16/21 Status: OrderedAricept 10 mg oral tablet 10 mg, 1, tablet, By Mouth, Daily at bedtime, # 90 tablet, Refills 3, Tot. Refills 3, Maintenance, 01/16/21 12:56:00 EST, Route to Pharmacy Electronically, [facility] 1966, do not fill until pt [...] Replace Required Details, Route to Pharmacy Electronically, [facility], 164,... Start Date: 08/15/20 Stop Date: 11/14/20 Status: OrderedEffexor XR 75 mg oral capsule, extended release 75 mg, 1, capsule, By Mouth, 2 times a day, do not crush or chew, # 180 capsule, Refills 3, Tot. Refills 3, Maintenance, 07/17/20 16:41:00 EDT, Route to Pharmacy Electronically, [facility], 164, cm, 11/15/19 11:34:00 EST, Height Start Date: 07/17/20 Stop Date: 07/12/21 Status: OrderedFlonase 50 mcg/inh nasal spray 1 sprays, Nares, Both, 2 times a day, # 16 Gm, 11 Refills, Maintenance, 08/01/19 8:07:48 EDT, [place],1 sprays Nares, Both 2 times a day Start Date: 08/01/19 Status: Orderedgabapentin 300 mg oral capsule 300 mg, 1, capsule, By Mouth, 3 times a day, take with 600 mgs tablet to = 900 mgs three times per day, # 90 capsule, Refills 4, Tot. Refills 4, Maintenance, 07/04/20 14:35:00 EDT, Route to Pharmacy Electronically, [facility], do not... Start Date: 07/04/20 Status: Orderedgabapentin 600 mg oral tablet 1 tablet = 600 mg, By Mouth, 3 times a day, take with 300 mgs tablet to = 900 mgs three times per day, # 90 tablet, 4 Refills, Maintenance, 07/04/20 14:35:00 EDT, [facility], 164, cm, 11/15/19 11:34:00 EST, Height Start Date: 07/04/20 Status: Orderedlevothyroxine 0.05 mg oral tablet 8 tablet = 400 mcg, By Mouth, Every week, 6 days one daily; 1 day take two, # 104 tablet, 3 Refills,Maintenance, 10/24/20 23:15:00 EST, Tablet, [facility], 164, cm, 10/24/20 15:22:00 EST, Height Start Date: 10/24/20 Status: OrderedLinzess By Mouth, Daily, 0 Refills, Maintenance, 07/28/18 15:20:22 EDT Start Date: 07/28/18 Status: Orderedmeloxicam 15 mg oral tablet 1 tablet = 15 mg, By Mouth, Daily, # 90 tablet, 3 Refills, Maintenance, 07/17/20 16:41:00 EDT, Tablet, [facility], 164, cm, 11/15/19 11:34:00 EST, Height Start Date: 07/17/20 Stop Date: 07/12/21 Status: Orderedmetoprolol 25 mg oral tablet, extended release 75 mg, 3, tablet, By Mouth, Daily, # 270 tablet, Refills 3, Tot. Refills 3, Maintenance, 07/17/20 16:41:00 EDT, Route to Pharmacy Electronically, [facility], 164, cm, 11/15/19 11:34:00 EST, Height Start Date: 07/17/20 Stop Date: 07/12/21 Status: OrderedNeutral Sodium Fluoride Rinse 10 mL, Topically, 0 Refills, Maintenance, 07/28/18 15:18:11 EDT Start Date: 07/28/18 Status: Orderedomeprazole 20 mg oral enteric coated capsule 1 capsule = 20 mg, By Mouth, Daily, # 90 capsule, 3 Refills, Maintenance, 07/17/20 16:41:00 EDT, EC Capsule, [facility], 164, cm, 11/15/19 11:34:00 EST, [...] capsule, 11 Refills, Maintenance, 02/11/20 14:14:00 EDT, [facility], 164, cm, 11/15/19 11:34:00 EST, [...]
--- OUTSIDE RECORDS SUMMARY | 2022-12-21 06:21 | XMS_ITS | Continuity of Care Document ---
:1965 Author Organization [facility] Address [address] [place] [address]- Care Team Providers Name Role Phone Rosa GONZALEZ, Bakari Wells Primary Care Physician Encounter [facility] Date(s): 07/24/21 - 08/23/21 [facility] [address] [place], [place] [address] Allergies, Adverse Reactions, Alerts Substance Reaction [...] vaccine, inactivated9 12/15/10 Given influenza virus vaccine, [id number] 08/17/10 Given tetanus-diphtheria toxoids (Td)11 09/15/99 Given 1Result Comment: [id number] Note: GIVEN W/O INCIDENT INFO SHEET [id number] Comment: [id number] Comment: [11/23/2018] [id number] 5Result Comment: [09/19/2017] [id number] Comment: [10/25/2013] GIVEN W/O INCIDENSE...[id number] Note: [id number] Note: [id number] Note: MANUFACTURE BIOMEDICAL INFO SHEET GIVEN GIVEN W/O [id number] Note: [id number] Note: DONE IN E.R. Medications Aricept 10 mg oral tablet 10 mg, 1, tablet, By Mouth, Daily at bedtime, # 90 tablet, Refills 3, Tot. Refills 3, Maintenance, 01/23/21 13:12:00 EST, Route to Pharmacy Electronically, [facility] 1966, do not fill until [...] Gm, 11 Refills, Maintenance, 07/20/21 12:47:00 EDT, [place], [facility], 1 sprays Nares, Both [...] 02/16/21 17:27:00 EDT, Route to Pharmacy Electronically, [facility], do no... Start Date: 02/16/21 Status: Orderedgabapentin 600 mg oral tablet 1 tablet, By Mouth, 3 times a day, *., # 90 tablet, 11 Refills, Maintenance, 01/05/21 12:27:00 EST, [facility], 164, cm, 10/24/20 15:22:00 EST, Height Start Date: 01/05/21 Status: Orderedlevothyroxine 0.05 mg oral tablet 8 tablet = 400 mcg, By Mouth, Every week, 6 days one daily; 1 day take two, # 104 tablet, 3 Refills,Maintenance, 10/24/20 23:15:00 EST, Tablet, [facility], 164, cm, 10/24/20 15:22:00 EST, Height Start Date: 10/24/20 Status: OrderedLinzess By Mouth, Daily, 0 Refills, Maintenance, 07/28/18 15:20:22 EDT Start Date: 07/28/18 Status: Orderedmeloxicam 15 mg oral tablet 1 tablet = 15 mg, By Mouth, Daily, # 90 tablet, 3 Refills, Maintenance, 07/17/20 16:41:00 EDT, Tablet, [facility], 164, cm, 11/15/19 11:34:00 EST, Height Start Date: 07/17/20 Stop Date: 07/12/21 Status: Orderedmetoprolol 50 mg oral tablet, extended release 50 mg, 1, tablet, By Mouth, 2 times a day, # 180 tablet, Refills 3, Tot. Refills 3, Maintenance, 04/24/21 15:39:00 EDT, Route to Pharmacy Electronically, [facility], Partial fill upon patient [...] Refills, Maintenance, 07/17/20 16:41:00 EDT, EC Capsule, [facility], 164, cm, 11/15/19 11:34:00 EST, Height Start Date: 07/17/20 Status: OrderedtraMADol 50 mg oral tablet 1 tablet, By Mouth, Every 8 hours, prn pain, # 21 tablet, 0 Refills, Maintenance, 11/11/20 17:28:00 EST, Tablet, [facility], i am aware of [...] capsule, 3 Refills, Maintenance, 04/30/21 17:34:00 EDT, [facility], Partial fill upon patient request if the prescription is for a scheduleII opioid drug., 164, cm, 04/24/21 15:00:00 EDT,... Start Date: 04/30/21 Stop Date: 04/25/22 Status: OrderedVitamin D3 2000 intl units oral capsule 1 capsule = 2,000 International_Units, By Mouth, Daily, # 30 capsule, 5 Refills, Maintenance, 02/18/21 10:10:00 EDT, [facility], 164, cm, 10/24/20 15:22:00 EST, [...]
--- OUTSIDE RECORDS SUMMARY | 2022-12-21 06:21 | XMS_ITS | Continuity of Care Document ---
:1965 Author Organization [facility] Address [address] [place] [address]- Care Team Providers Name Role Phone Rosa GONZALEZ, Bakari Wells Primary Care Physician [facility]counter [facility] Date(s): 10/30/20 - 11/29/20 [facility] [address] [place], [place] [address] Allergies, Adverse Reactions, Alerts Substance [...] tetanus-diphtheria toxoids (Td)11 09/15/99 Given 1Result Comment: [id number] Note: GIVEN W/O INCIDENT INFO SHEET [id number] Comment: [id number] Comment: [11/23/2018] [id number] 5Result Comment: [09/19/2017] [id number] Comment: [10/25/2013] GIVEN W/O INCIDENSE...[id number] Note: [id number] Note: [id number] Note: MANUFACTURE BIOMEDICAL INFO SHEET GIVEN GIVEN W/O [id number] Note: [id number] Note: DONE IN E.R. Medications Aricept 10 mg oral tablet 10 mg, 1, tablet, By Mouth, Daily at bedtime, for 90 days, # 90 tablet, Refills 3, Tot. Refills 3, Hard Stop 01/16/21 12:56:00 EST, 01/22/20 12:56:00 EST, Route to Pharmacy Electronically, [facility], do not fill until pt calls, 164, cm,... Start Date: 01/22/20 Stop Date: 01/16/21 Status: OrderedAricept 10 mg oral tablet 10 mg, 1, tablet, By Mouth, Daily at bedtime, # 90 tablet, Refills 3, Tot. Refills 3, Maintenance, 01/16/21 12:56:00 EST, Route to Pharmacy Electronically, [facility] 1966, do not fill [...] 07/17/20 16:41:00 EDT, Route to Pharmacy Electronically, [facility], 164, cm, 11/15/19 11:34:00 EST, Height Start Date: 07/17/20 Stop Date: 07/12/21 Status: OrderedFlonase 50 mcg/inh nasal spray 1 sprays, Nares, Both, 2 times a day, # 16 Gm, 11 Refills, Maintenance, 08/01/19 8:07:48 EDT, [place],1 sprays Nares, Both 2 times a day Start Date: 08/01/19 Status: Orderedgabapentin 300 mg oral capsule 300 mg, 1, capsule, By Mouth, 3 times a day, take with 600 mgs tablet to = 900 mgs three times per day, # 90 capsule, Refills 4, Tot. Refills 4, Maintenance, 07/04/20 14:35:00 EDT, Route to Pharmacy Electronically, [facility], do not... Start Date: 07/04/20 Status: Orderedgabapentin 600 mg oral tablet 1 tablet = 600 mg, By Mouth, 3 times a day, take with 300 mgs tablet to = 900 mgs three times per day, # 90 tablet, 4 Refills, Maintenance, 07/04/20 14:35:00 EDT, [facility], 164, cm, 11/15/19 11:34:00 EST, Height Start Date: 07/04/20 Status: Orderedlevothyroxine 0.05 mg oral tablet 8 tablet = 400 mcg, By Mouth, Every week, 6 days one daily; 1 day take two, # 104 tablet, 3 Refills,Maintenance, 10/24/20 23:15:00 EST, Tablet, [facility], 164, cm, 10/24/20 15:22:00 EST, Height Start Date: 10/24/20 Status: OrderedLinzess By Mouth, Daily, 0 Refills, Maintenance, 07/28/18 15:20:22 EDT Start Date: 07/28/18 Status: Orderedmeloxicam 15 mg oral tablet 1 tablet = 15 mg, By Mouth, Daily, # 90 tablet, 3 Refills, Maintenance, 07/17/20 16:41:00 EDT, Tablet, [facility], 164, cm, 11/15/19 11:34:00 EST, Height Start Date: 07/17/20 Stop Date: 07/12/21 Status: Orderedmetoprolol 25 mg oral tablet, extended release 75 mg, 3, tablet, By Mouth, Daily, # 270 tablet, Refills 3, Tot. Refills 3, Maintenance, 07/17/20 16:41:00 EDT, Route to Pharmacy Electronically, [facility], 164, cm, 11/15/19 11:34:00 EST, Height Start Date: 07/17/20 Stop Date: 07/12/21 Status: OrderedNeutral Sodium Fluoride Rinse 10 mL, Topically, 0 Refills, Maintenance, 07/28/18 15:18:11 EDT Start Date: 07/28/18 Status: Orderedomeprazole 20 mg oral enteric coated capsule 1 capsule = 20 mg, By Mouth, Daily, # 90 capsule, 3 Refills, Maintenance, 07/17/20 16:41:00 EDT, EC Capsule, [facility], 164, cm, 11/15/19 11:34:00 EST, Height Start Date: 07/17/20 Status: OrderedtraMADol 50 mg oral tablet 1 tablet, By Mouth, Every 8 hours, prn pain, # 21 tablet, 0 Refills, Maintenance, 11/11/20 17:28:00 EST, Tablet, [facility] 1966, i am aware [...] 11 Refills, Maintenance, 02/11/20 14:14:00 EDT, [facility], 164, cm, 11/15/19 [...]
--- OUTSIDE RECORDS SUMMARY | 2022-12-21 06:21 | XMS_ITS | Continuity of Care Document ---
:1965 Author Organization [facility] Address [address] [place] [address]- Care Team Providers Name Role Phone Rosa GONZALEZ, Bakari Wells Primary Care Physician [facility] Date(s): 01/28/21 - 02/27/21 [facility] [address] [place] [address]- Allergies, Adverse Reactions, Alerts Substance Reaction Severity [...] vaccine, inactivated9 12/15/10 Given influenza virus vaccine, [id number] 08/17/10 Given tetanus-diphtheria toxoids (Td)11 09/15/99 Given 1Result Comment: [id number] Note: GIVEN W/O INCIDENT INFO SHEET [id number] Comment: [id number] Comment: [11/23/2018] [id number] 5Result Comment: [09/19/2017] [id number] Comment: [10/25/2013] GIVEN W/O INCIDENSE...[id number] Note: [id number] Note: [id number] Note: MANUFACTURE BIOMEDICAL INFO SHEET GIVEN GIVEN W/O [id number] Note: [id number] Note: DONE IN E.R. Medications Aricept 10 [...] 02/27/21 13:59:00 EDT, Route to Pharmacy Electronically, [facility], this is an increase to 225 mgs, 164, cm, 04/09/2... Start Date: 02/27/21 Stop Date: 02/22/22 Status: OrderedFlonase 50 mcg/inh nasal spray 1 sprays, Nares, Both, 2 times a day, # 16 Gm, 11 Refills, Maintenance, 08/01/19 8:07:48 EDT, [place],1 sprays Nares, Both 2 times a day [...] tablet, 11 Refills, Maintenance, 01/05/21 12:27:00 EST, [facility], 164, cm, 10/24/20 15:22:00 EST, Height Start Date: 01/05/21 Status: Orderedlevothyroxine 0.05 mg oral tablet 8 tablet = 400 mcg, By Mouth, Every week, 6 days one daily; 1 day take two, # 104 tablet, 3 Refills,Maintenance, 10/24/20 23:15:00 EST, Tablet, [facility], 164, cm, 10/24/20 15:22:00 EST, Height Start Date: 10/24/20 Status: OrderedLinzess By Mouth, Daily, 0 Refills, Maintenance, 07/28/18 15:20:22 EDT Start Date: 07/28/18 Status: Orderedmeloxicam 15 mg oral tablet 1 tablet = 15 mg, By Mouth, Daily, # 90 tablet, 3 Refills, Maintenance, 07/17/20 16:41:00 EDT, Tablet, [facility], 164, cm, 11/15/19 11:34:00 EST, Height Start Date: 07/17/20 Stop Date: 07/12/21 Status: Orderedmetoprolol 50 mg oral tablet, extended release 75 mg, 1.5, tablet, By Mouth, Daily, # 135 tablet, Refills 3, Tot. Refills 3, Maintenance, 12/22/20 17:10:00 EST, [facility], [facility] [...]
[2022-12-21] MEDS: Lactated Ringers 1,000 ML 999 ML IV (06:58)
--- NOTE | 2022-12-21 08:06 | HO.ANESPROP2 ---
HPI - Anesthesia Eval Consult details Narrative: 57 yo female patient for EGD, Sleeve gastrectomy, possible diaphragmatic hernia repair,possible ventral hernia repair, possible open PMFSH Active Problems Active Problems: All Active Problems (Updated 12/10/22 @ 08:08 by Phyllis Martínez MD) Vitamin B12 deficiency (Acute) Obesity (Acute) BMI 37.0-37.9, adult (Acute) Binge-eating disorder, severe (Acute) BMI 36.0-36.9,adult (Acute) Dementia (Acute) Depression (Acute) IBS (irritable bowel syndrome) (Acute) Sleep apnea with use of continuous positive airway pressure (CPAP) (Acute) Fibromyalgia (Acute) GERD (gastroesophageal reflux disease) (Acute) Hypertension (Acute) Morbid obesity (Acute) Hypothyroidism Past Medical History Medical History Dementia Depression Ear ache Fibromyalgia GERD (gastroesophageal reflux disease) Hypertension IBS (irritable bowel syndrome) Morbid obesity Sleep apnea with use of continuous positive airway pressure (CPAP) Family History Family History Mother High cholesterol Hypertension Heart attack Anxiety Depression Father No problems noted. Sister No problems noted. Sister No problems noted. Sister No problems noted. Sister Anxiety Depression Schizophrenia Hypertension Sleep apnea Fibromyalgia Sister Hypertension Anxiety Depression Fibromyalgia Sister Lupus Anxiety Depression Fibromyalgia Brother No problems noted. Brother No problems noted. Brother No problems noted. Brother No problems noted. Brother No problems noted. Son No problems noted. Son No problems noted. Son No problems noted. Daughter No problems noted. Family history of problems with anesthesia: No Surgical History Surgical History History of delivery Hx of colonoscopy Hx of hysterectomy, total Hx of rhinoplasty Hx of tooth extraction History of Problems with Anesthesia: No Social History Social History Are you a primary manager urgent care to a significant other at home: No Do you presently have visiting nurse or other home services: No Alcohol intake: never Patient Tobacco Use Status: Never used Tobacco Use of substances other than those prescribed or required for medical reasons: No Have you been hit, kicked, punched, or otherwise hurt by someone within the past year? If so, by whom?: No Are you DNR?: No Advance Directives: No (will bring dos) Advance Directives Information Provided: No Advance Directives on File: No Recently lost weight without trying: No Nutrition Risks: No Nutritional Risk Patient : No (s/p hysterectomy) : No Poor oral hygiene: No Meds Allergies Allergy/AdvReac Type Severity Reaction Status Date / Time No Known Allergies Allergy Verified 12/03/22 10:14 Active Medications: Current Medications Lactated Ringer's (Lr) 1,000 mls @ 999 mls/hr IV .Q1H1M [facility] Stop: 12/21/22 08:15 Last Admin: 12/21/22 06:58 Dose: 999 mls/hr Lactated Ringer's (Lr) 1,000 mls @ 50 mls/hr IVCONT .Q20H [facility] Home Medications Medication Instructions Recorded Confirmed Last Taken Type CPAP (CPAP Machine/Device) 10/12/22 12/03/22 Unknown History azelastine 137 mcg (0.1 %) nasal 2 spray intranasal BID 10/12/22 12/10/22 Unknown History spray aerosol cholecalciferol (vitamin D3) 50 50 mcg PO DAILY 10/12/22 12/10/22 Unknown History mcg (2,000 unit) capsule cyclobenzaprine 10 mg tablet 10 mg PO TID 10/12/22 12/10/22 Unknown History donepezil 10 mg tablet (Aricept) 10 mg PO BEDTIME 10/12/22 12/10/22 Unknown History fluticasone propionate 50 2 spray intranasal BID 10/12/22 12/10/22 Unknown History mcg/actuation nasal spray,suspension (Allergy Relief (fluticasone)) gabapentin 600 mg tablet 900 mg PO TID 10/12/22 12/10/22 Unknown History levothyroxine 100 mcg capsule 100 mcg PO QWEEK 10/12/22 12/21/22 Unknown History levothyroxine 50 mcg capsule 50 mcg PO 6XW 10/12/22 12/10/22 Unknown History linaclotide 290 mcg capsule 290 mcg PO DAILY 10/12/22 12/10/22 Unknown History (Linzess) meloxicam 15 mg tablet 15 mg PO DAILY 10/12/22 12/21/22 Unknown History metoprolol succinate 50 mg 50 mg PO BID 1112/10/22 12/21/22 History tablet,extended release 24 hr omeprazole 20 mg capsule,delayed 20 mg PO DAILY 10/12/22 12/10/22 Unknown History release venlafaxine 150 mg 150 mg PO BEDTIME 10/12/22 12/10/22 Unknown History capsule,extended release 24 hr (Effexor XR) venlafaxine 75 mg capsule,extended 75 mg PO DAILY@0730 10/12/22 12/10/22 Unknown History release 24 hr (Effexor XR) Sudafed 12/10/22 Unknown History penicillin V potassium 500 mg 1 tab PO BID 12/21/22 12/21/22 Unknown History tablet Exam Exam Date and Time: December 21, 2022 0806 Height,Weight and Vital Signs: Height 5 ft 5 in Weight 91.626 kg Last Vital Signs Temp 97.0 F 12/21/22 06:19 Pulse 71 12/21/22 06:19 Resp 18 12/21/22 06:19 BP 127/64 12/21/22 06:19 Pulse Ox 100 12/21/22 06:19 O2 Del Method 12/21/22 06:19 Pertinent Lab Results Pertinent Lab Results: Laboratory Tests 12/14/22 12/20/22 08:58 13:25 COVID-19 (JAUN) Negative COVID-19 Clin Com See Note Blood Type A Negative Antibody Screen NEGATIVE Airway Mallampati Class: II TM Dist: >3cm Neck ROM: Full Loose/Missing/Broken Teeth: No (Extraction top right back) Heart: RRR Lungs: CTAB Assessment and Plan Assessment Anesthesia Assessment: Anesthesia Plan Discussed and Chart Reviewed Final Anesthetic Review Family History of Problems with Anesthesia: No History of Problems with Anesthesia: No NPO: Yes ASA Class: III Final Preanesthetic Review: No Changes in Pt Med Stat, Meds/Allgs Chart Reviewed, Consent Obtained/Reviewed and Anes Risks/Benef Reviewed Patient Risk: Intermediate Procedure Risk: Intermediate Assessment/Block/Sedation in SS: Assess/Block/Sedation-SS Anesthetic Plan Anesthetic Plan: GA Disposition: Standard PACU and Inp. Admit - Standard Bed
--- NOTE | 2022-12-21 08:18 | P.BOP_ITS ---
Brief Operative Note Date of Service: 12/21/22 Pre-op diagnosis: Severe obesity with comorbidities (see below) Procedure: INITIAL PATIENT BMI ON PRESENTATION AT OUR OFFICE: 40 kg/m2 LAST BMI BEFORE SURGERY: 36 kg/m2 COMORBIDITIES: hypothyroidism, dementia (early), hypertension, arrhythmia, fibromyalgia, GERD, IBS, depression ?The patient presented to the Weight Management Program with significant obesity that was negatively impacting the patient's comorbidities as listed above.? The program is a phased program with a special focus on preoperative medical weight management to promote substantial weight loss and prepare the patients for the second phase of the program: bariatric surgery. The patient participated in an intensive weekly lifestyle ?intervention and exercise program during which the patient ?has lost between the initial office visit and the last preoperative visit 19.4 lbs, or 8.34% of initial actual body weight. It was deemed appropriate for the patient to now have bariatric surgery. In light of the current Covid-19 pandemic and the well documented strong association of obesity and increased risk of worse outcomes if infected with Covid-19 (REFERENCES: https://pubmed.ncbi.nlm.nih.gov/20583232/ ,? http s://pubmed.ncbi.nlm.nih.gov/23743468/ ), any delay in undergoing bariatric surgery may lead to the patient's worsening health condition and increased?risk of more severe Covid-19 disease if infected. In addition a recent?study from [facility] published in [employer] on 11/16/2021 ([email or web address]) found that, among patients with obesity, substantial weight loss achieved with surgery was associated with improved outcomes of COVID-19 infection. The findings suggest that obesity can be a modifiable risk factor for the severity of COVID-19 infection. In addition, the patient met the BMI-criteria for bariatric surgery based on the BMI on initial presentation. The patient should not be penalized for achieving such weight loss because ?it is not sustainable long-term without surgical intervention and it was achieved in preparation for bariatric surgery ?under my direction and based on my published research ([email or web address]).[email or web address] and? https://www.soard.org/article/[email or web address](24)01241-X/pdf ) ?that a 10% preoperative weight loss improves long-term weight loss after surgery and reduces perioperative complications.? Insurance carriers such as [facility] have endorsed my recommendations ?and have included in their policies criteria to include a 10% preoperative weight loss requirement. PROCEDURE: Esophago-gastroscopy, laparoscopic laparoscopic lysis of adhesions, laparoscopic sleeve gastrectomy and laparoscopic gastropexy INDICATIONS: This is a 57 year-old female who was electively scheduled for laparoscopic, possibly open sleeve gastrectomy. The risks and complications of the procedure were discussed with the patient in advance, particularly the possibility of ; pulmonary embolism; staple line leak; bleeding; GERD; cardiac, pulmonary, or renal complications; as well as long-term problems such as insufficient weight loss, vitamin deficiency, strictures, or ulcers. The patient understood all the risks, and was in agreement to proceed with surgery. DESCRIPTION OF PROCEDURE: After informed consent was obtained from the patient, the patient was given preoperative antibiotics, and was transferred to the operating room. After successful induction of general anesthesia, pneumatic compression devices were placed on both lower extremities. An upper endoscopy was performed next. The oropharynx and esophagus appeared to be within normal limits. There was no diaphragmatic hernia present consistent with the findings of the preoperative upper GI. The stomach was entered. Then after all fluid and air were suctioned and the stomach was fully decompressed, the scope was withdrawn and secured in the mid esophagus. The patient was then prepped and draped in the usual sterile manner, and abdominal access was established at the right upper quadrant with the Sheeba technique. A 12 mm blunt port was inserted, and the abdomen was insufflated with CO2 to a pressure of 15 mmHg. Under direct visualization, additional ports were placed, specifically two 5 mm Versi-step ports to the left upper quadrant, and a 5 mm Versi-Step port to the right upper quadrant. 1% lidocaine plain was used to infiltrate all port sites as well as all fascia defects. Following that, the patient was placed in a steep reverse Trendelenburg positi on. An additional 5 mm port was placed to the right flank for the Mediflex retractor that was used to retract the left lobe of the liver. The gastro-esophageal fat pad was opened with the ultrasonic device (Thunderbeat, Olympus) and the anterior esophagus and hiatus were exposed. The angle of His was opened with the ultrasonic device the fundus of the stomach from any diaphragmatic and splenic attachments. I then opened the gastrocolic ligament between the transverse colon and the greater curvature of the stomach with the ultrasonic device to enter the lesser sac and facilitate the ligation of the short gastric vessels. I started at a mid-point along the greater curvature and using the Thunderbeat, all short gastric vessels were divided all the way to the angle of His until the left gregory was completely dissected at its entirety. I then divided the gastro-colic ligament distally to a distance of about 3-4 cm proximal to the pylorus. There were extensive congenital adhesions between the pancreas and posterior gastric wall. Those were lysed completely with the ultrasonic device. Adhesiolysis took approximately 45 min to complete.? The stomach was then divided transversely with one Endo ELLIOTT-45 purple, and four ELLIOTT-60 articulating orange loads using the AEON stapler and loads. Every effort was made that the gastric sleeve had a tubular shape and an even caliber throug hout. Once the sleeve resection was completed, the staple line of the gastric sleeve was reinforced with Hemoclips. The resected stomach was retrieved without difficulty from the Sheeba port. A gastropexy was then performed in order to prevent postoperative GERD and partial gastric volvulus. Several interrupted 2.0 Surgidac sutures were placed between the sleeve's staple line and the previously divided greater omentum and gastro-colic ligament using the Endo-Stitch device. ?An upper endoscopy was performed. There was no narrowing at the GE junction. The scope was easily advanced all the way to the pylorus which was clearly visualized. There was no narrowing anywhere and the sleeve's caliber was even throughout. The sleeve's staple line was inspected and there was no evidence of ischemia, bleeding or dehiscence. At that point the gastroscope was withdrawn from the patient?s mouth while we were decompressing the bowel and the stomach from any remaining air. I looked into the lesser sac to see how the sleeve was situating and it was situating well. There was no bleeding from the staple line, spleen, or short gastric vessels. The Mediflex retractor was removed, and the undersurface of the liver was inspected and there was no bleeding. The patient was placed in supine position. I closed the fascial defect of the 12 mm port site with a figure of eight #1 Polysorb suture. Then 30 cc Ropivacaine plain with 10 mg of Dexamethasone were used to infiltrate the fascial closure as well as all skin incisions. A total of 6ml Zynrelef was applied in the Sheeba wound. At this point, the abdomen was deflated, all ports were removed under direct vision, and no bleeding was noted from any of the port sites. The skin incisions were irrigated with saline and were closed with 4-0 absorbable monofilament sutures. Steri-Strips and OpSites were used to cover all incisions. The patient was extubated and was transferred in stable condition to the recovery room for further care. I was present and performed all urbina parts of the procedure. Ms. Schmidtson was the financial administrative assistant. There were no residents to assist with this case. Derek Vazquez MD, PhD, FACS Surgeon: Pravin Vazquez MD Anesthesia: GETA, local and other (TAP block and 6ml Zynrelef) Was an Retail Service Specialist used for this Procedure?: No Retail Service Specialist: Anne Villasenor Estimated blood loss (mL): 10 IV fluids (mL): 3,000 Urine output (mL): 0 (No Boyd to record output) Pathology: other (Stomach) Condition: stable Disposition: PACU
--- NOTE | 2022-12-21 08:22 | PM.PNGS ---
Subjective Subjective Date of Service: 12/22/22 Interval history: Patient has mild incisional pain, but was able to ambulate and use the incentive spirometer. She is tolerating phase 1 bariatric diet Physical Exam Vital Signs: Vital Signs: Last Vital Signs Temp 97.0 F 12/21/22 06:19 Pulse 71 12/21/22 06:19 Resp 18 12/21/22 06:19 BP 127/64 12/21/22 06:19 Pulse Ox 100 12/21/22 06:19 O2 Del Method 12/21/22 06:19 BMI result Body Mass Index 33.6 GI: Inspection: Yes normal to inspection, Yes incision (clean, dry and intact) and Yes obesity Extrem: Right lower extremity: normal to inspection (no calf tenderness) Left lower extremity: normal to inspection (no calf tenderness) Objective Data Active Medications Lactated Ringer's (Lr) 1,000 mls @ 50 mls/hr IVCONT .Q20H [facility] 12/22/22 06:11 12/22/22 06:11 Labs: Laboratory Results - last 24 hr 12/20/22 13:25 COVID-19 (JAUN) Negative COVID-19 Clin Com See Note Procedures Date of Service Date of Service: 12/22/22 Progress Note: A&P Assessment and plan (1) Obesity: Status: Acute Assessment and Plan: s/p laparoscopic sleeve gastrectomy, lysis of adhesions and gastropexy Doing well Check am labs. If OK, will discharge home (2) Hypertension: Status: Acute (3) GERD (gastroesophageal reflux disease): Status: Acute (4) Fibromyalgia: Status: Acute (5) Sleep apnea with use of continuous positive airway pressure (CPAP): Status: Acute (6) IBS (irritable bowel syndrome): Status: Acute (7) Depression: Status: Acute (8) Dementia: Status: Acute (9) Hypothyroidism: Status: Acute (10) Arrhythmia: Status: Acute (11) S/P laparoscopic sleeve gastrectomy: Status: Acute Time Spent With Patient Time: Total time managing care of this patient today ____ minutes. Quality Stroke Does the patient have a stroke diagnosis?: No VTE Prior VTE?: No VTE Risk Level:: Surgical - moderate VTE Device Contraindication: N/A - Device Ordered VTE Drug Contraindication: Treatment Not Indicated
[2022-12-21] MEDS: ceFAZolin Sodium/Dextrose,Iso 2 GM/50 ML PIGGYBACK IV ×2 (08:50→14:12)
--- NOTE | 2022-12-21 11:08 | PM.DS ---
DS: Providers Provider Date of Service: 12/22/22 Date of admission: 12/21/22 06:07 Primary care physician: Bakari Lee MD DS: Diagnosis Discharge Diagnosis (1) Obesity: Status: Acute (2) Hypertension: Status: Acute (3) GERD (gastroesophageal reflux disease): Status: Acute (4) Fibromyalgia: Status: Acute (5) Sleep apnea with use of continuous positive airway pressure (CPAP): Status: Acute (6) IBS (irritable bowel syndrome): Status: Acute (7) Depression: Status: Acute (8) Dementia: Status: Acute (9) Hypothyroidism: Status: Acute (10) Arrhythmia: Status: Acute DS: Summary Hospital Course Hospital Course: ADMITTING DIAGNOSIS: morbid obesity, HTN, PURNIMA, hypothyroidism, GERD, dementia, depression, fibromyalgia DISCHARGE DIAGNOSIS: same, s/p laparoscopic sleeve gastrectomy PAST SURGICAL HISTORY: section, hysterectomy PROCEDURE: upper endoscopy, laparoscopic sleeve gastrectomy DISCHARGE SUMMARY: History of Present Illness: The patient is a 57 year-old woman with a BMI of 39.9 kg/m2 and associated co-morbidities as described above. The patient had extensive work-up, lost 15.4lbs preoperatively and was electively scheduled for laparoscopic, possible open sleeve gastrectomy and gastropexy. Risks and complications of the surgery were discussed with the patient in advance, particularly the possibility of , pulmonary embolism, anastomotic leak, bleeding, bowel injury, GERD, cardiac, renal or pulmonary complications. The patient understood all the risks and was in agreement with the surgical plan. Hospital Course: The patient underwent an uneventful laparoscopic sleeve gastrectomy with gastropexy on the day of admission. Postoperatively, the patient was transferred to the surgical floor. The patient received IV Acetaminophen and IV dilaudid for pain control. Patient was started on bariatric phase 1 diet POD #0. On postoperative day one, the patient was feeling well without nausea, vomiting, fevers, or tachycardia. The patient had some mild incisional pain and the abdomen was soft. On the morning of postoperative day one, the patient was continued on 1 ounce of water or ice every half hour. During the day, the patient did fairly well, having some incisional pain, but able to ambulate adequately and to tolerate liquids well. Since the patient is doing well, we decided that the patient was ready to be discharged. The patient was given instructions to follow-up with me next week and to call my office for any fever over 101, persistent abdominal pain, nausea, vomiting, GERD, symptoms of DVT such as calf tenderness, or leg swelling, or pulmonary embolism such as chest pain or shortness of breath. The patient was also instructed to drink 40-60 ounces of liquids per day using the 1-ounce cups. The patient had been given prescriptions for Tylenol for pain, Zofran prn for nausea, and pantoprazole and carafate previously. The patient was encouraged to ambulate and use the incentive spirometer. The patient was allowed to shower, but no baths, and encouraged to stay active at home. All of these instructions were given to the patient personally. All questions were answered and the patient understood all instructions, the instructions were also given to the patient in print. Time Spent with Patient Time attestation: Total time managing care of this patient today ____ minutes. Discharge coordination time: Less than 30 minutes Quality: Safe Use of Opioids Does Pt have an Active Cancer Diagnosis on the Problem List?: No Quality: Stroke Does the patient have a stroke diagnosis?: No Physical Exam Vital Signs: Vital Signs: Last Vital Signs Temp 97.0 F 12/21/22 06:19 Pulse 71 12/21/22 06:19 Resp 18 12/21/22 06:19 BP 127/64 12/21/22 06:19 Pulse Ox 100 12/21/22 06:19 O2 Del Method 12/21/22 06:19 BMI result Body Mass Index 33.6 DS: Data Data Completed and Pending Pending studies at discharge: Pending at discharge 12/21/22 10:21 Surgical [PTH] Routine Labs on day of discharge: Laboratory Results - last 24 hr 12/20/22 13:25 COVID-19 (JAUN) Negative COVID-19 Clin Com See Note Discharge Plan Discharge Anticipated Discharge Date/Time: 12/22/22 10:01 Patient Disposition: Home, Self-Care Discharge Diagnosis: s/p sleeve gastrectomy Referrals: Bakari Lee MD [Primary Care Provider] - 1 Week Discharge Medications: Continued pantoprazole 40 mg tablet,delayed release (DR/EC) 40 mg PO DAILY Qty: 30 2RF sucralfate 100 mg/mL suspension 10 ml PO BID Qty: 400 2RF ondansetron HCl 4 mg tablet 4 mg PO Q12H Qty: 20 0RF Rx Instructions: please use it only if you have nausea every 6 hours as needed gabapentin 600 mg tablet 900 mg PO TID venlafaxine [Effexor XR] 75 mg capsule,extended release 24hr 75 mg PO DAILY@0730 venlafaxine [Effexor XR] 150 mg capsule,extended release 24hr 150 mg PO BEDTIME levothyroxine 50 mcg capsule 50 mcg PO 6XW levothyroxine 100 mcg capsule 100 mcg PO QWEEK Label Comments: 100 mcg on Mondays Rx Instructions: 100 mcg orally on the day; donepezil [Aricept] 10 mg tablet 10 mg PO BEDTIME azelastine 137 mcg (0.1 %) aerosol,spray 2 spray intranasal BID Rx Instructions: administer into each nostril fluticasone propionate [Allergy Relief (fluticasone)] 50 mcg/actuation spray,suspension 2 spray intranasal BID Rx Instructions: administer into each nostril (DME) CPAP Machine/Device Device See Rx Instructions .Route Rx Instructions: As directed Held metoprolol succinate 50 mg tablet extended release 24 hr 50 mg PO BID Hold Instructions: Resume on 12/23/22. Measure your blood pressure daily and report it to Dr. Vazquez before you take the medication. Do not take it if blood pressure is below 110/70 mmHg Discontinued mecobalamin (vitamin B12) 1,000 mcg tablet,disintegrating 1,000 mcg sublingual DAILY Qty: 30 2RF Rx Instructions: place tablet under tongue and allow to dissolve for at least30 secs before swallowing Sudafed penicillin V potassium 500 mg tablet 1 tab PO BID polyethylene glycol 3350 [Miralax] 17 gram powder in packet 17 g PO DAILY Qty: 14 0RF Rx Instructions: Mix each packet with 8oz of water and do 7 packets on 12/19/22 and another 7 packets on 12/20/22 cyclobenzaprine 10 mg tablet 10 mg PO TID meloxicam 15 mg tablet 15 mg PO DAILY Linzess 290 mcg capsule 290 mcg PO DAILY cholecalciferol (vitamin D3) 50 mcg (2,000 unit) capsule 50 mcg PO DAILY omeprazole 20 mg capsule,delayed release(DR/EC) 20 mg PO DAILY Discharge Orders: Discharge Order (Routine); Ordered 12/22/22 Ordered By: Pravin Vazquez Activity on Discharge: No heavy lifting Stand Alone Forms: Patient Portal Discharge page Care Plan Goals: weight loss Health Concerns: obesity Plan of Treatment: No tub baths, sex or returning to work until discussed at first post op appointment. No exercise, alcohol, tobacco or illegal drug use. Continue to use incentive spirometer hourly while awake. Walk in home for 5- 10 minutes every 2 hours during the first week. Continue phase 1 diet today and start phase 2 diet tomorrow morning. Follow all instructions in the bariatric handbook and call with any questions. 1. Please call your doctor or come back to the emergency room should any new symptoms arise. 2. You will receive a courtesy call from [facility] 24-48 hours after discharge. 3. Activity: abstain from alcohol, practice limited stair climbing, no bending, no driving, no exercise, no illicit substances, no lifting, no sex, no tub bath, no work. 4. Diet: continue as discussed with bariatric team.. 5. Dressing Change/Wound Care: Do not change or remove surgical dressings unless they are wet or soiled. 6. Call your doctor if: - Your temperature exceeds 101.5 F - You experience excessive pain or swelling - You have an unexpected reaction to medication - You have excessive bleeding - You experience continued vomiting/nausea - Your incision begins to separate - Your incision shows signs of infection such as increased redness, swelling, excessive pain, heat, or drainage (light blood or clear fluid is normal) 7. General instructions: No lifting greater than 5 lbs for the next 4 weeks[address] within 24 hours of taking narcotic pain medications. If you do not move your bowels in the next 2 days, please take milk of magnesia over the counter. Please follow the post op diet and do not advance your diet until you are seen in the office in about 2 weeks. Please walk around your home every hour or two to prevent blood clots from forming in your legs. You do not need to wake from sleeping to walk. Please sleep in a bed or couch to prevent kinking at the hips and knees. 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 You may shower, no hot tubs, baths or swimming pools. Please call the office with any questions or concerns such as increasing abdominal pain, fever, chills, shortness of breath, chest pain, leg pain or swelling, or redness or drainage from your incisions. Do not hesitate to contact the office with any questions at . The patient's medical history has been reviewed and they are considered low risk for post op DVT and therefore DVT prophylaxis is not considered necessary. Travel after surgery was reviewed. The patient has not disclosed any travel plans during the first 30 days after surgery and they have been advised that within the first 30 days after surgery any bus, plane, train or car travel over 2 hours in duration is contraindicated due to the possibility of developing blood clots from immobility. Any travel, needs to include periods of ambulation of 10 minutes in duration every 2 hours. The patient was instructed to discuss any plans for travel during this period with their bariatric surgeon. Assessment: stable, post op sleeve gastrectomy Discharge Date/Time: 12/22/22 08:57
[2022-12-21] MEDS: Famotidine/PF 20 MG/2 ML VIAL IVPUSH ×2 (11:31→20:01)
[2022-12-21] MEDS: Lactated Ringers 1,000 ML 125 ML IVCONT ×2 (11:34→19:51)
[2022-12-21 11:35] LABS: Hematocrit 39.2 % (37.0-47.0); Hemoglobin 13.2 g/dl (12.0-16.0)
[2022-12-21 11:52] LABS: Anion Gap 16 (12-20); Blood Urea Nitrogen 7 mg/dL (9-16); Calcium 8.9 mg/dL (8.4-10.2); Carbon Dioxide 21 mmol/L (22-29); Chloride 104 mmol/L (96-108); Creatinine Clr Calc Pharmacy 94.8; Estimated Glomerular Filt Rate > 60; Glucose Random 119 mg/dL (60-115); Potassium 4.4 mmol/L (3.3-5.1); Sodium 137 mmol/L (135-145)
[2022-12-21] MEDS: Acetaminophen 1,000 MG/100 ML PIGGYBACK 16.7 MG IV ×2 (15:08→19:51)
[2022-12-21] MEDS: Donepezil HCl 10 MG TABLET PO (20:01)
[2022-12-21] MEDS: ondansetron HCL 4 MG/2 ML VIAL IVPUSH (20:01)
[2022-12-21] MEDS: Venlafaxine HCl ER 150 MG CAP.ER.24H PO (20:01)
[2022-12-21] MEDS: Metoprolol Succinate ER 50 MG TAB.ER.24H PO (20:01)
[2022-12-21] MEDS: 0.9 % Sodium Chloride Flush 3 ML SYRINGE IVFLUSH (20:02)
[2022-12-22] MEDS: Acetaminophen 1,000 MG/100 ML PIGGYBACK 16.7 MG IV (01:51)
[2022-12-22] MEDS: Lactated Ringers 1,000 ML 125 ML IVCONT (03:24)
[2022-12-22 03:38] VITALS: BP 146/70; PULSE 64; RESP 18; TEMP 36.8; O2SAT 98
[2022-12-22] MEDS: ondansetron HCL 4 MG/2 ML VIAL IVPUSH (05:02)
[2022-12-22 07:02] VITALS: BP 134/61; PULSE 69; RESP 16; TEMP 36.4; O2SAT 96
[2022-12-22 07:06] LABS: MANUAL DIFF FLAG NO
[2022-12-22] MEDS: Famotidine/PF 20 MG/2 ML VIAL IVPUSH (07:10)
[2022-12-22] MEDS: Venlafaxine HCl ER 75 MG CAP.ER.24H PO (07:10)
[2022-12-22] MEDS: Metoprolol Succinate ER 50 MG TAB.ER.24H PO (07:10)
[2022-12-22 07:21] LABS: Basophils Percent Auto 0.3 % (0-2); Eosinophils Percent Auto 0.1 % (0-4); Hematocrit 39.1 % (37.0-47.0); Hemoglobin 12.6 g/dl (12.0-16.0); Imm Gran Abs Auto 0.03 X10*3/uL (0.00-0.03); Imm Gran Pct Auto 0.3 % (0.0-0.4); Lymphocytes Percent Auto 24.8 % (20-40); Mean Corpuscular HGB Conc 32.2 g/dl (31.0-35.0); Mean Corpuscular Hemoglobin 29.8 pg (27.0-33.0); Mean Corpuscular Volume 92.4 fL (80.0-98.0); Mean Platelet Volume 10.9 fL (9.4-12.3); Monocytes Absolute Auto 1.2 X10*3/uL (0.1-1.2); Monocytes Percent Auto 10.3 % (2-11); Neutrophils Absolute Auto 7.7 x10*3/uL (2.0-8.3); Neutrophils Percent Auto 64.2 % (45-73); Platelet Count 343 X10*3/uL (160-400); Red Blood Count 4.23 X10*6/uL (4.20-5.50); Red Cell Distribution Width 13.7 % (11.0-16.0); White Blood Count 11.9 X10*3/uL (4.8-10.8)
[2022-12-22 07:51] LABS: Anion Gap 18 (12-20); Blood Urea Nitrogen 5 mg/dL (9-16); Calcium 9.3 mg/dL (8.4-10.2); Carbon Dioxide 22 mmol/L (22-29); Chloride 104 mmol/L (96-108); Creatinine Clr Calc Pharmacy 98.7; Estimated Glomerular Filt Rate > 60; Glucose Random 66 mg/dL (60-115); Potassium 4.9 mmol/L (3.3-5.1); Sodium 139 mmol/L (135-145)
--- NOTE | 2022-12-22 14:26 | HO.POSTANES ---
Post Anesthesia Evaluation Post Anesthesia Evaluation Vital Signs: Vital Signs Temp Pulse Resp BP Pulse Ox O2 Del Method 12/22/22 07:02 97.6 F 69 16 134/61 96 Room Air 12/22/22 03:38 98.2 F 64 18 146/70 H 98 Room Air Anesthesia: General Endotracheal-GETA Mental Status: Awake Pain Control: Satisfactory Nausea/Vomiting: None Hydration: Adequate Anesthesia-Related Issues: No Anes. Related Issues
== END 2022-12-22 08:57 | disposition home or self-care (01) | DRG 620 ==
LOC: HO.SSSA 11:05 → HO.S3 13:43
PROVIDERS: Physician Assistant; Physician Assistant Surgical; Admitting Provider Surgery; PCP Internal Medicine; Visit Provider Surgery
PROC: 0DB64Z3 Excision of Stomach, Percutaneous Endoscopic Approach, Vertical (ICD-10-PCS; CPT 43845; principal; 2022-12-21 08:10)
DX: E66.01 Morbid (severe) obesity due to excess calories (principal); Q43.3 Congenital malformations of intestinal fixation; F03.90 Unspecified dementia, unspecified severity, without behavioral disturbance, psychotic disturbance, mood disturbance, and anxiety; K21.9 Gastro-esophageal reflux disease without esophagitis; G47.33 Obstructive sleep apnea (adult) (pediatric); M79.7 Fibromyalgia; K58.9 Irritable bowel syndrome, unspecified; F32.A Depression, unspecified; E03.9 Hypothyroidism, unspecified; I49.9 Cardiac arrhythmia, unspecified; Z20.822 Contact with and (suspected) exposure to COVID-19; Z68.36 Body mass index [BMI] 36.0-36.9, adult; Z79.51 Long term (current) use of inhaled steroids; Z79.890 Hormone replacement therapy; Z79.899 Other long term (current) drug therapy
CPT/HCPCS: 36415; 80048; 85014; 85018; 85025; 86850; 86900; 86901; 87635; 88307; 88342; A4649; C9088; J0131; J0690; J1100; J1170; J2250; J2370; J2405; J2550; J2765; J2795; J3010

== ENCOUNTER → 2022-12-28 12:44 | Outpatient (BNVA) | payer MEDICARE, OTHER, SELFPAY | PROVIDERS: PCP Internal Medicine; Visit Provider Physician Assistant Surgical | DX: Z13.89 Encounter for screening for other disorder (principal) | CPT/HCPCS: 99212 ==

== ENCOUNTER → 2023-01-20 09:46 | Outpatient (BNVA) | payer MEDICARE, OTHER, SELFPAY | PROVIDERS: PCP Internal Medicine; Visit Provider Physician Assistant | DX: Z13.89 Encounter for screening for other disorder (principal) | CPT/HCPCS: 99212 ==

== ENCOUNTER → 2023-02-03 10:00 | Outpatient (BNVA) | payer MEDICARE, OTHER, SELFPAY | PROVIDERS: PCP Internal Medicine; Visit Provider Physician Assistant | DX: M25.579 Pain in unspecified ankle and joints of unspecified foot (principal); Z98.84 Bariatric surgery status | CPT/HCPCS: 99212 ==

== ENCOUNTER → 2023-03-03 10:00 | Outpatient (BNVA) | payer MEDICARE, OTHER, SELFPAY | PROVIDERS: PCP Internal Medicine; Visit Provider Physician Assistant | DX: Z98.84 Bariatric surgery status (principal) | CPT/HCPCS: 99212 ==

== ENCOUNTER → 2023-04-06 11:00 | Outpatient (BNVA) | payer MEDICARE, OTHER, SELFPAY | PROVIDERS: PCP Internal Medicine; Visit Provider Physician Assistant | DX: E66.3 Overweight (principal); Z68.29 Body mass index [BMI] 29.0-29.9, adult; E03.9 Hypothyroidism, unspecified; E53.8 Deficiency of other specified B group vitamins; Z98.84 Bariatric surgery status | CPT/HCPCS: Q3014 ==

== ENCOUNTER 2023-06-21 11:14 | Outpatient (REF) | payer MEDICARE, OTHER, SELFPAY ==
[2023-06-21 11:48] LABS: MANUAL DIFF FLAG NO
[2023-06-21 12:07] LABS: Basophils Absolute Auto 0.1 X10*3/uL (0.0-0.2); Basophils Percent Auto 1.3 % (0-2); Eosinophils Absolute Auto 0.1 X10*3/uL (0.0-0.4); Eosinophils Percent Auto 2.1 % (0-4); Hematocrit 39.4 % (37.0-47.0); Hemoglobin 13.3 g/dl (12.0-16.0); Lymphocytes Absolute Auto 2.6 X10*3/uL (1.2-4.9); Lymphocytes Percent Auto 53.7 % (20-40); Mean Corpuscular HGB Conc 33.8 g/dl (31.0-35.0); Mean Corpuscular Hemoglobin 30.6 pg (27.0-33.0); Mean Corpuscular Volume 90.6 fL (80.0-98.0); Mean Platelet Volume 10.4 fL (9.4-12.3); Monocytes Absolute Auto 0.4 X10*3/uL (0.1-1.2); Monocytes Percent Auto 7.3 % (2-11); Neutrophils Absolute Auto 1.7 x10*3/uL (2.0-8.3); Neutrophils Percent Auto 35.6 % (45-73); Platelet Count 337 X10*3/uL (160-400); Red Blood Count 4.35 X10*6/uL (4.20-5.50); Red Cell Distribution Width 13.6 % (11.0-16.0); White Blood Count 4.8 X10*3/uL (4.8-10.8)
[2023-06-21 12:59] LABS: Estimated Average Glucose 100 mg/dL; Hemoglobin A1c % 5.1 %
[2023-06-21 13:54] LABS: Alanine Aminotransferase 25 U/L (0-31); Albumin Level 4.4 g/dL (3.5-5.0); Alkaline Phosphatase 91 U/L (39-117); Anion Gap 15 (12-20); Aspartate Amino Transferase 22 U/L (5-31); Bilirubin Total 0.4 mg/dL (0.0-1.0); Blood Urea Nitrogen 13 mg/dL (9-16); C Reactive Protein 0.14 mg/dL (< or = 0.50); Calcium 10.1 mg/dL (8.4-10.2); Carbon Dioxide 25 mmol/L (22-29); Chloride 106 mmol/L (96-108); Cholesterol 291 mg/dL; Estimated Glomerular Filt Rate > 60; Glucose Random 80 mg/dL (60-115); HDL Cholesterol 49 mg/dL; Iron 110 mcg/dL (30-160); LDL Cholesterol Calculated 223 mg/dl; Percent Iron Saturation 40 % (15-50); Potassium 4.5 mmol/L (3.3-5.1); Sodium 141 mmol/L (135-145); Total Iron Binding Capacity 275 mcg/dL (228-428); Total Protein 7.6 g/dL (6.5-8.0); Triglycerides 97 mg/dL; Unsaturated Iron Binding 165 ug/dL
[2023-06-21 14:08] LABS: Ferritin 283 ng/mL (10-250); Insulin 4 uU/mL (2-29); TSH reflex Free T4 2.44 uIU/mL (0.32-4.0); Vitamin D 25-OH Total 55.8 ng/mL (>30)
[2023-06-21 14:18] LABS: Folate 15.1 ng/mL (> or = 4.0); Vitamin B12 500 pg/mL (200-900)
[2023-06-22 19:17] LABS: Calcium (PTHI) 10.1 mg/dL (8.6-10.4); PTHI 51 pg/mL (16-77)
[2023-06-24 02:08] LABS: Zinc 79 mcg/dL (60-130)
[2023-06-24 02:57] LABS: Vitamin A 35 mcg/dL (38-98)
[2023-06-25 11:23] LABS: Vitamin B1 28 nmol/L (8-30)
== END 2023-06-21 11:15 | disposition home or self-care (01) ==
LOC: HO.LAB 11:14
PROVIDERS: PCP Internal Medicine; Visit Provider Physician Assistant
DX: E03.9 Hypothyroidism, unspecified (principal); E53.8 Deficiency of other specified B group vitamins; E66.3 Overweight; Z98.84 Bariatric surgery status; I10 Essential (primary) hypertension; Z79.899 Other long term (current) drug therapy
CPT/HCPCS: 36415; 80053; 80061; 82306; 82607; 82728; 82746; 83036; 83525; 83540; 83970; 84425; 84443; 84590; 84630; 85025; 86140

== ENCOUNTER 2023-06-21 16:00 | Outpatient (AMB) | payer MEDICARE, OTHER, SELFPAY ==
--- NOTE | 2023-06-21 14:27 | MHC.OFFVISWM ---
Intake VS Expanded 06/21/23 16:05 Height 5 ft 4 in Weight 155 lb 2 oz BMI 26.6 Intake Visit Reasons: VIDEO PO LSG 12/21/22 Allergies No Known Allergies Allergy (Verified 01/20/23 09:56) Medication List - Last Reconciled 06/21/23 by Anne Villasenor PA-C azelastine 2 sprays intranasal BID calcium citrate-vitamin D3 315 mg-5 mcg (200 unit) (Calcium Citrate + D) 1 tab PO BID CPAP (CPAP Machine/Device) As directed donepezil (Aricept) 10 mg PO BEDTIME fluticasone propionate 50 mcg/actuation (Allergy Relief (fluticasone)) 2 sprays intranasal BID gabapentin 600 mg PO TID inulin (Fiber Gummies) 2 grams PO BID levothyroxine 50 mcg PO 6XW levothyroxine 100 mcg PO QWEEK epiqnxvtfbbd-mqx-zmrc-FA-vit K 45 mg iron- 800 mcg-120 mcg (Bariatric Multivitamins) caps PO DAILY venlafaxine ER (Effexor XR) 75 mg PO DAILY@0730 HPI HPI Comments History of Present Illness Details Pt is now 6 months s/p LSG. 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 TBWL of 77.5 lbs or 33.3%. Premier shake in morning and afternoon Sometimes has Premier cereal 1 cup with almond milk and a bar OR may have a meal but not very often. Exercise - Still has ankle pain. Keeps moving all day. Has not tried the exercise sitting videos. Post op complications: PURNIMA: still using CPAP DM: never HTN: never Hyperlipidemia: never GERD: 0- Satisfaction with present condition - satisfied [facility] Medical History Dementia Depression Ear ache Fibromyalgia GERD (gastroesophageal reflux disease) Hypertension IBS (irritable bowel syndrome) Morbid obesity Sleep apnea with use of continuous positive airway pressure (CPAP) Surgical History History of delivery Hx of colonoscopy Hx of hysterectomy, total Hx of rhinoplasty Hx of tooth extraction Family History Mother High cholesterol Hypertension Heart attack Anxiety Depression Father No problems noted. Sister No problems noted. Sister No problems noted. Sister No problems noted. Sister Anxiety Depression Schizophrenia Hypertension Sleep apnea Fibromyalgia Sister Hypertension Anxiety Depression Fibromyalgia Sister Lupus Anxiety Depression Fibromyalgia Brother No problems noted. Brother No problems noted. Brother No problems noted. Brother No problems noted. Brother No problems noted. Son No problems noted. Son No problems noted. Son No problems noted. Daughter No problems noted. Social History Are you a primary healthcare administrator to a significant other at home: No Do you presently have visiting nurse or other home services: No Alcohol intake: never Patient Tobacco Use Status: Never used Tobacco Physical Exam Const General: cooperative, healthy appearing, comfortable and no acute distress GI Inspection: Yes scar (all well healed) Assessment & Plan Assessment & Plan (1) S/P laparoscopic sleeve gastrectomy: Code(s): Z98.84 - Bariatric surgery status Plan: 6 months post op LSG doing great. needs 70 grams protein per day in 3 meals 1 shake 1 cup Premier cereal with Fairlife milk 1 meal day - 2 oz proiten 2 oz vegetable 1 serving of fruit Exercise - need organized exercise program. PE sitting videos tohelp strenghten her rafaela - 5d/week. Start LS 1 mile videos when she can and then increase to 2 miles. Elizabeth in 6 weeks. in 3 months. I spent 26 minutes in total speaking with the patient via video conference counseling , reviewing records and charting in patients chart. . (2) Overweight: Code(s): E66.3 - Overweight Telehealth Telehealth Location of provider rendering services: practice address Location of patient: address on file Patient Identification confirmed using: Name, : Yes Telehealth method: video Patient verbally consented to treatment: Yes Patient verbally consented to billing insurance company: Yes Patient informed of any privacy concerns related to visit: Yes Coding Level of Care Code Tele Est Pt Level 4 (18287) Diagnoses S/P laparoscopic sleeve gastrectomy Z98.84 Overweight E66.3
[2023-06-21 16:05] VITALS: BMI 26.6
== END 2023-06-21 16:27 | disposition home or self-care (01) ==
LOC: HO.HBS 16:26
PROVIDERS: PCP Internal Medicine; Visit Provider Physician Assistant
DX: E66.3 Overweight (principal); Z68.26 Body mass index [BMI] 26.0-26.9, adult; Z90.3 Acquired absence of stomach [part of]; Z98.84 Bariatric surgery status
CPT/HCPCS: 99443

== ENCOUNTER 2023-07-20 10:42 | Outpatient (AMB) | payer MEDICARE, OTHER, SELFPAY ==
--- NOTE | 2023-07-20 10:38 | A.OFFVIS_ITS ---
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 Exercise: none now Vitamins: also taking taking vitamin E OTC (250mg) plus taking a gummy vitamin Rx of vitamin A , plus calcium and D Diagnosis Nutrition problem #1 overweight/obesity As related to (etiology) #1 excess energy intake and physical inactivity As evidenced by (sign/symptom) #1 high BMI (resolving ) Monitoring/Goals Nutrition problem monitoring total energy intake, level of knowledge/skill, total PRO intake, total CHO intake, weight and oral fluids Outcome progress progressing Learning/Education Readiness to learn excellent Stages of change action Most Recent Diabetes Results: Cholesterol 291 mg/dL 06/21/23 HDL Cholesterol 49 mg/dL 06/21/23 Triglycerides 97 mg/dL 06/21/23 Creatinine 0.74 mg/dL (0.5-1.4) 06/21/23 Blood Urea Nitrogen 13 mg/dL (9-16) 06/21/23 Sodium 141 mmol/L (135-145) 06/21/23 Potassium 4.5 mmol/L (3.3-5.1) 06/21/23 Chloride 106 mmol/L (96-108) 06/21/23 Carbon Dioxide 25 mmol/L (22-29) 06/21/23 Calcium 10.1 mg/dL (8.4-10.2) 06/21/23 AST 22 U/L (5-31) 06/21/23 ALT 25 U/L (0-31) 06/21/23 Total Protein 7.6 g/dL (6.5-8.0) 06/21/23 Albumin 4.4 g/dL (3.5-5.0) 06/21/23 [facility] Medical History Dementia Depression Ear ache Fibromyalgia GERD (gastroesophageal reflux disease) Hypertension IBS (irritable bowel syndrome) Morbid obesity Sleep apnea with use of continuous positive airway pressure (CPAP) Surgical History History of delivery Hx of colonoscopy Hx of hysterectomy, total Hx of rhinoplasty Hx of tooth extraction Family History Mother High cholesterol Hypertension Heart attack Anxiety Depression Father No problems noted. Sister No problems noted. Sister No problems noted. Sister No problems noted. Sister Anxiety Depression Schizophrenia Hypertension Sleep apnea Fibromyalgia Sister Hypertension Anxiety Depression Fibromyalgia Sister Lupus Anxiety Depression Fibromyalgia Brother No problems noted. Brother No problems noted. Brother No problems noted. Brother No problems noted. Brother No problems noted. Son No problems noted. Son No problems noted. Son No problems noted. Daughter No problems noted. Social History Are you a primary rn progressive care unit to a significant other at home: No Do you presently have visiting nurse or other home services: No Alcohol intake: never Patient Tobacco Use Status: Never used Tobacco Assessment & Plan Assessment & Plan (1) Overweight: Code(s): E66.3 - Overweight Patient Instructions: Patient is getting very close to reaching her goal weight. She would like to lose another 10 lb, then she will follow up with me for a maintenance nutrition plan. She may call and schedule that as needed. For now, Continue nutrition plan . Also needs to get on a bariatric vitamins , she will come and buy the celebrate beginning today. will stop all other vitamins but continue A and calcium. Explained the importance of being on a correct vitamin regimen. Educated about the benefits of exercise for balance, bone health, and mobility in relation to aging. Telehealth Telehealth Location of provider rendering services: practice address Location of patient: address on file Patient Identification confirmed using: Name, : Yes Telehealth method: video Patient verbally consented to treatment: Yes Patient verbally consented to billing insurance company: Yes Patient informed of any privacy concerns related to visit: Yes Minutes spent on Phone/Video with Pt.: 30 Coding Level of Care Code Nutr Indiv Subseq ([id number]) Diagnoses Overweight E66.3 Time Spent (min) 30
[2023-07-20 10:47] VITALS: BMI 25.9
== END 2023-07-20 10:58 | disposition home or self-care (01) ==
LOC: HO.HBS 10:42
PROVIDERS: PCP Internal Medicine; Visit Provider Dietitian, Registered
DX: E66.3 Overweight (principal)

== ENCOUNTER → 2023-07-20 10:42 | Outpatient (BNVA) | payer MEDICARE, OTHER, SELFPAY | PROVIDERS: PCP Internal Medicine; Visit Provider Dietitian, Registered | DX: E66.3 Overweight (principal); Z68.25 Body mass index [BMI] 25.0-25.9, adult; Z71.3 Dietary counseling and surveillance | CPT/HCPCS: 97803 ==

== ENCOUNTER 2023-08-05 10:22 | Outpatient (AMB) | payer MEDICARE, OTHER, SELFPAY ==
--- NOTE | 2023-08-05 10:06 | MHC.OFFVISWM ---
Intake VS Expanded 08/05/23 10:36 Height 5 ft 4 in Weight 148 lb 9.6 oz BMI 25.5 BP 148/80 H Blood Pressure Location Rt brachial Blood Pressure Position Sitting Pulse 75 Pulse Source Pulse Oximeter Temp 96.0 F L Temperature Source Tympanic Pulse Oximetry 100 Oxygen Delivery Method Room Air Body Fat 49.0 Body Fat Percentage 32.9 Free Fat Mass 99.6 Muscle Mass 94.6 Visceral Mass 7.0 Water Mass 70.6 BMR 1,347 Intake Visit Reasons: (OV) PO LSG 12/21/22 Allergies No Known Allergies Allergy (Verified 01/20/23 09:56) Medication List - Last Reconciled 08/05/23 by Anne Villasenor PA-C azelastine 2 sprays intranasal BID CPAP (CPAP Machine/Device) As directed donepezil (Aricept) 10 mg PO BEDTIME fluticasone propionate 50 mcg/actuation (Allergy Relief (fluticasone)) 2 sprays intranasal BID gabapentin 600 mg PO TID levothyroxine 50 mcg PO 6XW levothyroxine 100 mcg PO QWEEK eaizysbvhdld-dgu-ioxw-FA-vit K 45 mg iron- 800 mcg-120 mcg (Bariatric Multivitamins) caps PO DAILY venlafaxine ER (Effexor XR) 75 mg PO DAILY@0730 vitamin A palmitate 3,000 mcg PO DAILY HPI HPI Comments History of Present Illness Details Pt is now 8 months s/p LSG. 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 No complications. Hungry when she forgets to eat. 9am - protein cereal with Fairlife =26 grams OR has a shake 12 pm - sometimes feels like flavored rice cakes - Built bar has a snack of fruit 4-5 pm - 2 oz egg or 3 oz chicken and 3 oz veg Exercise - 30 minutes walking at home. Uses sometimes when exercise PFSH Medical History (Updated 04/06/23 @ 11:17 by Anne Villasenor PA-C) Ear ache BMI 36.0-36.9,adult Dementia Depression IBS (irritable bowel syndrome) Sleep apnea with use of continuous positive airway pressure (CPAP) Fibromyalgia GERD (gastroesophageal reflux disease) Hypertension Morbid obesity Surgical History (Updated 08/05/23 @ 10:45 by Cris Eason CMA) Hx of laparoscopic partial gastrectomy History of delivery Hx of hysterectomy, total Hx of rhinoplasty Hx of tooth extraction Hx of colonoscopy Family History Mother High cholesterol Hypertension Heart attack Anxiety Depression Father No problems noted. Sister No problems noted. Sister No problems noted. Sister No problems noted. Sister Anxiety Depression Schizophrenia Hypertension Sleep apnea Fibromyalgia Sister Hypertension Anxiety Depression Fibromyalgia Sister Lupus Anxiety Depression Fibromyalgia Brother No problems noted. Brother No problems noted. Brother No problems noted. Brother No problems noted. Brother No problems noted. Son No problems noted. Son No problems noted. Son No problems noted. Daughter No problems noted. Social History Are you a primary childcare teacher to a significant other at home: No Do you presently have visiting nurse or other home services: No Alcohol intake: never Patient Tobacco Use Status: Never used Tobacco Physical Exam Vital Signs: Last Vital Signs Temp 96.0 F L 08/05/23 10:36 Pulse 75 08/05/23 10:36 BP 148/80 H 08/05/23 10:36 Pulse Ox 100 08/05/23 10:36 Oxygen Delivery Method Room Air 08/05/23 10:36 BMI result Body Mass Index 25.5 Assessment & Plan Assessment & Plan (1) Overweight: Code(s): E66.3 - Overweight Plan: 9 months post op with 84 lbs or 36% TBWL. Needs about 65 grams protein per day. Breakfast -25- 30 grams Lunch - 15- 20 grms snack - fresh fruit, 6 raw almond, reduced fat cheese stick dinner - 3 oz protien and 3 oz veg Exercise - TBP sitting or LS 2miles - - 4d/ week. RTC 3 months at 1 year. I spent 30 minutes in total speaking with the patient via video conference counseling , reviewing records and charting in patients chart. . (2) S/P laparoscopic sleeve gastrectomy: Code(s): Z98.84 - Bariatric surgery status Coding Level of Care Code Est Pt Level 4 (89038) Diagnoses Overweight E66.3 S/P laparoscopic sleeve gastrectomy Z98.84
[2023-08-05 10:36] VITALS: BP 148/80; PULSE 75; TEMP 35.6; O2SAT 100; BMI 25.5
== END 2023-08-05 11:16 | disposition home or self-care (01) ==
PROVIDERS: PCP Internal Medicine; Visit Provider Physician Assistant
DX: E66.3 Overweight (principal); Z68.25 Body mass index [BMI] 25.0-25.9, adult; Z90.3 Acquired absence of stomach [part of]; Z98.84 Bariatric surgery status
CPT/HCPCS: 99214

== ENCOUNTER → 2023-08-05 10:22 | Outpatient (BNVA) | payer MEDICARE, OTHER, SELFPAY | PROVIDERS: PCP Internal Medicine; Visit Provider Physician Assistant | DX: E66.3 Overweight (principal); Z68.25 Body mass index [BMI] 25.0-25.9, adult; Z98.84 Bariatric surgery status | CPT/HCPCS: 99212 ==

== ENCOUNTER 2023-12-16 08:19 | Outpatient (REF) | payer MEDICARE, OTHER, SELFPAY ==
[2023-12-16 08:37] LABS: MANUAL DIFF FLAG NO
[2023-12-16 09:19] LABS: Basophils Absolute Auto 0.1 X10*3/uL (0.0-0.2); Eosinophils Absolute Auto 0.1 X10*3/uL (0.0-0.4); Eosinophils Percent Auto 2.4 % (0-4); Hemoglobin 13.1 g/dl (12.0-16.0); Imm Gran Abs Auto 0.01 X10*3/uL (0.00-0.03); Imm Gran Pct Auto 0.2 % (0.0-0.4); Lymphocytes Absolute Auto 2.4 X10*3/uL (1.2-4.9); Lymphocytes Percent Auto 49.1 % (20-40); Mean Corpuscular HGB Conc 32.8 g/dl (31.0-35.0); Mean Corpuscular Hemoglobin 29.8 pg (27.0-33.0); Mean Corpuscular Volume 90.9 fL (80.0-98.0); Mean Platelet Volume 10.2 fL (9.4-12.3); Monocytes Absolute Auto 0.4 X10*3/uL (0.1-1.2); Monocytes Percent Auto 7.7 % (2-11); Neutrophils Percent Auto 39.6 % (45-73); Platelet Count 360 X10*3/uL (160-400); Red Cell Distribution Width 13.3 % (11.0-16.0); White Blood Count 4.9 X10*3/uL (4.8-10.8)
[2023-12-16 09:27] LABS: Estimated Average Glucose 103 mg/dL; Hemoglobin A1c % 5.2 % (<6.0)
[2023-12-16 10:25] LABS: Alanine Aminotransferase 50 U/L (0-31); Albumin Level 4.4 g/dL (3.5-5.0); Alkaline Phosphatase 95 U/L (39-117); Anion Gap 13 (12-20); Aspartate Amino Transferase 34 U/L (5-31); Bilirubin Total 0.3 mg/dL (0.0-1.0); Blood Urea Nitrogen 17 mg/dL (9-16); C Reactive Protein < 0.10 mg/dL (< or = 0.50); Calcium 9.8 mg/dL (8.4-10.2); Carbon Dioxide 29 mmol/L (22-29); Chloride 104 mmol/L (96-108); Cholesterol 270 mg/dL (<200); Estimated Glomerular Filt Rate > 60; Glucose Random 69 mg/dL (60-115); HDL Cholesterol 62 mg/dL (>40); Iron 114 mcg/dL (30-160); LDL Cholesterol Calculated 191 mg/dL (<100); Percent Iron Saturation 39 % (15-50); Potassium 3.8 mmol/L (3.3-5.1); Sodium 142 mmol/L (135-145); Total Iron Binding Capacity 296 mcg/dL (228-428); Total Protein 7.9 g/dL (6.5-8.0); Triglycerides 88 mg/dL (<150); Unsaturated Iron Binding 182 ug/dL
[2023-12-16 10:34] LABS: Ferritin 347 ng/mL (10-250); Insulin 4 uU/mL (2-29); TSH reflex Free T4 3.03 uIU/mL (0.32-4.0); Vitamin D 25-OH Total 40.8 ng/mL (>30)
[2023-12-16 10:41] LABS: Vitamin B12 880 pg/mL (200-900)
[2023-12-20 14:44] LABS: Zinc 83 mcg/dL (60-130)
[2023-12-21 00:29] LABS: Vitamin A 47 mcg/dL (38-98)
[2023-12-22 15:28] LABS: Vitamin B1 24 nmol/L (8-30)
== END 2023-12-16 08:20 | disposition home or self-care (01) ==
LOC: HO.LAB 08:19
PROVIDERS: PCP Internal Medicine; Visit Provider Physician Assistant
DX: E66.3 Overweight (principal); E03.9 Hypothyroidism, unspecified; E53.8 Deficiency of other specified B group vitamins; Z98.84 Bariatric surgery status
CPT/HCPCS: 36415; 80053; 80061; 82306; 82607; 82728; 82746; 83036; 83525; 83540; 84425; 84443; 84590; 84630; 85025; 86140

== ENCOUNTER 2023-12-26 16:00 | Outpatient (AMB) | payer MEDICARE, OTHER, SELFPAY ==
--- NOTE | 2023-12-26 15:07 | A.OFFVIS_ITS ---
Intake VS Expanded 12/26/23 16:09 Height 5 ft 4 in Weight 147 lb 6 oz BMI 25.3 Intake Visit Reasons: TV PO LSG 12/21/22 Allergies No Known Allergies Allergy (Verified 01/20/23 09:56) Medication List - Last Reconciled 12/26/23 by Anne Villasenor PA-C azelastine 2 sprays intranasal BID calcium citrate-vitamin D3 315 mg-5 mcg (200 unit) (Calcium Citrate + D) 1 tab PO BID CPAP (CPAP Machine/Device) As directed donepezil (Aricept) 10 mg PO BEDTIME fluticasone propionate 50 mcg/actuation (Allergy Relief (fluticasone)) 2 sprays intranasal BID gabapentin 600 mg PO TID levothyroxine 50 mcg PO 6XW levothyroxine 100 mcg PO QWEEK qeznkbeyphzk-lpj-xfxn-FA-vit K 45 mg iron- 800 mcg-120 mcg (Bariatric Multivitamins) caps PO DAILY venlafaxine ER (Effexor XR) 75 mg PO DAILY@0730 HPI HPI Comments History of Present Illness Details 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 Weight has been stable over last 4 months and she believes this is a weight that she can maintain. Presently hurt her left shoulder - will get it looked out. meal plan now: Breakfast - Premeir cereal 20 grams, 4 oz Failrife, raisans 1 oz and coffee with non day powdered creamer Lunch - 2 slices bread (4 g) or bagel (8g ) with lean ham and cheese Dinner - grilled chicken - 14 g, 4 oz green, 1 boiled egg may have a pack of animal crackers in evening - 4d/ week Or Built bar OR 10 luisa dried fruit pack Exercise - not much at all. Post op complications: none PURNIMA: still needs it, had repeat SS DM: never HTN: resolved Hyperlipidemia: resolved GERD: 0 Satisfaction with present condition - satisfied [facility] Medical History (Updated 04/06/23 @ 11:17 by Anne Villasenor PA-C) Ear ache BMI 36.0-36.9,adult Dementia Depression IBS (irritable bowel syndrome) Sleep apnea with use of continuous positive airway pressure (CPAP) Fibromyalgia GERD (gastroesophageal reflux disease) Hypertension Morbid obesity Surgical History (Updated 08/05/23 @ 10:45 by Cris Eason CMA) Hx of laparoscopic partial gastrectomy History of delivery Hx of hysterectomy, total Hx of rhinoplasty Hx of tooth extraction Hx of colonoscopy Family History Mother High cholesterol Hypertension Heart attack Anxiety Depression Father No problems noted. Sister No problems noted. Sister No problems noted. Sister No problems noted. Sister Anxiety Depression Schizophrenia Hypertension Sleep apnea Fibromyalgia Sister Hypertension Anxiety Depression Fibromyalgia Sister Lupus Anxiety Depression Fibromyalgia Brother No problems noted. Brother No problems noted. Brother No problems noted. Brother No problems noted. Brother No problems noted. Son No problems noted. Son No problems noted. Son No problems noted. Daughter No problems noted. Social History Are you a primary administrator health care facility to a significant other at home: No Do you presently have visiting nurse or other home services: No Alcohol intake: never Comment: aware of trip hazard Patient Tobacco Use Status: Never used Tobacco Physical Exam GI Inspection: Yes incision (completely healed) Assessment & Plan Assessment & Plan (1) Overweight: Code(s): E66.3 - Overweight Plan: 1 year s/p LSG - doing great - reached her maintaince weight. Needs 60 - 65 grams protein per day. Breakfast - 25 grams - cereal, 1/4 raisans OR fresh berries. 4 oz 1% milk Lunch - 1 slice bread - varitey of 2 - 3 oz protiens and 2 oz vegetables= 20 grams Dinner - 25 grasm - 3-4 oz proitena nd 2-3 oz vegetable Exercise - 5d/week - 30 minutes or LS 2 mile videos. We discussed how she must have a regular exercise routine so that she does not start to regain. 6 weeks with Elizabeth 6 months with me I spent 30 minutes in total speaking with the patient via video conference counseling , reviewing records and charting in patients chart. . (2) S/P laparoscopic sleeve gastrectomy: Code(s): Z98.84 - Bariatric surgery status Plan see above Telehealth Telehealth Location of provider rendering services: practice address Location of patient: address on file Patient Identification confirmed using: Name, : Yes Telehealth method: video Patient verbally consented to treatment: Yes Patient verbally consented to billing insurance company: Yes Patient informed of any privacy concerns related to visit: Yes Coding Level of Care Code Tele Est Pt Level 4 (22048) Diagnoses Overweight E66.3 S/P laparoscopic sleeve gastrectomy Z98.84
[2023-12-26 16:09] VITALS: BMI 25.3
== END 2023-12-26 16:35 | disposition home or self-care (01) ==
LOC: HO.HBS 16:19
PROVIDERS: PCP Internal Medicine; Visit Provider Physician Assistant
DX: E66.3 Overweight (principal); Z68.25 Body mass index [BMI] 25.0-25.9, adult; Z90.3 Acquired absence of stomach [part of]; Z98.84 Bariatric surgery status
CPT/HCPCS: 99214

== ENCOUNTER → 2023-12-26 16:00 | Outpatient (BNVA) | payer MEDICARE, OTHER, SELFPAY | PROVIDERS: PCP Internal Medicine; Visit Provider Physician Assistant ==

== ENCOUNTER 2024-02-06 10:51 | Outpatient (AMB) | payer MEDICARE, OTHER, SELFPAY ==
--- NOTE | 2024-02-06 10:37 | MHC.AMNUTRGE ---
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 1 cup Premier cereal with 1/2c milk ; 1/2 c blueberries 1 slice of 647 bread, 2oz protein, 2oz veg - sometimes built bar or jeef jerky or antioxidant nut blend if out running errands - or will get a salad at [employer] with no dressing, croutons or nuts dinner 4oz protein, 3oz veg - sometimes feel this isnt' enough , will have 1/4c rice Exercise: very minimal , but tries to be as active as possible Diagnosis Nutrition problem #1 overweight/obesity As related to (etiology) #1 excess energy intake and physical inactivity As evidenced by (sign/symptom) #1 high BMI (resolving ) Monitoring/Goals Nutrition problem monitoring total energy intake, level of knowledge/skill, total PRO intake, total CHO intake, weight and oral fluids Outcome progress progressing Learning/Education Readiness to learn excellent Stages of change action Most Recent Diabetes Results: Cholesterol 270 mg/dL (<200) H 12/16/23 HDL Cholesterol 62 mg/dL (>40) 12/16/23 Triglycerides 88 mg/dL (<150) 12/16/23 Creatinine 0.93 mg/dL (0.5-1.4) 12/16/23 Blood Urea Nitrogen 17 mg/dL (9-16) H 12/16/23 Sodium 142 mmol/L (135-145) 12/16/23 Potassium 3.8 mmol/L (3.3-5.1) 12/16/23 Chloride 104 mmol/L (96-108) 12/16/23 Carbon Dioxide 29 mmol/L (22-29) 12/16/23 Calcium 9.8 mg/dL (8.4-10.2) 12/16/23 AST 34 U/L (5-31) H 12/16/23 ALT 50 U/L (0-31) H 12/16/23 Total Protein 7.9 g/dL (6.5-8.0) 12/16/23 Albumin 4.4 g/dL (3.5-5.0) 12/16/23 [facility] Medical History (Updated 04/06/23 @ 11:17 by Anne Villasenor PA-C) Ear ache BMI 36.0-36.9,adult Dementia Depression IBS (irritable bowel syndrome) Sleep apnea with use of continuous positive airway pressure (CPAP) Fibromyalgia GERD (gastroesophageal reflux disease) Hypertension Morbid obesity Surgical History (Updated 08/05/23 @ 10:45 by Cris Eason [facility]) Hx of laparoscopic partial gastrectomy History of delivery Hx of hysterectomy, total Hx of rhinoplasty Hx of tooth extraction Hx of colonoscopy Family History Mother High cholesterol Hypertension Heart attack Anxiety Depression Father No problems noted. Sister No problems noted. Sister No problems noted. Sister No problems noted. Sister Anxiety Depression Schizophrenia Hypertension Sleep apnea Fibromyalgia Sister Hypertension Anxiety Depression Fibromyalgia Sister Lupus Anxiety Depression Fibromyalgia Brother No problems noted. Brother No problems noted. Brother No problems noted. Brother No problems noted. Brother No problems noted. Son No problems noted. Son No problems noted. Son No problems noted. Daughter No problems noted. Social History Are you a primary hospice care consultant to a significant other at home: No Do you presently have visiting nurse or other home services: No Alcohol intake: never Comment: aware of trip hazard Patient Tobacco Use Status: Never used Tobacco Assessment & Plan Assessment & Plan (1) History of sleeve gastrectomy: Code(s): Z90.3 - Acquired absence of stomach [part of] Plan discussed maintaining a positive relationship with food . she will continue with PA Telehealth Telehealth Location of provider rendering services: practice address Location of patient: address on file Patient Identification confirmed using: Name, : Yes Telehealth method: voice only Patient verbally consented to treatment: Yes Patient verbally consented to billing insurance company: Yes Patient informed of any privacy concerns related to visit: Yes Minutes spent on Phone/Video with Pt.: 25 Coding Level of Care Code Nutr Indiv Subseq ([id number]) Diagnoses History of sleeve gastrectomy Z90.3 Time Spent (min) 25
== END 2024-02-06 10:53 | disposition home or self-care (01) ==
LOC: HO.HBS 10:51
PROVIDERS: PCP Internal Medicine; Visit Provider Dietitian, Registered
DX: Z90.3 Acquired absence of stomach [part of] (principal)

== ENCOUNTER → 2024-02-06 10:51 | Outpatient (BNVA) | payer MEDICARE, OTHER, SELFPAY | PROVIDERS: PCP Internal Medicine; Visit Provider Dietitian, Registered | DX: E66.3 Overweight (principal); Z98.84 Bariatric surgery status | CPT/HCPCS: 97803 ==

== ENCOUNTER 2024-03-14 11:02 | Outpatient (AMB) | payer MEDICARE, OTHER, SELFPAY ==
--- NOTE | 2024-03-14 09:18 | MHC.OFFVISWM ---
VS Expanded 03/14/24 09:19 Height 5 ft 4 in Weight 149 lb 9.6 oz BMI 25.7 Body Fat % 30.9 Body Fat Mass 46.2 Fat Free Mass 103.4 Visceral Fat Rating 8 Intake Visit Reasons: VIDEO PO LSG 12/21/22 Allergies No Known Allergies Allergy (Verified 01/20/23 09:56) Medication List - Last Reconciled 03/14/24 by DANI Simons azelastine 2 sprays intranasal BID calcium citrate-vitamin D3 315 mg-5 mcg (200 unit) (Calcium Citrate + D) 1 tab PO BID CPAP (CPAP Machine/Device) As directed donepezil (Aricept) 10 mg PO BEDTIME fluticasone propionate 50 mcg/actuation (Allergy Relief (fluticasone)) 2 sprays intranasal BID gabapentin 600 mg PO TID levothyroxine 50 mcg PO 6XW levothyroxine 100 mcg PO QWEEK eyxoglniself-pqe-grso-FA-vit K 45 mg iron- 800 mcg-120 mcg (Bariatric Multivitamins) caps PO DAILY venlafaxine ER (Effexor XR) 75 mg PO DAILY@0730 HPI Comments Details: 59-year-old female returns to the office in follow-up. She is 1 year, 2.5 months status post sleeve gastrectomy performed on 12/21/2022. Weight today is 149.6 lb with a BMI of 25.7. Initial weight on 10/13/2022 was 232.6 lb. Operative weight was 202 lb. She has lost 83 lb or 35.6% total body weight loss since she started the program in September 2022. She has lost 52.4 lb since surgery or 25.9% total body weight loss. She states she has been well. She states she would get shakes mid morning if she were to have the morning sandwich and then skips the cereal. wake 545 am Meal plan: 24 oz coffee w sandwich 647 bread ham and cheese 9 am BF, cup of premier protein cereal (20 gm /c), 1/2 c FF lactose free milk, 1/4 c blueberries sometimes 2 tsp flax seed, 2 tsp bran fiber lunch, 2 oz protein and 2 oz veg, slice 647 bread dinner, 4 oz protein and 3 oz veg carb conscious after dinner 25 luisa drinkin-120 oz water daily Exercise plan: walking outside [facility] Medical History Ear ache BMI 36.0-36.9,adult Dementia Depression IBS (irritable bowel syndrome) Sleep apnea with use of continuous positive airway pressure (CPAP) Fibromyalgia GERD (gastroesophageal reflux disease) Hypertension Morbid obesity Surgical History Hx of laparoscopic partial gastrectomy History of delivery Hx of hysterectomy, total Hx of rhinoplasty Hx of tooth extraction Hx of colonoscopy Family History Mother High cholesterol Hypertension Heart attack Anxiety Depression Father No problems noted. Sister No problems noted. Sister No problems noted. Sister No problems noted. Sister Anxiety Depression Schizophrenia Hypertension Sleep apnea Fibromyalgia Sister Hypertension Anxiety Depression Fibromyalgia Sister Lupus Anxiety Depression Fibromyalgia Brother No problems noted. Brother No problems noted. Brother No problems noted. Brother No problems noted. Brother No problems noted. Son No problems noted. Son No problems noted. Son No problems noted. Daughter No problems noted. Social History Are you a primary day care worker to a significant other at home: No Do you presently have visiting nurse or other home services: No Alcohol intake: never Comment: aware of trip hazard Patient Tobacco Use Status: Never used Tobacco Telehealth Telehealth Telehealth Platform: Telephone Location of provider rendering services: practice address Location of patient: address on file Patient Identification confirmed using: Name, : Yes Telehealth method: voice only Patient verbally consented to treatment: Yes Patient verbally consented to billing insurance company: Yes Patient informed of any privacy concerns related to visit: Yes Minutes spent on Phone/Video with Pt.: 20 Assessment & Plan Assessment & Plan (1) S/P laparoscopic sleeve gastrectomy: Code(s): Z98.84 - Bariatric surgery status Category: Surgical Plan: Overall, doing fairly well. We will make some slight changes to her meal plan: Decrease coffee to 16 oz coffee w built bar 10 am BF, 1/2 cup of premier protein cereal (20 gm /c), 1/4 c FF lactose free milk, 1/4 c blueberries sometimes 2 tsp flax seed, 2 tsp bran fiber lunch, 2 oz protein and 2 oz veg, slice 647 bread dinner, 4 oz protein and 3 oz veg Fresh fruit Encouraged to increase walking with dedicated time for cardio. She states that she is planning to get a stationary bike and she will text once she has this. I suspect that the shakes that she reports occurs with increased coffee intake and decreased p.o. intake as she would typically skip her serial if she were to have a sandwich in the morning. We will see if a more regularly scheduled oral intake will resolve the problem. Return to clinic 6 weeks
[2024-03-14 09:19] VITALS: BMI 25.7
== END 2024-03-14 11:31 | disposition home or self-care (01) ==
LOC: HO.HBS 11:02
PROVIDERS: PCP Internal Medicine; Visit Provider Physician Assistant Surgical
DX: E66.3 Overweight (principal); Z68.25 Body mass index [BMI] 25.0-25.9, adult; Z90.3 Acquired absence of stomach [part of]; Z98.84 Bariatric surgery status
CPT/HCPCS: 99442

== ENCOUNTER → 2024-03-14 11:02 | Outpatient (BNVA) | payer MEDICARE, OTHER, SELFPAY | PROVIDERS: PCP Internal Medicine; Visit Provider Physician Assistant Surgical ==

== ENCOUNTER 2024-06-13 14:12 | Outpatient (REF) | payer MEDICARE, OTHER, SELFPAY ==
[2024-06-13 14:39] LABS: MANUAL DIFF FLAG NO
[2024-06-13 15:49] LABS: Basophils Percent Auto 0.5 % (0-2); Eosinophils Percent Auto 0.5 % (0-4); Hematocrit 37.7 % (37.0-47.0); Hemoglobin 12.5 g/dl (12.0-16.0); Imm Gran Abs Auto 0.01 X10*3/uL (0.00-0.03); Imm Gran Pct Auto 0.2 % (0.0-0.4); Lymphocytes Percent Auto 30.1 % (20-40); Mean Corpuscular HGB Conc 33.2 g/dl (31.0-35.0); Mean Corpuscular Hemoglobin 30.1 pg (27.0-33.0); Mean Corpuscular Volume 90.8 fL (80.0-98.0); Monocytes Absolute Auto 0.4 X10*3/uL (0.1-1.2); Monocytes Percent Auto 6.2 % (2-11); Neutrophils Absolute Auto 4.1 x10*3/uL (2.0-8.3); Neutrophils Percent Auto 62.5 % (45-73); Platelet Count 337 X10*3/uL (160-400); Red Blood Count 4.15 X10*6/uL (4.20-5.50); Red Cell Distribution Width 13.5 % (11.0-16.0); White Blood Count 6.6 X10*3/uL (4.8-10.8)
[2024-06-13 16:01] LABS: Estimated Average Glucose 105 mg/dL; Hemoglobin A1c % 5.3 % (<6.0)
[2024-06-13 16:22] LABS: Alanine Aminotransferase 27 U/L (0-31); Albumin Level 4.7 g/dL (3.5-5.0); Alkaline Phosphatase 78 U/L (39-117); Anion Gap 15 (12-20); Aspartate Amino Transferase 24 U/L (5-31); Bilirubin Total 0.2 mg/dL (0.0-1.0); Blood Urea Nitrogen 16 mg/dL (9-16); C Reactive Protein < 0.10 mg/dL (< or = 0.50); Calcium 10.3 mg/dL (8.4-10.2); Carbon Dioxide 26 mmol/L (22-29); Chloride 105 mmol/L (96-108); Cholesterol 231 mg/dL (<200); Estimated Glomerular Filt Rate > 60; Glucose Random 85 mg/dL (60-115); HDL Cholesterol 62 mg/dL (>40); Iron 101 mcg/dL (30-160); LDL Cholesterol Calculated 153 mg/dL (<100); Percent Iron Saturation 35 % (15-50); Potassium 4.6 mmol/L (3.3-5.1); Sodium 141 mmol/L (135-145); Total Iron Binding Capacity 291 mcg/dL (228-428); Total Protein 8.1 g/dL (6.5-8.0); Triglycerides 83 mg/dL (<150); Unsaturated Iron Binding 190 ug/dL
[2024-06-13 16:36] LABS: Ferritin 339 ng/mL (10-250); Insulin 6 uU/mL (2-29); TSH reflex Free T4 1.55 uIU/mL (0.32-4.0); Vitamin D 25-OH Total 70.5 ng/mL (>30)
[2024-06-13 16:56] LABS: Folate 13.8 ng/mL (> or = 4.0); Vitamin B12 1244 pg/mL (200-900)
[2024-06-16 22:24] LABS: Zinc 82 mcg/dL (60-130)
[2024-06-18 06:14] LABS: Vitamin B1 36 nmol/L (8-30)
[2024-06-20 01:28] LABS: Vitamin A 47 mcg/dL (38-98)
== END 2024-06-13 14:13 | disposition home or self-care (01) ==
LOC: HO.LAB 14:12
PROVIDERS: Visit Provider Physician Assistant Surgical
DX: E03.9 Hypothyroidism, unspecified (principal); E53.8 Deficiency of other specified B group vitamins; I10 Essential (primary) hypertension; Z71.3 Dietary counseling and surveillance; Z98.84 Bariatric surgery status
CPT/HCPCS: 36415; 80053; 80061; 82306; 82607; 82728; 82746; 83036; 83525; 83540; 84425; 84443; 84590; 84630; 85025; 86140; 99212

== ENCOUNTER 2024-06-13 14:47 | Outpatient (AMB) | payer MEDICARE, OTHER, SELFPAY ==
--- NOTE | 2024-06-13 15:10 | MHC.OFFVISWM ---
VS Expanded 06/13/24 15:22 BP 128/68 Blood Pressure Location Rt brachial Blood Pressure Position Sitting Pulse 93 Pulse Source Pulse Oximeter Temp 97.3 F Temperature Source Tympanic Pulse Oximetry 98 Oxygen Delivery Method Room Air Height 5 ft 4 in Weight 145 lb 12.8 oz BMI 25.0 Body Fat % 33.0 Body Fat Mass 48.0 Fat Free Mass 97.6 Visceral Fat Rating 7.0 Body Water % 47.5 Body Water Mass 69.2 Muscle Mass/Score 92.6 Basal Metabolic Rate/Score 1,321 Intake Visit Reasons: (OV) PO LSG 12/21/22 Allergies No Known Allergies Allergy (Verified 06/13/24 15:24) HPI Comments Details: 59-year-old female returns to the office in follow-up. She is 1 year, 6 months status post sleeve gastrectomy performed on 12/21/2022. Weight today is 145.8 lb with a BMI of 25. Initial weight on 10/13/2022 was 232.6 lb. Operative weight was 202 lb. She has lost 86.8 lb or 37.3% total body weight loss since she started the program in September 2022. She has lost 56.2 lb since surgery or 27.8% total body weight loss. She states she has been well. She states she had deviated from her meal plan but choice remains healthy Meal plan: Decrease coffee to 16-20 oz coffee w built bar, (3 of 7 days) 10 am BF, 1/2 cup of premier protein cereal (20 gm /c), 1/4 c FF lactose free milk, 1/4 c blueberries sometimes 2 tsp flax seed, 2 tsp bran fiber lunch, 2 oz protein and 3 oz veg, dinner, 4 oz protein and 4 oz veg drinkin oz water daily Exercise plan: stationary bike (none in the last 2 weeks due to wedding and moving Any post op complications: none PURNIMA: improved DM: never HTN: never Hyperlipidemia: never GERD:?0-5 scale ??0 = no symptoms ??1 = symptoms noticeable but not bothersome 2 =symptoms bothersome but not daily ? 3 = symptoms bothersome and daily 4 = symptoms affect daily activities 5 = symptoms are incapacitating, unable to do daily activities ? How bad is the heartburn: 0 ? Heartburn while lying down: 0 ? Heartburn when standing up: 0 ? Heartburn after meals: 0 ? Does heartburn change your diet: 0 ? Does heartburn wake you up from sleep: 0 ? Do you have difficulty swallowin ? Do you have pain with swallowin ? If you take medicine for your reflux, does this affect your daily life: 0 Satisfaction with present condition - satisfied or not satisfied: satisfied [facility] Medical History Ear ache BMI 36.0-36.9,adult Dementia Depression IBS (irritable bowel syndrome) Sleep apnea with use of continuous positive airway pressure (CPAP) Fibromyalgia GERD (gastroesophageal reflux disease) Hypertension Morbid obesity Surgical History Hx of laparoscopic partial gastrectomy History of delivery Hx of hysterectomy, total Hx of rhinoplasty Hx of tooth extraction Hx of colonoscopy Family History Mother High cholesterol Hypertension Heart attack Anxiety Depression Father No problems noted. Sister No problems noted. Sister No problems noted. Sister No problems noted. Sister Anxiety Depression Schizophrenia Hypertension Sleep apnea Fibromyalgia Sister Hypertension Anxiety Depression Fibromyalgia Sister Lupus Anxiety Depression Fibromyalgia Brother No problems noted. Brother No problems noted. Brother No problems noted. Brother No problems noted. Brother No problems noted. Son No problems noted. Son No problems noted. Son No problems noted. Daughter No problems noted. Social History Are you a primary point of care technician to a significant other at home: No Do you presently have visiting nurse or other home services: No Alcohol intake: never Comment: aware of trip hazard Patient Tobacco Use Status: Never used Tobacco Physical Exam Vital Signs: Last Vital Signs Temp 97.3 F 06/13/24 15:22 Pulse 93 06/13/24 15:22 BP 128/68 06/13/24 15:22 Pulse Ox 98 06/13/24 15:22 Oxygen Delivery Method Room Air 06/13/24 15:22 BMI result Body Mass Index 25.0 Const General: cooperative and no acute distress Orientation/consciousness: patient oriented x3 Resp Effort & Inspection: normal respiratory effort Auscultation: clear to auscultation bilaterally Cardio Rate: regular rate Rhythm: regular rhythm GI Inspection: Yes normal to inspection and Yes incision (well healed) Palpation (GI): Soft to palpation and no masses Neuro General: patient oriented x3 Assessment & Plan Assessment & Plan (1) S/P laparoscopic sleeve gastrectomy: Code(s): Z98.84 - Bariatric surgery status Category: Surgical Plan: Eighteen months post sleeve gastrectomy. Overall doing well. She has achieved a healthy weight. She did have labs today, chemistries are pending, CBC looks good. Recommend she not skip her mid day meal. She was stating that she was hungry during the day and it may be because she had been skipping this. She will continue to exercise as she is able. Just having had a right knee steroid injection. We will have her return to the office in 2 months, sooner should she have any questions or concerns.
[2024-06-13 15:22] VITALS: BP 128/68; PULSE 93; TEMP 36.3; O2SAT 98; BMI 25.0
== END 2024-06-13 15:59 | disposition home or self-care (01) ==
PROVIDERS: PCP Internal Medicine; Visit Provider Physician Assistant Surgical
DX: Z71.3 Dietary counseling and surveillance (principal); Z90.3 Acquired absence of stomach [part of]; Z98.84 Bariatric surgery status
CPT/HCPCS: 99213

== ENCOUNTER 2024-10-26 09:19 | Outpatient (AMB) | payer MEDICARE, OTHER, SELFPAY ==
--- NOTE | 2024-10-26 09:21 | MHC.OFFVISWM ---
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 Allergies No Known Allergies Allergy (Verified 06/13/24 15:24) Medication List - Last Reconciled 10/26/24 by DANI Simons calcium citrate-vitamin D3 315 mg-5 mcg (200 unit) (Calcium Citrate + D) 1 tab PO BID CPAP (CPAP Machine/Device) As directed cyclobenzaprine mg PO donepezil (Aricept) 10 mg PO BEDTIME gabapentin 600 mg PO TID gabapentin mg PO ipratropium bromide intranasal levothyroxine mcg PO loratadine (Allergy Relief (loratadine)) 10 mg PO DAILY venlafaxine ER (Effexor XR) 75 mg PO DAILY@0730 venlafaxine ER 150 mg PO DAILY HPI Comments Details: 59-year-old female returns to the office in follow-up. She is 1 year, 11 months status post sleeve gastrectomy performed on 12/21/2022. Weight today is 150.2 lb with a BMI of 25.8. Initial weight on 10/13/2022 was 232.6 lb. Operative weight was 202 lb. She has lost 82.4 lb or 35.4% total body weight loss since she started the program in September 2022. She has lost 51.8 lb since surgery or 25.6% total body weight loss. Given her excessive weight loss, she has developed intermittent rash to her abdomen, especially at the skin folds. This is certainly worse in the summer times. She has applied moisturizers, talc, she describes the rash as a burning sensation with irritation, somewhat itchy at times and there is an odor. With the application of the talc or barrier between the skin folds, this improves however only to recur. We will send off a prescription for antifungal cream. She additionally needs to increase her hygiene requiring 2 showers per day. This has been significantly bothersome for her and negatively impacting her activities of daily life. She additionally needs to wear special clothing, larger sizes to account for the additional skin folds. This is distressing for her and we will monitor her rash. She states she has been well. She states she had deviated from her meal plan but choice remains healthy Meal plan: Decrease coffee to 16-20 oz coffee 8 am BF, 1/4 cup of oatmeal (20 gm /c), 8 oz almond milk, 1/4 c blueberries 10-12 built bar 1-3 built bar 4 pm 5 forks protein 5 forks veg 6-7 1/2 built bar 8-9 1/2 apple or 6 strawberries drinkin oz water daily Exercise plan: sitting zoomba [facility] Medical History Ear ache BMI 36.0-36.9,adult Dementia Depression IBS (irritable bowel syndrome) Sleep apnea with use of continuous positive airway pressure (CPAP) Fibromyalgia GERD (gastroesophageal reflux disease) Hypertension Morbid obesity Surgical History Hx of laparoscopic partial gastrectomy History of delivery Hx of hysterectomy, total Hx of rhinoplasty Hx of tooth extraction Hx of colonoscopy Family History Mother High cholesterol Hypertension Heart attack Anxiety Depression Father No problems noted. Sister No problems noted. Sister No problems noted. Sister No problems noted. Sister Anxiety Depression Schizophrenia Hypertension Sleep apnea Fibromyalgia Sister Hypertension Anxiety Depression Fibromyalgia Sister Lupus Anxiety Depression Fibromyalgia Brother No problems noted. Brother No problems noted. Brother No problems noted. Brother No problems noted. Brother No problems noted. Son No problems noted. Son No problems noted. Son No problems noted. Daughter No problems noted. Social History Are you a primary customer care consultant to a significant other at home: No Do you presently have visiting nurse or other home services: No Alcohol intake: never Comment: aware of trip hazard Patient Tobacco Use Status: Never used Tobacco Physical Exam Const General: healthy appearing and no acute distress Resp Effort & Inspection: normal respiratory effort Auscultation: clear to auscultation bilaterally Cardio Rate: regular rate Rhythm: regular rhythm GI Auscultation: normal bowel sounds Skin Other: Grade 1-2 pannus, irritation noted under the skin fold. Extrem General: Yes normal to inspection Assessment & Plan Assessment & Plan (1) S/P laparoscopic sleeve gastrectomy: Code(s): Z98.84 - Bariatric surgery status Category: Surgical Plan: Change meal plan: 8 am BF, 1/4 cup of oatmeal (20 gm /c), 8 oz almond milk, 1/4 c blueberries 10-12 built bar 1-3 built bar 4 pm 5 forks protein 5 forks veg 6-7 1/2 apple or 6 strawberries For exercise, she will use her stationary bike for 20 minutes in the morning and attempt yoga for beginning as in the afternoon. We will have her return to the office in approximately 1 month for her 2 year follow-up. (2) Excess skin: Code(s): L98.7 - Excessive and redundant skin and subcutaneous tissue Category: Medical Plan: Patient with excess skin of the abdomen due to her significant weight loss. She does have evidence of fungal infection and we will prescribe clotrimazole as needed. Additionally, we will have her return to the office in approximately a month as above, to further evaluate her skin. Given the recurrence of rash, negative impact on activities of daily living including excessive hygiene requirements, odor, pain, itching, it would be appropriate for medically necessary skin removal surgery. We will evaluate this in 1 month and submit to her insurance company if problem persists with the prescriptive medication. Medications: New clotrimazole 1% (Antifungal (clotrimazole)) 1 appl topical BID 45 grams 2RF
[2024-10-26 09:35] VITALS: BP 137/63; PULSE 90; TEMP 37.1; O2SAT 99; BMI 25.4
== END 2024-10-26 10:06 | disposition home or self-care (01) ==
PROVIDERS: PCP Internal Medicine; Visit Provider Physician Assistant Surgical
DX: L98.7 Excessive and redundant skin and subcutaneous tissue (principal); Z90.3 Acquired absence of stomach [part of]; Z98.84 Bariatric surgery status
CPT/HCPCS: 99213

== ENCOUNTER → 2024-10-26 09:19 | Outpatient (BNVA) | payer MEDICARE, OTHER, SELFPAY | PROVIDERS: PCP Internal Medicine; Visit Provider Physician Assistant Surgical | DX: L98.7 Excessive and redundant skin and subcutaneous tissue (principal); Z71.3 Dietary counseling and surveillance; Z98.84 Bariatric surgery status | CPT/HCPCS: 99212 ==

== ENCOUNTER 2024-12-24 08:34 | Outpatient (AMB) | payer MEDICARE, OTHER, SELFPAY ==
--- NOTE | 2024-12-24 08:39 | A.OFFVIS_ITS ---
VS Expanded 12/24/24 08:49 BP 139/71 Blood Pressure Location Rt brachial Blood Pressure Position Sitting Pulse 75 Pulse Source Pulse Oximeter Temp 96.3 F L Temperature Source Temporal Artery Scan Pulse Oximetry 100 Oxygen Delivery Method Room Air Height 5 ft 4.5 in Weight 153 lb 6.4 oz BMI 25.9 Body Fat % 34.1 Body Fat Mass 52.2 Fat Free Mass 101.0 Visceral Fat Rating 7.0 Body Water % 46.6 Body Water Mass 71.4 Muscle Mass/Score 96.0 Basal Metabolic Rate/Score 1,367 Intake Visit Reasons: (OV) PO LSG 12/21/22 Allergies No Known Allergies Allergy (Verified 12/24/24 08:44) Medication List - Last Reconciled 12/24/24 by DANI Simons calcium citrate-vitamin D3 315 mg-5 mcg (200 unit) (Calcium Citrate + D) 1 tab PO BID clotrimazole 1% (Antifungal (clotrimazole)) 1 appl topical BID CPAP (CPAP Machine/Device) As directed [id number]-lrhew 1,000-200 mcg (Celebrate B-12 Quick-Melt) tabs PO cyclobenzaprine mg PO TID donepezil (Aricept) 10 mg PO BEDTIME gabapentin 600 mg PO TID gabapentin mg PO ipratropium bromide intranasal levothyroxine two on Tuesday one each day on Tuesday-Tuesday linaclotide (Linzess) 290 mcg PO DAILY loratadine (Allergy Relief (loratadine)) 10 mg PO DAILY venlafaxine ER (Effexor XR) 75 mg PO DAILY@0730 venlafaxine ER 150 mg PO DAILY HPI Comments Details: 59-year-old female returns to the office in follow-up. She is 2 years, status post sleeve gastrectomy performed on 12/21/2022. Weight today is 153.4 lb with a BMI of 25.9. Initial weight on 10/13/2022 was 232.6 lb. Operative weight was 202 lb. She has lost 79.2 lb or 34% total body weight loss since she started the program in September 2022. She has lost 48.6 lb since surgery or 24% total body weight loss. Taking celebrate mvi and luisa + D Given her excessive weight loss, she has developed intermittent rash to her abdomen, especially at the skin folds. This is certainly worse in the summer times. She has applied moisturizers, talc, she describes the rash as a burning sensation with irritation, somewhat itchy at times and there is an odor. With the application of the talc or barrier between the skin folds, this improves however only to recur. We will send off a prescription for antifungal cream. She additionally needs to increase her hygiene requiring 2 showers per day. This has been significantly bothersome for her and negatively impacting her activities of daily life. She additionally needs to wear special clothing, larger sizes to account for the additional skin folds. This is distressing for her and we will monitor her rash. She states she has been well. She has not had a rash in the last month although the weather has been quite cold. She also just joined the [facility] Meal plan: Decrease coffee to 16-20 oz coffee 8 am BF, 1/4 cup of oatmeal (20 gm /c), 8 oz almond milk, 1/4 c blueberries 10-12 built bar 1-3 built bar 4 pm 5 forks protein 5 forks veg 6-7 1/2 apple or 6 strawberries drinking 60 oz water Exercise: [facility] will start yoga Any post op complications: None PURNIMA: Had repeat sleep study, still needs machine DM: Never HTN: Resolved Hyperlipidemia: Resolved GERD:?0-5 scale ??0 = no symptoms ??1 = symptoms noticeable but not bothersome 2 =symptoms bothersome but not daily ? 3 = symptoms bothersome and daily 4 = symptoms affect daily activities 5 = symptoms are incapacitating, unable to do daily activities ? How bad is the heartburn: 0 ? Heartburn while lying down: 0 ? Heartburn when standing up: 0 ? Heartburn after meals: 0 ? Does heartburn change your diet: 0 ? Does heartburn wake you up from sleep: 0 ? Do you have difficulty swallowin ? Do you have pain with swallowin ? If you take medicine for your reflux, does this affect your daily life: 0 Satisfaction with present condition - satisfied or not satisfied: Satisfied [facility] Medical History Ear ache BMI 36.0-36.9,adult Dementia Depression IBS (irritable bowel syndrome) Sleep apnea with use of continuous positive airway pressure (CPAP) Fibromyalgia GERD (gastroesophageal reflux disease) Hypertension Morbid obesity Surgical History Hx of laparoscopic partial gastrectomy History of delivery Hx of hysterectomy, total Hx of rhinoplasty Hx of tooth extraction Hx of colonoscopy Family History Mother High cholesterol Hypertension Heart attack Anxiety Depression Father No problems noted. Sister No problems noted. Sister No problems noted. Sister No problems noted. Sister Anxiety Depression Schizophrenia Hypertension Sleep apnea Fibromyalgia Sister Hypertension Anxiety Depression Fibromyalgia Sister Lupus Anxiety Depression Fibromyalgia Brother No problems noted. Brother No problems noted. Brother No problems noted. Brother No problems noted. Brother No problems noted. Son No problems noted. Son No problems noted. Son No problems noted. Daughter No problems noted. Social History Are you a primary home care companion to a significant other at home: No Do you presently have visiting nurse or other home services: No Alcohol intake: never Comment: aware of trip hazard Patient Tobacco Use Status: Never used Tobacco Physical Exam Vital Signs: Last Vital Signs Temp 96.3 F L 12/24/24 08:49 Pulse 75 12/24/24 08:49 BP 139/71 12/24/24 08:49 Pulse Ox 100 12/24/24 08:49 Oxygen Delivery Method Room Air 12/24/24 08:49 BMI result Body Mass Index 25.9 Const General: cooperative and no acute distress Orientation/consciousness: patient oriented x3 Resp Effort & Inspection: normal respiratory effort Auscultation: clear to auscultation bilaterally Cardio Rate: regular rate Rhythm: regular rhythm GI Inspection: Yes normal to inspection and Yes incision (well healed) Palpation (GI): Soft to palpation and no masses Neuro General: patient oriented x3 Assessment & Plan Assessment & Plan (1) S/P laparoscopic sleeve gastrectomy: Code(s): Z98.84 - Bariatric surgery status Category: Surgical Plan: We will check 2 year postop labs. Encouraged to continue the meal plan. Discussed the importance of exercise. She does have underlying fibromyalgia however we will continue to try to exercise as she is able. Encouraged to do some exercise on a daily basis with a goal of burning 300 calories per day. She is join the [employer]. She will try yoga daily. (2) Excess skin: Code(s): L98.7 - Excessive and redundant skin and subcutaneous tissue Category: Medical Plan: Continue to monitor. She has not had a rash in the last month. It although the weather has been colder, she typically gets rashes in the warmer months. We wi ll continue to follow clinically. She does have antifungal cream as needed. Orders: Orders Insulin Today E03.9 - Hypothyroidism, unspecified, E53.8 - Deficiency of other specified B group vitamins, E66.3 - Overweight, I10 - Essential (primary) hypertension, Z98.84 - Bariatric surgery status Complete Blood Count Auto Diff Today E03.9 - Hypothyroidism, unspecified, E53.8 - Deficiency of other specified B group vitamins, E66.3 - Overweight, I10 - Essential (primary) hypertension, Z98.84 - Bariatric surgery status Zinc Today E03.9 - Hypothyroidism, unspecified, E53.8 - Deficiency of other specified B group vitamins, E66.3 - Overweight, I10 - Essential (primary) hypertension, Z98.84 - Bariatric surgery status C Reactive Protein Today E03.9 - Hypothyroidism, unspecified, E53.8 - Deficiency of other specified B group vitamins, E66.3 - Overweight, I10 - Essential (primary) hypertension, Z98.84 - Bariatric surgery status Vitamin B1 Today E03.9 - Hypothyroidism, unspecified, E53.8 - Deficiency of other specified B group vitamins, E66.3 - Overweight, I10 - Essential (primary) hypertension, Z98.84 - Bariatric surgery status TSH reflex Free T4 Today E03.9 - Hypothyroidism, unspecified, E53.8 - Deficiency of other specified B group vitamins, E66.3 - Overweight, I10 - Essential (primary) hypertension, Z98.84 - Bariatric surgery status Vitamin D 25-OH Total Today E03.9 - Hypothyroidism, unspecified, E53.8 - Deficiency of other specified B group vitamins, E66.3 - Overweight, I10 - Essential (primary) hypertension, Z98.84 - Bariatric surgery status Hemoglobin A1c Today E03.9 - Hypothyroidism, unspecified, E53.8 - Deficiency of other specified B group vitamins, E66.3 - Overweight, I10 - Essential (primary) hypertension, Z98.84 - Bariatric surgery status H Pylori Breath Test Today E03.9 - Hypothyroidism, unspecified, E53.8 - Deficiency of other specified B group vitamins, E66.3 - Overweight, I10 - Essential (primary) hypertension, Z98.84 - Bariatric surgery status Lipid Panel Today E03.9 - Hypothyroidism, unspecified, E53.8 - Deficiency of other specified B group vitamins, E66.3 - Overweight, I10 - Essential (primary) hypertension, Z98.84 - Bariatric surgery status IRON PROFILE Today E03.9 - Hypothyroidism, unspecified, E53.8 - Deficiency of other specified B group vitamins, E66.3 - Overweight, I10 - Essential (primary) hypertension, Z98.84 - Bariatric surgery status Comprehensive Met. Panel Today E03.9 - Hypothyroidism, unspecified, E53.8 - Deficiency of other specified B group vitamins, E66.3 - Overweight, I10 - Essential (primary) hypertension, Z98.84 - Bariatric surgery status Vitamin B12 and Folate Today E03.9 - Hypothyroidism, unspecified, E53.8 - Deficiency of other specified B group vitamins, E66.3 - Overweight, I10 - Essential (primary) hypertension, Z98.84 - Bariatric surgery status Vitamin A Today E03.9 - Hypothyroidism, unspecified, E53.8 - Deficiency of other specified B group vitamins, E66.3 - Overweight, I10 - Essential (primary) hypertension, Z98.84 - Bariatric surgery status Ferritin Today E03.9 - Hypothyroidism, unspecified, E53.8 - Deficiency of other specified B group vitamins, E66.3 - Overweight, I10 - Essential (primary) hypertension, Z98.84 - Bariatric surgery status
--- OUTSIDE RECORDS SUMMARY | 2024-12-24 08:44 | XMS_ITS | Data Portability ---
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 At this time she remains symptomatic of her allergies despite maximum medical therapy. She would like to start allergy injections. Risks were discussed as outlined below. I will send an EpiPen to her pharmacy Immunotherapy - Subcutaneous We also discussed the role of immunotherapy. I explained that this is instituted for the most significant of allergies and involves the introduction of increasingly graduated dosages of the appropriate allergens by subcutaneous injection to facilitate tolerance. I explained about the likelihood of improvement usually within a three to six month time period provided that the patient is compliant with therapy. We spoke about the duration of therapy, which typically lasts from three to five years though at times can be indefinite. We also discussed the risk of anaphylaxis with this. I have also recommended she stop the azelastine and Flonase and try ipratropium for a few weeks to see if this helps the runny nose. Follow up in six months after starting immunotherapy. [email or web address] Not available 05/01/2024 11:03:09 Plan of Treatment Reminders Order Date Submit Date Provider Last Modified By Organization Details Last Modified Time Details Appointments Establish ed 15 2024 10:45A Mikey HARRIS PA-C Not available Not available Not available Lab None recorded. Referral None recorded. Procedures None recorded. Surgeries None recorded. Imaging None recorded. Medication Orders ipratropi um bromide 21 mcg (0.03 %) nasal spray 2023 024 [facility] [address] [place], [address], 05/01/2024 11:04:19 epinephri ne 0.3 mg/0.3 mL injection , auto-inje ctor 2023 024 [facility] [address] [place], [address], 05/01/2024 11:04:21 Patient TargetsNo targets recorded. Patient Instructions Encounter Date Encounter Id Patient Instructions Last Modified By Organization Details Last Modified Time 05/01/2024 [id number] allergy immunotherapy regimen* [email or web address] Not available 06/07/2024 12:51:38 Reason for Referral None Reported. Results Created Date Observation Date Name Description Value Unit Range Abnormal Flag Note LastModifiedBy Organization Detail LastModifiedTime 07/10/20 24 03/03/2022 imagi ng/josiah ashford tic resul t No observ ation record ed. [email or web address] Not Available 20:59:07 Result Notes None recorded. 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; Note: Date Diagnosed: 05/31/2018 12:04 PM (Q18.1) Not Available [facility] 4 02:52:42 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; Note: Date Diagnosed: 05/31/2018 12:04 PM (Q18.1) Not Available [facility] 4 02:52:42 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 Procedures Surgical History None recorded. Imaging Results Imaging Date Name Status LastModified by [facility] Details LastModified Time 03/03/2022 imaging/diag nostic result completed [email or web address] Information not available 07/10/2024 20:59:07 Procedure Notes None recorded. Medical Equipment None Reported. Allergies No known drug allergies Medications Name Sig Start Date Stop Date Status Note LastModified by Organization Details LastModified Time cyclobenz aprine 10 mg tablet TAKE 1 TABLET BY MOUTH THREE TIMES DAILY active Not Available Not Available No t Available venlafaxi ne ER 75 mg capsule,e xtended release 24 hr TAKE 1 CAPSULE BY MOUTH ONCE DAILY BEFORE BREAKFAS T DO NOT CRUSH OR CHEW TAKE THIS WITH 150MG VENLAFAX INE CAPSULE active Not Available Not Available No t Available gabapenti n 600 mg tablet TAKE 1 TABLET BY MOUTH THREE TIMES DAILY active Not Available Not Available No t Available metoprolo l succinate ER 50 mg tablet,ex tended release 24 hr 01/18 completed Medicati on ID: [id number] B rand Name: metoprol ol succinat e Send Method: E-Prescr ibed Sub s Allowed: subs OK Medic ationGen ericName : metoprol ol succinat e Not Available Not Available Not Available donepezil 10 mg tablet TAKE 1 TABLET BY MOUTH ONCE DAILY AT BEDTIME active Not Available Not Available No t Available meloxicam 15 mg tablet 2021 active Medicati on ID: [id number] B rand Name: meloxica m Send Method: E-Prescr ibed Sub s Allowed: subs OK Medic ationGen ericName : meloxica m Medica tion ID: [id number] B rand Name: meloxica m Send Method: E-Prescr ibed Sub s Allowed: subs OK Medic ationGen ericName : meloxica m Not Available Not Available Not Available sucralfat e 1 gram tablet 01/18 completed Medicati on ID: [id number] B rand Name: sucralfa te Send Method: E-Prescr ibed Sub s Allowed: subs OK Medic ationGen ericName : sucralfa te Not Available Not Available Not Available venlafaxi ne ER 150 mg capsule,e xtended release 24 hr TAKE 1 CAPSULE BY MOUTH ONCE DAILY active Not Available Not Available No t Available peg-elect rolyte solution 420 gram oral solution 02/04 completed Medicati on ID: [id number] D uration Value: 1 Brand Name: peg-elec trolyte soln Sen d Method: E-Prescr ibed Sub s Allowed: subs OK Medic ationGen ericName : peg-elec trolyte soln Not Available Not Available Not Available amoxicill in 875 mg tablet TAKE 1 TABLET BY MOUTH EVERY 12 HOURS UNTIL ALL TAKEN active Not Available Not Available No t Available vitamin A 3,000 mcg (10,000 unit) capsule 01/18 completed Medicati on ID: [id number] B rand Name: vitamin A Send Method: E-Prescr ibed Sub s Allowed: subs OK Medic ationGen ericName : vitamin A Not Available Not Available Not Available levothyro xine 50 mcg tablet TAKE 8 TABLETS BY MOUTH EVERY WEEK (6 DAYS AT ONCE DAILY. 1 DAY TAKE TWO) active Not Available Not Available No t Available pantopraz ole 40 mg tablet,de layed release 01/18 completed Medicati on ID: [id number] B rand Name: pantopra zole Sen d Method: E-Prescr ibed Sub s Allowed: subs OK Medic ationGen ericName : pantopra zole Not Available Not Available Not Available clobetaso l 0.05 % topical foam APPLY A THIN FILM TOPICALL Y TWICE DAILY FOR 14 DAYS active Not Available Not Available No t Available gabapenti n 300 mg capsule TAKE 1 CAPSULE BY MOUTH THREE TIMES DAILY WITH 600MG TAB FOR TOTAL DOSE OF 900MG active Not Available Not Available No t Available mupirocin 2 % topical ointment APPLY A SMALL AMOUNT OF OINTMENT TOPICALL Y THREE TIMES DAILY TO BOTH NOSTRILS FOR 2 WEEKS active Not Available Not Available No t Available metoprolo l succinate ER 25 mg tablet,ex tended release 24 hr 02/04 completed Medicati on ID: [id number] D uration Value: 30 Brand Name: metoprol ol succinat e Send Method: E-Prescr ibed Sub s Allowed: subs OK Medic ationGen ericName : metoprol ol succinat e Not Available Not Available Not Available azelastin e 137 mcg (0.1 %) nasal spray Inhale 2 spray twice a day as directed active Not Available Not Available No t Available fluticaso ne propionat e 50 mcg/actua tion nasal spray,jameson pension USE 2 SPRAY(S) IN EACH NOSTRIL ONCE DAILY active Not Available Not Available No t Available clotrimaz ole 1 % topical cream APPLY CREAM TOPICALL Y TWICE DAILY active Not Available Not Available No t Available ipratropi um bromide 21 mcg (0.03 %) nasal spray USE 2 SPRAY(S) IN EACH NOSTRIL TWICE DAILY active Not Available Not Available No t Available cyclobenz aprine 5 mg tablet TAKE 1 TABLET BY MOUTH THREE TIMES DAILY active Not Available Not Available No t Available peg 3350-elec trolytes 236 gram-22.7 4 gram-6.74 gram-5.86 gram solution TAKE 4000ML DIRECTED active Not Available Not Available No t Available lubiprost one 8 mcg capsule TAKE 1 CAPSULE BY MOUTH TWICE DAILY active Not Available Not Available No t Available EpiPen 2-Balbir 0.3 mg/0.3 mL injection , auto-inje ctor Take 1 auto as needed by injectio n route as directed , for anaphyla xis. 2023 active Not Available Not Available Not Avai lable Linzess 290 mcg capsule TAKE 1 CAPSULE BY MOUTH ONCE DAILY active Not Available Not Available No t Available Vitals Date Recorded Body height Body mass index (BMI) Body weight Provider Name and Address Organization Details Last Updated DateTime 05/01/2024 162.56 cm 25.4 kg/m2 22061.67 g Crystal Ramirez [place] - [facility] 05/01/2024 10:42:11 Social History None recorded. Functional Status None recorded. Mental Status None recorded. Family History Nothing Reported. Medical History No medical history recorded. Gynecological HistoryNo gynecological history recorded. Obstetrics History GPAL:G 0 P 0 0 0 0 Past Encounters Encounter ID Performer Location Encounter Start Date Encounter Closed Date Diagnosis/Indication Diagnosis SNOMED-CT Code Diagnosis ICD10 Code Diagnosis Note [id number] EL CORONA MD [facility] [address] [place] [address] 05/01/2024 10:29:02 05/07/2024 11:58:02 Allergic rhinitis 67276484 J30.89 Health Concerns Section Related Observation LastModified by Organization Detai ls LastModified Time None Recorded Concern Status LastModified by Organization Details LastModified Time None Recorded Advance Directives Directive None Recorded Payers Encounter Date Sequence Insurance Name Policy Number Policy Figueroa Covered Member ID Figueroa Member ID Guarantor Name 05/01/2024 2 [facility] [id number] 1 Merly Y Y Griselda [id number] Merly Y Griselda 05/01/2024 1 MEDICARE B-[place]: [facility] Merly Y Griselda [id number] Merly Villalobos Notes Date Note Type Note Provider Name and Address Organization Details Recorded Time 05/01/2024 text/html 59 year old fema le with nasal congestion and frequent runny nose.She is here today to review results of her allergy skin testing.Despite use of azelastine, Flonase and an OTC antihistamine, she remains symptomatic. Being outdoors is particularly bothersome. She vacuums daily. EL CORONA MD [address] [place] [address], [place], [address], [place] - [facility] 05/01/2024 12:49:24 OBGyn Episode No OBEpisode recorded.
[2024-12-24 08:49] VITALS: BP 139/71; PULSE 75; TEMP 35.7; O2SAT 100; BMI 25.9
== END 2024-12-24 09:52 | disposition home or self-care (01) ==
PROVIDERS: PCP Internal Medicine; Visit Provider Physician Assistant Surgical
DX: L98.7 Excessive and redundant skin and subcutaneous tissue (principal); Z90.3 Acquired absence of stomach [part of]; Z98.84 Bariatric surgery status
CPT/HCPCS: 99214; G2211

== ENCOUNTER → 2024-12-24 08:34 | Outpatient (BNVA) | payer MEDICARE, OTHER, SELFPAY | PROVIDERS: PCP Internal Medicine; Visit Provider Physician Assistant Surgical | DX: L98.7 Excessive and redundant skin and subcutaneous tissue (principal); Z98.84 Bariatric surgery status | CPT/HCPCS: 99212 ==

== ENCOUNTER 2025-04-12 08:44 | Outpatient (AMB) | payer MEDICARE, OTHER, SELFPAY ==
--- NOTE | 2025-04-12 08:57 | MHC.OFFVISWM ---
VS Expanded 04/12/25 09:13 BP 129/63 Blood Pressure Location Rt brachial Blood Pressure Position Sitting Pulse 73 Pulse Source Pulse Oximeter Temp 97.7 F Temperature Source Temporal Artery Scan Pulse Oximetry 97 Oxygen Delivery Method Room Air Height 5 ft 4.5 in Weight 153 lb BMI 25.9 Body Fat % 36.4 Body Fat Mass 55.6 Fat Free Mass 97.2 Visceral Fat Rating 8.0 Body Water % 45.0 Body Water Mass 68.8 Muscle Mass/Score 92.4 Basal Metabolic Rate/Score 1,328 Intake Visit Reasons: (OV) PO LSG 12/21/22 Allergies No Known Allergies Allergy (Verified 04/12/25 09:01) HPI Comments Details: 60-year-old female returns to the office in follow-up. She is 2 years 4 months, status post sleeve gastrectomy performed on 12/21/2022. Weight today is 153 lb with a BMI of 25.8. Initial weight on 10/13/2022 was 232.6 lb. Operative weight was 202 lb. She has lost 79.6 lb or 34.2% total body weight loss since she started the program in September 2022. She has lost 49 lb since surgery or 24.2% total body weight loss. Taking celebrate mvi and luisa + D Given her excessive weight loss, she has developed intermittent rash to her abdomen, especially at the skin folds. This is certainly worse in the summer times. She has applied moisturizers, talc, she describes the rash as a burning sensation with irritation, somewhat itchy at times and there is an odor. With the application of the talc or barrier between the skin folds, this improves however only to recur. We sent a prescription for antifungal cream. She additionally needs to increase her hygiene requiring 2 showers per day. This has been significantly bothersome for her and negatively impacting her activities of daily life. She additionally needs to wear special clothing, larger sizes to account for the additional skin folds. This is distressing for her and we will monitor her rash. She states she has been well. She has joined the [facility] and has been going consistently. Meal plan: Decrease coffee to 16-20 oz coffee 8 am BF, 1/4 cup of oatmeal (20 gm /c), 8 oz almond milk, 1/4 c blueberries 10-12 built bar 1-3 built bar 4 pm 5 forks protein 5 forks veg 6-7 1/2 apple or 6 strawberries drinking 60 oz water Exercise: [employer] 4-5 x per week doing zoomba, body beast camp, water zoomba. [facility] Medical History Ear ache BMI 36.0-36.9,adult Dementia Depression IBS (irritable bowel syndrome) Sleep apnea with use of continuous positive airway pressure (CPAP) Fibromyalgia GERD (gastroesophageal reflux disease) Hypertension Morbid obesity Surgical History Hx of laparoscopic partial gastrectomy History of delivery Hx of hysterectomy, total Hx of rhinoplasty Hx of tooth extraction Hx of colonoscopy Family History Mother High cholesterol Hypertension Heart attack Anxiety Depression Father No problems noted. Sister No problems noted. Sister No problems noted. Sister No problems noted. Sister Anxiety Depression Schizophrenia Hypertension Sleep apnea Fibromyalgia Sister Hypertension Anxiety Depression Fibromyalgia Sister Lupus Anxiety Depression Fibromyalgia Brother No problems noted. Brother No problems noted. Brother No problems noted. Brother No problems noted. Brother No problems noted. Son No problems noted. Son No problems noted. Son No problems noted. Daughter No problems noted. Social History Are you a primary manager intensive care unit to a significant other at home: No Do you presently have visiting nurse or other home services: No Alcohol intake: never Comment: aware of trip hazard Patient Tobacco Use Status: Never used Tobacco Physical Exam Const General: healthy appearing and no acute distress Resp Effort & Inspection: normal respiratory effort Auscultation: clear to auscultation bilaterally Cardio Rate: regular rate Rhythm: regular rhythm GI Auscultation: normal bowel sounds Extrem General: Yes normal to inspection Assessment & Plan Assessment & Plan (1) S/P laparoscopic sleeve gastrectomy: Code(s): Z98.84 - Bariatric surgery status Category: Surgical Plan: Patient has done exceptionally well. She is consistent in her meal plan. She is now exercising regularly. She feels great. She was reminded to get labs done that were ordered in December. She states that she was having some difficulty finding the built bars and certainly may substitute with fit crunch or even a Surinamese yogurt. We will have her return to the office in a proximally 4 months. (2) Excess skin: Code(s): L98.7 - Excessive and redundant skin and subcutaneous tissue Category: Medical Plan: Patient does have some excess skin of the abdomen however she has not had any current active rash. She does have clotrimazole cream should she develop a rash given the warmer months or coming. We will continue to follow this clinically. Consideration for medically necessary skin removal surgery if this becomes a problem.
--- OUTSIDE RECORDS SUMMARY | 2025-04-12 09:01 | XMS_ITS | Data Portability ---
Author Organization [place] - [facility], Allergy Address [address] [address] Care Team Providers Care [employer]cura Sales Consultant Name Role Phone SELINA VICK Primary Care Provider Assessment Encounter Date Assessment Date Assessment LastModified by Organization Details LastModified Time 05/01/2024 05/01/2024 Allergy skin testing reveals moderate reactions to hickory trees, sami plantain weed, dust, dogs and fusarium mold. [...] up in six months after starting immunotherapy. [email or web address] Not available 05/01/2024 11:03:09 01/18/2025 01/18/2025 60 year old female presents for telehealth. She reports her rhinorrhea is improved with Ipratropium. She reports only mild nasal congestion. She did not end up starting SCIT due to the out of pocket cost of the epi pen. She may follow up at her convenience if she decides to proceed with SCIT. [email or web address] Not available 01/19/2025 19:34:56 Plan of Treatment Reminders Order Date Submit Date Provider Last Modified By Organization Details Last Modified Time Details Appointments None recorded. Lab None recorded. Referral None recorded. Procedures None recorded. Surgeries None recorded. Imaging None recorded. Medication Orders ipratropium bromide 21 mcg (0.03 %) nasal spray 2023 [facility] [address], [address] [place] [address], [id number], 11:04:19 epinephrine 0.3 mg/0.3 mL injection, auto-inject or 2023 [facility] [address], [address] [place] [address], [id number], 11:04:21 Patient TargetsNo targets recorded. Patient Instructions Encounter Date Encounter Id Patient Instructions Last Modified By Organization Details Last Modified Time 05/01/2024 [id number] allergy immunotherapy regimen* [email or web address] Not available 06/07/2024 12:51:38 Reason for Referral None Reported. Results Created Date Observation Date Name Description Value Unit Range Abnormal Flag Note LastModifiedBy Organization Detail LastModifiedTime 07/10/20 24 03/03/2022 charlesi wendi/josiah ashford tic resul t No observ ation record ed. [email or web address] Not Available 20:59:07 Result Notes None recorded. 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 cyst; Note: Date Diagnosed: 05/31/2018 12:04 PM (Q18.1) Not Available [facility] 4 02:52:42 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; Note: Date Diagnosed: 05/31/2018 12:04 PM (Q18.1) Not Available [facility] 4 02:52:42 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 Procedures Surgical History None recorded. Imaging Results Imaging Date Name Status LastModified by Organiz ation Details LastModified Time 03/03/2022 imaging/diag nostic result [...] 24 hr 01/18 completed Medicati on ID: [id number] B rand Name: metoprol ol succinat e Send Method: E-Prescr ibed Sub s Allowed: subs OK Medic ationGen ericName : metoprol ol succinat e Not Available Not Available Not Available donepezil 10 mg tablet TAKE 1 TABLET BY MOUTH ONCE DAILY AT BEDTIME active Not Available Not Available No t Available meloxicam 15 mg tablet 2021 active Medicati on ID: [id number] B rand Name: meloxica m Send Method: E-Prescr ibed Sub s Allowed: subs OK Medic ationGen ericName : meloxica m Medica tion ID: [id number] B rand Name: meloxica m Send Method: E-Prescr ibed Sub s Allowed: subs OK Medic ationGen ericName : meloxica m Not Available Not Available Not Available sucralfat e 1 gram tablet 01/18 completed Medicati on ID: [id number] B rand Name: sucralfa te Send Method: E-Prescr ibed Sub s Allowed: subs OK Medic ationGen ericName : sucralfa te Not Available Not Available Not Available venlafaxi ne ER 150 mg capsule,e xtended release 24 hr TAKE 1 CAPSULE BY MOUTH ONCE DAILY active Not Available Not Available No t Available peg-elect rolyte solution 420 gram oral solution 02/04 completed Medicati on ID: [id number] D uration Value: 1 Brand Name: peg-elec [...] unit) capsule 01/18 completed Medicati on ID: [id number] B rand Name: vitamin A Send Method: [...] layed release 01/18 completed Medicati on ID: [id number] B rand Name: pantopra zole Sen d [...] 24 hr 02/04 completed Medicati on ID: [id number] D uration Value: 30 Brand Name: metoprol [...] active Not Available Not Available Not Avai sabrina Alvaress 290 mcg capsule TAKE 1 CAPSULE BY MOUTH ONCE DAILY active Not Available Not Available No t Available Vitals Date Recorded Body height Body mass index (BMI) Body weight Provider Name and Address Organization Details Last Updated DateTime 05/01/2024 162.56 cm 25.4 kg/m2 57374.67 g Crystal Ramirez [place] - [facility] 05/01/2024 10:42:11 Social History None recorded. Functional Status None recorded. Mental Status None recorded. Family History Nothing Reported. Medical History No medical history recorded. Gynecological HistoryNo gynecological history recorded. Obstetrics History GPAL:G 0 P 0 0 0 0 Past Encounters Encounter ID Performer Location Encounter Start Date Encounter Closed Date Diagnosis/Indication Diagnosis SNOMED-CT Code Diagnosis ICD10 Code Diagnosis Note [id number] DARIEL MORA PA-C [facility] on [address] [place] [id number] 05/01/2024 10:29:02 05/07/2024 11:58:02 Allergic rhinitis 77707582 J30.89 [id number] MÓNICA HARRIS PA-C [facility] on [address] [place] [id number] 2 01/18/2025 08:46:54 01/18/2025 11:25:31 Allergic rhinitis 59846497 J30.89 Health Concerns Section Related Observation LastModified by Organization Detai ls LastModified Time None Recorded Concern Status LastModified by Organization Details LastModified Time None Recorded Advance Directives Directive None Recorded Payers Insurance Date Sequence Insurance Name Policy Number Policy Figueroa Covered Member ID Figueroa Member ID Guarantor Name 01/21/2025 2 [facility] [id number] 1 Merly Villalobos [id number] Merly Villalobos 01/15/2025 1 [place]IC[place]: [employer] Merly Villalobos [id number] Merly Villalobos Notes Date Note Type Note Provider Name and Address Organization Details Recorded Time 05/01/2024 text/html 59 year old fema le with nasal congestion and frequent runny nose.She is here today to review results of her allergy skin testing.Despite use of azelastine, Flonase and an OTC antihistamine, she remains symptomatic. Being outdoors is particularly bothersome. She vacuums daily. EL CORONA MD [address] [place] [address],[address], [address], [facility] 05/01/2024 12:49:24 01/18/2025 text/html 60 year old cassandra dsouza presents for telehealth. She reports her rhinorrhea is improved with Ipratropium. She reports only mild nasal congestion. She did not end up starting [facility] due to the out of pocket cost of the epi pen. NAVNEET HAQ MD [address] [place] [address],[place] [address], [place], [address], [facility] 01/21/2025 10:21:31 OBGyn Episode No OBEpisode recorded.
[2025-04-12 09:13] VITALS: BP 129/63; PULSE 73; TEMP 36.5; O2SAT 97; BMI 25.9
== END 2025-04-12 09:25 | disposition home or self-care (01) ==
LOC: HO.HBS 08:45
PROVIDERS: PCP Internal Medicine; Visit Provider Physician Assistant Surgical
DX: L98.7 Excessive and redundant skin and subcutaneous tissue (principal); Z90.3 Acquired absence of stomach [part of]; Z98.84 Bariatric surgery status
CPT/HCPCS: 99213; G2211

== ENCOUNTER → 2025-04-12 08:44 | Outpatient (BNVA) | payer MEDICARE, OTHER, SELFPAY | PROVIDERS: PCP Internal Medicine; Visit Provider Physician Assistant Surgical | DX: L98.7 Excessive and redundant skin and subcutaneous tissue (principal); Z98.84 Bariatric surgery status | CPT/HCPCS: 99212 ==

== ENCOUNTER 2025-07-25 08:09 | Outpatient (REF) | payer MEDICARE, OTHER, SELFPAY ==
[2025-07-25 08:30] LABS: MANUAL DIFF FLAG NO
[2025-07-25 09:20] LABS: Hematocrit 37.9 % (37.0-47.0); Hemoglobin 12.5 g/dl (12.0-16.0); Imm Gran Abs Auto 0.00 X10*3/uL (0.00-0.03); Imm Gran Pct Auto 0.0 % (0.0-0.4); Lymphocytes Absolute Auto 1.7 X10*3/uL (1.2-4.9); Mean Corpuscular HGB Conc 33.0 g/dl (31.0-35.0); Mean Corpuscular Hemoglobin 30.3 pg (27.0-33.0); Mean Corpuscular Volume 91.8 fL (80.0-98.0); NRBC Abs Auto 0.000 X10*3/uL (0.0-0.012); NRBC Pct Auto 0.0 /100WBC (0.0-0.2); Platelet Count 325 X10*3/uL (160-400); Red Blood Count 4.13 X10*6/uL (4.20-5.50); White Blood Count 4.4 X10*3/uL (4.8-10.8)
[2025-07-25 09:28] LABS: Hemoglobin A1C 118.8404 umol/L; Total Hemoglobin (HGBA1C) 3316.8193 umol/L
[2025-07-25 10:29] LABS: Alanine Aminotransferase 46 U/L (0-31); Albumin Level 4.4 g/dL (3.5-5.0); Alkaline Phosphatase 86 U/L (39-117); Anion Gap 12 (12-20); Aspartate Amino Transferase 33 U/L (5-31); Blood Urea Nitrogen 14 mg/dL (9-16); Calcium 9.4 mg/dL (8.4-10.2); Carbon Dioxide 29 mmol/L (22-29); Chloride 105 mmol/L (96-108); Cholesterol 234 mg/dL (<200); Estimated Glomerular Filt Rate > 60; HDL Cholesterol 64 mg/dL (>40); Iron 120 mcg/dL (30-160); Percent Iron Saturation 41 % (15-50); Potassium 4.2 mmol/L (3.3-5.1); Sodium 142 mmol/L (135-145); Total Iron Binding Capacity 296 mcg/dL (228-428); Total Protein 7.5 g/dL (6.5-8.0); Triglycerides 67 mg/dL (<150); Unsaturated Iron Binding 176 ug/dL
[2025-07-25 10:47] LABS: Ferritin 236 ng/mL (10-250)
[2025-07-25 10:58] LABS: Folate 14.1 ng/mL (> or = 4.0); Vitamin B12 942 pg/mL (200-900)
== END 2025-07-25 08:10 | disposition home or self-care (01) ==
LOC: HO.LAB 08:09
PROVIDERS: Visit Provider Physician Assistant Surgical
DX: Z98.84 Bariatric surgery status (principal); I10 Essential (primary) hypertension; E66.3 Overweight; E03.9 Hypothyroidism, unspecified; E53.8 Deficiency of other specified B group vitamins
CPT/HCPCS: 36415; 80053; 80061; 82306; 82607; 82728; 82746; 83036; 83525; 83540; 84425; 84443; 84590; 84630; 85025; 86140; 99212

== ENCOUNTER 2025-07-25 08:35 | Outpatient (AMB) | payer MEDICARE, OTHER, SELFPAY ==
--- NOTE | 2025-07-25 08:39 | A.OFFVIS_ITS ---
VS Expanded 07/25/25 09:11 BP 123/78 Blood Pressure Location Rt brachial Blood Pressure Position Sitting Pulse 70 Pulse Source Pulse Oximeter Temp 96.6 F L Temperature Source Temporal Artery Scan Pulse Oximetry 99 Oxygen Delivery Method Room Air Height 5 ft 4.5 in Weight 155 lb 6.8 oz BMI 26.3 Body Fat % 37.0 Body Fat Mass 57.6 Fat Free Mass 98.2 Visceral Fat Rating 8.0 Body Water % 44.6 Body Water Mass 69.4 Muscle Mass/Score 93.0 Basal Metabolic Rate/Score 1,342 Intake Visit Reasons: (OV) PO LSG 12/21/22 Biscuit Packer Required: No Allergies No Known Allergies Allergy (Verified 07/25/25 08:55) Medication List - Last Reconciled 07/25/25 by DANI Simons calcium citrate-vitamin D3 315 mg-5 mcg (200 unit) (Calcium Citrate + D) 1 tab PO BID clotrimazole 1% (Antifungal (clotrimazole)) 1 appl topical BID CPAP (CPAP Machine/Device) As directed dihbzbhlgvcy-kuulipzsoox-ryrwm 1,000-200 mcg (Celebrate B-12 Quick-Melt) tabs PO cyclobenzaprine mg PO TID donepezil (Aricept) 10 mg PO BEDTIME gabapentin 600 mg PO TID gabapentin mg PO ipratropium bromide intranasal levothyroxine two on Tuesday one each day on Tuesday-Tuesday linaclotide (Linzess) 290 mcg PO DAILY loratadine (Allergy Relief (loratadine)) 20 mg PO DAILY venlafaxine ER 150 mg PO DAILY HPI Comments Details: 60-year-old female returns to the office in follow-up. She is 2 years 7 months, status post sleeve gastrectomy performed on 12/21/2022. Weight today is 155.8 lb with a BMI of 26.3. Initial weight on 10/13/2022 was 232.6 lb. Operative weight was 202 lb. She has lost 76.8 lb or 33% total body weight loss since she started the program in September 2022. She has lost 46.2 lb since surgery or 22.8% total body weight loss. Taking celebrate mvi and luisa + D Given her excessive weight loss, she has developed intermittent rash to her abdomen, especially at the skin folds. This is certainly worse in the summer times. She has applied moisturizers, talc, she describes the rash as a burning sensation with irritation, somewhat itchy at times and there is an odor. With the application of the talc or barrier between the skin folds, this improves however only to recur. We sent a prescription for antifungal cream. She additionally needs to increase her hygiene requiring 2 showers per day. This has been significantly bothersome for her and negatively impacting her activities of daily life. She additionally needs to wear special clothing, larger sizes to account for the additional skin folds. This is distressing for her and we will monitor her rash. She states she has not been following a meal plan over the last couple of months as she had lost her best friend. She wants to resume her meal plan and exercise plan at this time using Orgain protein powder and built bars Meal plan: Decrease coffee to 16-20 oz coffee 8 am BF, 1/4 cup of oatmeal (20 gm /c), 8 oz almond milk, 1/4 c blueberries 10-12 built bar 1-3 built bar 4 pm 5 forks protein 5 forks veg 6-7 1/2 apple or 6 strawberries drinking 60 oz water Exercise: [employer] 4-5 x per week doing zoomba, body beast camp, water zoomba. [facility] Medical History Ear ache BMI 36.0-36.9,adult Dementia Depression IBS (irritable bowel syndrome) Sleep apnea with use of continuous positive airway pressure (CPAP) Fibromyalgia GERD (gastroesophageal reflux disease) Hypertension Morbid obesity Surgical History Hx of laparoscopic partial gastrectomy History of delivery Hx of hysterectomy, total Hx of rhinoplasty Hx of tooth extraction Hx of colonoscopy Family History Mother High cholesterol Hypertension Heart attack Anxiety Depression Father No problems noted. Sister No problems noted. Sister No problems noted. Sister No problems noted. Sister Anxiety Depression Schizophrenia Hypertension Sleep apnea Fibromyalgia Sister Hypertension Anxiety Depression Fibromyalgia Sister Lupus Anxiety Depression Fibromyalgia Brother No problems noted. Brother No problems noted. Brother No problems noted. Brother No problems noted. Brother No problems noted. Son No problems noted. Son No problems noted. Son No problems noted. Daughter No problems noted. Social History Are you a primary care advocate to a significant other at home: No Do you presently have visiting nurse or other home services: No Alcohol intake: never Comment: aware of trip hazard Patient Tobacco Use Status: Never used Tobacco Physical Exam Const General: healthy appearing and no acute distress Resp Effort & Inspection: normal respiratory effort Auscultation: clear to auscultation bilaterally Cardio Rate: regular rate Rhythm: regular rhythm GI Auscultation: normal bowel sounds Extrem General: Yes normal to inspection Assessment & Plan Assessment & Plan (1) S/P laparoscopic sleeve gastrectomy: Code(s): Z98.84 - Bariatric surgery status Category: Surgical Plan: We will change meal plan utilizing built bars and Orgain protein powder: Shake with 1-1/2 scoops of powder in 8-10 oz of unsweetened almond milk or water at 8-10 Built bar at12-2 Meal with 6 forks protein and 6 forks vegetables at4 pm Half built bar at 6-7 pm Continue to drink approximately 64 oz of water Regarding her exercise plan she will return to the [facility] with a goal of doing cardiovascular exercises such as treadmill or stationary bike or elliptical machine or Rich classes ideally 6-7 days per week. She may additionally walk outside as she wishes, tracking calories with a goal of approximately 300-350 per session.
[2025-07-25 09:11] VITALS: BP 123/78; PULSE 70; TEMP 35.9; O2SAT 99; BMI 26.3
== END 2025-07-25 09:25 | disposition home or self-care (01) ==
LOC: HO.HBS 08:36
PROVIDERS: PCP Internal Medicine; Visit Provider Physician Assistant Surgical
DX: E66.3 Overweight (principal); Z68.26 Body mass index [BMI] 26.0-26.9, adult; Z90.3 Acquired absence of stomach [part of]; Z98.84 Bariatric surgery status
CPT/HCPCS: 99213

== ENCOUNTER 2025-10-08 11:35 | Outpatient (AMB) | payer MEDICARE, OTHER, SELFPAY ==
--- NOTE | 2025-10-08 11:55 | MHC.OFFVISWM ---
VS Expanded 10/08/25 12:13 BP 141/72 H Blood Pressure Location Rt brachial Blood Pressure Position Sitting Pulse 85 Pulse Source Pulse Oximeter Temp 96.7 F L Temperature Source Temporal Artery Scan Pulse Oximetry 97 Oxygen Delivery Method Room Air Height 5 ft 4.5 in Weight 161 lb 3.2 oz BMI 27.2 Body Fat % 36.4 Body Fat Mass 58.6 Fat Free Mass 102.6 Visceral Fat Rating 8.0 Body Water % 45.1 Body Water Mass 72.8 Muscle Mass/Score 97.2 Basal Metabolic Rate/Score 1,396 Intake Visit Reasons: (OV) PO LSG 12/21/22 Allergies No Known Allergies Allergy (Verified 10/08/25 12:03) Medication List - Last Reconciled 10/08/25 by DANI Evans calcium citrate-vitamin D3 315 mg-5 mcg (200 unit) (Calcium Citrate + D) 1 tab PO BID clotrimazole 1% (Antifungal (clotrimazole)) 1 appl topical BID CPAP (CPAP Machine/Device) As directed [id number] 1,000-200 mcg (Celebrate B-12 Quick-Melt) tabs PO cyclobenzaprine mg PO TID donepezil (Aricept) 10 mg PO BEDTIME gabapentin 600 mg PO TID gabapentin mg PO ipratropium bromide intranasal levothyroxine two on Tuesday one each day on Tuesday-Tuesday linaclotide (Linzess) 290 mcg PO DAILY loratadine (Allergy Relief (loratadine)) 20 mg PO DAILY venlafaxine ER 150 mg PO DAILY HPI Comments Details: 60-year-old female returns to the office in follow-up. She is 2 years 7 months, status post sleeve gastrectomy performed on 12/21/2022. Weight today is 155.8 lb with a BMI of 26.3. Initial weight on 10/13/2022 was 232.6 lb. Operative weight was 202 lb. Taking celebrate mvi and luisa + D Takes Miralax daily with Linzess to help with BMs. Given her excessive weight loss, she has developed intermittent rash to her abdomen, especially at the skin folds. This is certainly worse in the summer times. She has applied moisturizers, talc, she describes the rash as a burning sensation with irritation, somewhat itchy at times and there is an odor. With the application of the talc or barrier between the skin folds, this improves however only to recur. We sent a prescription for antifungal cream. She additionally needs to increase her hygiene requiring 2 showers per day. This has been significantly bothersome for her and negatively impacting her activities of daily life. She additionally needs to wear special clothing, larger sizes to account for the additional skin folds. This is distressing for her and we will monitor her rash. Meal plan: Shake with 1-1/2 scoops of powder in 8-10 oz of unsweetened almond milk or water at 8-10 Built bar at 12-2 Meal with 6 forks protein and 6 forks vegetables at 4 pm Half built bar at 6-7 pm Continue to drink approximately 64 oz of water - she notes she has not followed this meal plan, continues to grieve the loss of her friend. She has tried to cut back on high carb foods as she recognizes she was eating her feelings. adds splenda and 1 tbsp non dairy creamer to morning coffee will eat half a fox burrito from [employer] Arechiga notes occasional dizzy spells and thinks it may be when she goes too long without eating Exercise: [employer] 4-5 x per week doing thai, body beast camp, water zoomba. FOR[facility]LY [facility], LAT[facility] Medical History Ear ache BMI 36.0-36.9,adult Dementia Depression IBS (irritable bowel syndrome) Sleep apnea with use of continuous positive airway pressure (CPAP) Fibromyalgia GERD (gastroesophageal reflux disease) Hypertension Morbid obesity Surgical History Hx of laparoscopic partial gastrectomy History of delivery Hx of hysterectomy, total Hx of rhinoplasty Hx of tooth extraction Hx of colonoscopy Family History Mother High cholesterol Hypertension Heart attack Anxiety Depression Father No problems noted. Sister No problems noted. Sister No problems noted. Sister No problems noted. Sister Anxiety Depression Schizophrenia Hypertension Sleep apnea Fibromyalgia Sister Hypertension Anxiety Depression Fibromyalgia Sister Lupus Anxiety Depression Fibromyalgia Brother No problems noted. Brother No problems noted. Brother No problems noted. Brother No problems noted. Brother No problems noted. Son No problems noted. Son No problems noted. Son No problems noted. Daughter No problems noted. Social History Are you a primary pharmacist critical care to a significant other at home: No Do you presently have visiting nurse or other home services: No Alcohol intake: never Comment: aware of trip hazard Patient Tobacco Use Status: Never used Tobacco Physical Exam Vital Signs: Last Vital Signs Temp 96.7 F L 10/08/25 12:13 Pulse 85 10/08/25 12:13 BP 141/72 H 10/08/25 12:13 Pulse Ox 97 10/08/25 12:13 Oxygen Delivery Method Room Air 10/08/25 12:13 BMI result Body Mass Index 27.2 Assessment & Plan Assessment & Plan (1) S/P laparoscopic sleeve gastrectomy: Code(s): Z98.84 - Bariatric surgery status Category: Medical (2) Overweight: Code(s): E66.3 - Overweight Category: Medical (3) Excess skin: Code(s): L98.7 - Excessive and redundant skin and subcutaneous tissue Category: Medical Plan 8am oatmeal 1/2c with 1/4 cup berries (pt reports this was approved by Dr Wells previously for her) 10a-12p Built bar 1-3p Orgain shake 1 scoop in 8oz UAM 4pm dinner- 6f/6f 5-7p Built bar She will continue to [facility] [employer]. She has been consistent with this Labs previously done in Jul this year Continue clotrimazole ointment for rashes of excess skin, pt aware of BMI requirement of < 27 or 157lbs or less for her. Will try to be more consistent in PO intake to avoid possible hypoglycemia, and monitor episodes over the next few weeks. Will let us know if they do not improve. RTC 4 mo.
[2025-10-08 12:13] VITALS: BP 141/72; PULSE 85; TEMP 35.9; O2SAT 97; BMI 27.2
--- OUTSIDE RECORDS SUMMARY | 2025-10-09 02:37 | XMS_ITS | Data Portability ---
Author Organization [place] - [facility], Allergy Address [address] [facility] [address] [place] [address] Care Team Providers Care Cigarette Seller Name Role Phone SELINA VICK Primary Care Provider Assessment Encounter Date Assessment Date Assessment LastModified by Organization Details LastModified Time 05/01/2024 05/01/2024 Allergy skin testing reveals moderate reactions to hickory trees, mongolian plantain weed, dust, dogs and fusarium mold. [...] 21 mcg (0.03 %) nasal spray 2023 [facility] [address], [address] [place] [address], [id number], 4 11:04:19 epinephrine 0.3 mg/0.3 mL injection, auto-inject or 2023 024 [facility] [address], [address] [place] [address], [id number], 11:04:21 Patient TargetsNo targets recorded. Patient Instructions Encounter Date Encounter Id Patient Instructions Last Modified By Organization Details Last Modified Time 05/01/2024 [id number] allergy immunotherapy regimen* [email or web address] Not available 06/07/2024 12:51:38 Reason for Referral None Reported. Results Created Date Observation Date Name Description Value Unit Range Abnormal Flag Note LastModifiedBy Organization Detail LastModifiedTime 07/10/20 24 03/03/2022 hardeep adame/josiah ashford tic resul t No observ ation record ed. [email or web address] Not Available 20:59:07 Result Notes None recorded. 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33) Not Available [facility] 4 02:52:39 Disorder of nasal sinus 9763056 Active 2023 Other specified disorders of nose and nasal sinuses; Note: Date Diagnosed: 01/18/2024 10:25 AM (J34.89) Not Available [facility] 4 02:52:44 Disorder of the nose 29100280 Active 2023 Other specified disorders of nose and nasal sinuses; Note: Date Diagnosed: 01/18/2024 10:25 AM (J34.89) Not Available [facility] 4 02:52:44 Chronic rhinitis 52957035 Active 2024 KING DOYLE PA-C [address] [place] [address], [place], [address] , [facility] 5 09:08:47 Vasomotor rhinitis 9611865 Active 2024 KING DOYLE PA-C [address] [place] [address], [place], [address] , [facility] 5 09:08:52 Problem Notes None recorded. Medical Equipment None Reported. Allergies No known drug allergies Medications Name Sig Start Date Stop Date Status Note LastModified by Organization Details LastModified Time cyclobenz aprine 10 mg tablet TAKE 1 TABLET BY MOUTH THREE TIMES DAILY active Not Available Not Available No t Available venlafaxi ne ER 75 mg capsule,e xtended release 24 hr TAKE 1 CAPSULE BY MOUTH TWICE DAILY active Not Available Not Available No t Available gabapenti n 600 mg tablet TAKE 1 TABLET BY MOUTH THREE TIMES DAILY active Not Available Not Available No t Available ketoconaz ole 2 % shampoo SHAMPOO TOPICALL Y ON TUESDAY, AND TUESDAY NEEDED active Not Available Not Available No t Available metoprolo l succinate ER 50 mg tablet,ex tended release 24 hr 01/18 completed Medicati on ID: [id number] B rand Name: metoprol ol succinat e Send Method: E-Prescr ibed Sub s Allowed: subs OK Medic ationGen ericName : metoprol ol succinat e Not Available Not Available Not Available donepezil 10 mg tablet TAKE 1 TABLET BY MOUTH ONCE DAILY AT BEDTIME active Not Available Not Available No t Available meloxicam 15 mg tablet 2021 active Medicati on ID: [id number] B rand Name: meloxica m Send Method: E-Prescr ibed Sub s Allowed: subs OK Medic ationGen ericName : meloxica m Medica tion ID: [id number] B rand Name: meloxica m Send Method: E-Prescr ibed Sub s Allowed: subs OK Medic ationGen ericName : meloxica m Not Available Not Available Not Available sucralfat e 1 gram tablet 01/18 completed Medicati on ID: [id number] B rand Name: sucralfa te Send Method: E-Prescr ibed Sub s Allowed: subs OK Medic ationGen ericName : sucralfa te Not Available Not Available Not Available venlafaxi ne ER 150 mg capsule,e xtended release 24 hr TAKE 1 CAPSULE BY MOUTH ONCE DAILY active Not Available Not Available No t Available peg-elect rolyte solution 420 gram oral solution 02/04 completed Medicati on ID: [id number] D uration Value: 1 Brand Name: peg-elec [...] unit) capsule 01/18 completed Medicati on ID: [id number] B rand Name: vitamin A Send Method: [...] layed release 01/18 completed Medicati on ID: [id number] B rand Name: pantopra zole Sen d [...] 24 hr 02/04 completed Medicati on ID: [id number] D uration Value: 30 Brand Name: metoprol [...] spray USE 2 SPRAY(S) IN EACH NOSTRIL THREE TIMES DAILY DIRECTED FOR CHRONIC RHINITIS active Not Available Not Available No t [...] Updated DateTime 05/01/2024 162.56 cm 25.4 kg/m2 21866.67 g Crystal Ramirez [place] - [facility] 05/01/2024 10:42:11 Social History None recorded. Functional Status None recorded. Mental Status None recorded. Family History Nothing Reported. Medical History No medical history recorded. Gynecological HistoryNo gynecological history recorded. Obstetrics History GPAL:G 0 P 0 0 0 0 Past Encounters Encounter ID Performer Location Encounter Start Date Encounter Closed Date Diagnosis/Indication Diagnosis SNOMED-CT Code Diagnosis ICD10 Code Diagnosis IMO Codes Diagnosis Note [id number] DARIEL MORA PA-C [facility] on [address] [place] [id number] 05/01/2024 10:29:02 05/07/2024 11:58:02 Allergic rhinitis 13635476 J30.89 [id number] MÓNICA HARRIS PA-C [facility] on [address] [place] [id number] 01/18/2025 08:46:54 01/18/2025 11:25:31 Allergic rhinitis 72556171 J30.89 Health Concerns Section Related Observation LastModified by Organization Detai ls LastModified Time None Recorded Concern Status LastModified by Organization Details LastModified Time None Recorded Advance Directives Directive None Recorded Payers Insurance Date Sequence Insurance Name Policy Number Policy Figueroa Covered Member ID Figueroa Member ID Guarantor Name 06/04/2025 2 [facility] [id number] 1 Merly Villalobos [id number] Merly Villalobos 06/04/2025 1 MEDICARE B-[place]: [facility] Merly Villalobos [id number] Merly Villalobos Notes Date Note Type Note Provider Name and Address Organization Details Recorded Time 05/01/2024 text/html ROS as noted in the HPI 59 year old female with nasal congestion and frequent runny nose.She is here today to review results of her allergy skin testing.Despite use of azelastine, Flonase and an OTC antihistamine, she remains symptomatic. Being outdoors is particularly bothersome. She vacuums daily. EL CORONA MD [address] [facility],[address], [address], [place] - [facility] 05/01/2024 12:49:24 01/18/2025 text/html ROS as noted in the HPI 60 year old female presents for telehealth. She reports her rhinorrhea is improved with Ipratropium. She reports only mild nasal congestion. She did not end up starting SCIT due to the out of pocket cost of the epi pen. NAVNEET HAQ MD [address] [place] [address],[address], [phone], [facility] 01/21/2025 10:21:31 OBGyn Episode No OBEpisode recorded.
== END 2025-10-08 13:02 | disposition home or self-care (01) ==
LOC: HO.HBS 11:35
PROVIDERS: PCP Internal Medicine; Visit Provider Physician Assistant Surgical
DX: E66.3 Overweight (principal); Z68.27 Body mass index [BMI] 27.0-27.9, adult; L98.7 Excessive and redundant skin and subcutaneous tissue; Z90.3 Acquired absence of stomach [part of]; Z98.84 Bariatric surgery status
CPT/HCPCS: 99214; G2211

== ENCOUNTER → 2025-10-08 11:35 | Outpatient (BNVA) | payer MEDICARE, OTHER, SELFPAY | PROVIDERS: PCP Internal Medicine; Visit Provider Physician Assistant Surgical | DX: E66.3 Overweight (principal); L98.7 Excessive and redundant skin and subcutaneous tissue; R21 Rash and other nonspecific skin eruption; Z68.26 Body mass index [BMI] 26.0-26.9, adult; Z90.3 Acquired absence of stomach [part of] | CPT/HCPCS: 99212 ==